=== PATIENT | male | born 1960 | race Caucasian/White ===

== ENCOUNTER → 2020-07-06 08:59 | Outpatient (BNVA) | payer OTHER, SELFPAY | PROVIDERS: PCP Internal Medicine; Visit Provider Surgery | DX: K59.00 Constipation, unspecified (principal) | CPT/HCPCS: 99213 ==

== ENCOUNTER → 2020-07-06 14:51 | Outpatient (BNVA) | payer OTHER, SELFPAY | PROVIDERS: PCP Internal Medicine; Referring Provider Internal Medicine; Visit Provider Surgery | DX: Z86.010 Personal history of colon polyps (principal) | CPT/HCPCS: 99203 ==

== ENCOUNTER 2020-07-25 07:12 | Day surgery (SDC) | payer OTHER, SELFPAY ==
[2020-07-19 20:35] VITALS: BMI 37.4
--- NOTE | 2020-07-24 08:43 | P.CONAN_ITS ---
Documented by User: Mariam Jain 07/24/20 08:44 HPI - Anesthesia Eval Consult details Narrative: 60yo M for colonoscopy [facility] Past Medical History Medical History Arthritis Back pain Depression Diabetes mellitus GERD (gastroesophageal reflux disease) History of colonic polyps Hyperlipidemia Morbid obesity Seizure disorder Surgical History Surgical History History of colonoscopy History of excision of mass (~2015) Social History Social History Smoking Status: Never smoker Use of substances other than those prescribed or required for medical reasons: No Advance Directives: Yes Advance Directives Information Provided: No Advance Directives on File: No Advance Directives Date on File: 07/19/20 Meds Allergies Allergy/AdvReac Type Severity Reaction Status Date / Time No Known Allergies Allergy Verified 07/19/20 20:56 [No Known Allergies*] Home Medications Medication Instructions Recorded Confirmed Type aspirin 81 mg tablet,delayed 81 mg PO DAILY 07/06/20 07/19/20 History release blood sugar diagnostic #10 ea 07/06/20 07/19/20 History citalopram 20 mg tablet 20 mg PO DAILY 07/06/20 07/19/20 History insulin glargine 100 unit/mL (3 33 unit SUBCUT BEDTIME 07/06/20 07/19/20 History mL) subcutaneous pen lancets 28 gauge #100 ea 07/06/20 07/19/20 History levetiracetam 1,000 mg tablet 1,500 mg PO BID 07/06/20 07/19/20 History melatonin 3 mg tablet 6 mg PO BEDTIME PRN 07/06/20 07/19/20 History omeprazole 20 mg capsule,delayed 20 mg PO QAM 07/06/20 07/19/20 History release pen needle, diabetic 31 gauge x #50 ea 07/06/20 07/19/20 History 3/16 simvastatin 40 mg tablet 40 mg PO BEDTIME 07/06/20 07/19/20 History trazodone 150 mg tablet 150 mg PO BEDTIME PRN 07/06/20 07/19/20 History Exam Exam Date and Time: July 24, 2020 0843 Height,Weight and Vital Signs: Height 5 ft 5 in Weight 102.058 kg Pertinent Lab Results Pertinent Lab Results: Laboratory Tests 04/18/20 04/18/20 10:05 10:05 WBC 7.4 Hgb 12.8 L Hct 40.8 L Plt Count 207 Sodium 141 Potassium 4.6 Chloride 109 H BUN 19 H Creatinine 0.72 Assessment and Plan Assessment Anesthesia Assessment: Chart Reviewed Documented by User: Jennifer Koch 07/25/20 07:59 PMFSH Past Medical History Medical History Arthritis Back pain Depression Diabetes mellitus GERD (gastroesophageal reflux disease) History of colonic polyps Hyperlipidemia Morbid obesity Seizure disorder Surgical History Surgical History History of colonoscopy History of excision of mass (~2015) Social History Social History Smoking Status: Never smoker Use of substances other than those prescribed or required for medical reasons: No Advance Directives: Yes Advance Directives Information Provided: No Advance Directives on File: No Advance Directives Date on File: 07/19/20 Meds Allergies Allergy/AdvReac Type Severity Reaction Status Date / Time No Known Allergies Allergy Verified 07/19/20 20:56 [No Known Allergies*] Home Medications Medication Instructions Recorded Confirmed Type aspirin 81 mg tablet,delayed 81 mg PO DAILY 07/06/20 07/19/20 History release blood sugar diagnostic #10 ea 07/06/20 07/19/20 History citalopram 20 mg tablet 20 mg PO DAILY 07/06/20 07/19/20 History insulin glargine 100 unit/mL (3 33 unit SUBCUT BEDTIME 07/06/20 07/19/20 History mL) subcutaneous pen lancets 28 gauge #100 ea 07/06/20 07/19/20 History levetiracetam 1,000 mg tablet 1,500 mg PO BID 07/06/20 07/19/20 History melatonin 3 mg tablet 6 mg PO BEDTIME PRN 07/06/20 07/19/20 History omeprazole 20 mg capsule,delayed 20 mg PO QAM 07/06/20 07/19/20 History release pen needle, diabetic 31 gauge x #50 ea 07/06/20 07/19/20 History 3/16 simvastatin 40 mg tablet 40 mg PO BEDTIME 07/06/20 07/19/20 History trazodone 150 mg tablet 150 mg PO BEDTIME PRN 07/06/20 07/19/20 History
[2020-07-25 07:58] VITALS: BP 172/89; PULSE 89; RESP 18; TEMP 36.4; O2SAT 97
--- NOTE | 2020-07-25 08:00 | HO.ANESPROP2 ---
COUNT INCLUDES THE [facility] Past Medical History Medical History Arthritis Back pain Depression Diabetes mellitus GERD (gastroesophageal reflux disease) History of colonic polyps Hyperlipidemia Morbid obesity Seizure disorder Surgical History Surgical History History of colonoscopy History of excision of mass (~2016) Social History Social History Smoking Status: Never smoker Use of substances other than those prescribed or required for medical reasons: No Advance Directives: Yes Advance Directives Information Provided: No Advance Directives on File: No Advance Directives Date on File: 07/19/20 Meds Allergies Allergy/AdvReac Type Severity Reaction Status Date / Time No Known Allergies Allergy Verified 07/19/20 20:56 [No Known Allergies*] Home Medications Medication Instructions Recorded Confirmed Type aspirin 81 mg tablet,delayed 81 mg PO DAILY 07/06/20 07/19/20 History release blood sugar diagnostic #10 ea 07/06/20 07/19/20 History citalopram 20 mg tablet 20 mg PO DAILY 07/06/20 07/19/20 History insulin glargine 100 unit/mL (3 33 unit SUBCUT BEDTIME 07/06/20 07/19/20 History mL) subcutaneous pen lancets 28 gauge #100 ea 07/06/20 07/19/20 History levetiracetam 1,000 mg tablet 1,500 mg PO BID 07/06/20 07/19/20 History melatonin 3 mg tablet 6 mg PO BEDTIME PRN 07/06/20 07/19/20 History omeprazole 20 mg capsule,delayed 20 mg PO QAM 07/06/20 07/19/20 History release pen needle, diabetic 31 gauge x #50 ea 07/06/20 07/19/20 History 3/16 simvastatin 40 mg tablet 40 mg PO BEDTIME 07/06/20 07/19/20 History trazodone 150 mg tablet 150 mg PO BEDTIME PRN 07/06/20 07/19/20 History Exam Exam Date and Time: July 25, 2020 0800 Height,Weight and Vital Signs: Height 5 ft 5 in Weight 102.058 kg Airway Mallampati Class: II TM Dist: >3cm Neck ROM: Full Assessment and Plan Assessment Anesthesia Assessment: Anesthesia Plan Discussed and Chart Reviewed Final Anesthetic Review NPO: Yes ASA Class: III Final Preanesthetic Review: No Changes in Pt Med Stat, Meds/Allgs Chart Reviewed, Consent Obtained/Reviewed and Anes Risks/Benef Reviewed Patient Risk: Intermediate Procedure Risk: Low Assessment/Block/Sedation in SS: Assess/Block/Sedation-SS Anesthetic Plan Anesthetic Plan: MAC: Disposition: Standard PACU
[2020-07-25] MEDS: Lactated Ringers 1,000 ML 100 ML IVCONT (08:08)
--- NOTE | 2020-07-25 08:13 | MHC.SHP ---
Pre-Procedural Eval Section B Chief Complaint: Hx of Colonic Polyps Allergies: Allergies Allergy/AdvReac Type Severity Reaction Status Date / Time No Known Allergies Allergy Verified 07/19/20 20:56 [No Known Allergies*] Plan Patient has been examined and remains a candidate for the planned procedure
[2020-07-25 08:14] LABS: Glucose, Whole Blood 126 mg/dL (60-115)
[2020-07-25 08:50] VITALS: BP 104/55; PULSE 89; RESP 16; TEMP 36.1; O2SAT 95
--- NOTE | 2020-07-25 08:50 | PM.OP ---
Brief Operative Note Date of procedure: 07/25/20 Pre-op diagnosis: hx of adenoma, screening Post-op diagnosis: other (small polyp;;level 60 cm) Procedure: colonoscopy, polpectomy x1 with forceps, biopsy of right colon mucosa Surgeon: Joey Spencer MD Anesthesia: MAC Estimated blood loss (mL): 0 Pathology: other (biopsy of right colon; polyp) Condition: stable Disposition: PACU
[2020-07-25 08:55] VITALS: BP 127/73; PULSE 96; RESP 17; O2SAT 93
[2020-07-25 09:04] VITALS: BP 143/82; PULSE 83; RESP 17; O2SAT 95
--- NOTE | 2020-07-25 09:25 | HO.POSTANES ---
Post Anesthesia Evaluation Post Anesthesia Evaluation Vital Signs: Vital Signs Temp Pulse Resp BP Pulse Ox 07/25/20 09:04 97.0 F 83 17 143/82 H 95 07/25/20 08:55 96 17 127/73 93 07/25/20 08:50 97.0 F 89 16 104/55 L 95 07/25/20 07:58 97.6 F 89 18 172/89 H 97 Anesthesia: Monitored Mental Status: Awake Pain Control: Satisfactory Nausea/Vomiting: None Hydration: Adequate Anesthesia-Related Issues: No Anes. Related Issues
--- NOTE | 2020-07-25 12:02 | PC.NURSE ---
INTERPRETTOR USED FOR INSTRUCTIONS
--- NOTE | 2020-07-26 16:50 | OP_ITS ---
SURGEON: Joey Spencer MD INDICATIONS: The patient is a 60-year-old male, who previously had colonoscopy showing adenomas. He was recommended to have another colonoscopy within 5 years seen after 2015. He understood the technique of colonoscopy and he is aware of the risks, benefits, and alternatives. PREOPERATIVE DIAGNOSIS: Colon cancer screening with history of adenomas. POSTOPERATIVE DIAGNOSIS: 1. Mild cobblestoning of the right colon. 2. Small polyp about 5 mm at level 60 cm. PROCEDURE PERFORMED: Colonoscopy with biopsy of the colonic mucosa using cold forceps, and polypectomy using cold biopsy forceps x1. ESTIMATED BLOOD LOSS: COMPLICATIONS: ANESTHESIA: ASSISTANTS: SPECIMENS: DESCRIPTION OF PROCEDURE: He was brought to the operating room, placed in left lateral decubitus position under monitored anesthesia care. A full digital rectal exam was done. There were no palpable anal canal lesions. The tip of the Olympus colonoscope was introduced gently through the anal orifice and advanced with insufflation all the way to the cecum. The cecum was intubated. The cecum identified by visualization of the cecal valve as well as appendiceal orifice. The cecal mucosa was unremarkable. The scope was gradually withdrawn with careful examination of the entire colonic mucosa being done with scope withdrawal. The patient had some thin watered stools periodically in some segments, so we had to copiously irrigate and suction out. It was unlikely that any lesion might have been missed, however. There was note of some mild cobblestoning of the right colon which was diffuse and noncontiguous. Random biopsies of this mucosa were therefore done and was sent as specimen. The patient did not have any symptoms of inflammatory bowel disease. We continued to withdraw the scope with careful examination. At the level of about 60 cm, there was note of a small polyp relatively flat about 5 mm and it was removed using multiple bites of cold forceps. The rest of the distal colon and rectum were unremarkable. The anal canal was unremarkable. The scope was then withdrawn completely with de-sufflation. The patient tolerated the procedure well. There were no complications noted. Depending on the path report, I will probably recommend another colonoscopy in 5 years. MD MAGDA Ndiaye/TIERRA / [id number]
--- NOTE | 2020-07-26 21:15 | OP_ITS ---
SURGEON: Joey Spencer MD INDICATIONS: The patient is a 60-year-old male with history of tubular adenoma. It was recommended for him to have another colonoscopy in 5 years from his last one, so was sent to me. He understood technique of colonoscopy. He is aware of the risks, benefits, and alternatives. PREOPERATIVE DIAGNOSIS: History of adenoma, for colon cancer screening. POSTOPERATIVE DIAGNOSIS: 1. Some abnormal mucosa of the right colon. 2. Small polyp about 5 mm at the level 60 cm. PROCEDURE PERFORMED: Colonoscopy with biopsy of the right colon using forceps and polypectomy x1 using cold forceps. ESTIMATED BLOOD LOSS: COMPLICATIONS: ANESTHESIA: ASSISTANTS: SPECIMENS: DESCRIPTION OF PROCEDURE: He was brought to the operating room, placed in left lateral decubitus position under monitored anesthesia care. A full digital rectal exam was done. There were no palpable anal canal lesions. The tip of the Olympus colonoscope was introduced gently into the anal orifice and advanced with insufflation to the cecum. The cecum was intubated. The cecum was identified by visualization of the ileocecal valve as well as the appendiceal orifice. The cecal mucosa was unremarkable. The scope was gradually withdrawn with careful examination of the entire colonic mucosa being done with scope withdrawal. The patient did have some segments of the colon with some thin watered stools, so we had to frequently irrigate and suction out the irrigant fluid. It was, however, unlikely that any large lesion may have been missed. There was note of some mild cobblestoning of the right colon, which was not contiguous. Random biopsies of the right colon on the cobblestoning mucosa were therefore done with cold forceps. It was noted that the patient does not have any history of inflammatory bowel disease. There was note of a small polyp about 2 to 3 mm at about level of 60 cm. This was removed using multiple bites of cold forceps. The rest of the distal colon and rectum were unremarkable. The anal canal was unremarkable. The scope was then withdrawn completely with de-sufflation. The patient tolerated the procedure well. There were no complications noted. Depending on the path report, I will probably recommend another colonoscopy in the next 5 years. MD MAGDA Ndiaye/MODL / [id number]
== END 2020-07-25 10:00 | disposition home or self-care (01) ==
PROVIDERS: PCP Internal Medicine; Visit Provider Surgery
PROC: 0DJD8ZZ Inspection of Lower Intestinal Tract, Via Natural or Artificial Opening Endoscopic (ICD-10-PCS; CPT 45378; principal; 2020-07-25 08:30)
DX: Z12.11 Encounter for screening for malignant neoplasm of colon (principal); Z86.010 Personal history of colon polyps; D12.4 Benign neoplasm of descending colon; K63.89 Other specified diseases of intestine; K21.9 Gastro-esophageal reflux disease without esophagitis; G40.909 Epilepsy, unspecified, not intractable, without status epilepticus; E11.9 Type 2 diabetes mellitus without complications; Z79.82 Long term (current) use of aspirin; Z79.4 Long term (current) use of insulin; Z79.899 Other long term (current) drug therapy
CPT/HCPCS: 45380; 82947; 88305; J2405; J3010

== ENCOUNTER → 2020-08-07 08:59 | Outpatient (BNVA) | payer OTHER, SELFPAY | PROVIDERS: PCP Internal Medicine; Referring Provider Internal Medicine; Visit Provider Surgery | DX: D12.6 Benign neoplasm of colon, unspecified (principal); Z98.890 Other specified postprocedural states | CPT/HCPCS: 99212 ==

== ENCOUNTER 2020-08-08 09:32 | Outpatient (REF) | payer OTHER, SELFPAY ==
[2020-08-08 10:39] LABS: MANUAL DIFF FLAG NO
[2020-08-08 10:49] LABS: Basophils Percent Auto 0.3 % (0-2); Eosinophils Absolute Auto 0.1 X10*3/uL (0.0-0.4); Eosinophils Percent Auto 2.1 % (0-4); Hematocrit 41.3 % (42-52); Hemoglobin 12.7 g/dl (14.0-18.0); Imm Gran Abs Auto 0.05 X10*3/uL (0.00-0.03); Imm Gran Pct Auto 0.8 % (0.0-0.4); Lymphocytes Absolute Auto 1.5 X10*3/uL (1.2-4.9); Lymphocytes Percent Auto 23.5 % (20-40); Mean Corpuscular HGB Conc 30.8 g/dl (31.0-36.0); Mean Corpuscular Hemoglobin 26.3 pg (27.0-33.0); Mean Corpuscular Volume 85.7 fL (80-98); Mean Platelet Volume 10.5 fL (9.4-12.4); Monocytes Absolute Auto 0.5 X10*3/uL (0.1-1.2); Monocytes Percent Auto 8.4 % (2-11); Neutrophils Percent Auto 64.9 % (45-73); Platelet Count 202 X10*3/uL (160-400); Red Blood Count 4.82 X10*6/uL (4.60-5.80); Red Cell Distribution Width 13.6 % (11.0-16.0); White Blood Count 6.2 X10*3/uL (4.8-10.8)
[2020-08-08 10:54] LABS: Glucose Urine UA NEG (NEG); Leukocyte Esterase Urine NEG (NEG); Nitrite Urine NEG (NEG); Urine Blood NEG (NEG); Urine Ketones NEG (NEG); Urine Protein NEG (NEG-TRACE)
[2020-08-08 10:57] LABS: Appearance Urine CLEAR; Color Urine YELLOW
[2020-08-08 11:04] LABS: Estimated Average Glucose 123 mg/dL; Hemoglobin A1c % 5.9 %
[2020-08-08 11:10] LABS: Alanine Aminotransferase 14 U/L (0-40); Albumin Level 4.4 g/dL (3.5-5.0); Alkaline Phosphatase 84 U/L (39-117); Anion Gap 13 (12-20); Aspartate Amino Transferase 14 U/L (5-37); Bilirubin Total 0.5 mg/dL (0.0-1.0); Blood Urea Nitrogen 19 mg/dL (9-16); Calcium 9.3 mg/dL (8.4-10.2); Carbon Dioxide 27 mmol/L (22-29); Chloride 107 mmol/L (96-108); Cholesterol 130 mg/dL; Estimated Glomerular Filt Rate > 60; Glucose Fasting 114 mg/dL (60-99); HDL Cholesterol 50 mg/dL; LDL Cholesterol Calculated 60 mg/dl; Potassium 4.5 mmol/l (3.3-5.1); Sodium 142 mmol/L (135-145); Triglycerides 100 mg/dL
[2020-08-08 11:26] LABS: Amorphous Sediment Urine 1+ /LPF; RBC Urine 0 /HPF (0); WBC Urine 0 /HPF (0-4)
[2020-08-08 11:30] LABS: TSH reflex Free T4 1.66 mIU/mL (0.32-4.0)
[2020-08-08 11:45] LABS: Folate 5.7 ng/mL (> or = 4.0); Vitamin B12 909 pg/mL (200-900)
[2020-08-08 11:50] LABS: Creatinine Urine 73.38 mg/dL; Microalbumin Urine < 5.0 mg/L
[2020-08-12 11:56] LABS: Levetiracetam Keppra 17.4 mcg/mL (12.0-46.0)
== END 2020-08-08 09:33 | disposition home or self-care (01) ==
LOC: HO.LAB 09:32
PROVIDERS: PCP Internal Medicine; Visit Provider Internal Medicine
DX: Z00.00 Encounter for general adult medical examination without abnormal findings (principal); E11.9 Type 2 diabetes mellitus without complications; E78.00 Pure hypercholesterolemia, unspecified; E53.8 Deficiency of other specified B group vitamins; Q85.00 Neurofibromatosis, unspecified; K21.9 Gastro-esophageal reflux disease without esophagitis; G40.909 Epilepsy, unspecified, not intractable, without status epilepticus; E66.9 Obesity, unspecified
CPT/HCPCS: 36415; 80053; 80061; 80177; 81001; 82043; 82607; 82746; 83036; 84443; 85025

== ENCOUNTER 2020-08-12 11:47 | Emergency (ER) | payer OTHER, SELFPAY ==
--- NOTE | 2020-08-12 11:57 | ECG_ITS ---
Test Reason : SOB Blood Pressure : / mmHG Vent. Rate : 080 BPM Atrial Rate : 080 BPM P-R Int : 168 ms QRS Dur : 086 ms QT Int : 372 ms P-R-T Axes : 032 -41 022 degrees QTc Int : 429 ms Normal sinus rhythm Left axis deviation Abnormal ECG When compared with ECG of 16-DEC-2019 19:09, T wave amplitude has decreased in Anterior leads Referred By: Generic ED Physician Electronically Signed By:JUANI ACOSTA MD
[2020-08-12 12:15] VITALS: BP 153/64; PULSE 78; RESP 17; TEMP 36.6; O2SAT 96; BMI 38.6
[2020-08-12 12:40] VITALS: BP 129/65; PULSE 75; RESP 17; TEMP 36.9
--- NOTE | 2020-08-12 12:48 | XR_ITS ---
EXAMINATION: XR CHEST CLINICAL INFORMATION: Chest pain COMPARISON: Previous chest x-ray November 2019 TECHNIQUE: Frontal view of the chest was obtained. FINDINGS: No significant abnormality is noted involving the heart, lungs, mediastinum, bony thorax or soft tissues. XR/XR chest 1V IMPRESSION: Unremarkable examination.
--- NOTE | 2020-08-12 12:55 | ED_ITS ---
HPI - Chest Pain General Chief Complaint: Chest Pain Stated Complaint: Chest Pain Time Seen by Provider: 08/12/20 12:48 Source: patient Mode of arrival: ambulatory Limitations: no limitations History of Present Illness HPI narrative: THIS IS A [age] YEARS OLD MALE PRESENTED AMBULATORY TO THE EMERGENCY DEPARTMENT COMPLAINING OF PALPITATION AND CHEST DISCOMFORT FOR ABOUT A WEEK. PAIN IS NOT EXERTIONAL THERE IS NO DIAPHORESIS AND NO SHORTNESS OF BREATH ASSOCIATED. HE HAS HISTORY OF HYPERTENSION AND DIABETES HE IS NONSMOKER MD complaint: other Onset (ago): week(s) (ONE WEEK AGO) Timing of current episode: episodic Onset: during rest Quality: aching Relieving factors: nothing Risk Factors Coronary artery disease risk factors: diabetes and hypertension Related Data Home Medications Medication Instructions Recorded Confirmed aspirin 81 mg tablet,delayed 81 mg PO DAILY 07/06/20 07/19/20 release blood sugar diagnostic #10 ea 07/06/20 07/19/20 citalopram 20 mg tablet 20 mg PO DAILY 07/06/20 07/19/20 insulin glargine 100 unit/mL (3 33 unit SUBCUT BEDTIME 07/06/20 07/19/20 mL) subcutaneous pen lancets 28 gauge #100 ea 07/06/20 07/19/20 levetiracetam 1,000 mg tablet 1,500 mg PO BID 07/06/20 07/19/20 melatonin 3 mg tablet 6 mg PO BEDTIME PRN 07/06/20 07/19/20 omeprazole 20 mg capsule,delayed 20 mg PO QAM 07/06/20 07/19/20 release pen needle, diabetic 31 gauge x #50 ea 07/06/20 07/19/20 3/16 simvastatin 40 mg tablet 40 mg PO BEDTIME 07/06/20 07/19/20 trazodone 150 mg tablet 150 mg PO BEDTIME PRN 07/06/20 07/19/20 Previous Rx's Medication Instructions Recorded metformin 500 mg tablet 1,000 mg PO BID 30 Days #120 tab 06/30/20 sodium,potassium,mag sulfates 17.5 See Rx Instructions PO .COMPLEX 07/06/20 gram-3.13 gram-1.6 gram oral soln #354 ml sodium,potassium,mag sulfates 17.5 See Rx Instructions PO .COMPLEX 07/18/20 gram-3.13 gram-1.6 gram oral soln #354 ml Allergies Allergy/AdvReac Type Severity Reaction Status Date / Time No Known Allergies Allergy Verified 08/07/20 09:10 [No Known Allergies*] Review of Systems Review of Systems: Yes all other systems are reviewed and are negative Cardiovascular: Cardiovascular: Reports other (PALPITATIONS) Respiratory: Respiratory: Reports no additional respiratory complaints, Denies cough, Denies hemoptysis, Denies excessive phlegm production, Denies pain on inspiration and Denies pain with cough Neurologic: Reports system reviewed and no additional complaints, except as documented PMFSH Past Medical History Medical History Arthritis Back pain Depression Diabetes 1.5, managed as type 1 Diabetes mellitus GERD (gastroesophageal reflux disease) History of colonic polyps Hyperlipidemia Morbid obesity Seizure disorder Tubular adenoma Surgical History History of colonoscopy History of excision of mass (~2015) Social History Social History Alcohol intake: never Smoking Status: Never smoker Smoked in Last 30 Days: No Use of substances other than those prescribed or required for medical reasons: No Advance Directives: Yes Advance Directives on File: Yes Advance Directives Date on File: 07/19/20 Physical Exam Vital Signs: Vital Signs: Last Vital Signs Temp 97.9 F 08/12/20 16:00 Pulse 68 08/12/20 16:00 Resp 14 08/12/20 16:00 BP 141/62 H 08/12/20 16:00 Pulse Ox 96 08/12/20 16:00 Body Mass Index 38.6 Const: Other: PATIENT APPEAR WELL IS NOT IN DISTRESS HIS VITAL SIGNS ARE STABLE HENMT: Head: Yes normal to inspection Face and sinus: Yes normal facial exam Neck: Neck: Yes normal visual inspection, Yes full ROM, Yes no lymphadenopathy, Yes no meningeal signs and Yes trachea midline Chest: Chest palpation & inspection: normal inspection of the chest Resp: Effort & Inspection: normal respiratory effort and able to speak in complete sentences Cardio: Jugular venous distension: no JVD Palpation: normal PMI Rate: regular rate Rhythm: regular rhythm GI: Inspection: Yes normal to inspection Skin: Lesions: no lesions Rashes: no rashes Neuro: General: no meningeal signs Course Course Course Narrative: PATIENT REMAINS STABLE HIS INITIAL TROPONIN IS NEGATIVE ; HIS SYMPTOMS HAVE BEEN GOING ON FOR A WEEK, I THINK IT IS REASONABLE TO REPEAT ANOTHER TROPONIN AT 03:00 HOURS AND IF NEGATIVE WE COULD DISCHARGE THE PATIENT HOME WITH FOLLOW-UP WITH PCP Reevaluation(s) Reevaluation #1: PATIENT REMAIN ASYMPTOMATIC AT THIS TIME WE ARE WAITING FOR THE REPEAT TROPONIN Time: 16:40 [facility] - Chest Pain Lab Data Result diagrams: 08/12/20 12:53 08/12/20 12:53 Labs: Lab Results 08/12/20 08/12/20 08/12/20 Range/Units 12:53 12:53 12:53 WBC 6.9 (4.8-10.8) X10*3/uL RBC 4.65 (4.60-5.80) X10*6/uL Hgb 12.5 L (14.0-18.0) g/dl Hct 39.2 L (42-52) % MCV 84.3 (80-98) fL MCH 26.9 L (27.0-33.0) pg MCHC 31.9 (31.0-36.0) g/dl RDW 13.4 (11.0-16.0) % Plt Count 194 (160-400) X10*3/uL MPV 10.6 (9.4-12.4) fL Immature Gran % (Auto) 0.4 (0.0-0.4) % Neut % (Auto) 69.1 (45-73) % Lymph % (Auto) 21.9 (20-40) % [place] % (Auto) 6.6 (2-11) % Eos % (Auto) 1.6 (0-4) % Baso % (Auto) 0.4 (0-2) % Lymph # (Auto) 1.5 (1.2-4.9) X10*3/uL [place] # (Auto) 0.5 (0.1-1.2) X10*3/uL Eos # (Auto) 0.1 (0.0-0.4) X10*3/uL Baso # (Auto) 0.0 (0.0-0.2) X10*3/uL Abs Immat Gran (auto) 0.03 (0.00-0.03) X10*3/uL Absolute Neuts (auto) 4.7 (2.0-8.3) X10*3/uL Absolute Nucleated RBC 0.000 (0.0-0.012) X10*3/uL Nucleated RBC % (auto) 0.0 (0.0-0.2) /100WBC PT (10.8-13.0) SEC INR (0.9-1.1) Sodium 138 (135-145) mmol/L Potassium 4.0 (3.3-5.1) mmol/l Chloride 105 (96-108) mmol/L Carbon Dioxide 25 (22-29) mmol/L Anion Gap 12 (12-20) BUN 20 H (9-16) mg/dL Creatinine 0.74 (0.5-1.4) mg/dL Estim Creat Clear Calc 117.4 Estimated GFR > 60 Random Glucose 93 (60-115) mg/dL Calcium 9.0 (8.4-10.2) mg/dL Total Bilirubin 0.5 (0.0-1.0) mg/dL AST 14 (5-37) U/L ALT 15 (0-40) U/L Alkaline Phosphatase 85 (39-117) U/L Troponin I High Sens < 3.5 (<3.5-35.0) ng/L Total Protein 7.0 (6.5-8.0) g/dL Albumin 4.3 (3.5-5.0) g/dL 08/12/20 08/12/20 Range/Units 13:46 15:56 WBC (4.8-10.8) X10*3/uL RBC (4.60-5.80) X10*6/uL Hgb (14.0-18.0) g/dl Hct (42-52) % MCV (80-98) fL MCH (27.0-33.0) pg MCHC (31.0-36.0) g/dl RDW (11.0-16.0) % Plt Count (160-400) X10*3/uL MPV (9.4-12.4) fL Immature Gran % (Auto) (0.0-0.4) % Neut % (Auto) (45-73) % Lymph % (Auto) (20-40) % [place] % (Auto) (2-11) % Eos % (Auto) (0-4) % Baso % (Auto) (0-2) % Lymph # (Auto) (1.2-4.9) X10*3/uL [place] # (Auto) (0.1-1.2) X10*3/uL Eos # (Auto) (0.0-0.4) X10*3/uL Baso # (Auto) (0.0-0.2) X10*3/uL Abs Immat Gran (auto) (0.00-0.03) X10*3/uL Absolute Neuts (auto) (2.0-8.3) X10*3/uL Absolute Nucleated RBC (0.0-0.012) X10*3/uL Nucleated RBC % (auto) (0.0-0.2) /100WBC PT 12.4 (10.8-13.0) SEC INR 1.0 (0.9-1.1) Sodium (135-145) mmol/L Potassium (3.3-5.1) mmol/l Chloride (96-108) mmol/L Carbon Dioxide (22-29) mmol/L Anion Gap (12-20) BUN (9-16) mg/dL Creatinine (0.5-1.4) mg/dL Estim Creat Clear Calc Estimated GFR Random Glucose (60-115) mg/dL Calcium (8.4-10.2) mg/dL Total Bilirubin (0.0-1.0) mg/dL AST (5-37) U/L ALT (0-40) U/L Alkaline Phosphatase (39-117) U/L Troponin I High Sens < 3.5 (<3.5-35.0) ng/L Total Protein (6.5-8.0) g/dL Albumin (3.5-5.0) g/dL ECG Data ECG #1: Attestation: I personally reviewed and interpreted this ECG as follows: ECG interpretation date: 08/12/20 ECG interpretation time: 13:00 Pacemaker model: NORMAL SINUS RHYTHM ;RATE 80; NORMAL INTERVALS; ST-T SEGMENT ISOELECTRIC Discharge Plan Discharge Clinical Impression: Heart palpitations Patient Disposition: Home, Self-Care Instructions: Heart Palpitations (ED) Additional Instructions: PLEASE FOLLOW-UP WITH YOUR PRIMARY CARE PHYSICIAN RETURN IF WORSE, IF YOU BREAK- UP IN HIS SWEATH, ANY CONCERN Prescriptions: No Action metformin 500 mg tablet 1,000 mg PO BID 30 Days Qty: 120 RF: 3 Suprep Bowel Prep Kit 17.5-3.13-1.6 gram recon soln See Rx Instructions PO .COMPLEX Qty: 354 RF: 0 melatonin 3 mg tablet 6 mg PO BEDTIME PRN (Reason: insomnia) RF: 0 trazodone 150 mg tablet 150 mg PO BEDTIME PRN (Reason: Insomnia) RF: 0 citalopram 20 mg tablet 20 mg PO DAILY RF: 0 omeprazole 20 mg capsule,delayed release(DR/EC) 20 mg PO QAM RF: 0 simvastatin 40 mg tablet 40 mg PO BEDTIME RF: 0 Lantus Solostar U-100 Insulin 100 unit/mL (3 mL) insulin pen 33 unit subcut BEDTIME RF: 0 aspirin 81 mg tablet,delayed release (DR/EC) 81 mg PO DAILY RF: 0 (DME) lancets 28 gauge misc See Rx Instructions ea topical DIRECTED Qty: 100 RF: 0 (DME) FreeStyle Lite Strips Strip See Rx Instructions ea Not Applicable DAILY Qty: 10 RF: 0 (DME) pen needle, diabetic 31 gauge x 3/16 needle See Rx Instructions ea subcut .MEDSUPPLY Qty: 50 RF: 0 levetiracetam [Keppra] 1,000 mg tablet 1,500 mg PO BID RF: 0 Suprep Bowel Prep Kit 17.5-3.13-1.6 gram recon soln See Rx Instructions PO .COMPLEX Qty: 354 RF: 0 Referrals: Xavi Mart MD [Primary Care Provider] - 2 days Interventions: ED Discharge Assessment Last Done: 08/12/20 16:51 Discharge Date/Time: 08/12/20 16:53
[2020-08-12 12:59] LABS: MANUAL DIFF FLAG NO
[2020-08-12 13:04] LABS: Basophils Percent Auto 0.4 % (0-2); Eosinophils Absolute Auto 0.1 X10*3/uL (0.0-0.4); Eosinophils Percent Auto 1.6 % (0-4); Hematocrit 39.2 % (42-52); Hemoglobin 12.5 g/dl (14.0-18.0); Imm Gran Abs Auto 0.03 X10*3/uL (0.00-0.03); Imm Gran Pct Auto 0.4 % (0.0-0.4); Lymphocytes Absolute Auto 1.5 X10*3/uL (1.2-4.9); Lymphocytes Percent Auto 21.9 % (20-40); Mean Corpuscular HGB Conc 31.9 g/dl (31.0-36.0); Mean Corpuscular Hemoglobin 26.9 pg (27.0-33.0); Mean Corpuscular Volume 84.3 fL (80-98); Mean Platelet Volume 10.6 fL (9.4-12.4); Monocytes Absolute Auto 0.5 X10*3/uL (0.1-1.2); Monocytes Percent Auto 6.6 % (2-11); Neutrophils Absolute Auto 4.7 X10*3/uL (2.0-8.3); Neutrophils Percent Auto 69.1 % (45-73); Platelet Count 194 X10*3/uL (160-400); Red Blood Count 4.65 X10*6/uL (4.60-5.80); Red Cell Distribution Width 13.4 % (11.0-16.0); White Blood Count 6.9 X10*3/uL (4.8-10.8)
[2020-08-12 13:24] LABS: Alanine Aminotransferase 15 U/L (0-40); Albumin Level 4.3 g/dL (3.5-5.0); Alkaline Phosphatase 85 U/L (39-117); Anion Gap 12 (12-20); Aspartate Amino Transferase 14 U/L (5-37); Bilirubin Total 0.5 mg/dL (0.0-1.0); Blood Urea Nitrogen 20 mg/dL (9-16); Carbon Dioxide 25 mmol/L (22-29); Chloride 105 mmol/L (96-108); Creatinine Clr Calc Pharmacy 117.4; Estimated Glomerular Filt Rate > 60; Glucose Random 93 mg/dL (60-115); Sodium 138 mmol/L (135-145)
[2020-08-12 13:46] LABS: Troponin-I High Sensitivity < 3.5 ng/L (<3.5-35.0)
[2020-08-12 13:56] LABS: Prothrombin Time 12.4 SEC (10.8-13.0)
[2020-08-12 14:17] VITALS: BP 153/67; PULSE 69; RESP 18; O2SAT 99
[2020-08-12 15:07] VITALS: BP 148/62; PULSE 72; RESP 16; TEMP 36.9; O2SAT 98
[2020-08-12 16:00] VITALS: BP 141/62; PULSE 68; RESP 14; TEMP 36.6; O2SAT 96
[2020-08-12 16:38] LABS: Troponin-I High Sensitivity < 3.5 ng/L (<3.5-35.0)
== END 2020-08-12 16:53 | disposition home or self-care (01) ==
PROVIDERS: Emergency Provider Emergency Medicine; PCP Internal Medicine
DX: R07.9 Chest pain, unspecified (principal); Z79.899 Other long term (current) drug therapy
CPT/HCPCS: 36415; 71045; 80053; 84484; 85025; 85610; 93005; 99283; 99284

== ENCOUNTER → 2020-11-27 08:55 | Outpatient (BNV) | payer OTHER, SELFPAY | PROVIDERS: Visit Provider Internal Medicine | DX: D64.9 Anemia, unspecified (principal) | CPT/HCPCS: 99213; G2211 ==

== ENCOUNTER 2020-11-27 09:56 | Outpatient (REF) | payer OTHER, SELFPAY ==
[2020-11-27 10:40] LABS: MANUAL DIFF FLAG NO
[2020-11-27 10:45] LABS: Glucose Urine UA NEG (NEG); Leukocyte Esterase Urine NEG (NEG); Nitrite Urine NEG (NEG); PH 5.5 (5.0-8.0); Specific Gravity - Urine 1.025 (1.005-1.025); Urine Blood NEG (NEG); Urine Ketones NEG (NEG); Urine Protein NEG (NEG-TRACE)
[2020-11-27 10:49] LABS: Appearance Urine CLEAR; Color Urine YELLOW
[2020-11-27 10:57] LABS: Basophils Percent Auto 0.3 % (0-2); Eosinophils Absolute Auto 0.1 X10*3/uL (0.0-0.4); Eosinophils Percent Auto 1.5 % (0-4); Hemoglobin 12.3 g/dl (14.0-18.0); Imm Gran Abs Auto 0.15 X10*3/uL (0.00-0.03); Imm Gran Pct Auto 1.6 % (0.0-0.4); Lymphocytes Absolute Auto 1.5 X10*3/uL (1.2-4.9); Lymphocytes Percent Auto 16.1 % (20-40); Mean Corpuscular HGB Conc 32.4 g/dl (31.0-36.0); Mean Corpuscular Volume 83.3 fL (80-98); Monocytes Absolute Auto 0.6 X10*3/uL (0.1-1.2); Monocytes Percent Auto 6.6 % (2-11); Neutrophils Percent Auto 73.9 % (45-73); Platelet Count 223 X10*3/uL (160-400); Red Blood Count 4.56 X10*6/uL (4.60-5.80); Red Cell Distribution Width 14.7 % (11.0-16.0); White Blood Count 9.4 X10*3/uL (4.8-10.8)
[2020-11-27 11:20] LABS: Creatinine Urine 169.16 mg/dL; Microalbum/Creatinine Ratio Ur 5.9 ug/mg cr
[2020-11-27 11:21] LABS: Estimated Average Glucose 137 mg/dL; Hemoglobin A1C 150.6513 umol/L; Hemoglobin A1c % 6.4 %
[2020-11-27 11:44] LABS: Cholesterol 135 mg/dL; HDL Cholesterol 48 mg/dL; LDL Cholesterol Calculated 62 mg/dl; Triglycerides 125 mg/dL
[2020-11-27 11:58] LABS: TSH reflex Free T4 2.01 uIU/mL (0.32-4.0)
[2020-11-27 12:15] LABS: Folate 5.7 ng/mL (> or = 4.0); Vitamin B12 775 pg/mL (200-900)
[2020-11-30 16:02] LABS: Levetiracetam Keppra 17.3 mcg/mL (12.0-46.0)
== END 2020-11-27 09:57 | disposition home or self-care (01) ==
LOC: HO.LAB 09:56
PROVIDERS: PCP Internal Medicine; Visit Provider Internal Medicine
DX: K21.9 Gastro-esophageal reflux disease without esophagitis (principal); E53.8 Deficiency of other specified B group vitamins; Q85.00 Neurofibromatosis, unspecified; D64.9 Anemia, unspecified; G40.909 Epilepsy, unspecified, not intractable, without status epilepticus; E78.00 Pure hypercholesterolemia, unspecified; E66.9 Obesity, unspecified; E11.9 Type 2 diabetes mellitus without complications; Z79.4 Long term (current) use of insulin
CPT/HCPCS: 36415; 80061; 80177; 81003; 82043; 82607; 82746; 83036; 84443; 85025

== ENCOUNTER → 2021-01-05 09:10 | Outpatient (REF) | payer OTHER, SELFPAY ==
--- NOTE | ~2021-01-05 | NM_ITS ---
Lexiscan Myocardial perfusion study Indication: Chest pain, assess for coronary disease and ischemia Technique: The patient was brought in for a Lexiscan perfusion study on 01/05/2021 and was injected 0.4 mg of Lexiscan intravenously. Within a minute of this injection 40 mCi of sestamibi was given intravenously. Images were obtained using the SPECT gamma camera interlaced with the gating device. Images were obtained in supine position. Resting perfusion study was performed on 01/09/2021. Patient was administered 40 mCi of sestamibi intravenously at rest. Images were then obtained in supine position. Total DLP 94mGy-cm. Images were processed with the software and compared side to side in short axis, horizontal long axis and vertical long axis views. Findings: Raw acquisition was reviewed. The stress perfusion study showed no significant perfusion abnormality. With CT attenuation correction, there is worse uptake in the distal part of anterior wall, apex and adjacent inferior wall that could be just artifactual. The gated study shows normal LV systolic function with calculated LVEF of > 70%. LV cavity is normal in size. The gated study shows normal wall thickening and contraction of segments. Resting study shows no significant perfusion abnormality. Gating at rest reveals normal wall motion with ejection fraction at > 70%. The findings are consistent with no definitive reversible or fixed perfusion defects. NM/NM cardiolite stress test Impression: 1. Myocardial perfusion imaging study shows likely normal myocardial perfusion. No definitive evidence of any ischemia or infarction. 2. Gated LVEF is > 70% during stress and rest. 3. Transient ischemic dilatation not present. EKG component of the test reported separately.
--- NOTE | 2021-01-05 09:16 | CA_ITS ---
Acquisition Time: 2021-01-05 09:14:17 Total Exercise Time: 00:00:12 Test Indications: Chest Pain Medications: ASA CITALOPRAM KEPPRA INSULIN METFORMIN OMEPRAZOLE SIMVASTATIN TRAZADONE Protocol: GRANT Max HR: 250 BPM 154% of Pred: 162 BPM Max BP: 136/074 mmHG Max Work Load: 1.2 METS Pt unable to walk on the treadmil, able to walk only for 12 sec. Pt never walked on the treadmil before. Denies any anginal sx. Sx of dizziness reversed with Aminophyline 75 Mg IV. EKG without arrhythmias, non-diagnostic for ischemia. Nuclear images to follow. Normotensive response to test. Test stress Supervised by Lisa Cooney NP Referred By: Xavi Mart Overread By: Lisa Cooney NP
[2021-01-05 10:19] LABS: Glucose, Whole Blood 131 mg/dL (60-115)
== END ==
LOC: HO.CARD 09:10
PROVIDERS: Visit Provider Internal Medicine
DX: R07.9 Chest pain, unspecified (principal)
CPT/HCPCS: 78452; 82947; 93016; 93017; 93018; A9500; J0280; J2785

== ENCOUNTER → 2021-01-09 14:01 | Outpatient (BNVA) | payer OTHER, SELFPAY | PROVIDERS: PCP Internal Medicine; Visit Provider Internal Medicine | DX: R07.2 Precordial pain (principal); E11.8 Type 2 diabetes mellitus with unspecified complications; E78.5 Hyperlipidemia, unspecified; E66.01 Morbid (severe) obesity due to excess calories; R94.31 Abnormal electrocardiogram [ECG] [EKG] | CPT/HCPCS: 93005; 99202 ==

== ENCOUNTER → 2021-03-01 13:08 | Outpatient (REF) | payer OTHER, SELFPAY ==
--- NOTE | 2021-03-01 13:11 | CA_ITS ---
Transthoracic Echocardiogram Patient (Last, First, Middle): Wilfred Walker, Gender: Male Date of : 1960 Age: 61 Procedure Date: 03/01/2021 Procedure Type: Transthoracic Echocardiogram Location: OP Height: 165.1 cm Weight: 106.6 kg BSA: 2.12 m2 Heart Rate: bpm BP: 120 / 80 mmHg Assistant Front Office Manager: YR/BRAYDON Referring MD: Isaak Pederson MD Radio Interference Supervisor: Elvin Demarco MD Symptoms: R07.2 - Precordial pain Study Quality: Technically Difficult/contrast ECG Rhythm: Sinus Conclusions: - 1. Normal LV systolic function with mild LVH with impaired relaxation filling pattern with basal inferior inferoseptal wall motion abnormality 2. Normal cardiac valvular Doppler 3. Normal RV systolic pressure 4. No pericardial effusion Findings Procedure Information Contrast agent, definity, is being given per protocol without apparent complications. Left Ventricle Normal left ventricular size and systolic function. There is mildly increased left ventricular wall thickness. The visually estimated ejection fraction is between 55-60%. Spectral Doppler is indicative of an impaired relaxation filling pattern. E/E prime ratio is between 8 and 15 consistent with indeterminate filling pressures. Wall Motion Rest Echo Findings The basal inferior and basal inferoseptal segments are akinetic. All other scored wall segments showed normal motion. Right Ventricle Normal right ventricular cavity size and systolic function. Atria The left atrium is likely dilated. Interatrial shunt cannot be excluded. The right atrium is normal in size. Aortic Valve The aortic valve structure and function is likely normal. There is no aortic valve stenosis. There is no aortic valve regurgitation. Mitral Valve Likely normal mitral valve structure and function. There is trace mitral valve regurgitation. There is no mitral valve stenosis. Pulmonic Valve The pulmonic valve was not well visualized. Tricuspid Valve Likely normal tricuspid valve structure and function. There is trace tricuspid valve regurgitation. The right ventricular systolic pressure is normal. The right ventricular systolic pressure is 20 mmHg. Normal right atrial pressure. Great Vessels All visible segments of the aorta are normal in size. The pulmonary artery was not well visualized. Venous The inferior vena cava is normal in size and collapses greater than 50% with inspiration. Pericardium/Pleural There is no evidence of pericardial effusion. Prior Study Comparison Changes noted compared to prior study dated: 10/07/2017. Basal inferior and inferoseptal wall motion abnormality noted on this study Measurements 2D Linear Measurements IVSd: 1.21 0.6-0.9/0.6-1.0 cm LVIDd: 4.36 3.9-5.3/4.2-5.9 cm LVIDd Index: 2.06 2.4-3.2/2.2-3.1 cm/m2 LVIDs: 3.31 2.0-3.6 cm LVPWd: 1.29 0.7-1.1 cm Ao Root: 3.40 2.1-3.5 cm LA Diam: 3.60 2.7-3.8/3.0-4.0 cm LAIDs Index: 1.70 1.5-2.3 cm/m2 LV Mass: 249.54 67-162/88-224 g LV Mass Index: 117.71 43-95/49-115 g/m2 LVOT Diam: 2.20 3.0+(-)1.3 cm Mitral Valve MV Pk E: 0.76 MV PK A: 0.73 MV Decel Time: 236.00 E/A: 1.00 E'Lateral: 9.14 E'Medial: 7.07 E/E' Med: 10.70 E/E' Lat: 8.30 PHT: 69.00 MVA PHT: 3.19 Decel [place]: 3.21 Aortic Valve AoV Pk Niall: 1.16 AoV Mn Niall: 0.77 AoV VTI: 0.27 AoV Pk Grad: 5.00 Aov Mn Grad: 3.00 CAROLYN Cont.VTI: 2.61 LVOT LVOT Pk Niall: 0.70 LVOT Mn Niall: 0.47 LVOT VTI: 0.19 LVOT Pk Grad: 2.00 LVOT Mn Grad: 1.00 LVOT Diam: 2.20 LVOT Area: 3.80 Diastolic Function MV Pk E: 0.76 MV Pk A: 0.73 E/A: 1.00 E'Medial: 7.07 E/E' Med: 10.70 E' Laterial: 9.14 E/E' Lat: 8.30 Tricuspid Valve TR Pk Niall: 2.04 TR Pk Grad: 17.00 RA Press: 3.00 RVSP: 20.00 Great Vessels Aorta Ao Root-2D: 3.40 2.0-3.7 cm Ao Asc: 3.10 2.1-3.4 cm Ao Arch: 3.10 Updated in Other Vendor System with Status of Final Elvin Demarco MD electronically signed on 03/02/2021 8:30:37 AM with status of Final
== END ==
LOC: HO.CARD 13:08
PROVIDERS: Visit Provider Internal Medicine
DX: R07.2 Precordial pain (principal)
CPT/HCPCS: 93306; Q9957

== ENCOUNTER → 2021-06-13 14:39 | Outpatient (BNVA) | payer OTHER, SELFPAY | PROVIDERS: PCP Internal Medicine; Referring Provider Internal Medicine; Visit Provider Internal Medicine | DX: Q24.5 Malformation of coronary vessels (principal); R07.2 Precordial pain | CPT/HCPCS: 99212 ==

== ENCOUNTER 2021-07-24 09:05 | Outpatient (REF) | payer OTHER, SELFPAY ==
[2021-07-24 09:16] LABS: MANUAL DIFF FLAG NO
[2021-07-24 09:27] LABS: Basophils Absolute Auto 0.1 X10*3/uL (0.0-0.2); Eosinophils Absolute Auto 0.1 X10*3/uL (0.0-0.4); Eosinophils Percent Auto 1.9 % (0-4); Hematocrit 39.4 % (42.0-52.0); Hemoglobin 12.5 g/dl (14.0-18.0); Imm Gran Abs Auto 0.04 X10*3/uL (0.00-0.03); Imm Gran Pct Auto 0.5 % (0.0-0.4); Lymphocytes Absolute Auto 1.5 X10*3/uL (1.2-4.9); Lymphocytes Percent Auto 20.8 % (20-40); Mean Corpuscular HGB Conc 31.7 g/dl (31.0-36.0); Mean Corpuscular Hemoglobin 26.4 pg (27.0-33.0); Mean Corpuscular Volume 83.1 fL (80.0-98.0); Mean Platelet Volume 10.7 fL (9.4-12.4); Monocytes Absolute Auto 0.5 X10*3/uL (0.1-1.2); Neutrophils Absolute Auto 5.04 x10*3/uL (2.0-8.3); Neutrophils Percent Auto 68.8 % (45-73); Platelet Count 211 X10*3/uL (160-400); Red Blood Count 4.74 X10*6/uL (4.60-5.80); Red Cell Distribution Width 14.8 % (11.0-16.0); White Blood Count 7.3 X10*3/uL (4.8-10.8)
[2021-07-24 09:36] LABS: Estimated Average Glucose 128 mg/dL; Hemoglobin A1c % 6.1 %
[2021-07-24 09:53] LABS: Appearance Urine CLEAR; Color Urine YELLOW; Glucose Urine UA NEG (NEG); Leukocyte Esterase Urine NEG (NEG); Nitrite Urine NEG (NEG); PH 7.5 (5.0-8.0); Urine Blood NEG (NEG); Urine Ketones NEG (NEG); Urine Protein NEG (NEG-TRACE)
[2021-07-24 10:02] LABS: Alanine Aminotransferase 14 U/L (0-40); Albumin Level 4.3 g/dL (3.5-5.0); Alkaline Phosphatase 91 U/L (39-117); Anion Gap 12 (12-20); Aspartate Amino Transferase 14 U/L (5-37); Bilirubin Total 0.6 mg/dL (0.0-1.0); Blood Urea Nitrogen 12 mg/dL (9-16); Calcium 9.1 mg/dL (8.4-10.2); Carbon Dioxide 26 mmol/L (22-29); Chloride 108 mmol/L (96-108); Cholesterol 134 mg/dL; Estimated Glomerular Filt Rate > 60; Glucose Fasting 131 mg/dL (60-99); HDL Cholesterol 44 mg/dL; LDL Cholesterol Calculated 66 mg/dl; Potassium 3.9 mmol/L (3.3-5.1); Sodium 142 mmol/L (135-145); Total Protein 6.8 g/dL (6.5-8.0); Triglycerides 121 mg/dL
[2021-07-24 10:22] LABS: TSH reflex Free T4 2.38 uIU/mL (0.32-4.0)
[2021-07-24 10:28] LABS: Creatinine Urine 163.02 mg/dL
== END 2021-07-24 09:06 | disposition home or self-care (01) ==
LOC: HO.LAB 09:05
PROVIDERS: PCP Internal Medicine; Visit Provider Internal Medicine
DX: E53.8 Deficiency of other specified B group vitamins (principal); K21.9 Gastro-esophageal reflux disease without esophagitis; Q85.00 Neurofibromatosis, unspecified; E78.00 Pure hypercholesterolemia, unspecified; E11.9 Type 2 diabetes mellitus without complications; Z79.4 Long term (current) use of insulin; E66.9 Obesity, unspecified
CPT/HCPCS: 36415; 80053; 80061; 81003; 82043; 83036; 84443; 85025

== ENCOUNTER → 2021-10-04 10:47 | Outpatient (REF) | payer OTHER, SELFPAY ==
--- NOTE | 2021-10-04 10:50 | HM_ITS ---
Conclusion: 1. Patient was monitored for total period of 3 days and 1 hour 2. Baseline rhythm was normal sinus rhythm with average heart rate 92 beats per minute 3. No significant pauses or bradycardia noted 4. Total of 2853 PVCs noted accounting for 0.7% of total burden account for occasional PVCs 5. No patient reported symptoms MTDD
== END ==
LOC: HO.CARD 10:47
PROVIDERS: Visit Provider Internal Medicine
DX: Q24.5 Malformation of coronary vessels (principal)
CPT/HCPCS: 93242

== ENCOUNTER → 2021-10-08 10:30 | Outpatient (BNVA) | payer OTHER, SELFPAY | PROVIDERS: PCP Internal Medicine; Referring Provider Internal Medicine; Visit Provider Internal Medicine | DX: R07.2 Precordial pain (principal); Q24.5 Malformation of coronary vessels | CPT/HCPCS: 99212 ==

== ENCOUNTER 2021-11-20 08:30 | Outpatient (REF) | payer OTHER, SELFPAY ==
[2021-11-20 08:54] LABS: MANUAL DIFF FLAG NO
[2021-11-20 09:35] LABS: Basophils Percent Auto 0.6 % (0-2); Eosinophils Absolute Auto 0.2 X10*3/uL (0.0-0.4); Eosinophils Percent Auto 2.4 % (0-4); Hematocrit 38.8 % (42.0-52.0); Hemoglobin 11.9 g/dl (14.0-18.0); Imm Gran Abs Auto 0.04 X10*3/uL (0.00-0.03); Imm Gran Pct Auto 0.6 % (0.0-0.4); Lymphocytes Absolute Auto 1.6 X10*3/uL (1.2-4.9); Mean Corpuscular HGB Conc 30.7 g/dl (31.0-36.0); Mean Corpuscular Hemoglobin 25.9 pg (27.0-33.0); Mean Corpuscular Volume 84.5 fL (80.0-98.0); Mean Platelet Volume 10.7 fL (9.4-12.4); Monocytes Absolute Auto 0.4 X10*3/uL (0.1-1.2); Monocytes Percent Auto 5.7 % (2-11); Neutrophils Absolute Auto 4.5 x10*3/uL (2.0-8.3); Neutrophils Percent Auto 66.7 % (45-73); Platelet Count 226 X10*3/uL (160-400); Red Blood Count 4.59 X10*6/uL (4.60-5.80); Red Cell Distribution Width 14.3 % (11.0-16.0); White Blood Count 6.7 X10*3/uL (4.8-10.8)
[2021-11-20 09:53] LABS: Estimated Average Glucose 131 mg/dL; Hemoglobin A1c % 6.2 %
[2021-11-20 10:11] LABS: Alanine Aminotransferase 14 U/L (0-40); Alkaline Phosphatase 78 U/L (39-117); Anion Gap 12 (12-20); Aspartate Amino Transferase 15 U/L (5-37); Bilirubin Total 0.4 mg/dL (0.0-1.0); Blood Urea Nitrogen 16 mg/dL (9-16); Calcium 9.2 mg/dL (8.4-10.2); Carbon Dioxide 24 mmol/L (22-29); Chloride 110 mmol/L (96-108); Cholesterol 107 mg/dL; Estimated Glomerular Filt Rate > 60; Glucose Fasting 86 mg/dL (60-99); HDL Cholesterol 36 mg/dL; LDL Cholesterol Calculated 50 mg/dl; Potassium 4.1 mmol/L (3.3-5.1); Sodium 142 mmol/L (135-145); Total Protein 6.4 g/dL (6.5-8.0); Triglycerides 108 mg/dL
== END 2021-11-20 08:31 | disposition home or self-care (01) ==
LOC: HO.LAB 08:30
PROVIDERS: PCP Internal Medicine; Visit Provider Nurse Practitioner Acute Care
DX: E78.00 Pure hypercholesterolemia, unspecified (principal); E78.5 Hyperlipidemia, unspecified; E11.8 Type 2 diabetes mellitus with unspecified complications
CPT/HCPCS: 36415; 80053; 80061; 83036; 85025

== ENCOUNTER 2021-12-27 09:06 | Outpatient (REF) | payer OTHER, SELFPAY ==
--- NOTE | ~2021-12-27 | XR_ITS ---
EXAMINATION: XR LUMBOSACRAL SPINE CLINICAL INFORMATION: Sacrococcygeal disorder. COMPARISON: Radiographs dated 03/14/2014. TECHNIQUE: AP and lateral views of the lumbar spine and lateral view of the lumbosacral junction. FINDINGS: There is bony demineralization. There is a slight lumbar levoscoliosis. Vertebral body heights are normal. The lower thoracic and lumbar disc spaces are well-maintained. No acute fracture or spondylolisthesis is seen. This multi-level mild thoracolumbar spondylosis. The posterior elements are intact. The paravertebral soft tissues are unremarkable. XR/XR lumbar spine 2-3V IMPRESSION: 1. No acute fracture or spondylolisthesis is seen. 2. The lumbar disc spaces are well-maintained. 3. There is multi-level mild thoracolumbar spondylosis. 4. There is a minimal lumbar levoscoliosis.
--- NOTE | ~2021-12-27 | XR_ITS ---
EXAMINATION: XR BILATERAL HIPS WITH AP PELVIS CLINICAL INFORMATION: Right hip pain. COMPARISON: None TECHNIQUE: AP and frog-leg lateral views of each hip and an AP view of the pelvis. FINDINGS: The bones and soft tissues are normal. No fracture. Sacroiliac and hip joints are normal. Pubic symphysis is normal. No abnormal soft tissue calcifications. XR/XR hip RT w PEL1V IMPRESSION: Normal pelvis and hips.
== END 2021-12-27 09:07 | disposition home or self-care (01) ==
LOC: HO.XRAY 09:06
PROVIDERS: PCP Internal Medicine; Visit Provider Nurse Practitioner Family
DX: M51.36 Other intervertebral disc degeneration, lumbar region (principal); M53.3 Sacrococcygeal disorders, not elsewhere classified; M43.07 Spondylolysis, lumbosacral region; M25.551 Pain in right hip; E66.01 Morbid (severe) obesity due to excess calories
CPT/HCPCS: 72100; 73502; 99202

== ENCOUNTER 2022-03-01 08:55 | Outpatient (REF) | payer OTHER, SELFPAY ==
[2022-03-01 09:22] LABS: MANUAL DIFF FLAG NO
[2022-03-01 09:36] LABS: Basophils Percent Auto 0.6 % (0-2); Eosinophils Absolute Auto 0.2 X10*3/uL (0.0-0.4); Eosinophils Percent Auto 2.5 % (0-4); Hematocrit 37.8 % (42.0-52.0); Hemoglobin 11.9 g/dl (14.0-18.0); Imm Gran Abs Auto 0.04 X10*3/uL (0.00-0.03); Imm Gran Pct Auto 0.6 % (0.0-0.4); Lymphocytes Absolute Auto 1.3 X10*3/uL (1.2-4.9); Lymphocytes Percent Auto 19.6 % (20-40); Mean Corpuscular HGB Conc 31.5 g/dl (31.0-36.0); Mean Corpuscular Volume 82.7 fL (80.0-98.0); Mean Platelet Volume 10.4 fL (9.4-12.4); Monocytes Absolute Auto 0.6 X10*3/uL (0.1-1.2); Neutrophils Absolute Auto 4.6 x10*3/uL (2.0-8.3); Neutrophils Percent Auto 67.7 % (45-73); Platelet Count 240 X10*3/uL (160-400); Red Blood Count 4.57 X10*6/uL (4.60-5.80); Red Cell Distribution Width 14.4 % (11.0-16.0); White Blood Count 6.8 X10*3/uL (4.8-10.8)
[2022-03-01 09:42] LABS: Estimated Average Glucose 128 mg/dL; Hemoglobin A1c % 6.1 %
[2022-03-01 10:21] LABS: Alanine Aminotransferase 16 U/L (0-40); Albumin Level 4.2 g/dL (3.5-5.0); Alkaline Phosphatase 82 U/L (39-117); Anion Gap 13 (12-20); Aspartate Amino Transferase 15 U/L (5-37); Bilirubin Total 0.4 mg/dL (0.0-1.0); Blood Urea Nitrogen 17 mg/dL (9-16); Calcium 9.2 mg/dL (8.4-10.2); Carbon Dioxide 22 mmol/L (22-29); Chloride 108 mmol/L (96-108); Cholesterol 119 mg/dL; Estimated Glomerular Filt Rate > 60; Glucose Fasting 133 mg/dL (60-99); HDL Cholesterol 35 mg/dL; LDL Cholesterol Calculated 58 mg/dl; Potassium 4.1 mmol/L (3.3-5.1); Sodium 139 mmol/L (135-145); Triglycerides 132 mg/dL
[2022-03-01 10:43] LABS: TSH reflex Free T4 1.34 uIU/mL (0.32-4.0); Vitamin D 25-OH Total 28.6 ng/mL (>30)
[2022-03-01 11:45] LABS: Appearance Urine CLEAR; Color Urine YELLOW; Glucose Urine UA NEG (NEG); Leukocyte Esterase Urine NEG (NEG); Nitrite Urine NEG (NEG); PH 5.5 (5.0-8.0); Specific Gravity - Urine >= 1.030 (1.005-1.025); Urine Blood NEG (NEG); Urine Ketones NEG (NEG); Urine Protein NEG (NEG-TRACE)
[2022-03-01 12:25] LABS: Creatinine Urine 179.12 mg/dL; Microalbum/Creatinine Ratio Ur 3.9 ug/mg cr
== END 2022-03-01 08:56 | disposition home or self-care (01) ==
LOC: HO.LAB 08:55
PROVIDERS: PCP Internal Medicine; Visit Provider Internal Medicine
DX: E55.9 Vitamin D deficiency, unspecified (principal); I10 Essential (primary) hypertension; E78.00 Pure hypercholesterolemia, unspecified; E11.9 Type 2 diabetes mellitus without complications
CPT/HCPCS: 36415; 80053; 80061; 81003; 82043; 82306; 83036; 84443; 85025

== ENCOUNTER → 2022-03-05 11:06 | Outpatient (BNVA) | payer OTHER, SELFPAY | PROVIDERS: PCP Internal Medicine; Referring Provider Internal Medicine; Visit Provider Internal Medicine | DX: R07.2 Precordial pain (principal); Q24.5 Malformation of coronary vessels | CPT/HCPCS: 93005; 99212 ==

== ENCOUNTER 2022-03-12 08:56 | Emergency (ER) | payer OTHER, SELFPAY ==
--- NOTE | ~2022-03-12 | XR_ITS ---
EXAMINATION: XR CHEST CLINICAL INFORMATION: Cough, shortness of breath. COMPARISON: 08/12/2020 chest radiograph. TECHNIQUE: 2 views of the chest were obtained. FINDINGS: No significant abnormality is noted involving the heart, lungs, mediastinum, bony thorax or soft tissues. XR/XR chest 2V IMPRESSION: No acute cardiopulmonary process.
[2022-03-12 08:58] VITALS: BP 139/73; PULSE 97; RESP 18; TEMP 36.7; O2SAT 98; BMI 36.1
--- NOTE | 2022-03-12 09:41 | ED.HA ---
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 Patient tells me he had symptoms initially for 1-2 weeks then seemed to feel better but now over the last week his symptoms have returned. He denies any associated fever, leg swelling or leg pain or chest pain. He seeking Mucinex with continued symptoms. His cough is nonproductive. He tells me when he coughs he feels a headache. He also has right ear pain which she has had for 1 week with no reports of drainage, itching, hearing change. Related Data Home Medications Medication Instructions Recorded Confirmed pen needle, diabetic 31 gauge x #50 ea 07/06/20 03/05/2212/05 Previous Rx's Medication Instructions Recorded citalopram 20 mg tablet 20 mg PO DAILY #30 tabs 08/25/20 trazodone 150 mg tablet 150 mg PO BEDTIME PRN Insomnia #30 08/25/20 tabs blood sugar diagnostic (FreeStyle #100 ea 06/15/21 Lite Strips) blood-glucose meter (FreeStyle #1 ea 06/15/21 Lite Meter) metformin 500 mg tablet 1,000 mg PO BID #360 tabs 07/28/21 simvastatin 40 mg tablet 40 mg PO BEDTIME #30 tabs 09/28/21 levetiracetam 1,000 mg tablet 1,000 mg PO BID #60 tabs 10/18/21 levetiracetam 500 mg tablet 500 mg PO BID #180 tabs 11/19/21 melatonin 3 mg tablet 6 mg PO BEDTIME PRN insomnia 30 11/19/21 days #60 tabs diclofenac sodium 1 % topical gel 2 g topical QID #100 grams 11/30/21 lidocaine 5 % topical patch 1 patch topical DAILY PRN pain 30 12/27/21 days #30 ea omeprazole 20 mg capsule,delayed 20 mg PO QAM #30 caps 01/02/22 release aspirin 81 mg tablet,delayed 81 mg PO DAILY #30 tabs 01/15/22 release blood sugar diagnostic (FreeStyle #100 strips 01/28/22 Lite Strips) insulin glargine 100 unit/mL (3 33 unit (0.33 mL) subcut BEDTIME 01/28/22 mL) subcutaneous pen #15 mL lancets 28 gauge (FreeStyle 28 gauge topical BID #100 ea 01/28/22 Lancets) pen needle, diabetic 31 gauge x #100 ea 01/29/22 5/16 (BD Ultra-Fine Short Pen Needle) amoxicillin 875 mg-potassium 1 tab PO BID #14 tabs 03/12/22 clavulanate 125 mg tablet benzonatate 200 mg capsule 200 mg PO TID PRN cough #20 caps 03/12/22 Allergies Allergy/AdvReac Type Severity Reaction Status Date / Time No Known Allergies Allergy Verified 03/05/22 11:31 [No Known Allergies*] Review of Systems Review of Systems: Yes all other systems are reviewed and are negative Constitutional: Constitutional: Reports no additional constitutional complaints, Denies body ache(s), Denies chills, Denies fever(s), Reports headache(s) and Denies weakness Eyes: Eyes: Reports no additional eye complaints and Denies change in vision ENT: Reports system reviewed and no additional complaints, except as documented, Denies dizziness, Reports otalgia, Reports headache(s), Denies nasal congestion, Denies nasal discharge and Denies neck pain Cardiovascular: Cardiovascular: Reports no additional cardiovascular complaints, Denies chest pain, Denies leg edema and Reports dyspnea Respiratory: Respiratory: Reports no additional respiratory complaints, Reports cough and Reports dyspnea Gastrointestinal: Gastrointestinal: Reports no additional gastrointestinal complaints, Denies abdominal pain, Denies diarrhea, Denies nausea and Denies vomiting Genitourinary: Genitourinary: Denies urinary incontinence Musculoskeletal: Musculoskeletal: Reports no additional musculoskeletal complaints, Denies back pain, Denies arthralgias, Denies joint swelling, Denies neck pain, Denies numbness and Denies tingling Integumentary/Breasts: Skin/Breast: Reports system reviewed and no additional complaints, except as docu and Denies rash Neurologic: Reports system reviewed and no additional complaints, except as documented, Denies Abnormal speech present, Denies dizziness, Reports headache(s), Denies numbness, Denies tingling and Denies weakness [facility] Past Medical History Attestation statement: The following information was validated with the patient. Source: old records reviewed and nursing notes reviewed Medical History Arthritis Back pain Diabetes 1.5, managed as type 1 GERD (gastroesophageal reflux disease) Seizure disorder Surgical History History of colonoscopy History of excision of mass (~2015) Neurofibroma Family History Family History Father No problems noted. Mother No problems noted. Social History Social History Housing: House Housing Other:: rents a room Alcohol intake: former Patient Tobacco Use Status: Former Tobacco user Second Hand Smoke Exposure: Yes Advance Directives: No Advance Directives Information Provided: No Advance Directives Date on File: 07/19/20 service: No Current occupational status: disabled Cognitive needs: No Hearing needs: No Vision needs: No Physical Exam Vital Signs: Vital Signs: Last Vital Signs Temp 98.1 F 03/12/22 08:58 Pulse 97 03/12/22 08:58 Resp 18 03/12/22 08:58 BP 139/73 03/12/22 08:58 Pulse Ox 98 03/12/22 08:58 O2 Del Method 03/12/22 08:58 BMI result Body Mass Index 36.1 Const: General: cooperative, healthy appearing, comfortable and no acute distress Orientation/consciousness: patient oriented x3 Limitations: no limitations HEENT: Head: Yes normal to inspection Ears: hearing grossly normal bilaterally, mastoids normal, no periauricular adenopathy and TM abnormal bulging and erythematous General nose exam: Normal external nose present Face and sinus: Yes normal facial exam Mouth: Normal oral and palatal mucosa present Throat: Yes posterior oropharynx normal Eyes: General: appearance normal, both eyes and all related structures Pupils: Equal, round and reactive pupils present Neck: Neck: Yes normal visual inspection, Yes full ROM, Yes no lymphadenopathy and Yes no meningeal signs Chest: Chest palpation & inspection: normal inspection of the chest Resp: Effort & Inspection: normal respiratory effort Auscultation: clear to auscultation bilaterally Cardio: Rate: regular rate Rhythm: regular rhythm Peripheral pulses: Peripheral pulses 2+ throughout GI: Inspection: Yes normal to inspection Palpation (GI): Soft to palpation and nontender Auscultation: normal bowel sounds Back/Spine/Pelvis: Thoracic/Lumbar Spine: thoracic and lumbar spine normal to inspection Skin: General skin exam: no rashes or lesions noted Neuro: General: patient oriented x3, no meningeal signs, no focal motor deficits and normal sensation to monofilament Cranial nerves: Yes Equal, round and reactive pupils present Cognition (Neuro): normal cognition Speech: No Abnormal speech present Gait exam (Neuro): Normal gait present Motor exam (neuro): 5/5 motor strength present throughout Extrem: General: Yes normal to inspection, Yes no pedal edema and Yes no calf tenderness Course Course Course Narrative: Chest x-ray shows no acute finding. Labs are unremarkable. Flu and COVID testing are negative. Likely bronchitis due to persistent symptoms. Also patient has a right otitis media on exam. Will treat with course of antibiotics and cough suppressant p.r.n.. Vitals are stable. Lungs are clear. Reviewed worrisome signs and symptoms of when to return to the emergency department. Comfortable discharge home. MDM - Headache MDM Narrative Medical decision making narrative: 62-year-old male who is an insulin-dependent diabetic here with 1 month of cough, chest congestion, shortness of breath, headache and right ear pain. Will need labs, chest x-ray, COVID and flu testing Consider viral syndrome, pneumonia, CHF, otitis media, PE -less likely CHF with normal BNP, chest x-ray which is not consistent with fluid overload and exam which is not consistent with CHF. Less likely PE with perc score 1 for age. No tachypnea, no hypoxia, no tachycardia, no clinical findings concerning for DVT. Medical Records Attestation: I reviewed the patient's medical records. Lab Data Attestation: I reviewed the patient's lab results. Result diagrams: 03/12/22 10:11 03/12/22 10:10 Labs: Lab Results 03/12/22 03/12/22 03/12/22 Range/Units 09:49 09:49 10:10 WBC (4.8-10.8) X10*3/uL RBC (4.60-5.80) X10*6/uL Hgb (14.0-18.0) g/dl Hct (42.0-52.0) % MCV (80.0-98.0) fL MCH (27.0-33.0) pg MCHC (31.0-36.0) g/dl RDW (11.0-16.0) % Plt Count (160-400) X10*3/uL MPV (9.4-12.4) fL Immature Gran % (Auto) (0.0-0.4) % Neut % (Auto) (45-73) % Lymph % (Auto) (20-40) % Maverick % (Auto) (2-11) % Eos % (Auto) (0-4) % Baso % (Auto) (0-2) % Lymph # (Auto) (1.2-4.9) X10*3/uL Maverick # (Auto) (0.1-1.2) X10*3/uL Eos # (Auto) (0.0-0.4) X10*3/uL Baso # (Auto) (0.0-0.2) X10*3/uL Abs Immat Gran (auto) (0.00-0.03) X10*3/uL Absolute Neuts (auto) (2.0-8.3) x10*3/uL Absolute Nucleated RBC (0.0-0.012) X10*3/uL Nucleated RBC % (auto) (0.0-0.2) /100WBC Sodium 139 (135-145) mmol/L Potassium 4.5 (3.3-5.1) mmol/L Chloride 108 (96-108) mmol/L Carbon Dioxide 23 (22-29) mmol/L Anion Gap 13 (12-20) BUN 16 (9-16) mg/dL Creatinine 0.69 (0.5-1.4) mg/dL Estim Creat Clear Calc 127.0 Estimated GFR > 60 Random Glucose 105 (60-115) mg/dL Calcium 8.9 (8.4-10.2) mg/dL Total Bilirubin 0.4 (0.0-1.0) mg/dL Direct Bilirubin < 0.2 (0.0-0.5) mg/dL AST 13 (5-37) U/L ALT 12 (0-40) U/L Alkaline Phosphatase 92 (39-117) U/L B-Natriuretic Peptide (<100) pg/mL Total Protein 6.7 (6.5-8.0) g/dL Albumin 4.0 (3.5-5.0) g/dL COVID-19 (MIN) Negative (Negative) COVID-19 Clin Com See Note Influenza Type A (MONICA) Negative (Negative) Influenza Type B (MONICA) Negative (Negative) Influenza A & B Note See Note 03/12/22 03/12/22 Range/Units 10:10 10:11 WBC 7.6 (4.8-10.8) X10*3/uL RBC 4.47 L (4.60-5.80) X10*6/uL Hgb 11.8 L (14.0-18.0) g/dl Hct 36.9 L (42.0-52.0) % MCV 82.6 (80.0-98.0) fL MCH 26.4 L (27.0-33.0) pg MCHC 32.0 (31.0-36.0) g/dl RDW 14.5 (11.0-16.0) % Plt Count 196 (160-400) X10*3/uL MPV 10.3 (9.4-12.4) fL Immature Gran % (Auto) 0.5 H (0.0-0.4) % Neut % (Auto) 70.3 (45-73) % Lymph % (Auto) 18.2 L (20-40) % Maverick % (Auto) 8.0 (2-11) % Eos % (Auto) 2.6 (0-4) % Baso % (Auto) 0.4 (0-2) % Lymph # (Auto) 1.4 (1.2-4.9) X10*3/uL Maverick # (Auto) 0.6 (0.1-1.2) X10*3/uL Eos # (Auto) 0.2 (0.0-0.4) X10*3/uL Baso # (Auto) 0.0 (0.0-0.2) X10*3/uL Abs Immat Gran (auto) 0.04 H (0.00-0.03) X10*3/uL Absolute Neuts (auto) 5.4 (2.0-8.3) x10*3/uL Absolute Nucleated RBC 0.000 (0.0-0.012) X10*3/uL Nucleated RBC % (auto) 0.0 (0.0-0.2) /100WBC Sodium (135-145) mmol/L Potassium (3.3-5.1) mmol/L Chloride (96-108) mmol/L Carbon Dioxide (22-29) mmol/L Anion Gap (12-20) BUN (9-16) mg/dL Creatinine (0.5-1.4) mg/dL Estim Creat Clear Calc Estimated GFR Random Glucose (60-115) mg/dL Calcium (8.4-10.2) mg/dL Total Bilirubin (0.0-1.0) mg/dL Direct Bilirubin (0.0-0.5) mg/dL AST (5-37) U/L ALT (0-40) U/L Alkaline Phosphatase (39-117) U/L B-Natriuretic Peptide < 10 (<100) pg/mL Total Protein (6.5-8.0) g/dL Albumin (3.5-5.0) g/dL COVID-19 (MIN) (Negative) COVID-19 Clin Com Influenza Type A (MONICA) (Negative) Influenza Type B (MONICA) (Negative) Influenza A & B Note Imaging Data Chest x-ray: Attestation: I personally reviewed and interpreted this imaging study as follows: Radiologist's impression: [place] [id number] XRay Report Signed Patient: Wilfred Walker MR#: [id number] : 1960 Acct:[id number] Age/Sex: 62 / M ADM Date: 03/12/22 Loc: .ED Attending Dr: Ordering Physician: Mirlande Bansal NP Date of Service: 03/12/22 Procedure(s): XR chest 2V Accession Number(s): [id number] cc: Mirlande Bansal NP~ EXAMINATION: XR CHEST CLINICAL INFORMATION: Cough, shortness of breath. COMPARISON: 08/12/2020 chest radiograph. TECHNIQUE: 2 views of the chest were obtained. FINDINGS: No significant abnormality is noted involving the heart, lungs, mediastinum, bony thorax or soft tissues. XR/XR chest 2V IMPRESSION: No acute cardiopulmonary process. Discharge Plan Discharge Clinical Impression: Bronchitis, Otitis media Patient Disposition: Home, Self-Care Instructions: Ear Infection (ED), Acute Bronchitis (ED) Additional Instructions: Testing for flu and COVID are negative. Labs are normal. Chest x-ray shows no evidence of pneumonia Increase fluids, rest Follow-up with your primary care doctor for any persistent symptoms Prescriptions: New amoxicillin-pot clavulanate 875-125 mg tablet 1 tab PO BID Qty: 14 0RF benzonatate 200 mg capsule 200 mg PO TID PRN (Reason: cough) Qty: 20 0RF No Action citalopram 20 mg tablet 20 mg PO DAILY Qty: 30 3RF trazodone 150 mg tablet 150 mg PO BEDTIME PRN (Reason: Insomnia) Qty: 30 2RF (DME) FreeStyle Lite Strips Strip See Rx Instructions .Route Qty: 100 0RF Rx Instructions: TEST TWICE DAILY (DME) blood-glucose meter [FreeStyle Lite Meter] Kit See Rx Instructions .Route Qty: 1 0RF Rx Instructions: TEST TWICE DAILY metformin 500 mg tablet 1,000 mg PO BID Qty: 360 0RF simvastatin 40 mg tablet 40 mg PO BEDTIME Qty: 30 6RF levetiracetam 1,000 mg tablet 1,000 mg PO BID Qty: 60 0RF diclofenac sodium 1 % gel 2 g topical QID Qty: 100 0RF Rx Instructions: apply to lower Back omeprazole 20 mg capsule,delayed release(DR/EC) 20 mg PO QAM Qty: 30 2RF aspirin 81 mg tablet,delayed release (DR/EC) 81 mg PO DAILY Qty: 30 0RF (DME) FreeStyle Lite Strips Strip See Rx Instructions .ROUTE .COMPLEX Qty: 100 12RF Dose Instruction: USE DIRECTED TO TEST BLOOD SUGAR TWICE DAILY. Rx Instructions: USE DIRECTED TO TEST BLOOD SUGAR TWICE DAILY. lancets [FreeStyle Lancets] 28 gauge misc 28 gauge topical BID Qty: 100 12RF insulin glargine 100 unit/mL (3 mL) insulin pen 33 unit subcut BEDTIME Qty: 15 5RF (DME) pen needle, diabetic [BD Ultra-Fine Short Pen Needle] 31 gauge x 5/16 needle See Rx Instructions .ROUTE .COMPLEX Qty: 100 0RF Dose Instruction: USE TWICE DAILY DIRECTED Rx Instructions: USE TWICE DAILY DIRECTED levetiracetam 500 mg tablet 500 mg PO BID Qty: 180 1RF melatonin 3 mg tablet 6 mg PO BEDTIME PRN (Reason: insomnia) 30 Days Qty: 60 5RF (DME) pen needle, diabetic 31 gauge x 3/16 needle See Rx Instructions subcut .MEDSUPPLY Qty: 50 Rx Instructions: As directed lidocaine 5 % adhesive patch,medicated 1 patch topical DAILY PRN (Reason: pain) 30 Days Qty: 30 0RF Rx Instructions: Apply to most affected area for up to 12 hours per day Referrals: Xavi Mart MD [Primary Care Provider] - 1 week (persistent symptoms ) Interventions: ED Discharge Assessment Last Done: 03/12/22 11:37 Discharge Date/Time: 03/12/22 11:37
[2022-03-12 10:15] LABS: MANUAL DIFF FLAG NO
[2022-03-12 10:19] LABS: Basophils Percent Auto 0.4 % (0-2); Eosinophils Absolute Auto 0.2 X10*3/uL (0.0-0.4); Eosinophils Percent Auto 2.6 % (0-4); Hematocrit 36.9 % (42.0-52.0); Hemoglobin 11.8 g/dl (14.0-18.0); Imm Gran Abs Auto 0.04 X10*3/uL (0.00-0.03); Imm Gran Pct Auto 0.5 % (0.0-0.4); Lymphocytes Absolute Auto 1.4 X10*3/uL (1.2-4.9); Lymphocytes Percent Auto 18.2 % (20-40); Mean Corpuscular Hemoglobin 26.4 pg (27.0-33.0); Mean Corpuscular Volume 82.6 fL (80.0-98.0); Mean Platelet Volume 10.3 fL (9.4-12.4); Monocytes Absolute Auto 0.6 X10*3/uL (0.1-1.2); Neutrophils Absolute Auto 5.4 x10*3/uL (2.0-8.3); Neutrophils Percent Auto 70.3 % (45-73); Platelet Count 196 X10*3/uL (160-400); Red Blood Count 4.47 X10*6/uL (4.60-5.80); Red Cell Distribution Width 14.5 % (11.0-16.0); White Blood Count 7.6 X10*3/uL (4.8-10.8)
[2022-03-12 10:23] LABS: COVID-19 Test Negative (Negative); IDNOW Serial# 9DD0AD1C
[2022-03-12 10:37] LABS: Alanine Aminotransferase 12 U/L (0-40); Alkaline Phosphatase 92 U/L (39-117); Anion Gap 13 (12-20); Aspartate Amino Transferase 13 U/L (5-37); Bilirubin Direct < 0.2 mg/dL (0.0-0.5); Bilirubin Total 0.4 mg/dL (0.0-1.0); Blood Urea Nitrogen 16 mg/dL (9-16); Calcium 8.9 mg/dL (8.4-10.2); Carbon Dioxide 23 mmol/L (22-29); Chloride 108 mmol/L (96-108); Estimated Glomerular Filt Rate > 60; Glucose Random 105 mg/dL (60-115); Potassium 4.5 mmol/L (3.3-5.1); Sodium 139 mmol/L (135-145); Total Protein 6.7 g/dL (6.5-8.0)
[2022-03-12 10:38] LABS: B Type Natriuretic Peptide < 10 pg/mL (<100)
[2022-03-12 10:40] LABS: Influenza A Negative (Negative); Influenza B2 Negative (Negative)
== END 2022-03-12 11:37 | disposition home or self-care (01) ==
PROVIDERS: Nurse Practitioner Family; Emergency Provider Emergency Medicine; PCP Internal Medicine
DX: J40 Bronchitis, not specified as acute or chronic (principal); R51.9 Headache, unspecified; R05.9 Cough, unspecified; E11.9 Type 2 diabetes mellitus without complications; R06.02 Shortness of breath; H66.93 Otitis media, unspecified, bilateral; Z79.4 Long term (current) use of insulin; Z20.822 Contact with and (suspected) exposure to COVID-19; Z79.899 Other long term (current) drug therapy; Z87.891 Personal history of nicotine dependence
CPT/HCPCS: 71046; 80048; 80076; 83880; 85025; 87502; 87635; 99283

== ENCOUNTER → 2022-04-12 10:03 | Outpatient (BNVA) | payer OTHER, SELFPAY | PROVIDERS: PCP Internal Medicine; Visit Provider Nurse Practitioner Family | DX: M51.36 Other intervertebral disc degeneration, lumbar region (principal); M43.07 Spondylolysis, lumbosacral region; M53.3 Sacrococcygeal disorders, not elsewhere classified | CPT/HCPCS: 99212 ==

== ENCOUNTER 2022-06-05 06:25 | Outpatient (REF) | payer OTHER, SELFPAY ==
--- NOTE | ~2022-06-05 | FL_ITS ---
EXAMINATION: XR FLUOROSCOPY WITH IMAGES CLINICAL INFORMATION: M53.3 - Sacrococcygeal disorders, not elsewhere classified COMPARISON: Pelvic radiographs 12/27/2021, lumbar spine radiographs 12/27/2021. TECHNIQUE: Fluoroscopy performed by Dr. Galdino Garland. Fluoroscopy time: 0.2 minutes. Cumulative Dose: 7.03 mGy. DAP: 0.959 Gy-cm2. Images: 3. . FINDINGS: There are 2 spinal needles overlying the right sacral wing, each at 2 different locations in this series. FL/FL guidance in treatment room IMPRESSION: Fluoroscopy for pain management procedures.
== END 2022-06-05 06:26 | disposition home or self-care (01) ==
LOC: HO.RADIR 06:25
PROVIDERS: Visit Provider Internal Medicine
DX: M53.3 Sacrococcygeal disorders, not elsewhere classified (principal)
CPT/HCPCS: 64451

== ENCOUNTER → 2022-06-07 08:56 | Outpatient (BNVA) | payer OTHER, SELFPAY | PROVIDERS: Visit Provider Nurse Practitioner Family | DX: M53.3 Sacrococcygeal disorders, not elsewhere classified (principal); M51.36 Other intervertebral disc degeneration, lumbar region; M43.07 Spondylolysis, lumbosacral region | CPT/HCPCS: Q3014 ==

== ENCOUNTER 2022-06-30 13:57 | Emergency (ER) | payer OTHER, SELFPAY ==
--- NOTE | 2022-06-30 | ECG_ITS ---
Test Reason : CHEST PAIN Blood Pressure : / mmHG Vent. Rate : 093 BPM Atrial Rate : 093 BPM P-R Int : 164 ms QRS Dur : 074 ms QT Int : 364 ms P-R-T Axes : 047 -55 031 degrees QTc Int : 452 ms Normal sinus rhythm Left anterior fascicular block Borderline ECG Abnormal ECG When compared with ECG of 12-AUG-2020 11:57, No significant changes seen Referred By: Generic ED Physician Electronically Signed By:JUANI ACOSTA MD
[2022-06-30 14:09] VITALS: BP 148/83; PULSE 92; RESP 18; TEMP 36.3; O2SAT 99; BMI 38.2
[2022-06-30 14:12] LABS: MANUAL DIFF FLAG NO
[2022-06-30 14:29] LABS: Anion Gap 20 (12-20); Blood Urea Nitrogen 19 mg/dL (9-16); Calcium 9.9 mg/dL (8.4-10.2); Carbon Dioxide 21 mmol/L (22-29); Chloride 105 mmol/L (96-108); Creatinine Clr Calc Pharmacy 113.4; Estimated Glomerular Filt Rate > 60; Glucose Random 100 mg/dL (60-115); Potassium 4.5 mmol/L (3.3-5.1); Sodium 141 mmol/L (135-145)
[2022-06-30 14:32] LABS: Troponin-I High Sensitivity < 3.5 ng/L (<3.5-35.0)
[2022-06-30 14:38] LABS: Basophils Absolute Auto 0.1 X10*3/uL (0.0-0.2); Basophils Percent Auto 0.7 % (0-2); Eosinophils Absolute Auto 0.3 X10*3/uL (0.0-0.4); Eosinophils Percent Auto 2.8 % (0-4); Hematocrit 42.2 % (42.0-52.0); Hemoglobin 13.1 g/dl (14.0-18.0); Imm Gran Abs Auto 0.07 X10*3/uL (0.00-0.03); Imm Gran Pct Auto 0.7 % (0.0-0.4); Lymphocytes Absolute Auto 2.1 X10*3/uL (1.2-4.9); Mean Corpuscular Hemoglobin 25.9 pg (27.0-33.0); Mean Corpuscular Volume 83.4 fL (80.0-98.0); Mean Platelet Volume 10.7 fL (9.4-12.4); Monocytes Absolute Auto 0.8 X10*3/uL (0.1-1.2); Monocytes Percent Auto 7.8 % (2-11); Neutrophils Absolute Auto 6.8 x10*3/uL (2.0-8.3); Platelet Count 224 X10*3/uL (160-400); Red Blood Count 5.06 X10*6/uL (4.60-5.80); Red Cell Distribution Width 14.5 % (11.0-16.0); White Blood Count 10.2 X10*3/uL (4.8-10.8)
[2022-06-30 18:50] VITALS: BP 148/62; PULSE 77; RESP 12; TEMP 36.7; O2SAT 98
--- OUTSIDE RECORDS SUMMARY | 2022-06-30 18:56 | XMS_ITS ---
Continuity of Care Document Created on:October 29, 2019 Patient:SONALI HUNTER
--- NOTE | 2022-06-30 19:03 | ED_ITS ---
HPI - Chest Pain General Chief Complaint: Chest Pain Stated Complaint: Chest pain Time Seen by Provider: 06/30/22 19:03 Source: patient Mode of arrival: ambulatory Limitations: language barrier History of Present Illness HPI narrative: 62-year-old male presents for 2 days of tight chest pain that radiates across hi s chest. States that he was resting when the pain occurred, and is not associated with shortness of breath, dizziness, or palpitations. He does not report any strenuous activity, repetitive motion, or change in pain when changing positions. He denies abdominal pain, abdominal distention, dysuria, hematuria, weakness, fatigue, or changes in vision. MD complaint: chest pain Onset (ago): day(s) (2) Timing of current episode: constant Prior episodes: No Onset: during rest Pain location: substernal, left chest and right chest Pain radiation: none Severity: mild Pain scale (0-10): 4 Quality: tightness Relieving factors: nothing Exacerbating factors: nothing Treatment prior to arrival: none Risk Factors Coronary artery disease risk factors: diabetes, hyperlipidemia and hypertension Thoracic aortic dissection risk factors: none Related Data Previous Rx's Medication Instructions Recorded citalopram 20 mg tablet 20 mg PO DAILY #30 tabs 08/25/20 trazodone 150 mg tablet 150 mg PO BEDTIME PRN Insomnia #30 08/25/20 tabs blood sugar diagnostic (FreeStyle #100 ea 06/15/21 Lite Strips) blood-glucose meter (FreeStyle #1 ea 06/15/21 Lite Meter kit) levetiracetam 500 mg tablet 500 mg PO BID #180 tabs 11/19/21 diclofenac sodium 1 % topical gel 2 g topical QID #100 grams 11/30/21 lidocaine 5 % topical patch 1 patch topical DAILY PRN pain 30 12/27/21 days #30 ea aspirin 81 mg tablet,delayed 81 mg PO DAILY #30 tabs 01/15/22 release blood sugar diagnostic (FreeStyle #100 strips 01/28/22 Lite Strips) insulin glargine 100 unit/mL (3 33 unit (0.33 mL) subcut BEDTIME 01/28/22 mL) subcutaneous pen #15 mL lancets 28 gauge (FreeStyle 28 gauge topical BID #100 ea 01/28/22 Lancets) metformin 500 mg tablet 1,000 mg PO BID #360 tabs 05/09/22 simvastatin 40 mg tablet 40 mg PO BEDTIME #30 tabs 05/09/22 levetiracetam 1,000 mg tablet 1,000 mg PO BID #60 tabs 05/10/22 melatonin 3 mg tablet 6 mg PO BEDTIME PRN insomnia 30 05/22/22 days #60 tabs omeprazole 20 mg capsule,delayed 20 mg PO QAM #30 caps 06/05/22 release pen needle, diabetic 31 gauge x #100 ea 06/05/2202/04 (BD Ultra-Fine Short Pen Needle) gabapentin 300 mg capsule 300 mg PO BEDTIME pain 30 days #30 06/07/22 caps Allergies Allergy/AdvReac Type Severity Reaction Status Date / Time No Known Allergies Allergy Verified 06/07/22 08:57 [No Known Allergies*] Review of Systems Review of Systems: Constitutional: No Fever, No Chills ENT/Mouth: No Ear Pain, No Hoarseness, No sore throat Eyes: No Eye Pain, No Swelling, No Redness, No Foreign Body Cardiovascular: Positive Chest Pain, No SOB Respiratory: No Cough, No Dyspnea Gastrointestinal: No Nausea, No Vomiting, No Diarrhea, No abdominal Pain Genitourinary: No Dysuria, No Hematuria Musculoskeletal: No joint pain, No Myalgias, No Joint Swelling Skin: No Skin lacerations, No rash Neuro: No Weakness, No Numbness, No Paresthesias, No Loss of Consciousness, No Dizziness, No Headache Psych: No Anxiety/Panic, No Depression Heme/Lymph: no easy bruising, no Lymphadenopathy Endocrine: No Polyuria, No Polydipsia Yes all other systems are reviewed and are negative [facility] Past Medical History Attestation statement: The following information was validated with the patient. Source: old records reviewed Medical History Arthritis Back pain Chest pain Depression Diabetes 1.5, managed as type 1 Diabetes mellitus Epilepsy GERD (gastroesophageal reflux disease) GERD without esophagitis History of colonic polyps Hyperlipidemia Insomnia Lumbar degenerative disc disease Morbid obesity Neurofibromatosis Obesity (BMI 30-39.9) Pure hypercholesterolemia Seizure disorder Tubular adenoma Surgical History History of colonoscopy History of excision of mass (~2015) Neurofibroma Family History Family History Father No problems noted. Mother No problems noted. Social History Social History Housing: House Housing Other:: rents a room Alcohol intake: never Patient Tobacco Use Status: Former Tobacco user Smoked in Last 30 Days: No Second Hand Smoke Exposure: Yes Use of substances other than those prescribed or required for medical reasons: No Advance Directives: No Advance Directives Information Provided: Yes Advance Directives Date on File: 07/19/20 service: No Current occupational status: disabled Cognitive needs: No Hearing needs: No Vision needs: No Physical Exam Vital Signs: Vital Signs: Last Vital Signs Temp 98.1 F 06/30/22 18:50 Pulse 95 06/30/22 21:56 Resp 13 06/30/22 21:14 BP 176/93 H 06/30/22 21:56 Pulse Ox 93 06/30/22 21:56 O2 Del Method 06/30/22 21:56 BMI result Body Mass Index 38.2 Appearance: Alert. Oriented X3. No acute distress. Eyes: Pupils equal, round and reactive to light. ENT: Pharynx normal. Neck: Normal inspection. Neck supple. CVS: Normal heart rate and rhythm. Pulses normal. Chest wall nontender to palpation. Respiratory: No respiratory distress. Breath sounds normal. Abdomen: Soft and nontender. Obese. Skin: Skin warm and dry. Normal skin color. Normal skin turgor. Extremities: No lower extremity edema. Gait well-balanced well coordinated. Neuro: No motor deficit. No sensory deficit. Cranial nerves 2-12 intact. Course Course Course Narrative: 62-year-old male presents with 2 days of tight chest pain radiating across his chest. Does not report any shortness breath, pain on inspiration, repetitive movements, trauma, or strenuous physical activity. This chest pain is not associated with palpitations, diaphoresis, change in vision, or weakness. He denies upper respiratory symptoms, cough, fevers and chills. His labs drawn while he was in the emergency department waiting room, which are negative for acute findings. Considering the patient has bandlike pressure, does have a history of anxiety, will order CT scan of chest. Chest x-ray does indicate hiatal hernia, which could be a possible reason for his bandlike chest pain. Heart score is 4, wells PE score is 0. Cardiac enzymes are negative, EKG does not indicate ST elevations or depressions, low likelihood of ACS at this time. 21:[address] is negative for acute findings requiring emergent intervention. I did discuss this with the patient, most likely due to anxiety or costochondritis. COVID influenza is negative. Plan of care is to discharge home and have patient follow-up with primary care physician. German inter preter utilized for all correspondence. Google translate utilized for discharge instructions. Patient verbalized understanding of and agrees to plan of care discharge home. MDM - Chest Pain Differential Diagnosis Differential diagnosis: Likely pneumothorax, stable angina, unstable angina pectoris, atypical chest pain, st elevation myocardial infarction, costochondritis and chest pain Medical Records Data Attestation: I reviewed the patient's medical records. Lab Data Attestation: I reviewed the patient's lab results. Result diagrams: 06/30/22 14:07 06/30/22 14:07 Labs: Lab Results 06/30/22 06/30/22 06/30/22 Range/Units 14:07 14:07 14:07 WBC 10.2 (4.8-10.8) X10*3/uL RBC 5.06 (4.60-5.80) X10*6/uL Hgb 13.1 L (14.0-18.0) g/dl Hct 42.2 (42.0-52.0) % MCV 83.4 (80.0-98.0) fL MCH 25.9 L (27.0-33.0) pg MCHC 31.0 (31.0-36.0) g/dl RDW 14.5 (11.0-16.0) % Plt Count 224 (160-400) X10*3/uL MPV 10.7 (9.4-12.4) fL Immature Gran % (Auto) 0.7 H (0.0-0.4) % Neut % (Auto) 67.0 (45-73) % Lymph % (Auto) 21.0 (20-40) % [place] % (Auto) 7.8 (2-11) % Eos % (Auto) 2.8 (0-4) % Baso % (Auto) 0.7 (0-2) % Lymph # (Auto) 2.1 (1.2-4.9) X10*3/uL [place] # (Auto) 0.8 (0.1-1.2) X10*3/uL Eos # (Auto) 0.3 (0.0-0.4) X10*3/uL Baso # (Auto) 0.1 (0.0-0.2) X10*3/uL Abs Immat Gran (auto) 0.07 H (0.00-0.03) X10*3/uL Absolute Neuts (auto) 6.8 (2.0-8.3) x10*3/uL Absolute Nucleated RBC 0.000 (0.0-0.012) X10*3/uL Nucleated RBC % (auto) 0.0 (0.0-0.2) /100WBC Sodium 141 (135-145) mmol/L Potassium 4.5 (3.3-5.1) mmol/L Chloride 105 (96-108) mmol/L Carbon Dioxide 21 L (22-29) mmol/L Anion Gap 20 (12-20) BUN 19 H (9-16) mg/dL Creatinine 0.77 (0.5-1.4) mg/dL Estim Creat Clear Calc 113.4 Estimated GFR > 60 Random Glucose 100 (60-115) mg/dL Calcium 9.9 D (8.4-10.2) mg/dL Troponin I High Sens < 3.5 (<3.5-35.0) ng/L Influenza Type A (PCR) (Negative) Influenza Type B (PCR) (Negative) RSV RNA Qual (PCR) (Negative) SARS-CoV-2 RNA (RT-PCR) (Negative) 06/30/22 Range/Units 21:13 WBC (4.8-10.8) X10*3/uL RBC (4.60-5.80) X10*6/uL Hgb (14.0-18.0) g/dl Hct (42.0-52.0) % MCV (80.0-98.0) fL MCH (27.0-33.0) pg MCHC (31.0-36.0) g/dl RDW (11.0-16.0) % Plt Count (160-400) X10*3/uL MPV (9.4-12.4) fL Immature Gran % (Auto) (0.0-0.4) % Neut % (Auto) (45-73) % Lymph % (Auto) (20-40) % [place] % (Auto) (2-11) % Eos % (Auto) (0-4) % Baso % (Auto) (0-2) % Lymph # (Auto) (1.2-4.9) X10*3/uL [place] # (Auto) (0.1-1.2) X10*3/uL Eos # (Auto) (0.0-0.4) X10*3/uL Baso # (Auto) (0.0-0.2) X10*3/uL Abs Immat Gran (auto) (0.00-0.03) X10*3/uL Absolute Neuts (auto) (2.0-8.3) x10*3/uL Absolute Nucleated RBC (0.0-0.012) X10*3/uL Nucleated RBC % (auto) (0.0-0.2) /100WBC Sodium (135-145) mmol/L Potassium (3.3-5.1) mmol/L Chloride (96-108) mmol/L Carbon Dioxide (22-29) mmol/L Anion Gap (12-20) BUN (9-16) mg/dL Creatinine (0.5-1.4) mg/dL Estim Creat Clear Calc Estimated GFR Random Glucose (60-115) mg/dL Calcium (8.4-10.2) mg/dL Troponin I High Sens (<3.5-35.0) ng/L Influenza Type A (PCR) NEGATIVE (Negative) Influenza Type B (PCR) NEGATIVE (Negative) RSV RNA Qual (PCR) NEGATIVE (Negative) SARS-CoV-2 RNA (RT-PCR) NEGATIVE (Negative) Imaging Data Chest x-ray: Attestation: I personally reviewed and interpreted this imaging study as follows: Radiologist's impression: EXAMINATION: XR chest 1V CLINICAL INFORMATION: Chest pain COMPARISON: Prior chest x-ray 03/12/2022? TECHNIQUE: XR chest 1V Tubes and lines: None Lungs and pleura: Both lungs are clear. Heart and mediastinum: Retrocardiac opacity with air-fluid level suggesting most likely hiatal hernia.. Bones/soft tissue: Skeletal structures included are normal for patient's age. XR/XR chest 1V IMPRESSION: No radiographic evidence of acute cardiopulmonary disease. ? Retrocardiac opacity with air-fluid level suggesting hiatal hernia. CT scan - chest: Attestation: I personally reviewed and interpreted this imaging study as follows: Radiologist's impression: FINDINGS: LUNGS: Mild centrilobular emphysema. Mild respiratory motion artifact. No airspace consolidation. No suspicious appearing pulmonary nodule. Small calcified granuloma in the anterior right middle lobe. Central through segmental airways are clear.? MEDIASTINUM: Normal heart size. No pericardial effusion. Mild LAD and right coronary artery vascular calcifications. Normal caliber thoracic aorta. No aneurysm or dissection. Conjoined origin of the innominate left common carotid arteries noted. Arch origins are patent. Exam not optimized for evaluation of pulmonary embolus. Normal caliber central pulmonary trunk. No central pulmonary embolus identified. No mediastinal or hilar lymphadenopathy. CORONARY ARTERY CALCIFICATION: Present PLEURA: There is no pleural effusion. No pleural mass or thickening.? AXILLA: No lymphadenopathy.? UPPER ABDOMEN: There are a few small subcentimeter hypodensities in the right and left liver lobes, too small to characterize likely tiny cysts. Imaged solid upper abdominal viscera otherwise grossly unremarkable. Small hiatal hernia is noted.? OSSEOUS STRUCTURES: No acute fracture or suspicious osseous lesion. Mild multilevel degenerative disc disease.? CT/CT chest w IV con IMPRESSION: ? 1. No airspace consolidation or effusions. 2. No thoracic aortic aneurysm or dissection. 3. Mild centrilobular emphysema.? ? Fleischner guidelines were followed. ECG Data ECG #1: Attestation: I personally reviewed and interpreted this ECG as follows: ECG interpretation date: 06/30/22 ECG interpretation time: 14:02 Prior ECG tracings: available for review Interpretation: Vent. rate 93 BPM [place] interval 164 ms QRS duration 74 ms QT/QTc 364/452 ms P-R-T axes 47 -55 31 Normal sinus rhythm Left axis deviation Inferior infarct , age undetermined Abnormal ECG When compared with ECG of 12-AUG-2020 11:57, Inferior infarct is now Present Troponins are negative, no indication of ST elevation or depression. No neo cation of infarct. Scores Heart Score History: -1- moderately suspicious ECG: -0- normal Age: -1- >45 - <65 Risk factory: -2- 3 or more risk factors or treated atherosclerosis Troponin: -0- < or = normal limit Score: 4 Risk: 16.6% Discharge Plan Discharge Clinical Impression: Chest pain, Atypical chest pain, Hernia, hiatal Patient Disposition: Home, Self-Care Instructions: Hiatal Hernia (ED), Noncardiac Chest Pain (ED) Additional Instructions: Le evaluaron por 2 d?as de dolor en el pecho. Tus enzimas cardiacas son negativas. El electrocardiograma fue negativo para hallazgos agudos. La tomograf?a computarizada del t?rax con contraste es negativa para hallazgos agudos. La radiograf?a de t?rax indica hernia de hiato. Esta podr?a ser la kaycee?n de trinh dolor de pecho. Trinh dolor de pecho tambi?n podr?a ser costocondritis. Trinh prueba de influenza COVID es negativa. Ten un seguimiento con trinh proveedor de atenci?n primaria esta semana. Regrese al departamento de emergencias por cualquier s?ntoma nuevo, preocupante o que empeore. You were evaluated for 2 days of chest pain. Your cardiac enzymes are negative. EKG is was negative for acute findings. CT scan of the chest with contrast is negative for acute findings. Chest x-ray indicates hiatal hernia. This could be a reason for your chest pain. Your chest pain could also be costochondritis. Your COVID influenza test are negative. Please follow-up with your primary care provider this week. Return to the emergency department for any new, concerning, or worsening symptoms. Prescriptions: No Action citalopram 20 mg tablet 20 mg PO DAILY Qty: 30 3RF trazodone 150 mg tablet 150 mg PO BEDTIME PRN (Reason: Insomnia) Qty: 30 2RF (DME) FreeStyle Lite Strips Strip See Rx Instructions .Route Qty: 100 0RF Rx Instructions: TEST TWICE DAILY (DME) blood-glucose meter [FreeStyle Lite Meter] Kit See Rx Instructions .Route Qty: 1 0RF Rx Instructions: TEST TWICE DAILY diclofenac sodium 1 % gel 2 g topical QID Qty: 100 0RF Rx Instructions: apply to lower Back aspirin 81 mg tablet,delayed release (DR/EC) 81 mg PO DAILY Qty: 30 0RF (DME) FreeStyle Lite Strips Strip See Rx Instructions .ROUTE .COMPLEX Qty: 100 12RF Dose Instruction: USE DIRECTED TO TEST BLOOD SUGAR TWICE DAILY. Rx Instructions: USE DIRECTED TO TEST BLOOD SUGAR TWICE DAILY. lancets [FreeStyle Lancets] 28 gauge misc 28 gauge topical BID Qty: 100 12RF insulin glargine 100 unit/mL (3 mL) insulin pen 33 unit subcut BEDTIME Qty: 15 5RF metformin 500 mg tablet 1,000 mg PO BID Qty: 360 0RF simvastatin 40 mg tablet 40 mg PO BEDTIME Qty: 30 6RF levetiracetam 1,000 mg tablet 1,000 mg PO BID Qty: 60 0RF melatonin 3 mg tablet 6 mg PO BEDTIME PRN (Reason: insomnia) 30 Days Qty: 60 5RF omeprazole 20 mg capsule,delayed release(DR/EC) 20 mg PO QAM Qty: 30 2RF (DME) pen needle, diabetic [BD Ultra-Fine Short Pen Needle] 31 gauge x 5/16 needle See Rx Instructions .ROUTE .COMPLEX Qty: 100 5RF Dose Instruction: USE TWICE DAILY DIRECTED Rx Instructions: USE TWICE DAILY DIRECTED levetiracetam 500 mg tablet 500 mg PO BID Qty: 180 1RF lidocaine 5 % adhesive patch,medicated 1 patch topical DAILY PRN (Reason: pain) 30 Days Qty: 30 0RF Rx Instructions: Apply to most affected area for up to 12 hours per day gabapentin 300 mg capsule 300 mg PO BEDTIME 30 Days Qty: 30 0RF Referrals: Xavi Mart MD [Primary Care Provider] - 1 week (cp evaluation)
[2022-06-30] MEDS: iohexoL 350 MG/ML 100 ML INFUS..BTL IV (19:35)
[2022-06-30 21:14] VITALS: BP 142/65; PULSE 73; RESP 13; O2SAT 97
[2022-06-30 21:56] VITALS: BP 176/93; PULSE 95; O2SAT 93
[2022-06-30 22:01] LABS: Influenza A PCR NEGATIVE (Negative); Influenza B PCR NEGATIVE (Negative); Resp Syncy Virus RNA Qual PCR NEGATIVE (Negative); SARS COV2 PCR INHOUSE NEGATIVE (Negative)
== END 2022-06-30 22:59 | disposition home or self-care (01) ==
PROVIDERS: Nurse Practitioner Family; Emergency Provider Emergency Medicine Emergency Medical Services; PCP Internal Medicine
DX: R07.89 Other chest pain (principal); E78.5 Hyperlipidemia, unspecified; R00.0 Tachycardia, unspecified; Z20.822 Contact with and (suspected) exposure to COVID-19; Z79.899 Other long term (current) drug therapy
CPT/HCPCS: 0241U; 36415; 71045; 71260; 80048; 84484; 85025; 93005; 99284; Q9967

== ENCOUNTER 2022-07-25 08:24 | Outpatient (REF) | payer OTHER, SELFPAY ==
[2022-07-25 08:42] LABS: MANUAL DIFF FLAG NO
[2022-07-25 09:44] LABS: Basophils Absolute Auto 0.1 X10*3/uL (0.0-0.2); Basophils Percent Auto 0.8 % (0-2); Eosinophils Absolute Auto 0.2 X10*3/uL (0.0-0.4); Eosinophils Percent Auto 3.3 % (0-4); Hematocrit 38.8 % (42.0-52.0); Hemoglobin 12.5 g/dl (14.0-18.0); Imm Gran Abs Auto 0.04 X10*3/uL (0.00-0.03); Imm Gran Pct Auto 0.6 % (0.0-0.4); Lymphocytes Absolute Auto 1.5 X10*3/uL (1.2-4.9); Lymphocytes Percent Auto 21.4 % (20-40); Mean Corpuscular HGB Conc 32.2 g/dl (31.0-36.0); Mean Corpuscular Hemoglobin 26.5 pg (27.0-33.0); Mean Corpuscular Volume 82.2 fL (80.0-98.0); Mean Platelet Volume 11.1 fL (9.4-12.4); Monocytes Absolute Auto 0.6 X10*3/uL (0.1-1.2); Monocytes Percent Auto 7.6 % (2-11); Neutrophils Absolute Auto 4.8 x10*3/uL (2.0-8.3); Neutrophils Percent Auto 66.3 % (45-73); Platelet Count 204 X10*3/uL (160-400); Red Blood Count 4.72 X10*6/uL (4.60-5.80); Red Cell Distribution Width 14.6 % (11.0-16.0); White Blood Count 7.2 X10*3/uL (4.8-10.8)
[2022-07-25 09:51] LABS: Estimated Average Glucose 131 mg/dL; Hemoglobin A1c % 6.2 %
[2022-07-25 10:09] LABS: Alanine Aminotransferase 11 U/L (0-40); Albumin Level 4.2 g/dL (3.5-5.0); Alkaline Phosphatase 89 U/L (39-117); Anion Gap 16 (12-20); Aspartate Amino Transferase 11 U/L (5-37); Bilirubin Total 0.4 mg/dL (0.0-1.0); Blood Urea Nitrogen 16 mg/dL (9-16); Calcium 9.3 mg/dL (8.4-10.2); Carbon Dioxide 23 mmol/L (22-29); Chloride 107 mmol/L (96-108); Cholesterol 115 mg/dL; Estimated Glomerular Filt Rate > 60; Glucose Fasting 117 mg/dL (60-99); HDL Cholesterol 39 mg/dL; LDL Cholesterol Calculated 59 mg/dl; Potassium 4.2 mmol/L (3.3-5.1); Sodium 142 mmol/L (135-145); Total Protein 6.7 g/dL (6.5-8.0); Triglycerides 86 mg/dL
[2022-07-25 10:27] LABS: Appearance Urine Clear; Color Urine Yellow; Glucose Urine UA Negative (Negative); Leukocyte Esterase Urine Negative (Negative); Nitrite Urine Negative (Negative); PH 6.5 (5.0-9.0); Urine Blood Negative (Negative); Urine Ketones Negative (Negative); Urine Protein Negative (Neg-Trace)
[2022-07-25 10:33] LABS: TSH reflex Free T4 1.84 uIU/mL (0.32-4.0); Vitamin D 25-OH Total 30.5 ng/mL (>30)
[2022-07-25 10:46] LABS: Creatinine Urine 102.25 mg/dL; Microalbumin Urine < 5.0 mg/L
[2022-07-29 18:52] LABS: Levetiracetam Keppra 12.5 mcg/mL (6.0-46.0)
== END 2022-07-25 08:25 | disposition home or self-care (01) ==
LOC: HO.LAB 08:24
PROVIDERS: PCP Internal Medicine; Visit Provider Internal Medicine
DX: E78.00 Pure hypercholesterolemia, unspecified (principal); I10 Essential (primary) hypertension; E11.9 Type 2 diabetes mellitus without complications; G40.909 Epilepsy, unspecified, not intractable, without status epilepticus; E55.9 Vitamin D deficiency, unspecified
CPT/HCPCS: 36415; 80053; 80061; 80177; 81003; 82043; 82306; 83036; 84443; 85025

== ENCOUNTER 2022-12-05 15:13 | Emergency (ER) | payer OTHER, SELFPAY ==
--- NOTE | 2022-12-05 15:39 | ED.BACK ---
HPI - Back Pain/Injury General Chief Complaint: Back Pain/Injury <IVANNA Cisneros - Last Filed: 12/05/22 15:45> Stated Complaint: Back pain <IVANNA Cisneros - Last Filed: 12/05/22 15:45> Time Seen by Provider: 12/05/22 16:56 <IVANNA Cisneros - Last Filed: 12/05/22 15:45> Source: patient, family and engineering production liaison <IVANNA Aguero - Last Filed: 12/05/22 18:22> Mode of arrival: ambulatory <IVANNA Aguero Last Filed: 12/05/22 18:22> Limitations: no limitations <IVANNA Aguero Last Filed: 12/05/22 18:22> History of Present Illness HPI Narrative: 62-year-old male with history of lumbar degenerative disc disease, diabetes with diabetic neuropathy, depression, GERD, neurofibromatosis, HLD, morbid obesity, depression, anemia who presents to the ER for evaluation of right lower back pain for the last 2 weeks that started after he was shoveling snow. He states that he has been taking Tylenol for the pain with minimal relief. He denies any radiation of the pain. It is worse with walking and movement. He denies any bowel or bladder incontinence. No saddle paresthesias. He does report new onset dysuria that started today. No nausea, vomiting, diarrhea, fever, chills, abdominal pain. No hematuria. <IVANNA Aguero - Last Filed: 12/05/22 18:22> MD elicited complaint: back pain, back injury and other (Dysuria) <IVANNA Aguero - Last Filed: 12/05/22 18:22> Pertinent past history: recent trauma <IVANNA Aguero Last Filed: 12/05/22 18:22> Onset (ago): week(s) (2) <IVANNA Aguero Last Filed: 12/05/22 18:22> Timing: constant <IVANNA Aguero Last Filed: 12/05/22 18:22> Severity: moderate <IVANNA Aguero Last Filed: 12/05/22 18:22> Similar Symptoms Previously: No <IVANNA Aguero - Last Filed: 12/05/22 18:22> Quality: throbbing <IVANNA Aguero - Last Filed: 12/05/22 18:22> Location: right lower back <IVANNA Aguero - Last Filed: 12/05/22 18:22> Radiation: none <IVANNA Aguero - Last Filed: 12/05/22 18:22> Exacerbating factors: movement and walking <IVANNA Aguero - Last Filed: 12/05/22 18:22> Relieving factors: immobilization <IVANNA Aguero - Last Filed: 12/05/22 18:22> Context: while lifting and turning/twisting <IVANNA Aguero - Last Filed: 12/05/22 18:22> Associated symptoms: dysuria (new today) <IVANNA Aguero - Last Filed: 12/05/22 18:22> Treatments prior to arrival: acetaminophen <IVANNA Aguero - Last Filed: 12/05/22 18:22> Work related injury: No <IVANNA Aguero - Last Filed: 12/05/22 18:22> Related Data Home Medications: Previous Rx's Medication Instructions Recorded trazodone 150 mg tablet 150 mg PO BEDTIME PRN Insomnia #30 08/25/20 tabs blood sugar diagnostic (FreeStyle #100 ea 06/15/21 Lite Strips) blood-glucose meter (FreeStyle #1 ea 06/15/21 Lite Meter kit) levetiracetam 500 mg tablet 500 mg PO BID #180 tabs 11/19/21 lidocaine 5 % topical patch 1 patch topical DAILY PRN pain 30 12/27/21 days #30 ea blood sugar diagnostic (FreeStyle #100 strips 01/28/22 Lite Strips) lancets 28 gauge (FreeStyle 28 gauge topical BID #100 ea 01/28/22 Lancets) aspirin 81 mg tablet,delayed 81 mg PO DAILY 90 days #90 tabs 08/06/22 release citalopram 20 mg tablet 20 mg PO DAILY 30 days #30 tabs 08/06/22 diclofenac sodium 1 % topical gel 2 g topical QID #100 grams 08/06/22 insulin glargine 100 unit/mL (3 33 unit (0.33 mL) subcut BEDTIME 08/06/22 mL) subcutaneous pen #15 mL levetiracetam 1,000 mg tablet 1,000 mg PO BID 30 days #60 tabs 08/06/22 melatonin 3 mg tablet 6 mg PO BEDTIME PRN insomnia 90 08/06/22 days #90 tabs metformin 500 mg tablet 1,000 mg PO BID 90 days #360 tabs 08/06/22 pen needle, diabetic 31 gauge x #100 ea 08/06/2202/04 (BD Ultra-Fine Short Pen Needle) simvastatin 40 mg tablet 40 mg PO BEDTIME 30 days #30 tabs 08/06/22 gabapentin 300 mg capsule 300 mg PO BEDTIME pain 30 days #30 08/27/22 caps omeprazole 40 mg capsule,delayed 40 mg PO QAM 30 days #30 caps 10/16/22 release cyanocobalamin (vitamin B-12) 1,000 mcg PO DAILY #90 tabs 11/27/22 1,000 mcg tablet (Vitamin B-12) ferrous sulfate 325 mg (65 mg 325 mg PO DAILY #90 tabs 11/27/22 iron) tablet (FeroSul) cefuroxime axetil 250 mg tablet 250 mg PO BID 7 days #14 tabs 12/05/22 cyclobenzaprine 10 mg tablet 10 mg PO TID PRN muscle spasm #14 12/05/22 tabs ibuprofen 600 mg tablet 600 mg PO Q8H PRN pain #10 tabs 12/05/22 lidocaine 5 % topical patch 1 patch topical DAILY #15 ea 12/05/22 <IVANNA Cisneros - Last Filed: 12/05/22 15:45> Allergies/Adverse Reactions: Allergies Allergy/AdvReac Type Severity Reaction Status Date / Time No Known Allergies Allergy Verified 09/12/22 11:14 [No Known Allergies*] <IVANNA Cisneros - Last Filed: 12/05/22 15:45> Review of Systems Review of Systems: Yes all other systems are reviewed and are negative <IVANNA Aguero - Last Filed: 12/05/22 18:22> PMFSH Past Medical History Medical History: Medical History Arthritis Back pain Chest pain Depression Diabetes 1.5, managed as type 1 Diabetes mellitus Epilepsy GERD (gastroesophageal reflux disease) GERD without esophagitis History of colonic polyps Hyperlipidemia Insomnia Lumbar degenerative disc disease Morbid obesity Neurofibromatosis Obesity (BMI 30-39.9) Pure hypercholesterolemia Seizure disorder Tubular adenoma <IVANNA Cisneros - Last Filed: 12/05/22 15:45> Surgical History: Surgical History History of colonoscopy History of excision of mass (~2015) Neurofibroma <IVANNA Cisneros - Last Filed: 12/05/22 15:45> Family History Family History: Family History Father No problems noted. Mother No problems noted. <IVANNA Cisneros - Last Filed: 12/05/22 15:45> Social History Social History: Social History (Updated 11/27/22 @ 09:53 by Lucretia Camargo) Housing: House Housing Other:: rents a room Alcohol intake: never Patient Tobacco Use Status: Former Tobacco user Second Hand Smoke Exposure: Yes Advance Directives: No Advance Directives Information Provided: No Advance Directives Date on File: 07/19/20 service: No Current occupational status: disabled Cognitive needs: No Hearing needs: No Vision needs: No <IVANNA Cisneros - Last Filed: 12/05/22 15:45> Physical Exam Vital Signs: Vital Signs: Last Vital Signs Temp 97.7 F 12/05/22 15:44 Pulse 88 12/05/22 15:44 Resp 18 12/05/22 15:44 BP 168/76 H 12/05/22 15:44 Pulse Ox 97 12/05/22 15:44 O2 Del Method 12/05/22 15:44 BMI result Body Mass Index 40.3 <IVANNA Cisneros - Last Filed: 12/05/22 15:45> Vital Signs: Last Vital Signs Temp 97.7 F 12/05/22 15:44 Pulse 88 12/05/22 15:44 Resp 18 12/05/22 15:44 BP 168/76 H 12/05/22 15:44 Pulse Ox 97 12/05/22 15:44 O2 Del Method 12/05/22 15:44 BMI result Body Mass Index 40.3 <IVANNA Aguero - Last Filed: 12/05/22 18:22> Appearance: Alert. Oriented X3. No acute distress. HEENT: normal inspection CVS: Normal heart rate and rhythm. Pulses normal. Respiratory: No respiratory distress. Abd: soft, obese, NT/ND Skin: Skin warm and dry. Normal skin color. Normal skin turgor. No rashes. Back: normal inspection, soft tissue tenderness of the right lower lumbar with soft tissue spasm. no midline tenderness. no CVA tenderness. negative straight leg raise test. Extremities: normal inspection x4, normal ROM Neuro: Oriented X 3. No motor deficit. No sensory deficit. Steady gait <IVANNA Aguero - Last Filed: 12/05/22 18:22> Course Course Course Narrative: RME--62-year-old male with a past medical history of obesity, depression, diabetes, epilepsy, GERD, seizures, c/o right-sided low back pain s/p shoveling. Also reports dysuria. Denies hematuria, incontinence/retention + right-sided lower paraspinal/MSK tenderness. Abdomen soft and nontender. Ambulating with steady gait UA ordered <IVANNA Cisneros - Last Filed: 12/05/22 15:45> Medical Decision Making Medical Decision Making MDM Narrative: 62 y/o male presenting to the ER for evaluation of right lower back pain after shoveling snow. No red flag symptoms of LBP. Exam and clinical presentation are c/w muscle strain and spasm. His dysuria is new onset and does not seem to be related. His UA is positive. No CVA tenderness to suggest pyelonephritis. VSS. stable for d/c home w/ PO abx, NSAID and muscle relaxers. he will follow up with his PCP. <IVANNA Aguero - Last Filed: 12/05/22 18:22> Differential Diagnosis Differential Diagnoses: The differential diagnosis associated with the presentation includes <IVANNA Aguero Last Filed: 12/05/22 18:22> Inflammatory disorders, malignancy, trauma, osteoporosis, nerve root compression, radiculopathy, plexopathy, degenerative disc disease, disc herniation, spinal stenosis, sacroiliac joint dysfunction, facet joint injury, and less likely infection?like abscess or diskitis acute UTI, less likely pyelonephritis or prostatitis <IVANNA Aguero - Last Filed: 12/05/22 18:22> Lab Data MDM Lab Attestation statement: I reviewed the patient's lab results. <IVANNA Aguero - Last Filed: 12/05/22 18:22> ua c/w infection <IVANNA Aguero - Last Filed: 12/05/22 18:22> Labs: Lab Results 12/05/22 Range/Units 17:01 Urine Color Yellow Urine Appearance Clear Urine pH 5.5 (5.0-9.0) Ur Specific [place] 1.025 (1.005-1.025) Urine Protein Negative (Neg-Trace) mg/dL Urine Glucose (UA) Negative (Negative) mg/dL Urine Ketones Negative (Negative) mg/dL Urine Blood Negative (Negative) Urine Nitrite Negative (Negative) Ur Leukocyte Esterase Moderate (2+) H (Negative) Urine RBC 0-2 (0-2) /HPF Urine WBC 21-50 H (0-5) /HPF Ur Squamous Epith Cells 0-2 (0-2) /HPF Urine Bacteria None Seen (None Seen) Hyaline Casts 0-2 (0-2) /LPF <IVANNA Cisneros - Last Filed: 12/05/22 15:45> Lab Results 12/05/22 Range/Units 17:01 Urine Color Yellow Urine Appearance Clear Urine pH 5.5 (5.0-9.0) Ur Specific [place] 1.025 (1.005-1.025) Urine Protein Negative (Neg-Trace) mg/dL Urine Glucose (UA) Negative (Negative) mg/dL Urine Ketones Negative (Negative) mg/dL Urine Blood Negative (Negative) Urine Nitrite Negative (Negative) Ur Leukocyte Esterase Moderate (2+) H (Negative) Urine RBC 0-2 (0-2) /HPF Urine WBC 21-50 H (0-5) /HPF Ur Squamous Epith Cells 0-2 (0-2) /HPF Urine Bacteria None Seen (None Seen) Hyaline Casts 0-2 (0-2) /LPF <IVANNA Aguero - Last Filed: 12/05/22 18:22> Independent Historian Clinical information obtained from an independent historian. History obtained from or confirmed by: Spouse <IVANNA Aguero - Last Filed: 12/05/22 18:22> External Record Review External record reviewed: Outpatient record and Prior outpatient labs <IVANNA Aguero - Last Filed: 12/05/22 18:22> Prescription Management I considered prescription management with: Pain Medication and Antibiotic <IVANNA Aguero Last Filed: 12/05/22 18:22> Chronic Conditions Patient?s care impacted by: Diabetes and Hypertension <IVANNA Aguero Last Filed: 12/05/22 18:22> Critical Care Time Critical Care Time Critical Care Time: No <IVANNA Aguero Last Filed: 12/05/22 18:22> Discharge Plan Discharge Clinical Impression: Strain of lumbar region, Acute UTI <IVANNA Cisneros Last Filed: 12/05/22 15:45> Patient Disposition: Home, Self-Care <IVANNA Cisneros Last Filed: 12/05/22 15:45> Instructions: Urinary Tract Infection in Men (ED), Low Back Strain (ED), Lower Back Exercises (ED) <IVANNA Cisneros - Last Filed: 12/05/22 15:45> Additional Instructions: Your urine test showed you have a urinary tract infection. Take the prescribed antibiotic as directed, complete the entire course. Drink plenty of fluids. Your low back pain is due to muscle strain and spasm. No bending, lifting or twisting. Use ice several times per day for 20 minutes at a time for the next 48 hours and then change to heat. Take medications as prescribed to help with pain and discomfort. Follow up with your Primary Care Doctor this week. If your pain worsens, if you develop new numbness, tingling, weakness, loss of function or incontinence call 911 or come back to the ER right away for evaluation. [place] an?lisis de orina mostr? que tiene mirna infecci?n del tracto urinario. [place] el antibi?gómez recetado seg?n las indicaciones, complete todo el curso. Beber mucho l?quido. [place] dolor lumbar se debe a mirna distensi?n y espasmo muscular. Sin doblar, levantar o torcer. Use hielo varias veces al d?a ebony 20 minutos a la vez ebony las pr?ximas 48 horas y luego cambie a calor. [place] los medicamentos seg?n lo prescrito para ayudar con el dolor y la incomodidad. Ten un seguimiento con reilly m?dico de atenci?n primaria esta semana. Si reilly dolor empeora, si desarrolla un nuevo entumecimiento, hormigueo, debilidad, p?rdida de funci?n o incontinencia, llame al 911 o regrese a la courtney de emergencias de inmediato para mirna evaluaci?n. <IVANNA Cisneros - Last Filed: 12/05/22 15:45> Prescriptions: New cyclobenzaprine 10 mg tablet 10 mg PO TID PRN (Reason: muscle spasm) Qty: 14 0RF lidocaine 5 % adhesive patch,medicated 1 patch topical DAILY Qty: 15 0RF Rx Instructions: leave on most painful area for up to 12 hrs ibuprofen 600 mg tablet 600 mg PO Q8H PRN (Reason: pain) Qty: 10 0RF cefuroxime axetil 250 mg tablet 250 mg PO BID 7 Days Qty: 14 0RF No Action trazodone 150 mg tablet 150 mg PO BEDTIME PRN (Reason: Insomnia) Qty: 30 2RF (DME) FreeStyle Lite Strips Strip See Rx Instructions .Route Qty: 100 0RF Rx Instructions: TEST TWICE DAILY (DME) blood-glucose meter [FreeStyle Lite Meter] Kit See Rx Instructions .Route Qty: 1 0RF Rx Instructions: TEST TWICE DAILY (DME) FreeStyle Lite Strips Strip See Rx Instructions .ROUTE .COMPLEX Qty: 100 12RF Dose Instruction: USE DIRECTED TO TEST BLOOD SUGAR TWICE DAILY. Rx Instructions: USE DIRECTED TO TEST BLOOD SUGAR TWICE DAILY. lancets [FreeStyle Lancets] 28 gauge misc 28 gauge topical BID Qty: 100 12RF aspirin 81 mg tablet,delayed release (DR/EC) 81 mg PO DAILY 90 Days Qty: 90 3RF citalopram 20 mg tablet 20 mg PO DAILY 30 Days Qty: 30 3RF diclofenac sodium 1 % gel 2 g topical QID Qty: 100 1RF Rx Instructions: apply to lower Back insulin glargine 100 unit/mL (3 mL) insulin pen 33 unit subcut BEDTIME Qty: 15 5RF levetiracetam 1,000 mg tablet 1,000 mg PO BID 30 Days Qty: 60 3RF melatonin 3 mg tablet 6 mg PO BEDTIME PRN (Reason: insomnia) 90 Days Qty: 90 3RF metformin 500 mg tablet 1,000 mg PO BID 90 Days Qty: 360 1RF (DME) pen needle, diabetic [BD Ultra-Fine Short Pen Needle] 31 gauge x 5/16 needle See Rx Instructions .ROUTE .COMPLEX Qty: 100 12RF Dose Instruction: USE TWICE DAILY DIRECTED Rx Instructions: USE TWICE DAILY DIRECTED simvastatin 40 mg tablet 40 mg PO BEDTIME 30 Days Qty: 30 3RF gabapentin 300 mg capsule 300 mg PO BEDTIME 30 Days Qty: 30 3RF omeprazole 40 mg capsule,delayed release(DR/EC) 40 mg PO QAM 30 Days Qty: 30 3RF cyanocobalamin (vitamin B-12) [Vitamin B-12] 1,000 mcg Tablet 1,000 mcg PO DAILY Qty: 90 3RF ferrous sulfate [FeroSul] 325 mg (65 mg iron) Tablet 325 mg PO DAILY Qty: 90 3RF levetiracetam 500 mg tablet 500 mg PO BID Qty: 180 1RF lidocaine 5 % adhesive patch,medicated 1 patch topical DAILY PRN (Reason: pain) 30 Days Qty: 30 0RF Rx Instructions: Apply to most affected area for up to 12 hours per day <IVANNA Cisneros - Last Filed: 12/05/22 15:45> Referrals: Xavi Mart MD [Primary Care Provider] - <IVANNA Cisneros - Last Filed: 12/05/22 15:45> Print Language: Swedish <IVANNA Cisneros - Last Filed: 12/05/22 15:45>
[2022-12-05 15:44] VITALS: BP 168/76; PULSE 88; RESP 18; TEMP 36.5; O2SAT 97; BMI 40.3
[2022-12-05 17:13] LABS: Appearance Urine Clear; Color Urine Yellow; Glucose Urine UA Negative (Negative); Leukocyte Esterase Urine Moderate (2+) (Negative); Nitrite Urine Negative (Negative); PH 5.5 (5.0-9.0); Specific Gravity - Urine 1.025 (1.005-1.025); UMIC TRIGGER UACC YES; Urine Blood Negative (Negative); Urine Ketones Negative (Negative); Urine Protein Negative (Neg-Trace)
[2022-12-05 17:27] LABS: Bacteria Urine None Seen (None Seen); Hyaline Casts Urine 0-2 /LPF (0-2); RBC Urine 0-2 /HPF (0-2); Squamous Epithelial Cell Urine 0-2 /HPF (0-2); UACC Culture Trigger YES; WBC Urine 21-50 /HPF (0-5)
== END 2022-12-05 19:36 | disposition home or self-care (01) ==
PROVIDERS: Physician Assistant; Emergency Provider Emergency Medicine; PCP Internal Medicine
DX: S39.012A Strain of muscle, fascia and tendon of lower back, initial encounter (principal); X50.9XXA Other and unspecified overexertion or strenuous movements or postures, initial encounter; N39.0 Urinary tract infection, site not specified; Y93.H1 Activity, digging, shoveling and raking; Y92.014 Private driveway to single-family (private) house as the place of occurrence of the external cause; Y99.9 Unspecified external cause status
CPT/HCPCS: 81001; 87086; 99282; 99283

== ENCOUNTER 2023-01-06 10:27 | Emergency (ER) | payer OTHER, SELFPAY ==
--- NOTE | ~2023-01-06 | US_ITS ---
EXAMINATION: US SCROTUM CLINICAL INFORMATION: Pain. COMPARISON: None available. TECHNIQUE: A sonogram of the scrotum was performed assessing drake-scale appearance and color Doppler flow. Spectral Doppler analysis of the arterial and venous flow were performed in the testes bilaterally. FINDINGS: RIGHT: Right testicle measures 2 x 1 x 1.7 cm, volume 2 mL. Heterogeneous echotexture. No focal testicular parenchymal lesions are visualized. Spectral Doppler analysis of the arterial and venous flow is normal in the right testis. Several right epididymal head cysts, largest measuring 4 x 5 mm. Right epididymal head is normal in size. No right hydrocele or varicocele is seen. Right epididymal Doppler flow is normal. LEFT: Left testicle measures 2 x 1 x 1.7 cm, volume 2 mL. There is geometric echotexture No focal testicular parenchymal lesions are visualized. Spectral Doppler analysis of the arterial and venous flow is normal in the left testis. Left epididymal head is normal in size. No left hydrocele or varicocele is seen. Left epididymal Doppler flow is normal. US/US scrotum doppler IMPRESSION: Small heterogeneous testicles. No focal lesion or evidence of torsion. Small right epididymal head cysts.
--- NOTE | ~2023-01-06 | US_ITS ---
EXAMINATION: US SCROTUM CLINICAL INFORMATION: Pain. COMPARISON: None available. TECHNIQUE: A sonogram of the scrotum was performed assessing drake-scale appearance and color Doppler flow. Spectral Doppler analysis of the arterial and venous flow were performed in the testes bilaterally. FINDINGS: RIGHT: Right testicle measures 2 x 1 x 1.7 cm, volume 2 mL. Heterogeneous echotexture. No focal testicular parenchymal lesions are visualized. Spectral Doppler analysis of the arterial and venous flow is normal in the right testis. Several right epididymal head cysts, largest measuring 4 x 5 mm. Right epididymal head is normal in size. No right hydrocele or varicocele is seen. Right epididymal Doppler flow is normal. LEFT: Left testicle measures 2 x 1 x 1.7 cm, volume 2 mL. There is geometric echotexture No focal testicular parenchymal lesions are visualized. Spectral Doppler analysis of the arterial and venous flow is normal in the left testis. Left epididymal head is normal in size. No left hydrocele or varicocele is seen. Left epididymal Doppler flow is normal. US/US scrotum IMPRESSION: Small heterogeneous testicles. No focal lesion or evidence of torsion. Small right epididymal head cysts.
[2023-01-06 10:52] VITALS: BP 147/69; PULSE 89; RESP 18; TEMP 36.8; O2SAT 97; BMI 26.6
[2023-01-06 11:34] LABS: COVID-19 Test Negative (Negative); IDNOW Serial# 9DB6401D; IDNOW Serial# BCCEAD1C; Influenza A Negative (Negative); Influenza B2 Negative (Negative)
[2023-01-06 12:38] LABS: Appearance Urine Clear; Color Urine Yellow; Glucose Urine UA Negative (Negative); Leukocyte Esterase Urine Negative (Negative); Nitrite Urine Negative (Negative); PH 6.5 (5.0-9.0); Specific Gravity - Urine 1.015 (1.005-1.025); Urine Blood Negative (Negative); Urine Ketones Negative (Negative); Urine Protein Negative (Neg-Trace)
--- NOTE | 2023-01-06 13:02 | ED.GENADULT ---
HPI - General Adult General Chief complaint: Fever Stated complaint: Fever/Body aches Time Seen by Provider: 01/06/23 11:17 Source: patient Mode of arrival: ambulatory Limitations: no limitations History of Present Illness HPI narrative: History old male presents to the ED for fever and body aches for 2 days. Patient also states testicular pain. Patient describes fever as feeling warm. Patient never took the actual temperature. Patient denies any coughing, chest pain, shortness of breath, sore throat, rash, abdominal pain, dysuria, or hematuria. Related Data Previous Rx's Medication Instructions Recorded trazodone 150 mg tablet 150 mg PO BEDTIME PRN Insomnia #30 08/25/20 tabs blood sugar diagnostic (FreeStyle #100 ea 06/15/21 Lite Strips) blood-glucose meter (FreeStyle #1 ea 06/15/21 Lite Meter kit) levetiracetam 500 mg tablet 500 mg PO BID #180 tabs 11/19/21 lidocaine 5 % topical patch 1 patch topical DAILY PRN pain 30 12/27/21 days #30 ea blood sugar diagnostic (FreeStyle #100 strips 01/28/22 Lite Strips) lancets 28 gauge (FreeStyle 28 gauge topical BID #100 ea 01/28/22 Lancets) aspirin 81 mg tablet,delayed 81 mg PO DAILY 90 days #90 tabs 08/06/22 release diclofenac sodium 1 % topical gel 2 g topical QID #100 grams 08/06/22 insulin glargine 100 unit/mL (3 33 unit (0.33 mL) subcut BEDTIME 08/06/22 mL) subcutaneous pen #15 mL melatonin 3 mg tablet 6 mg PO BEDTIME PRN insomnia 90 08/06/22 days #90 tabs metformin 500 mg tablet 1,000 mg PO BID 90 days #360 tabs 08/06/22 pen needle, diabetic 31 gauge x #100 ea 08/06/2202/04 (BD Ultra-Fine Short Pen Needle) omeprazole 40 mg capsule,delayed 40 mg PO QAM 30 days #30 caps 10/16/22 release cyanocobalamin (vitamin B-12) 1,000 mcg PO DAILY #90 tabs 11/27/22 1,000 mcg tablet (Vitamin B-12) ferrous sulfate 325 mg (65 mg 325 mg PO DAILY #90 tabs 03/08/23 iron) tablet (FeroSul) cefuroxime axetil 250 mg tablet 250 mg PO BID 7 days #14 tabs 12/05/22 cyclobenzaprine 10 mg tablet 10 mg PO TID PRN muscle spasm #14 12/05/22 tabs ibuprofen 600 mg tablet 600 mg PO Q8H PRN pain #10 tabs 12/05/22 lidocaine 5 % topical patch 1 patch topical DAILY #15 ea 12/05/22 citalopram 20 mg tablet 20 mg PO DAILY 30 days #30 tabs 12/06/22 simvastatin 40 mg tablet 40 mg PO BEDTIME 30 days #30 tabs 12/06/22 levetiracetam 1,000 mg tablet 1,000 mg PO BID 30 days #60 tabs 01/01/23 gabapentin 300 mg capsule 300 mg PO BEDTIME for pain 30 days 01/02/23 #30 caps Allergies Allergy/AdvReac Type Severity Reaction Status Date / Time No Known Allergies Allergy Verified 09/12/22 11:14 [No Known Allergies*] Review of Systems Review of Systems: Fever, body aches, testicular pain Yes all other systems are reviewed and are negative PMFSH Past Medical History Medical History Arthritis Back pain Chest pain Depression Diabetes 1.5, managed as type 1 Diabetes mellitus Epilepsy GERD (gastroesophageal reflux disease) GERD without esophagitis History of colonic polyps Hyperlipidemia Insomnia Lumbar degenerative disc disease Morbid obesity Neurofibromatosis Obesity (BMI 30-39.9) Pure hypercholesterolemia Seizure disorder Tubular adenoma Surgical History History of colonoscopy History of excision of mass (~2015) Neurofibroma Family History Family History Father No problems noted. Mother No problems noted. Social History Social History (Updated 11/27/22 @ 09:53 by Lucretia Camargo) Housing: House Housing Other:: rents a room Alcohol intake: never Patient Tobacco Use Status: Former Tobacco user Second Hand Smoke Exposure: Yes Advance Directives: No Advance Directives Information Provided: Yes Advance Directives Date on File: 07/19/20 service: No Current occupational status: disabled Cognitive needs: No Hearing needs: No Vision needs: No Physical Exam ED Vital Signs: Vital Signs - 24 hr 01/06/23 10:52 01/06/23 15:04 Temperature 98.3 F 96.3 F L Pulse Rate 89 71 Respiratory Rate 18 18 Blood Pressure 147/69 H 130/71 Pulse Oximetry 97 96 Oxygen Delivery Method Room Air Room Air BMI result Body Mass Index 26.6 Const General: cooperative, healthy appearing, comfortable, no acute distress, well developed, alert, awake and Physically active Orientation/consciousness: oriented to person, oriented to place, oriented to time and patient oriented x3 HENMT Head: Yes normal to inspection, Yes No palpable skull fracture present, Yes normocephalic, Yes atraumatic and No abrasion Ears: hearing grossly normal bilaterally, external ears normal, TM's normal bilaterally, mastoids normal and no periauricular adenopathy Throat: Yes posterior oropharynx normal, Yes tonsils normal and Yes uvula midline Eyes General: appearance normal, both eyes and all related structures Neck Neck: Yes normal visual inspection, Yes full ROM, Yes no lymphadenopathy, Yes no meningeal signs, Yes trachea midline, Yes supple, No anterior neck swelling and No tender Chest Chest palpation & inspection: normal inspection of the chest and normal palpation of entire chest wall Resp Effort & Inspection: normal respiratory effort and able to speak in complete sentences Cardio Jugular venous distension: no JVD Heart sounds: S1 normal heart sound present and S2 normal heart sound present GI Inspection: Yes normal to inspection and No abdominal wall ecchymosis Palpation (GI): Soft to palpation, not firm, nontender, no guarding and not rigid Other: Positive for bilateral groin pubic tenderness on palpation but negative for any erythema, rash, ecchymosis, or gangrene. Testicles/scrotum negative for gangrene or redness/swelling. General: No CVA tenderness and Yes no CVA tenderness Male General Exam: Yes normal external exam Penis: uncircumcised Scrotum: scrotum normal Testes: testicular tenderness Back/Spine/Pelvis Back: no CVA tenderness, No CVA tenderness and No back tenderness Neuro General: oriented to person, oriented to place, oriented to time, patient oriented x3, gait normal, tone normal, no meningeal signs, no focal motor deficits and CN's II-XI intact bilaterally Extrem General: Yes normal to inspection and Yes full ROM Psych Appearance: grossly normal, well kempt and not disheveled Course Course Course Narrative: COVID influenza ordered, urine and scrotal ultrasound ordered. Reevaluation(s) Reevaluation #1: Ultrasound of scrotum negative. Urine normal. COVID influenza negative. Influenza negative. Patient informed to follow-up with primary care provider. Time: 15:18 Medical Decision Making Medical Decision Making [facility] Narrative: 62-year-old male presents to ED with fever, body aches, and testicular pain. Patient denies any sore throat, coughing, chest pain, shortness of breath, back pain, or abdominal pain. Differential Diagnosis Differential Diagnoses: The differential diagnosis associated with the presentation includes (Cellulitis, COVID, influenza, UTI, [place]) Admission/Observation Consideration of admission/observation: Escalation of care including admission/observation considered Lab Data [facility] Lab Attestation statement: I reviewed the patient's lab results. Labs: Lab Results 01/06/23 01/06/23 01/06/23 Range/Units 11:03 11:03 12:15 Urine Color Yellow Urine Appearance Clear Urine pH 6.5 (5.0-9.0) Ur Specific [place] 1.015 (1.005-1.025) Urine Protein Negative (Neg-Trace) mg/dL Urine Glucose (UA) Negative (Negative) mg/dL Urine Ketones Negative (Negative) mg/dL Urine Blood Negative (Negative) Urine Nitrite Negative (Negative) Ur Leukocyte Esterase Negative (Negative) Chlam trachomat DNA PCR (Not Detect.) COVID-19 (MIN) Negative (Negative) COVID-19 Clin Com See Note Influenza Type A (MONICA) Negative (Negative) Influenza Type B (MONICA) Negative (Negative) Influenza A & B Note See Note N.gonorrhoeae DNA (PCR) (Not Detect.) 01/06/23 Range/Units 12:15 Urine Color Urine Appearance Urine pH (5.0-9.0) Ur Specific [place] (1.005-1.025) Urine Protein (Neg-Trace) mg/dL Urine Glucose (UA) (Negative) mg/dL Urine Ketones (Negative) mg/dL Urine Blood (Negative) Urine Nitrite (Negative) Ur Leukocyte Esterase (Negative) Chlam trachomat DNA PCR NOT DETECTED (Not Detect.) COVID-19 (MIN) (Negative) COVID-19 Clin Com Influenza Type A (MONICA) (Negative) Influenza Type B (MONICA) (Negative) Influenza A & B Note N.gonorrhoeae DNA (PCR) NOT DETECTED (Not Detect.) Radiology Impression Discussion of test interpretation with radiology: I have reviewed the radiologist's reading. Discharge Plan Discharge Clinical Impression: Acute viral syndrome, Testicular pain Patient Disposition: Home, Self-Care Instructions: Fever in Adults (ED), Testicle Pain (ED), Viral Syndrome (ED), Scrotal Pain (ED) Additional Instructions: Regrese al servicio de urgencias de inmediato por cualquier dolor en el pecho, dificultad para respirar, erupci?n cut?emily, problemas con la fiebre, tos con naa, naa en la orina, dolor testicular, dolor en el costado, gangrena en la piel, dolor abdominal, diarrea o cualquier otro s?ntoma preocupante. Por favor, yudith un seguimiento con trinh proveedor de atenci?n primaria. Prescriptions: No Action trazodone 150 mg tablet 150 mg PO BEDTIME PRN (Reason: Insomnia) Qty: 30 2RF (DME) FreeStyle Lite Strips Strip See Rx Instructions .Route Qty: 100 0RF Rx Instructions: TEST TWICE DAILY (DME) blood-glucose meter [FreeStyle Lite Meter] Kit See Rx Instructions .Route Qty: 1 0RF Rx Instructions: TEST TWICE DAILY (DME) FreeStyle Lite Strips Strip See Rx Instructions .ROUTE .COMPLEX Qty: 100 12RF Dose Instruction: USE DIRECTED TO TEST BLOOD SUGAR TWICE DAILY. Rx Instructions: USE DIRECTED TO TEST BLOOD SUGAR TWICE DAILY. lancets [FreeStyle Lancets] 28 gauge misc 28 gauge topical BID Qty: 100 12RF aspirin 81 mg tablet,delayed release (DR/EC) 81 mg PO DAILY 90 Days Qty: 90 3RF diclofenac sodium 1 % gel 2 g topical QID Qty: 100 1RF Rx Instructions: apply to lower Back insulin glargine 100 unit/mL (3 mL) insulin pen 33 unit subcut BEDTIME Qty: 15 5RF melatonin 3 mg tablet 6 mg PO BEDTIME PRN (Reason: insomnia) 90 Days Qty: 90 3RF metformin 500 mg tablet 1,000 mg PO BID 90 Days Qty: 360 1RF (DME) pen needle, diabetic [BD Ultra-Fine Short Pen Needle] 31 gauge x 5/16 needle See Rx Instructions .ROUTE .COMPLEX Qty: 100 12RF Dose Instruction: USE TWICE DAILY DIRECTED Rx Instructions: USE TWICE DAILY DIRECTED omeprazole 40 mg capsule,delayed release(DR/EC) 40 mg PO QAM 30 Days Qty: 30 3RF citalopram 20 mg tablet 20 mg PO DAILY 30 Days Qty: 30 3RF simvastatin 40 mg tablet 40 mg PO BEDTIME 30 Days Qty: 30 3RF levetiracetam 1,000 mg tablet 1,000 mg PO BID 30 Days Qty: 60 3RF gabapentin 300 mg capsule 300 mg PO BEDTIME 30 Days Qty: 30 1RF cyanocobalamin (vitamin B-12) [Vitamin B-12] 1,000 mcg Tablet 1,000 mcg PO DAILY Qty: 90 3RF ferrous sulfate [FeroSul] 325 mg (65 mg iron) Tablet 325 mg PO DAILY Qty: 90 3RF cyclobenzaprine 10 mg tablet 10 mg PO TID PRN (Reason: muscle spasm) Qty: 14 0RF lidocaine 5 % adhesive patch,medicated 1 patch topical DAILY Qty: 15 0RF Rx Instructions: leave on most painful area for up to 12 hrs ibuprofen 600 mg tablet 600 mg PO Q8H PRN (Reason: pain) Qty: 10 0RF cefuroxime axetil 250 mg tablet 250 mg PO BID 7 Days Qty: 14 0RF levetiracetam 500 mg tablet 500 mg PO BID Qty: 180 1RF lidocaine 5 % adhesive patch,medicated 1 patch topical DAILY PRN (Reason: pain) 30 Days Qty: 30 0RF Rx Instructions: Apply to most affected area for up to 12 hours per day Interventions: ED Discharge Assessment Last Done: 01/06/23 15:35 Discharge Date/Time: 01/06/23 15:37 Print Language: Malaysian
[2023-01-06 14:49] LABS: CT PCR NOT DETECTED (Not Detect.); NG PCR NOT DETECTED (Not Detect.)
[2023-01-06 15:04] VITALS: BP 130/71; PULSE 71; RESP 18; TEMP 35.7; O2SAT 96
== END 2023-01-06 15:37 | disposition home or self-care (01) ==
PROVIDERS: Physician Assistant; Emergency Provider Emergency Medicine; PCP Internal Medicine
DX: B34.9 Viral infection, unspecified (principal); Z20.822 Contact with and (suspected) exposure to COVID-19; N50.812 Left testicular pain; N50.811 Right testicular pain; R50.9 Fever, unspecified; E11.9 Type 2 diabetes mellitus without complications; E78.00 Pure hypercholesterolemia, unspecified; Z79.4 Long term (current) use of insulin; Z79.899 Other long term (current) drug therapy; Z20.2 Contact with and (suspected) exposure to infections with a predominantly sexual mode of transmission
CPT/HCPCS: 0353U; 76870; 81003; 87502; 87635; 93975; 99283; 99284

== ENCOUNTER 2023-03-31 11:30 | Outpatient (AMB) | payer OTHER, SELFPAY ==
--- NOTE | 2023-03-31 11:35 | MHC.OFFVIS ---
Intake Vital Signs 03/31/23 11:39 Height 5 ft 5 in Weight 236 lb 4 oz BMI 39.3 BP 131/69 Blood Pressure Location Rt brachial Position Sitting Pulse 89 Pulse Source Pulse Oximeter Pulse Oximetry (%) 97 Oxygen Delivery Method Room Air Intake Visit Reasons: medication follow up Intake Note: Pain today 06/01. 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 He was last seen in May, and was started on gabapentin. Patient reports he is tolerating it well without any side effects and would like to increase the dose to twice daily. Patient continues to endorse localized tenderness and pain in the projection of right SIJ area and is interested to undergo therapeutic SIJ injection. Pain increases with sitting, worse at night and upon awakening in the morning, rated at 8-9/10 and 6/10 during the day. His most recent A1C was 6.7. Patient's family reports his blood sugars has been under much better control with insulin and diet adjustments since starting [facility] services for medication and insulin management. EMR review noted for ER visit on 12/05/22 for right sided low back pain due to muscle strain and spasm after snow shoveling. Denies any right sided radiculopathy symptoms. Patient denies any fever, weight changes, abdominal or groin pain, bowel or bladder incontinence or saddle anesthesia. PRIOR: Patient presents today via telehealth encounter to evaluate his response to Diagnostic Right SIJ innervation with Dreyfuss technique on 06/05/[address] Garland. Patient reports his pre-procedure level was 7/10 and has remained 0/10 in the projection of his right lower back and SIJ area. Per [facility], patient has undergone multiple therapeutic injections for right SIJ pathology. He underwent right SIJ injections on 7 occasions with the last one performed on 06/12/21. At last office visit, patient expressed interest in pursuing steroid-free treatments for longer term pain relief as he is diabetic and also has concerns with risk of osteoporosis. Behavioral evaluation for preparation for right SIJ innervation PNS has not been completed. Patient reports that no one has contacted him from [facility] but he also rethinking about undergoing any invasive procedures after doing his research and discussing this with family members. Patient reports he just needs a pain medication for his chronic back pain and does not want to put any wires or devices in his body. I have reminded Wilfred that we do not offer opioid prescribing and discussed non-opioid medications. Patient denies any fever, chills, abdominal or groin pain, bowel or bladder incontinence or saddle anesthesia. Past Procedures: 06/05/22: Diagnostic Right SIJ innervation with Dreyfuss technique-100% pain relief over 48 hours PRIOR: Wilfred returns for a 3 month follow up with no changes in his symptoms. He is accompanied by his son and requesting him to translate as patient is mostly cameroonian speaking. His symptoms on previous exam were most consistent with SIJ pathology. Patient reports right lower back symptoms that have been present since 2014 without radiation into LE, numbness, tingling, weakness or bowel/bladder dysfunction. At his last visit, he was referred to PT but unfortunately the patient never received a call to schedule his evaluation. I will reenter this referral and son will give his number as a primary contact to ensure there is no miscommunication. PRIOR: Past medical history significant for multiple vascular risk factors including obesity, sedentary lifestyle, diabetes, seizure disorder, arthritis, chronic back pain, and dyslipidemia, history of smoking. He recently completed Holter monitoring and also sees Dr. Palacio, congenital heart disease specialist and followed by our cardiovascular services. Most recent A1C was 6.2 on 10/2021 and average home blood sugar readings 120-130?s. [facility] Medical History Arthritis Back pain Chest pain Depression Diabetes 1.5, managed as type 1 Diabetes mellitus Epilepsy GERD (gastroesophageal reflux disease) GERD without esophagitis History of colonic polyps Hyperlipidemia Insomnia Lumbar degenerative disc disease Morbid obesity Neurofibromatosis Obesity (BMI 30-39.9) Pure hypercholesterolemia Seizure disorder Tubular adenoma Surgical History History of colonoscopy History of excision of mass (~2015) Neurofibroma Family History Father No problems noted. Mother No problems noted. Social History (Reviewed 03/31/23 @ 11:46 by MADHAV Carrington Housing: House Housing Other:: rents a room Alcohol intake: never Patient Tobacco Use Status: Former Tobacco user Second Hand Smoke Exposure: Yes Advance Directives Date on File: 07/19/20 service: No Current occupational status: disabled Cognitive needs: No Hearing needs: No Vision needs: No Review of Systems Const All systems reviewed & are unremarkable except as noted in HPI and below Physical Exam Vital Signs: Last Vital Signs Pulse 89 03/31/23 11:39 BP 131/69 03/31/23 11:39 Pulse Ox 97 03/31/23 11:39 Oxygen Delivery Method Room Air 03/31/23 11:39 BMI result Body Mass Index 39.3 General: Appears afebrile. Alert and oriented. Mood and affect appropriate. Follows and participates in conversation appropriately. Respiratory effort is unlabored. No cough. Able to transition from sit to stand unassisted. Ambulates with bilaterally normal heel strike and toe off. Back/Spine/Pelvis Other: Limited lumbar ROM due to pain, worse pain with extension. Significant localized tenderness in the projection of right SIJ area worsened with limited Job's, Stinchfield, Pelvic compression and limited Gaenslen tests which are positive on the right, negative on the left. Cervical Spine: cervical ROM normal and No Cervical spine tenderness Thoracic/Lumbar Spine: thoracic and lumbar spine normal to inspection, Lasegue's sign negative, straight leg raise negative bilaterally, pain with thoraco-lumbar ROM, paraspinal muscle tenderness, thoraco-lumbar ROM limited, No thoracic spinal tenderness and lumbar spinal tenderness at L4 and at L5 Pelvis: buttock tenderness on the right Sacroiliac joints: on the right tender to palpation and on the left nontender Results Reviewed Results Reviewed: XR LUMBOSACRAL SPINE 12/27/21 COMPARISON: Radiographs dated 03/14/2014. FINDINGS: There is bony demineralization. There is a slight lumbar levoscoliosis. Vertebral body heights are normal. The lower thoracic and lumbar disc spaces are well-maintained. No acute fracture or spondylolisthesis is seen. This multi-level mild thoracolumbar spondylosis. The posterior elements are intact. The paravertebral soft tissues are unremarkable. IMPRESSION: 1. No acute fracture or spondylolisthesis is seen. 2. The lumbar disc spaces are well-maintained. 3. There is multi-level mild thoracolumbar spondylosis. 4. There is a minimal lumbar levoscoliosis. XR/XR hip RT w PEL1V 12/27/21 IMPRESSION: Normal pelvis and hips. Assessment & Plan Assessment & Plan (1) Sacroiliac joint pain: Code(s): M53.3 - Sacrococcygeal disorders, not elsewhere classified (2) Lumbar degenerative disc disease: Code(s): M51.36 - Other intervertebral disc degeneration, lumbar region (3) Lumbosacral spondylolysis: Code(s): M43.07 - Spondylolysis, lumbosacral region (4) Sacroiliac joint dysfunction: Code(s): M53.3 - Sacrococcygeal disorders, not elsewhere classified Plan 1. Refill provided for gabapentin with an increased dose to BID. 2. Patient had excellent results with Right Diagnostic SIJ innervation with Dreyfuss technique by Dr. Garland on 06/05/22 for consideration of right SIJ innervation PNS. Patient is not interested in PNS trial and would like to proceed with Right Therapeutic SIJ injection with local and fluoroscopy for chronic right SIJ pain. Most recent A1C is 6.7, with insulin management by [facility] services and diet modification. All questions were answered and patient is in agreement of plan. Follow up for medication review and sooner if needed. Anticoagulation: Patient not on anticoagulant Justification for interventional therapy: ? Patient with average pain > 6/10 ? Patient has exhausted conservative therapy, NSAIDs, home physical therapy The risks, consequences, alternatives, and benefits of various treatment options were discussed with the patient in great detail, including conservative management, injections and procedures. I informed patient of the hyperglycemic effects of steroids. Medications: Changed From gabapentin 300 mg PO BEDTIME 30 days 30 caps 1RF for pain M51.36 - Other intervertebral disc degeneration, lumbar region, M53.3 - Sacrococcygeal disorders, not elsewhere classified To gabapentin 300 mg PO BID 30 days 60 caps 2RF for pain M51.36 - Other intervertebral disc degeneration, lumbar region, M53.3 - Sacrococcygeal disorders, not elsewhere classified Coding Level of Care Code Est Pt Level 4 (68426) Diagnoses Sacroiliac joint pain M53.3 Lumbar degenerative disc disease M51.36 Lumbosacral spondylolysis M43.07 Sacroiliac joint dysfunction M53.3
[2023-03-31 11:39] VITALS: BP 131/69; PULSE 89; O2SAT 97; BMI 39.3
== END 2023-03-31 12:30 | disposition home or self-care (01) ==
PROVIDERS: PCP Internal Medicine; Visit Provider Nurse Practitioner Family
DX: M53.3 Sacrococcygeal disorders, not elsewhere classified (principal); M51.36 Other intervertebral disc degeneration, lumbar region; M43.07 Spondylolysis, lumbosacral region
CPT/HCPCS: 99214

== ENCOUNTER → 2023-03-31 11:30 | Outpatient (BNVA) | payer OTHER, SELFPAY | PROVIDERS: PCP Internal Medicine; Visit Provider Nurse Practitioner Family | DX: M51.36 Other intervertebral disc degeneration, lumbar region (principal); M53.3 Sacrococcygeal disorders, not elsewhere classified; M43.07 Spondylolysis, lumbosacral region | CPT/HCPCS: 99212 ==

== ENCOUNTER 2023-04-23 07:20 | Outpatient (REF) | payer OTHER, SELFPAY ==
--- NOTE | ~2023-04-23 | FL_ITS ---
EXAMINATION: XR FLUOROSCOPY WITH IMAGES CLINICAL INFORMATION: Sacrococcygeal disorders, not elsewhere classified. COMPARISON: None available. TECHNIQUE: Fluoroscopy Supervised By: Dr. Galdino Garland. Fluoroscopy Time: 0.1 minutes. Cumulative Dose: 3.73 mGy. DAP: 0.486 Gycm2. Images: 2. FINDINGS: Images demonstrate needle placement over the right sacroiliac joint FL/FL guidance in treatment room IMPRESSION: Fluoroscopy guidance for right sacroiliac joint injection.
== END 2023-04-23 07:21 | disposition home or self-care (01) ==
LOC: CF 07:20
PROVIDERS: PCP Internal Medicine; Visit Provider Internal Medicine
DX: M53.3 Sacrococcygeal disorders, not elsewhere classified (principal)
CPT/HCPCS: 27096; J3301

== ENCOUNTER 2023-04-23 08:04 | Outpatient (AMB) | payer OTHER, SELFPAY ==
[2023-04-23 08:10] VITALS: BP 120/72; PULSE 91; RESP 14; O2SAT 98
--- NOTE | 2023-04-23 08:10 | A.OFFVIS_ITS ---
Intake Vital Signs 04/23/23 08:10 BP 120/72 Blood Pressure Location Lt brachial Position Sitting Respiration 14 Pulse 91 Pulse Source Pulse Oximeter Pulse Oximetry (%) 98 Oxygen Delivery Method Room Air Intake Visit Reasons: RIGHT THERAPEUTIC SIJ INJECTION Allergies No Known Allergies [No Known Allergies*] Allergy (Verified 04/23/23 08:10) HPI RIGHT THERAPEUTIC SIJ INJECTION HPI Details Patient presents for scheduled procedure. Denies any recent cough, cold, infection, fever or other significant changes in medical history since last office visit. [facility] Medical History Arthritis Back pain Chest pain Depression Diabetes 1.5, managed as type 1 Diabetes mellitus Epilepsy GERD (gastroesophageal reflux disease) GERD without esophagitis History of colonic polyps Hyperlipidemia Insomnia Lumbar degenerative disc disease Morbid obesity Neurofibromatosis Obesity (BMI 30-39.9) Pure hypercholesterolemia Seizure disorder Tubular adenoma Surgical History History of colonoscopy History of excision of mass (~2015) Neurofibroma Family History Father No problems noted. Mother No problems noted. Social History Housing: House Housing Other:: rents a room Alcohol intake: never Patient Tobacco Use Status: Former Tobacco user Second Hand Smoke Exposure: Yes Advance Directives Date on File: 07/19/20 service: No Current occupational status: disabled Cognitive needs: No Hearing needs: No Vision needs: No Physical Exam Vital Signs: Last Vital Signs Pulse 91 04/23/23 08:10 Resp 14 04/23/23 08:10 BP 120/72 04/23/23 08:10 Pulse Ox 98 04/23/23 08:10 Oxygen Delivery Method Room Air 04/23/23 08:10 Office Procedures Joint Injection/Drain Joint Injection/Drain Details: Sacroiliac Joint Injection, Right The procedure, its benefits, and its risks were explained and written informed consent was obtained from the patient. Immediately prior to starting the procedure, a time-out safety check was conducted. The patient's identification, procedure name, procedure site, and procedure laterality were confirmed with the patient. ? Patient was placed prone on the fluoroscopy table and the lumbosacral area was prepped using ChloraPrep and draped with sterile drapein standard fashion. The C-arm was rotated in a contralateral oblique fashion until the medial border of the iliac crest no longer foreshadowed the posterior sacroiliac joint line. The skin and subcutaneous tissue was anesthetized using 1 mL of 0.75% plain lidocaine with 1.5-inch 25-gauge needle in the middle region of the joint line.? A 3.5-inch 22-gauge spinal needle with small bend on the tip was slowly advanced towards the joint line, coaxial to the x-ray beam. Once bony content was obtained, the needle was easily slid into the intra-articular space.? Intra- articular needle position was confirmed using lateral fluoroscopy.? A total volume of 2.5mL of solution containing 40 mg Kenalog and rest 0.5% of ropivacaine was injected intra-articularly. The stylet was reinserted and needle was removed. The patient tolerated the procedure well. Patient denied any lower extremity weakness or numbness. Patient was observed for 30 min and was discharged after fulfilling the standard discharge criteria. Coding 09341 - Sacroiliac Procedure code (CPT) selection complete Assessment & Plan Assessment & Plan (1) Sacroiliac joint dysfunction: Code(s): M53.3 - Sacrococcygeal disorders, not elsewhere classified Plan Patient is status post therapeutic intra-articular right SIJ injection. Patient tolerated procedure well and was discharged home in stable condition with discharge instructions. All questions were answered. We will follow-up via telephone or in clinic to assess response to therapy. A follow-up appointment was made during today's visit. Orders: Orders FL guidance in treatment room Today M53.3 - Sacrococcygeal disorders, not elsewhere classified Coding Level of Care Code Procedure Only Diagnoses Sacroiliac joint dysfunction M53.3 CPT Codes Coding - Joint 9: 16458 - Sacroiliac ([id number])
== END 2023-04-23 08:57 | disposition home or self-care (01) ==
PROVIDERS: PCP Internal Medicine; Visit Provider Internal Medicine
DX: M53.3 Sacrococcygeal disorders, not elsewhere classified (principal)
CPT/HCPCS: 27096

== ENCOUNTER 2023-04-29 08:43 | Outpatient (REF) | payer OTHER, SELFPAY ==
[2023-04-29 09:02] LABS: MANUAL DIFF FLAG NO
[2023-04-29 09:08] LABS: Basophils Absolute Auto 0.1 X10*3/uL (0.0-0.2); Basophils Percent Auto 0.6 % (0-2); Eosinophils Absolute Auto 0.1 X10*3/uL (0.0-0.4); Hematocrit 41.5 % (42.0-52.0); Hemoglobin 13.1 g/dl (14.0-18.0); Imm Gran Abs Auto 0.06 X10*3/uL (0.00-0.03); Imm Gran Pct Auto 0.6 % (0.0-0.4); Lymphocytes Percent Auto 18.6 % (20-40); Mean Corpuscular HGB Conc 31.6 g/dl (31.0-36.0); Mean Corpuscular Hemoglobin 26.3 pg (27.0-33.0); Mean Corpuscular Volume 83.3 fL (80.0-98.0); Mean Platelet Volume 10.6 fL (9.4-12.4); Monocytes Absolute Auto 0.8 X10*3/uL (0.1-1.2); Monocytes Percent Auto 7.4 % (2-11); Neutrophils Absolute Auto 7.5 x10*3/uL (2.0-8.3); Neutrophils Percent Auto 71.8 % (45-73); Platelet Count 220 X10*3/uL (160-400); Red Blood Count 4.98 X10*6/uL (4.60-5.80); Red Cell Distribution Width 14.7 % (11.0-16.0); White Blood Count 10.5 X10*3/uL (4.8-10.8)
[2023-04-29 09:26] LABS: Estimated Average Glucose 128 mg/dL; Hemoglobin A1C 148.5333 umol/L; Hemoglobin A1c % 6.1 %
[2023-04-29 10:35] LABS: Appearance Urine Clear; Color Urine Yellow; Glucose Urine UA Negative (Negative); Leukocyte Esterase Urine Negative (Negative); Nitrite Urine Negative (Negative); PH 5.5 (5.0-9.0); Specific Gravity - Urine >= 1.030 (1.005-1.025); Urine Blood Negative (Negative); Urine Ketones Trace mg/dL (Negative); Urine Protein Negative (Neg-Trace)
[2023-04-29 10:43] LABS: Alanine Aminotransferase 10 U/L (0-40); Albumin Level 4.2 g/dL (3.5-5.0); Alkaline Phosphatase 87 U/L (39-117); Anion Gap 15 (12-20); Aspartate Amino Transferase 10 U/L (5-37); Bilirubin Total 0.3 mg/dL (0.0-1.0); Blood Urea Nitrogen 24 mg/dL (9-16); Calcium 9.6 mg/dL (8.4-10.2); Carbon Dioxide 23 mmol/L (22-29); Chloride 108 mmol/L (96-108); Cholesterol 115 mg/dL; Estimated Glomerular Filt Rate > 60; Glucose Fasting 131 mg/dL (60-99); HDL Cholesterol 45 mg/dL; LDL Cholesterol Calculated 51 mg/dl; Potassium 4.5 mmol/L (3.3-5.1); Sodium 141 mmol/L (135-145); Total Protein 7.4 g/dL (6.5-8.0); Triglycerides 98 mg/dL
[2023-04-29 10:48] LABS: TSH reflex Free T4 3.06 uIU/mL (0.32-4.0)
[2023-04-29 11:40] LABS: Microalbum/Creatinine Ratio Ur 4.5 ug/mg cr
[2023-05-03 11:39] LABS: Levetiracetam Keppra 19.6 mcg/mL (6.0-46.0)
== END 2023-04-29 08:44 | disposition home or self-care (01) ==
LOC: HO.LAB 08:43
PROVIDERS: PCP Internal Medicine; Visit Provider Internal Medicine
DX: E78.00 Pure hypercholesterolemia, unspecified (principal); E11.9 Type 2 diabetes mellitus without complications; E55.9 Vitamin D deficiency, unspecified; I10 Essential (primary) hypertension; G40.909 Epilepsy, unspecified, not intractable, without status epilepticus; R30.0 Dysuria; Z79.899 Other long term (current) drug therapy
CPT/HCPCS: 36415; 80053; 80061; 80177; 81003; 82043; 82306; 83036; 84443; 85025

== ENCOUNTER 2023-05-13 10:51 | Outpatient (AMB) | payer OTHER, SELFPAY ==
[2023-05-13 10:53] VITALS: BP 136/82; PULSE 71; O2SAT 96; BMI 38.0
--- NOTE | 2023-05-13 10:53 | A.OFFPC_ITS ---
Vital Signs 05/13/23 10:53 Height 5 ft 5 in Weight 228 lb 8 oz BMI 38.0 BP 136/82 Blood Pressure Location Lt brachial Position Sitting Pulse 71 Pulse Source Pulse Oximeter Pulse Oximetry (%) 96 Oxygen Delivery Method Room Air Intake Visit Reasons: hyperlipidemia, DM, HTN, GERD Community Engagement Specialist Required: No Accompanied by: Self / Same As Patient Allergies No Known Allergies [No Known Allergies*] Allergy (Verified 05/13/23 11:13) Medication List - Last Reconciled 05/13/23 by Xavi Mart MD aspirin 81 mg PO DAILY 90 days blood sugar diagnostic (FreeStyle Lite Strips) TEST TWICE DAILY blood sugar diagnostic (FreeStyle Lite Strips) USE DIRECTED TO TEST BLOOD SUGAR TWICE DAILY blood-glucose meter (FreeStyle Lite Meter kit) TEST TWICE DAILY citalopram 20 mg PO DAILY 30 days cyanocobalamin (vitamin B-12) (Vitamin B-12) 1,000 mcg PO DAILY cyclobenzaprine 10 mg PO TID PRN diclofenac sodium 1% 2 grams topical QID ferrous sulfate (FeroSul) 325 mg PO DAILY gabapentin 300 mg PO BID 30 days ibuprofen 600 mg PO Q8H PRN insulin glargine 33 units (0.33 mL) subcut BEDTIME lancets (FreeStyle Lancets) 28 gauge topical BID levetiracetam 1,000 mg PO BID 30 days lidocaine 5% 1 patch topical DAILY melatonin 6 mg (2 x 3 mg) PO BEDTIME PRN 90 days metformin 1,000 mg (2 x 500 mg) PO BID 90 days omeprazole 40 mg PO QAM 30 days pen needle, diabetic (BD Ultra-Fine Short Pen Needle) USE TWICE DAILY DIRECTED simvastatin 40 mg PO BEDTIME 30 days trazodone 150 mg PO BEDTIME PRN Tobacco use date assessed: 05/13/23 Dental Screening Dental Screen Date: 05/13/23 Did you have a dental visit in the last 12 months?: Yes Did you have a dental problem in the last 6 months where you did not have access to dental care?: No Was dental information given to patient?: Patient has dentist HPI hyperlipidemia, DM, HTN, GERD HPI Details Patient comes in today for his follow up visit States that he feels okay He denies any headaches or dizziness Denies any chest pains, no SOB No nausea/vomiting, no abdominal pain No change in bowel habits noted - would like to get his Miralax powder Rx refilled He continues to follow up with pain management regularly for his right lower back pain and has been getting right SI joint injections, which he states help somewhat Had his follow up labs done a couple of weeks ago - to discuss his results [facility] Medical History Arthritis Back pain Chest pain Depression Diabetes 1.5, managed as type 1 Diabetes mellitus Epilepsy GERD (gastroesophageal reflux disease) GERD without esophagitis History of colonic polyps Hyperlipidemia Insomnia Lumbar degenerative disc disease Morbid obesity Neurofibromatosis Obesity (BMI 30-39.9) Pure hypercholesterolemia Seizure disorder Tubular adenoma Surgical History (Updated 05/13/23 @ 11:16 by Xavi Mart MD) History of colonoscopy History of excision of mass (~2015) Neurofibroma Family History Father No problems noted. Mother No problems noted. Social History Housing: House Housing Other:: rents a room Alcohol intake: never Patient Tobacco Use Status: Former Tobacco user Second Hand Smoke Exposure: Yes Advance Directives Date on File: 07/19/20 service: No Current occupational status: disabled Cognitive needs: No Hearing needs: No Vision needs: No Questionnaire PHQ-9 Over the last 2 weeks, how often have you been bothered by any of the following problems? 1. Little interest or pleasure in doing things: not at all 2. Feeling down, depressed, or hopeless: not at all 3. Trouble falling or staying asleep, or sleeping too much: not at all 4. Feeling tired or having little energy: not at all 5. Poor appetite or overeating: not at all 6. Feeling bad about yourself - or that you are a failure or have let yourself or your family down: not at all 7. Trouble concentrating on things, such as reading the newspaper or watching television: not at all 8. Moving or speaking so slowly that other people could have noticed. Or the opposite - being so fidgety or restless that you have been moving around a lot more than usual: not at all 9. Thoughts that you would be better off or of hurting yourself in some way: not at all Total score: 0 Depression Screening Interpretation: Negative 16292 - PHQ-9 Billing: Yes Source: Developed by Drs. Griffin Chapman, Stella Garcia, Jose Manuel Us and colleagues, with an educational lux from [employer]. Thrive Questionnaire Date Thrive assessed: 05/13/23 I am a: Patient What is your living situation today?: I have a steady place to live Within the past 12 months, did the food you bought not last and you didn't have the money to get more?: Never true Within the past 12 months, did you worry whether your food would run out before you got money to buy more?: Never true Do you have trouble paying for medicines?: No Do you have trouble getting transportation to medical appointments?: No Do you have trouble paying your heating and electricity bill?: No Do you have trouble taking care of your child, family member or friend?: No Do you have trouble with day-to-day activities such as bathing, preparing meals, shopping, managing finances, etc.?: No Are you currently unemployed and looking for a job?: No Are you interested in more education?: No Please select the resources that you would like help with: None Currently or been in a relationship where the following occur: no concerns reported AUDIT C Alcohol Use Questionnaire (AUDIT-C) 1. How often do you have a drink containing alcohol?: Never 3. How often do you have six or more drinks on one occasion?: Never Total Score: 0 Score Reviewed/Action Taken: Yes VANCE-7 AMB Questionnaire VANCE-7 Date VANCE - 7 assessed: 05/13/23 Feeling nervous, anxious, or on edge: 0 = Not at all Not being able to stop or control worryin = Not at all Worrying too much about different things: 0 = Not at all Trouble relaxin = Not at all Being so restless that it is hard to sit still: 0 = Not at all Becoming easily annoyed or irritable: 0 = Not at all Feeling afraid as if something awful might happen: 0 = Not at all Total VANCE-7 score (0-4 normal; 5-9 mild; 10-14 moderate; 15-21 severe): 0 Source: Developed by Drs. Griffin Chapman, Stella Garcia, Jose Manuel Us and colleagues, with an educational lux from [employer]. Review of Systems Const Denies fatigue, Denies fever(s) and Denies headache(s) ENT Denies dysphagia, Denies dizziness, Denies otalgia, Denies headache(s) and Denies sore throat Card Denies chest pain, Denies palpitations and Denies dyspnea Resp Denies cough and Denies dyspnea GI Denies abdominal pain, Denies constipation, Denies dysphagia, Denies heartburn, Denies diarrhea, Denies nausea and Denies vomiting Denies dysuria, Denies nocturia and Denies urinary frequency Musc Reports back pain (over the right lower back - chronic) Neuro Denies dizziness, Denies headache(s) and Denies convulsions Endo Denies fatigue and Denies palpitations Physical exam (Primary Care) Vital Signs: Last Vital Signs Pulse 71 05/13/23 10:53 BP 136/82 05/13/23 10:53 Pulse Ox 96 05/13/23 10:53 Oxygen Delivery Method Room Air 05/13/23 10:53 BMI result Body Mass Index 38.0 Tobacco/Smoking Status: Tobacco use Status Tobacco use date assessed 05/13/23 05/13/23 10:59 Patient Tobacco Use Status Former Tobacco user 05/13/23 10:59 PHQ-9: PHQ-9 Score PHQ-9: Total score 0 05/13/23 10:59 Depression Screening Interpretation: Negative Thrive Assessment: Date of Thrive Assessment Date Thrive assessed 05/13/23 05/13/23 10:59 Currently or been in a relationship where the following occur: no concerns reported Const General: no acute distress and alert HENMT Ears: TM's normal bilaterally and EAC's normal Throat: Yes posterior oropharynx normal and Yes tonsils normal (no TP co ngestion) Neck Neck: Yes no lymphadenopathy and Yes supple Resp Auscultation: clear to auscultation bilaterally, no rales and no wheezes Cardio Rate: regular rate Rhythm: regular rhythm Heart sounds: no murmurs GI Palpation (GI): Soft to palpation and nontender Auscultation: normal bowel sounds Back/Spine/Pelvis Thoracic/Lumbar Spine: lumbar spinal tenderness (more on the right side) Sacroiliac joints: on the right tender to palpation Extrem General: Yes no clubbing, cyanosis or edema Results Reviewed Results Reviewed: Laboratory Tests 04/29/23 04/29/23 04/29/23 09:00 09:00 09:00 WBC 10.5 Hgb 13.1 L Hct 41.5 L Plt Count 220 Sodium 141 Potassium 4.5 Creatinine 0.77 Estimated GFR > 60 Fasting Glucose 131 H Hemoglobin A1c % Calcium 9.6 AST 10 ALT 10 Triglycerides 98 Cholesterol 115 LDL Cholesterol, Calc 51 HDL Cholesterol 45 25-OH Vitamin D Total 39.0 Ur Specific [place] >= 1.030 H Urine Protein Negative Urine Glucose (UA) Negative Urine Blood Negative Microalb/Creat Ratio Levetiracetam 04/29/23 04/29/23 04/29/23 09:00 09:00 09:00 WBC Hgb Hct Plt Count Sodium Potassium Creatinine Estimated GFR Fasting Glucose Hemoglobin A1c % 6.1 Calcium AST ALT Triglycerides Cholesterol LDL Cholesterol, Calc HDL Cholesterol 25-OH Vitamin D Total Ur Specific [place] Urine Protein Urine Glucose (UA) Urine Blood Microalb/Creat Ratio 4.5 Levetiracetam 19.6 Assessment and Plan Assessment & Plan (1) Pure hypercholesterolemia: Code(s): E78.00 - Pure hypercholesterolemia, unspecified Plan: Results of his labs done a couple of weeks ago reviewed and discussed with patient Reinforced low-cholesterol diet Continue Simvastatin 40 mg QD Will recheck his labs and fasting lipids in 4 months for follow-up (2) Type 2 diabetes mellitus with diabetic neuropathy: Code(s): E11.40 - Type 2 diabetes mellitus with diabetic neuropathy, unspecified Qualifiers: Diabetes mellitus manager of software development insulin use: with manager of software development use Qualified Code(s): E11.40 - Type 2 diabetes mellitus with diabetic neuropathy, unspecified; Z79.4 - [facility] (current) use of insulin Plan: HgbA1c was at 6.1% on his labs done a couple of weeks ago (in-office HgbA1c was at 6.7% a few months ago) - goal < 7.0% Reinforced diabetic diet Continue Metformin 1000 mg BID and Lantus 33 units SQ Q HS (3) Epilepsy: Code(s): G40.909 - Epilepsy, unspecified, not intractable, without status epilepticus Qualifiers: Epilepsy type: unspecified Intractability: not intractable Status epilepticus: without status epilepticus Qualified Code(s): G40.909 - Epilepsy, unspecified, not intractable, without status epilepticus Plan: Stable with no recent seizures Continue Levetiracetam 1000 mg po BID Follow-up with neurology as scheduled (4) GERD without esophagitis: Code(s): K21.9 - Gastro-esophageal reflux disease without esophagitis Plan: Dietary restrictions reinforced Continue Omeprazole 20 mg QD (5) Constipation: Code(s): K59.00 - Constipation, unspecified Qualifiers: Constipation type: unspecified constipation type Qualified Code(s): K59.00 - Constipation, unspecified Plan: Reinforced increased oral fluids and dietary fiber Continue Miralax 17 gm QD - Rx refilled (6) Lumbar degenerative disc disease: Code(s): M51.36 - Other intervertebral disc degeneration, lumbar region Plan: Reinforced activity and weight-lifting restrictions Continue Lidocaine 5% patches QD PRN Follow up with pain management as scheduled - has been getting right SI joint injections from pain management recently, which he states are helping (7) Insomnia: Code(s): G47.00 - Insomnia, unspecified Qualifiers: Insomnia type: primary Qualified Code(s): F51.01 - Primary insomnia Plan: Sleep hygiene reinforced Continue Trazodone 150 mg Q HS PRN (8) Depression: Code(s): F32.9 - Major depressive disorder, single episode, unspecified Qualifiers: Depression Type: major depressive disorder Major depression recurrence: recurrent Active/Remission status: currently active Major depression episode severity: unspecified Qualified Code(s): F33.9 - Major depressive disorder, recurrent, unspecified Plan: Continue Citalopram 20 mg QD Follow-up with psychiatry as scheduled (9) Obesity (BMI 30-39.9): Code(s): E66.9 - Obesity, unspecified Plan: Reinforced diet/exercise as tolerated/lose weight Plan Follow up in 4 months Orders: Orders Comprehensive [place]. Panel Fast 4 Months E78.00 - Pure hypercholesterolemia, unspecified Hemoglobin A1c 4 Months E11.9 - Type 2 diabetes mellitus without complications Lipid Panel 4 Months E78.00 - Pure hypercholesterolemia, unspecified Vitamin D 25-OH Total 4 Months E55.9 - Vitamin D deficiency, unspecified Microalbumin, Random (w Creat) 4 Months E11.9 - Type 2 diabetes mellitus without complications Complete Blood Count Auto Diff 4 Months I10 - Essential (primary) hypertension Levetiracetam Keppra 4 Months G40.909 - Epilepsy, unspecified, not intractable, without status epilepticus UA CC w/rflx Micro + Cult 4 Months R30.0 - Dysuria Coding Level of Care Code Est Pt Level 4 (05320) Diagnoses Pure hypercholesterolemia E78.00 Type 2 diabetes mellitus with diabetic neuropathy E11.40; Z79.4 Diabetes mellitus chcf insulin use: with chcf use Epilepsy G40.909 Epilepsy type: unspecified Intractability: not intractable Status epilepticus: without status epilepticus GERD without esophagitis K21.9 Constipation K59.00 Constipation type: unspecified constipation type Lumbar degenerative disc disease M51.36 Insomnia F51.01 Insomnia type: primary Depression F33.9 Depression Type: major depressive disorder Major depression recurrence: recurrent Active/Remission status: currently active Major depression episode severity: unspecified Obesity (BMI 30-39.9) E66.9
== END 2023-05-13 11:41 | disposition home or self-care (01) ==
PROVIDERS: Visit Provider Internal Medicine
DX: E11.40 Type 2 diabetes mellitus with diabetic neuropathy, unspecified (principal); Z79.4 Long term (current) use of insulin; G40.909 Epilepsy, unspecified, not intractable, without status epilepticus; K21.9 Gastro-esophageal reflux disease without esophagitis; F33.9 Major depressive disorder, recurrent, unspecified; K59.00 Constipation, unspecified; E78.00 Pure hypercholesterolemia, unspecified; M51.36 Other intervertebral disc degeneration, lumbar region; F51.01 Primary insomnia; E66.9 Obesity, unspecified
CPT/HCPCS: 99214

== ENCOUNTER 2023-05-20 09:15 | Outpatient (AMB) | payer OTHER, SELFPAY ==
--- NOTE | 2023-05-20 09:22 | MHC.OFFVIS ---
Intake Vital Signs 05/20/23 09:27 Height 5 ft 5 in Weight 228 lb 3 oz BMI 38.0 BP 123/64 Blood Pressure Location Lt brachial Position Sitting Pulse 83 Pulse Source Pulse Oximeter Pulse Oximetry (%) 97 Oxygen Delivery Method Room Air Intake Visit Reasons: RIGHT THERAPEUTIC SIJ INJECTION Intake Note: Pain today 1/10 Press Tender Short Goods Required: Yes Press Tender Short Goods Language: Financial Sales Assistant Name: son Accompanied by: Son Allergies No Known Allergies [No Known Allergies*] Allergy (Verified 05/20/23 09:27) HPI HPI Comments History of Present Illness Details Patient presents today for follow up to assess response to Right Therapeutic Sacroiliac Joint Injection on 04/23/[address] Garland. He is accompanied by his son who assists with translation per patient's request. Patient reports ongoing 90% pain relief in the projection of right SIJ area with improvement in his general daily activities, functioning, mood, sleep and social interactions. Family reports patient well tolerates gabapentin twice daily without any noted sided effects or somnolence. His most recent A1C was 6.1 on 04/29/23, one week after steroid injection and has been applauded for well managed diabetes. Patient rates his pain level at 1/10 today and provocative SIJ testing does not significantly increase his pain. Patient denies any fever, bowel or bladder incontinence or saddle anesthesia. Past Procedures: 04/23/23: Right Therapeutic Sacroiliac Joint Injection-ongoing 90% pain relief 06/05/22: Diagnostic Right SIJ innervation with Dreyfuss technique -100% pain relief for over 48 hours PRIOR: Past medical history significant for multiple vascular risk factors including obesity, sedentary lifestyle, diabetes, seizure disorder, arthritis, chronic back pain, and dyslipidemia, history of smoking. He recently completed Holter monitoring and also sees Dr. Palacio, congenital heart disease specialist and followed by our cardiovascular services. Most recent A1C was 6.2 on 10/2021 and average home blood sugar readings 120-130?s. [facility] Medical History Arthritis Back pain Chest pain Depression Diabetes 1.5, managed as type 1 Diabetes mellitus Epilepsy GERD (gastroesophageal reflux disease) GERD without esophagitis History of colonic polyps Hyperlipidemia Insomnia Lumbar degenerative disc disease Morbid obesity Neurofibromatosis Obesity (BMI 30-39.9) Pure hypercholesterolemia Seizure disorder Tubular adenoma Surgical History History of colonoscopy History of excision of mass (~2016) Neurofibroma Family History Father No problems noted. Mother No problems noted. Social History Housing: House Housing Other:: rents a room Alcohol intake: never Patient Tobacco Use Status: Former Tobacco user Second Hand Smoke Exposure: Yes Advance Directives Date on File: 07/19/20 service: No Current occupational status: disabled Cognitive needs: No Hearing needs: No Vision needs: No Review of Systems Const All systems reviewed & are unremarkable except as noted in HPI and below Physical Exam Vital Signs: Last Vital Signs Pulse 83 05/20/23 09:27 BP 123/64 05/20/23 09:27 Pulse Ox 97 05/20/23 09:27 Oxygen Delivery Method Room Air 05/20/23 09:27 BMI result Body Mass Index 38.0 General: Appears afebrile. Alert and oriented. Mood and affect appropriate. Fully engaged during exam. Follows and participates in conversation appropriately. Respiratory effort is unlabored. No cough. Able to transition from sit to stand unassisted. Back/Spine/Pelvis Cervical Spine: cervical ROM normal and No Cervical spine tenderness Thoracic/Lumbar Spine: thoracic and lumbar spine normal to inspection, Lasegue's sign negative, straight leg raise negative bilaterally, pain with thoraco-lumbar ROM, paraspinal muscle tenderness, thoraco-lumbar ROM limited, No thoracic spinal tenderness and No lumbar spinal tenderness Pelvis: buttock tenderness (mild) on the right Sacroiliac joints: on the right (mild) tender to palpation and on the left nontender Assessment & Plan Assessment & Plan (1) Sacroiliac joint dysfunction: Code(s): M53.3 - Sacrococcygeal disorders, not elsewhere classified (2) Lumbosacral spondylolysis: Code(s): M43.07 - Spondylolysis, lumbosacral region Plan Patient is status post therapeutic intra-articular right SIJ injection on 04/23/23 with 90% ongoing pain relief. Patient is aware that he can not receive another injection in this area for another three months. Patient is aware to monitor for side effects. All questions were answered and the patient is in agreement of plan. Follow up as needed. Coding Level of Care Code Est Pt Level 3 (46338) Diagnoses Sacroiliac joint dysfunction M53.3 Lumbosacral spondylolysis M43.07
[2023-05-20 09:27] VITALS: BP 123/64; PULSE 83; O2SAT 97; BMI 38.0
== END 2023-05-20 09:35 | disposition home or self-care (01) ==
PROVIDERS: PCP Internal Medicine; Visit Provider Nurse Practitioner Family
DX: M53.3 Sacrococcygeal disorders, not elsewhere classified (principal); M43.07 Spondylolysis, lumbosacral region
CPT/HCPCS: 99213

== ENCOUNTER → 2023-05-20 09:15 | Outpatient (BNVA) | payer OTHER, SELFPAY | PROVIDERS: PCP Internal Medicine; Visit Provider Nurse Practitioner Family | DX: M53.3 Sacrococcygeal disorders, not elsewhere classified (principal); M43.07 Spondylolysis, lumbosacral region | CPT/HCPCS: 99212 ==

== ENCOUNTER 2023-05-28 11:05 | Outpatient (AMB) | payer OTHER, SELFPAY ==
[2023-05-28 11:12] VITALS: BP 128/70; PULSE 75; BMI 38.9
--- NOTE | 2023-05-28 11:12 | A.OFFVIS_ITS ---
Intake Vital Signs 05/28/23 11:12 Height 5 ft 5 in Weight 233 lb 11.04 oz BMI 38.9 BP 128/70 Blood Pressure Location Lt brachial Position Sitting Pulse 75 Intake Visit Reasons: 1 year follow up Intake Note: 1 year follow up w/ EKG Steward/Stewardess Third Required: No Accompanied by: Self / Same As Patient Allergies No Known Allergies [No Known Allergies*] Allergy (Verified 05/28/23 11:12) Medication List - Last Reconciled 05/28/23 by Isaak Pederson MD aspirin 81 mg PO DAILY 90 days blood sugar diagnostic (FreeStyle Lite Strips) TEST TWICE DAILY blood sugar diagnostic (FreeStyle Lite Strips) USE DIRECTED TO TEST BLOOD SUG AR TWICE DAILY blood-glucose meter (FreeStyle Lite Meter kit) TEST TWICE DAILY citalopram 20 mg PO DAILY 30 days cyanocobalamin (vitamin B-12) (Vitamin B-12) 1,000 mcg PO DAILY cyclobenzaprine 10 mg PO TID PRN diclofenac sodium 1% 2 grams topical QID ferrous sulfate (FeroSul) 325 mg PO DAILY gabapentin 300 mg PO BID 30 days ibuprofen 600 mg PO Q8H PRN insulin glargine 33 units (0.33 mL) subcut BEDTIME lancets (FreeStyle Lancets) 28 gauge topical BID levetiracetam 1,000 mg PO BID 30 days lidocaine 5% 1 patch topical DAILY melatonin 6 mg (2 x 3 mg) PO BEDTIME PRN 90 days metformin 1,000 mg (2 x 500 mg) PO BID 90 days omeprazole 40 mg PO QAM 30 days pen needle, diabetic (BD Ultra-Fine Short Pen Needle) USE TWICE DAILY DIRECTED simvastatin 40 mg PO BEDTIME 30 days trazodone 150 mg PO BEDTIME PRN HPI HPI Comments History of Present Illness Details Wilfred returns for follow-up regarding a mass coronary arteries. In the past, he had atypical chest pain that led to further workup. He underwent stress testing coronary CTA. That showed normal coronary artery. Being managed conservatively. He states that he is doing good. No specific complaints. [facility] Medical History Arthritis Back pain Chest pain Depression Diabetes 1.5, managed as type 1 Diabetes mellitus Epilepsy GERD (gastroesophageal reflux disease) GERD without esophagitis History of colonic polyps Hyperlipidemia Insomnia Lumbar degenerative disc disease Morbid obesity Neurofibromatosis Obesity (BMI 30-39.9) Pure hypercholesterolemia Seizure disorder Tubular adenoma Surgical History History of colonoscopy History of excision of mass (~2016) Neurofibroma Family History Father No problems noted. Mother No problems noted. Social History Housing: House Housing Other:: rents a room Alcohol intake: never Patient Tobacco Use Status: Former Tobacco user Second Hand Smoke Exposure: Yes Advance Directives Date on File: 07/19/20 service: No Current occupational status: disabled Cognitive needs: No Hearing needs: No Vision needs: No Review of Systems Const Denies weakness ENT Denies dizziness Card Denies chest pain, Denies chest pain with activity, Denies syncope, Denies rapid heart rate, Denies pedal edema, Denies edema, Denies leg edema, Denies lightheadedness, Denies palpitations, Denies dyspnea, Denies dyspnea on exertion and Denies orthopnea Resp Denies cough, Denies dyspnea and Denies dyspnea on exertion GI Denies hematochezia and Denies change in stool character Musc Denies abnormal gait, Denies muscle cramps, Denies muscle weakness, Denies numbness, Denies radiating pain into limb and Denies tingling Neuro Denies abnormal gait, Denies dizziness, Denies syncope, Denies numbness, Denies tingling and Denies weakness Endo Denies palpitations Physical Exam Vital Signs: Last Vital Signs Pulse 75 05/28/23 11:12 BP 128/70 05/28/23 11:12 BMI result Body Mass Index 38.9 Const General: comfortable and no acute distress Orientation/consciousness: patient oriented x3 HEENT Other: Unremarkable Head: Yes normal to inspection Neck Neck: Yes normal visual inspection Chest Chest palpation & inspection: normal inspection of the chest Resp Auscultation: clear to auscultation bilaterally Cardio Palpation: normal PMI Heart sounds: S1 normal heart sound present, S2 normal heart sound present, no gallops, no murmurs and no rubs GI Palpation (GI): Soft to palpation Back/Spine/Pelvis Other: unremarkable Skin General skin exam: no rashes or lesions noted Neuro General: patient oriented x3 Extrem General: Yes normal to inspection Psych Mental Status: mental status grossly normal Office Procedures EKG Details: EKG with sinus rhythm at 75/Min; no significant ST-T changes and otherwise unremarkable. [place] 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 During the stress test, he was able to walk only for 12 seconds before being converted to Lexiscan. In the perfusion images, no obvious perfusion abnormality. Echocardiogram had shown basal inferior/inferoseptal wall motion abnormality/akinesis. 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 Otherwise, minimal scattered plaque without any significant stenosis. Case previously discussed with Dr. Palacio. Overall, it was felt that the course is not malignant to warrant surgery. It was also felt that not causing symptoms. He has had no further symptoms and overall doing well. Will continue to monitor periodically. If any further chest pains or other concerns, he is well aware to contact us. Discussed with friend who came for appointment. Appropriate form signed. Coding Level of Care Code Est Pt Level 3 (12811) Diagnoses Anomalous right coronary artery Q24.5 CPT Codes EKG - CPT: 78776-[id number], Complete ([id number])
== END 2023-05-28 11:30 | disposition home or self-care (01) ==
PROVIDERS: PCP Internal Medicine; Referring Provider Internal Medicine; Visit Provider Internal Medicine
DX: Q24.5 Malformation of coronary vessels (principal)
CPT/HCPCS: 93010; 99213

== ENCOUNTER → 2023-05-28 11:05 | Outpatient (BNVA) | payer OTHER, SELFPAY | PROVIDERS: PCP Internal Medicine; Referring Provider Internal Medicine; Visit Provider Internal Medicine | DX: Q24.5 Malformation of coronary vessels (principal) | CPT/HCPCS: 93005; 99212 ==

== ENCOUNTER 2023-08-30 22:10 | Emergency (ER) | payer OTHER, SELFPAY ==
--- NOTE | ~2023-08-30 | XR_ITS ---
EXAMINATION: XR CHEST CLINICAL INFORMATION: Chest pain COMPARISON: 06/30/2022 TECHNIQUE: Frontal view of the chest was obtained. FINDINGS: EKG leads overlie the chest. Lungs are clear. No consolidation, pneumothorax, or pleural effusion. Cardiac and mediastinal contours are normal. Pulmonary vasculature is unremarkable. Osseous structures are unremarkable. XR/XR chest 1V IMPRESSION: No acute cardiopulmonary findings
--- NOTE | 2023-08-30 22:14 | ED.CHESTPAIN ---
HPI - Chest Pain General Chief Complaint: Chest Pain Stated Complaint: chest pains & now pain all over from doing yard wk Time Seen by Provider: 08/30/23 22:12 Source: patient Mode of arrival: EMS Limitations: no limitations History of Present Illness HPI narrative: Patient diabetic with no known obstructive coronary disease was at home resting got up from the bed just prior to arrival with left-sided chest pain no radiation of the pain pain is heavy patient not communicating because of pain interpreting. No nausea no vomiting no shortness of breath. Per patient's patient was not working outside does have chronic leg pain. Patient has similar history of chest pain off and on in the past with detailed workup negative pain increases on palpation and left arm movements Related Data Previous Rx's Medication Instructions Recorded blood sugar diagnostic (FreeStyle #100 ea 06/15/21 Lite Strips) blood-glucose meter (FreeStyle #1 ea 06/15/21 Lite Meter kit) diclofenac sodium 1 % topical gel 2 g topical QID #100 grams 08/06/22 cyanocobalamin (vitamin B-12) 1,000 mcg PO DAILY #90 tabs 11/27/22 1,000 mcg tablet (Vitamin B-12) ferrous sulfate 325 mg (65 mg 325 mg PO DAILY #90 tabs 11/27/22 iron) tablet (FeroSul) cyclobenzaprine 10 mg tablet 10 mg PO TID PRN muscle spasm #14 12/05/22 tabs ibuprofen 600 mg tablet 600 mg PO Q8H PRN pain #10 tabs 12/05/22 lidocaine 5 % topical patch 1 patch topical DAILY #15 ea 12/05/22 citalopram 20 mg tablet 20 mg PO DAILY 30 days #30 tabs 12/06/22 trazodone 150 mg tablet 150 mg PO BEDTIME PRN Insomnia #30 01/10/23 tabs lancets 28 gauge (FreeStyle 28 gauge topical BID #100 ea 02/22/23 Lancets) omeprazole 40 mg capsule,delayed 40 mg PO QAM 30 days #30 caps 05/25/23 release insulin glargine 100 unit/mL (3 33 unit (0.33 mL) subcut BEDTIME 06/09/23 mL) subcutaneous pen #15 mL aspirin 81 mg tablet,delayed 81 mg PO DAILY 90 days #90 tabs 06/22/23 release levetiracetam 1,000 mg tablet 1,000 mg PO BID 30 days #60 tabs 06/22/23 metformin 500 mg tablet 1,000 mg (2 x 500 mg) PO BID 90 06/22/23 days #360 tabs simvastatin 40 mg tablet 40 mg PO BEDTIME 30 days #30 tabs 06/22/23 gabapentin 300 mg capsule 300 mg PO TID for pain 30 days #90 08/19/23 caps blood sugar diagnostic (FreeStyle #100 strips 08/22/23 Lite Strips) pen needle, diabetic 31 gauge x #100 ea 08/22/23 5/16 (BD Ultra-Fine Short Pen Needle) melatonin 3 mg tablet 6 mg (2 x 3 mg) PO BEDTIME PRN 08/29/23 insomnia 90 days #90 tabs Allergies Allergy/AdvReac Type Severity Reaction Status Date / Time No Known Allergies Allergy Verified 08/30/23 22:43 [No Known Allergies*] Review of Systems Review of Systems: Yes all other systems are reviewed and are negative PMFSH Past Medical History Medical History Lumbar degenerative disc disease Chest pain Obesity (BMI 30-39.9) Insomnia GERD without esophagitis Pure hypercholesterolemia Epilepsy 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 Mother No problems noted. Social History Social History Housing: House Housing Other:: rents a room Alcohol intake: never Patient Tobacco Use Status: Former Tobacco user Smoked in Last 30 Days: No Second Hand Smoke Exposure: Yes Use of substances other than those prescribed or required for medical reasons: No Advance Directives: No Advance Directives Information Provided: No Advance Directives Date on File: 07/19/20 service: No Current occupational status: disabled Cognitive needs: No Hearing needs: No Vision needs: No Physical Exam Vital Signs: Vital Signs: Last Vital Signs Temp 98.1 F 08/30/23 22:35 Pulse 76 08/31/23 01:37 Resp 12 08/31/23 01:37 BP 142/67 H 08/31/23 01:37 Pulse Ox 98 08/31/23 01:37 O2 Del Method Room Air 08/31/23 01:37 BMI result Body Mass Index 37.4 Appearance: Alert. Oriented X3. No acute distress. Eyes: PERRLA, No Nystagmus ENT: Pharynx normal. Oral Mucosa moist Neck: Normal inspection. Neck supple. CVS: Normal heart rate and rhythm. Pulses normal. Tender to touch left 2nd intercostal space Respiratory: No respiratory distress. Equal air entry bilateral, no wheezing/rales/rhonchi Abdomen: Soft and nontender. Bowel sounds are present, no mass palpable, no CVA tenderness Skin: Skin warm and dry. Normal skin color. Normal skin turgor. Extremities: No lower extremity edema. No calf tenderness Neuro: Oriented X 3. No motor deficit. No sensory deficit.No cerebellar signs , cranial nerves II-XII intact Medications Administered Discontinued Medications Generic Name Dose Route Start Last Admin Trade Name Freq PRN Reason Stop Dose Admin Aspirin 162 mg 08/30/23 22:21 08/30/23 22:58 Aspirin 81 Mg Tab.Chew PO 08/30/23 22:22 162 mg ONCE ONE Administration Sodium Chloride 1,000 mls @ 999 mls/hr 08/30/23 22:21 08/30/23 23:55 Ns IV 08/30/23 23:21 Infused .Q1H1M ONE Infusion Ketorolac Tromethamine 30 mg 08/31/23 00:07 08/31/23 00:52 Ketorolac Tromethamine 30 Mg/Ml Vial IVPUSH 08/31/23 00:08 30 mg ONCE ONE Administration Nitroglycerin 1 inch 08/30/23 22:21 08/30/23 22:59 Nitroglycerin 2 % Oint 1 Gm Packet TRANSDERMA 08/30/23 22:22 1 inch ONCE ONE Administration Medical Decision Making Medical Decision Making [facility] Narrative: On further evaluation noticed that patient has been having similar chest pain almost once a month for several years had recent coronary CTA which showed enema was origin of right coronary had a stress test and echocardiogram which were negative been followed by supervisor [employer] service here came with similar pain which is reproducible on palpation initial cardiac enzymes and D-dimer negative. Will repeat troponin likely patient has atypical musculoskeletal chest pain Repeat troponin negative patient chest pain-free discharge patient home advised to use diclofenac sodium ointment to apply locally at painful area Differential Diagnosis Differential Diagnoses: The differential diagnosis associated with the presentation includes ACS/musculoskeletal chest pain/non STEMI Lab Data MDM Lab Attestation statement: I reviewed the patient's lab results. 08/30/23 22:47 08/30/23 22:47 Labs: Lab Results 08/30/23 08/30/23 08/30/23 Range/Units 22:47 22:48 22:55 WBC 6.3 (4.8-10.8) X10*3/uL RBC 4.54 L (4.60-5.80) X10*6/uL Hgb 11.9 L (14.0-18.0) g/dl Hct 37.9 L (42.0-52.0) % MCV 83.5 (80.0-98.0) fL MCH 26.2 L (27.0-33.0) pg MCHC 31.4 (31.0-36.0) g/dl RDW 14.1 (11.0-16.0) % Plt Count 182 (160-400) X10*3/uL MPV 10.3 (9.4-12.4) fL Immature Gran % (Auto) 0.8 H (0.0-0.4) % Neut % (Auto) 59.3 (45-73) % Lymph % (Auto) 27.8 (20-40) % [place] % (Auto) 8.3 (2-11) % Eos % (Auto) 3.2 (0-4) % Baso % (Auto) 0.6 (0-2) % Lymph # (Auto) 1.7 (1.2-4.9) X10*3/uL [place] # (Auto) 0.5 (0.1-1.2) X10*3/uL Eos # (Auto) 0.2 (0.0-0.4) X10*3/uL Baso # (Auto) 0.0 (0.0-0.2) X10*3/uL Abs Immat Gran (auto) 0.05 H (0.00-0.03) X10*3/uL Absolute Neuts (auto) 3.7 (2.0-8.3) x10*3/uL Absolute Nucleated RBC 0.000 (0.0-0.012) X10*3/uL Nucleated RBC % (auto) 0.0 (0.0-0.2) /100WBC PT 11.7 (11.1-13.3) SEC INR 1.0 (0.9-1.1) APTT 32.4 (26.0-36.4) SEC D-Dimer High Sensitivty < 150 NG/ML Sodium 143 (135-145) mmol/L Potassium 4.0 (3.3-5.1) mmol/L Chloride 110 H (96-108) mmol/L Carbon Dioxide 24 (22-29) mmol/L Anion Gap 13 (12-20) BUN 13 (9-16) mg/dL Creatinine 0.84 (0.5-1.4) mg/dL Estim Creat Clear Calc 101.5 Estimated GFR > 60 POC Glucose 143 H (60-115) mg/dL Random Glucose 141 H (60-115) mg/dL Calcium 9.8 (8.4-10.2) mg/dL Magnesium 1.9 (1.6-2.6) mg/dL Total Bilirubin 0.3 (0.0-1.0) mg/dL AST 15 (5-37) U/L ALT 13 (0-40) U/L Alkaline Phosphatase 84 (39-117) U/L Troponin I High Sens < 2.7 (<3.5-35.0) ng/L Total Protein 6.8 (6.5-8.0) g/dL Albumin 4.0 (3.5-5.0) g/dL 08/31/23 Range/Units 00:50 WBC (4.8-10.8) X10*3/uL RBC (4.60-5.80) X10*6/uL Hgb (14.0-18.0) g/dl Hct (42.0-52.0) % MCV (80.0-98.0) fL MCH (27.0-33.0) pg MCHC (31.0-36.0) g/dl RDW (11.0-16.0) % Plt Count (160-400) X10*3/uL MPV (9.4-12.4) fL Immature Gran % (Auto) (0.0-0.4) % Neut % (Auto) (45-73) % Lymph % (Auto) (20-40) % [place] % (Auto) (2-11) % Eos % (Auto) (0-4) % Baso % (Auto) (0-2) % Lymph # (Auto) (1.2-4.9) X10*3/uL [place] # (Auto) (0.1-1.2) X10*3/uL Eos # (Auto) (0.0-0.4) X10*3/uL Baso # (Auto) (0.0-0.2) X10*3/uL Abs Immat Gran (auto) (0.00-0.03) X10*3/uL Absolute Neuts (auto) (2.0-8.3) x10*3/uL Absolute Nucleated RBC (0.0-0.012) X10*3/uL Nucleated RBC % (auto) (0.0-0.2) /100WBC PT (11.1-13.3) SEC INR (0.9-1.1) APTT (26.0-36.4) SEC D-Dimer High Sensitivty NG/ML Sodium (135-145) mmol/L Potassium (3.3-5.1) mmol/L Chloride (96-108) mmol/L Carbon Dioxide (22-29) mmol/L Anion Gap (12-20) BUN (9-16) mg/dL Creatinine (0.5-1.4) mg/dL Estim Creat Clear Calc Estimated GFR POC Glucose (60-115) mg/dL Random Glucose (60-115) mg/dL Calcium (8.4-10.2) mg/dL Magnesium (1.6-2.6) mg/dL Total Bilirubin (0.0-1.0) mg/dL AST (5-37) U/L ALT (0-40) U/L Alkaline Phosphatase (39-117) U/L Troponin I High Sens < 2.7 (<3.5-35.0) ng/L Total Protein (6.5-8.0) g/dL Albumin (3.5-5.0) g/dL Independent Interpretation I performed an independent interpretation of an: EKG and Plain X-Ray Interpretation: Normal sinus rhythm heart rate 86 beats per minute normal interval normal axis Q-waves in inferior lead no acute ST-T changes no acute ischemia Radiology Impression Discussion of test interpretation with radiology: I have reviewed the radiologist's reading. Independent Historian Clinical information obtained from an independent historian. History obtained from or confirmed by: Spouse External Record Review External record reviewed: Outpatient record Discharge Plan Discharge Clinical Impression: Atypical chest pain Patient Disposition: Home, Self-Care Instructions: Chest Pain (ED) Additional Instructions: Your chest pain is unlikely from the heart Apply diclofenac gel at the painful area Follow-up with your PCP Es poco probable que trinh dolor en el pecho provenga del coraz?n. Aplicar gel de diclofenaco en la natasha dolorida. Ten un seguimiento con trinh PCP Prescriptions: No Action (DME) FreeStyle Lite Strips Strip See Rx Instructions .Route Qty: 100 0RF Rx Instructions: TEST TWICE DAILY (DME) blood-glucose meter [FreeStyle Lite Meter] Kit See Rx Instructions .Route Qty: 1 0RF Rx Instructions: TEST TWICE DAILY diclofenac sodium 1 % gel 2 g topical QID Qty: 100 1RF Rx Instructions: apply to lower Back citalopram 20 mg tablet 20 mg PO DAILY 30 Days Qty: 30 3RF trazodone 150 mg tablet 150 mg PO BEDTIME PRN (Reason: Insomnia) Qty: 30 2RF lancets [FreeStyle Lancets] 28 gauge misc 28 gauge topical BID Qty: 100 12RF omeprazole 40 mg capsule,delayed release(DR/EC) 40 mg PO QAM 30 Days Qty: 30 3RF insulin glargine 100 unit/mL (3 mL) insulin pen 33 unit subcut BEDTIME Qty: 15 5RF aspirin 81 mg tablet,delayed release (DR/EC) 81 mg PO DAILY 90 Days Qty: 90 3RF simvastatin 40 mg tablet 40 mg PO BEDTIME 30 Days Qty: 30 3RF levetiracetam 1,000 mg tablet 1,000 mg PO BID 30 Days Qty: 60 3RF metformin 500 mg tablet 1,000 mg PO BID 90 Days Qty: 360 1RF gabapentin 300 mg capsule 300 mg PO TID 30 Days Qty: 90 1RF (DME) FreeStyle Lite Strips Strip See Rx Instructions .ROUTE .COMPLEX Qty: 100 12RF Dose Instruction: USE DIRECTED TO TEST BLOOD SUGAR TWICE DAILY Rx Instructions: USE DIRECTED TO TEST BLOOD SUGAR TWICE DAILY (DME) pen needle, diabetic [BD Ultra-Fine Short Pen Needle] 31 gauge x 5/16 needle See Rx Instructions .ROUTE .COMPLEX Qty: 100 12RF Dose Instruction: USE TWICE DAILY DIRECTED Rx Instructions: USE TWICE DAILY DIRECTED melatonin 3 mg tablet 6 mg PO BEDTIME PRN (Reason: insomnia) 90 Days Qty: 90 3RF cyanocobalamin (vitamin B-12) [Vitamin B-12] 1,000 mcg Tablet 1,000 mcg PO DAILY Qty: 90 3RF ferrous sulfate [FeroSul] 325 mg (65 mg iron) Tablet 325 mg PO DAILY Qty: 90 3RF cyclobenzaprine 10 mg tablet 10 mg PO TID PRN (Reason: muscle spasm) Qty: 14 0RF lidocaine 5 % adhesive patch,medicated 1 patch topical DAILY Qty: 15 0RF Rx Instructions: leave on most painful area for up to 12 hrs ibuprofen 600 mg tablet 600 mg PO Q8H PRN (Reason: pain) Qty: 10 0RF Interventions: ED Discharge Assessment Last Done: 08/31/23 01:45 Print Language: Pashto
--- NOTE | 2023-08-30 22:23 | ECG_ITS ---
Test Reason : CHEST PAIN Blood Pressure : / mmHG Vent. Rate : 086 BPM Atrial Rate : 086 BPM P-R Int : 168 ms QRS Dur : 078 ms QT Int : 376 ms P-R-T Axes : 043 -52 042 degrees QTc Int : 449 ms Normal sinus rhythm Left anterior fascicular block Cannot rule out Inferior infarct (cited on or before 30-AUG-2023) Abnormal ECG When compared with ECG of 30-JUN-2022 14:02, No significant change was found Referred By: Lucas Sánchez Electronically Signed By:MAYELA SIN
[2023-08-30 22:35] VITALS: BP 117/62; BP 140/88; PULSE 81; PULSE 90; RESP 16; TEMP 36.7; O2SAT 97; BMI 37.4
[2023-08-30] MEDS: 0.9 % Sodium Chloride 1,000 ML 999 ML IV (22:50)
[2023-08-30 22:57] LABS: MANUAL DIFF FLAG NO
[2023-08-30] MEDS: Aspirin 81 MG TAB.CHEW 162 MG PO (22:58)
[2023-08-30 22:59] VITALS: BP 138/63; PULSE 81
[2023-08-30 22:59] LABS: Glucose, Whole Blood 143 mg/dL (60-115)
[2023-08-30 22:59] LABS: Basophils Percent Auto 0.6 % (0-2); Eosinophils Absolute Auto 0.2 X10*3/uL (0.0-0.4); Eosinophils Percent Auto 3.2 % (0-4); Hematocrit 37.9 % (42.0-52.0); Hemoglobin 11.9 g/dl (14.0-18.0); Imm Gran Abs Auto 0.05 X10*3/uL (0.00-0.03); Imm Gran Pct Auto 0.8 % (0.0-0.4); Lymphocytes Absolute Auto 1.7 X10*3/uL (1.2-4.9); Lymphocytes Percent Auto 27.8 % (20-40); Mean Corpuscular HGB Conc 31.4 g/dl (31.0-36.0); Mean Corpuscular Hemoglobin 26.2 pg (27.0-33.0); Mean Corpuscular Volume 83.5 fL (80.0-98.0); Mean Platelet Volume 10.3 fL (9.4-12.4); Monocytes Absolute Auto 0.5 X10*3/uL (0.1-1.2); Monocytes Percent Auto 8.3 % (2-11); Neutrophils Absolute Auto 3.7 x10*3/uL (2.0-8.3); Neutrophils Percent Auto 59.3 % (45-73); Platelet Count 182 X10*3/uL (160-400); Red Blood Count 4.54 X10*6/uL (4.60-5.80); Red Cell Distribution Width 14.1 % (11.0-16.0); White Blood Count 6.3 X10*3/uL (4.8-10.8)
[2023-08-30] MEDS: Nitroglycerin 2 % Oint 1 GM Packet 1 INCH TRANSDERMA (22:59)
[2023-08-30 23:12] LABS: Alanine Aminotransferase 13 U/L (0-40); Alkaline Phosphatase 84 U/L (39-117); Anion Gap 13 (12-20); Aspartate Amino Transferase 15 U/L (5-37); Bilirubin Total 0.3 mg/dL (0.0-1.0); Blood Urea Nitrogen 13 mg/dL (9-16); Calcium 9.8 mg/dL (8.4-10.2); Carbon Dioxide 24 mmol/L (22-29); Chloride 110 mmol/L (96-108); Creatinine Clr Calc Pharmacy 101.5; Estimated Glomerular Filt Rate > 60; Glucose Random 141 mg/dL (60-115); Magnesium 1.9 mg/dL (1.6-2.6); Sodium 143 mmol/L (135-145); Total Protein 6.8 g/dL (6.5-8.0)
[2023-08-30 23:19] LABS: Troponin-I High Sensitivity < 2.7 ng/L (<3.5-35.0)
[2023-08-30 23:24] LABS: Prothrombin Time 11.7 SEC (11.1-13.3)
[2023-08-30 23:26] LABS: Partial Thromboplastin Time 32.4 SEC (26.0-36.4)
[2023-08-30 23:28] LABS: D Dimer High Sensitivity < 150 NG/ML
[2023-08-31] MEDS: Ketorolac Tromethamine 30 MG/ML VIAL IVPUSH (00:52)
[2023-08-31 00:54] VITALS: BP 145/62; PULSE 74; RESP 14; O2SAT 97
[2023-08-31 01:28] LABS: Troponin-I High Sensitivity < 2.7 ng/L (<3.5-35.0)
[2023-08-31 01:37] VITALS: BP 142/67; PULSE 76; RESP 12; O2SAT 98
== END 2023-08-31 01:50 | disposition home or self-care (01) ==
PROVIDERS: Emergency Provider Internal Medicine
DX: R07.89 Other chest pain (principal); R07.9 Chest pain, unspecified; E13.9 Other specified diabetes mellitus without complications; G40.909 Epilepsy, unspecified, not intractable, without status epilepticus
CPT/HCPCS: 36415; 71045; 80053; 82947; 83735; 84484; 85025; 85379; 85610; 85730; 93005; 96361; 96374; 99285; J1885

== ENCOUNTER → 2023-08-30 22:23 | Outpatient (BNV) | payer OTHER, SELFPAY | PROVIDERS: Emergency Provider Internal Medicine; Visit Provider Internal Medicine | DX: I44.4 Left anterior fascicular block (principal); R94.31 Abnormal electrocardiogram [ECG] [EKG] | CPT/HCPCS: 93010 ==

== ENCOUNTER 2023-09-17 11:02 | Outpatient (AMB) | payer OTHER, SELFPAY ==
--- NOTE | 2023-09-17 11:06 | A.OFFPC_ITS ---
Vital Signs 09/17/23 11:07 Height 5 ft 5 in Weight 235 lb BMI 39.1 BP 128/78 Blood Pressure Location Lt brachial Position Sitting Pulse 83 Pulse Source Pulse Oximeter Pulse Oximetry (%) 97 Oxygen Delivery Method Room Air Intake Visit Reasons: hyperlipidemia, DM, epilepsy Intake Note: Patient is here to follow up on Hyperlipidemia, DM, Epilpesy. Pt was seen in the [facility] ED on 09/12/23 for chest pain. Kitchen Food Assembler Required: Yes Kitchen Food Assembler Language: Mutton Puncher Name: Pablo (Friend) Basketball Player: Present Accompanied by: Friend Allergies No Known Allergies [No Known Allergies*] Allergy (Verified 01/19/24 13:05) Medication List - Last Reconciled 09/17/23 by Xavi Mart MD aspirin 81 mg PO DAILY 90 days blood sugar diagnostic (FreeStyle Lite Strips) USE DIRECTED TO TEST BLOOD SUGAR TWICE DAILY blood sugar diagnostic (FreeStyle Lite Strips) TEST TWICE DAILY blood-glucose meter (FreeStyle Lite Meter kit) TEST TWICE DAILY citalopram 20 mg PO DAILY 30 days cyanocobalamin (vitamin B-12) (Vitamin B-12) 1,000 mcg PO DAILY cyclobenzaprine 10 mg PO TID PRN diclofenac sodium 1% 2 grams topical QID ferrous sulfate (FeroSul) 325 mg PO DAILY gabapentin 300 mg PO TID 30 days ibuprofen 600 mg PO Q8H PRN insulin glargine 33 units (0.33 mL) subcut BEDTIME lancets (FreeStyle Lancets) 28 gauge topical BID levetiracetam 1,000 mg PO BID 30 days lidocaine 5% 1 patch topical DAILY melatonin 6 mg (2 x 3 mg) PO BEDTIME PRN 90 days metformin 1,000 mg (2 x 500 mg) PO BID 90 days omeprazole 40 mg PO QAM 30 days pen needle, diabetic (BD Ultra-Fine Short Pen Needle) USE TWICE DAILY DIRECTED simvastatin 40 mg PO BEDTIME 30 days trazodone 150 mg PO BEDTIME PRN Tobacco use date assessed: 09/17/23 Dental Screening Dental Screen Date: 09/17/23 Did you have a dental visit in the last 12 months?: Yes Did you have a dental problem in the last 6 months where you did not have access to dental care?: No Was dental information given to patient?: Patient has dentist HPI hyperlipidemia, DM, epilepsy HPI Details Patient comes in today for his follow up visit States that he feels okay He denies any headaches or dizziness Denies any chest pains, no SOB although he did go to the ER about 3 weeks ago for chest pains - work ups done at the ER were all negative and he was subsequently discharged back home after his negative work ups No nausea/vomiting, no abdominal pain No change in bowel habits noted He did not get his follow up labs done before his visit today although he had labs done when he went to the ER earlier this month [facility] Medical History Lumbar degenerative disc disease Chest pain Obesity (BMI 30-39.9) Insomnia GERD without esophagitis Pure hypercholesterolemia Epilepsy 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 Mother No problems noted. Social History Housing: House Housing Other:: rents a room Alcohol intake: never Patient Tobacco Use Status: Former Tobacco user e-Cigarette/Vaping Use: Never Used Second Hand Smoke Exposure: Yes Advance Directives Date on File: 07/19/20 service: No Current occupational status: disabled Cognitive needs: No Hearing needs: No Vision needs: No Questionnaire PHQ-9 Over the last 2 weeks, how often have you been bothered by any of the following problems? Depression Screening Interpretation: Negative Depression Screening Done: Yes Source: Developed by Drs. Griffin Chapman, Stella Garcia, Jose Manuel Us and colleagues, with an educational lux from [employer]. Thrive Questionnaire Date Thrive assessed: 05/13/23 Currently or been in a relationship where the following occur: no concerns reported VANCE-7 AMB Questionnaire VANCE-7 Date VANCE - 7 assessed: 05/13/23 Source: Developed by Drs. Griffin Chapman, Jose Manuel Valentine Kroenke and colleagues, with an educational lux from [employer]. Review of Systems Const Denies chills, Denies fatigue, Denies fever(s) and Denies headache(s) ENT Denies dysphagia, Denies dizziness, Denies otalgia, Denies headache(s), Denies neck pain, Denies odynophagia and Denies sore throat Card Denies chest pain, Denies palpitations and Denies dyspnea Resp Denies cough, Denies dyspnea and Denies wheezing GI Denies abdominal pain, Denies constipation, Denies dysphagia, Denies heartburn, Denies diarrhea, Denies nausea, Denies odynophagia and Denies vomiting Denies dysuria, Denies nocturia and Denies urinary frequency Musc Reports back pain (over the right lower back - chronic) and Denies neck pain Skin/Breast Denies rash Neuro Denies dizziness, Denies headache(s) and Denies convulsions Endo Denies fatigue and Denies palpitations Aller/Immun Denies wheezing Physical exam (Primary Care) Vital Signs: Last Vital Signs Pulse 83 09/17/23 11:07 BP 128/78 09/17/23 11:07 Pulse Ox 97 09/17/23 11:07 Oxygen Delivery Method Room Air 09/17/23 11:07 BMI result Body Mass Index 39.1 Tobacco/Smoking Status: Tobacco use Status Tobacco use date assessed 09/17/23 09/17/23 11:18 Patient Tobacco Use Status Former Tobacco user 09/17/23 11:18 e-Cigarette/Vaping Use Never Used 09/17/23 11:18 Depression Screening Interpretation: Negative Thrive Assessment: Date of Thrive Assessment Date Thrive assessed 05/13/23 09/17/23 11:18 Currently or been in a relationship where the following occur: no concerns reported Const General: no acute distress and alert HENMT Ears: TM's normal bilaterally and EAC's normal Throat: Yes posterior oropharynx normal and Yes tonsils normal (no TP congestion) Neck Neck: Yes no lymphadenopathy and Yes supple Thyroid: Thyroid normal Resp Auscultation: clear to auscultation bilaterally, no rales and no wheezes Cardio Rate: regular rate Rhythm: regular rhythm Heart sounds: no murmurs GI Palpation (GI): Soft to palpation and nontender Auscultation: normal bowel sounds Back/Spine/Pelvis Thoracic/Lumbar Spine: lumbar spinal tenderness (more on the right side) Sacroiliac joints: on the right tender to palpation Skin Rashes: no rashes Extrem General: Yes no clubbing, cyanosis or edema Results AMB Hemoglobin A1c AMB Hemoglobin A1c 6.5 % Last Edit by FILIBERTO Koo on 09/17/23 11:19 Results Reviewed Results Reviewed: Laboratory Last Values Hgb A1c (Clinic) 6.5 % (4.0-6.0) H 09/17/23 11:06 Laboratory Tests 08/30/23 22:47 WBC 6.3 Hgb 11.9 L Hct 37.9 L Plt Count 182 Sodium 143 Potassium 4.0 Creatinine 0.84 Estimated GFR > 60 Random Glucose 141 H Calcium 9.8 AST 15 ALT 13 Assessment and Plan Assessment & Plan (1) Pure hypercholesterolemia: Code(s): E78.00 - Pure hypercholesterolemia, unspecified Plan: Results of his labs done a couple of weeks ago reviewed and discussed with patient although these were done at the ER and did not include his fasting lipids Reinforced low-cholesterol diet Continue Simvastatin 40 mg QD Will recheck his labs and fasting lipids in 4 months for follow-up (2) Type 2 diabetes mellitus with diabetic neuropathy: Code(s): E11.40 - Type 2 diabetes mellitus with diabetic neuropathy, unspecified Qualifiers: Diabetes mellitus senior living insulin use: with termite technician use Qualified Code(s): E11.40 - Type 2 diabetes mellitus with diabetic neuropathy, unspecified; Z79.4 - MCC (current) use of insulin Plan: In-office HgbA1c done today is at 6.5% (HgbA1c was at 6.1% a few months ago) - g oal < 7.0% Reinforced diabetic diet Continue Metformin 1000 mg BID and Lantus 33 units SQ Q HS (3) Epilepsy: Code(s): G40.909 - Epilepsy, unspecified, not intractable, without status epilepticus Qualifiers: Epilepsy type: unspecified Intractability: not intractable Status epilepticus: without status epilepticus Qualified Code(s): G40.909 - Epilepsy, unspecified, not intractable, without status epilepticus Plan: Stable with no recent seizures Continue Levetiracetam 1000 mg po BID Follow-up with neurology as scheduled (4) GERD without esophagitis: Code(s): K21.9 - Gastro-esophageal reflux disease without esophagitis Plan: Dietary restrictions reinforced Continue Omeprazole 20 mg QD (5) Constipation: Code(s): K59.00 - Constipation, unspecified Plan: Reinforced increased oral fluids and dietary fiber Continue Miralax 17 gm QD (6) Lumbar degenerative disc disease: Code(s): M51.36 - Other intervertebral disc degeneration, lumbar region Plan: Reinforced activity and weight-lifting restrictions Continue Lidocaine 5% patches QD PRN Follow up with pain management as scheduled - has been getting right SI joint injections from pain management, which he states have been helping (7) Insomnia: Code(s): G47.00 - Insomnia, unspecified Qualifiers: Insomnia type: primary Qualified Code(s): F51.01 - Primary insomnia Plan: Sleep hygiene reinforced Continue Trazodone 150 mg Q HS PRN (8) Depression: Code(s): F32.9 - Major depressive disorder, single episode, unspecified Qualifiers: Active/Remission status: currently active Depression Type: major depressive disorder Major depression episode severity: unspecified Major depression recurrence: recurrent Qualified Code(s): F33.9 - Major depressive disorder, recurrent, unspecified Plan: Continue Citalopram 20 mg QD Follow-up with psychiatry as scheduled (9) Obesity (BMI 30-39.9): Code(s): E66.9 - Obesity, unspecified Plan: Reinforced diet/exercise as tolerated/lose weight Plan Follow up in 4 months Orders: Orders AMB Hemoglobin A1c 09/17/ E11.8 - Type 2 diabetes mellitus with unspecified complications Complete Blood Count Auto Diff 4 Months I10 - Essential (primary) hypertension Lipid Panel 4 Months E78.00 - Pure hypercholesterolemia, unspecified Comprehensive [place]. Panel Fast 4 Months E78.00 - Pure hypercholesterolemia, unspecified Hemoglobin A1c 4 Months E11.9 - Type 2 diabetes mellitus without complications Levetiracetam Keppra 4 Months G40.909 - Epilepsy, unspecified, not intractable, without status epilepticus TSH reflex Free T4 4 Months E78.00 - Pure hypercholesterolemia, unspecified UA CC w/rflx Micro + Cult 4 Months R30.0 - Dysuria Microalbumin, Random (w Creat) 4 Months E11.9 - Type 2 diabetes mellitus without complications Vitamin D 25-OH Total 4 Months E55.9 - Vitamin D deficiency, unspecified Coding Level of Care Code Est Pt Level 4 (02997) Diagnoses Pure hypercholesterolemia E78.00 Type 2 diabetes mellitus with diabetic neuropathy, with long-term current use of insulin E11.40; Z79.4 Diabetes mellitus termite technician insulin use: with senior living use Nonintractable epilepsy without status epilepticus, unspecified epilepsy type G40.909 Epilepsy type: unspecified Intractability: not intractable Status epilepticus: without status epilepticus GERD without esophagitis K21.9 Constipation K59.00 Lumbar degenerative disc disease M51.36 Primary insomnia F51.01 Insomnia type: primary Episode of recurrent major depressive disorder, unspecified depression episode severity F33.9 Active/Remission status: currently active Depression Type: major depressive disorder Major depression episode severity: unspecified Major depression recurrence: recurrent Obesity (BMI 30-39.9) E66.9
[2023-09-17 11:07] VITALS: BP 128/78; PULSE 83; O2SAT 97; BMI 39.1
== END 2023-09-17 11:51 | disposition home or self-care (01) ==
PROVIDERS: PCP Internal Medicine; Visit Provider Internal Medicine
DX: E78.00 Pure hypercholesterolemia, unspecified (principal); E11.40 Type 2 diabetes mellitus with diabetic neuropathy, unspecified; Z79.4 Long term (current) use of insulin; G40.909 Epilepsy, unspecified, not intractable, without status epilepticus; K21.9 Gastro-esophageal reflux disease without esophagitis; K59.00 Constipation, unspecified; M51.36 Other intervertebral disc degeneration, lumbar region; F51.01 Primary insomnia; F33.9 Major depressive disorder, recurrent, unspecified; E66.9 Obesity, unspecified
CPT/HCPCS: 83036; 99499

== ENCOUNTER 2023-11-26 11:13 | Outpatient (AMB) | payer OTHER, SELFPAY ==
[2023-11-26 11:19] VITALS: BP 130/78; PULSE 98; O2SAT 97; BMI 39.3
--- NOTE | 2023-11-26 11:19 | A.OFFPC_ITS ---
Vital Signs 11/26/23 11:19 Height 5 ft 5 in Weight 236 lb 2 oz BMI 39.3 BP 130/78 Blood Pressure Location Lt brachial Position Sitting Pulse 98 Pulse Source Pulse Oximeter Pulse Oximetry (%) 97 Oxygen Delivery Method Room Air Intake Visit Reasons: pre-op clearance left eye cataract surgery Child Abuse Worker Required: No Accompanied by: Self / Same As Patient Allergies No Known Allergies [No Known Allergies*] Allergy (Verified 11/26/23 11:33) Medication List - Last Reconciled 11/26/23 by Xavi Mart MD aspirin 81 mg PO DAILY 90 days blood sugar diagnostic (FreeStyle Lite Strips) USE DIRECTED TO TEST BLOOD SUGAR TWICE DAILY blood sugar diagnostic (FreeStyle Lite Strips) TEST TWICE DAILY blood-glucose meter (FreeStyle Lite Meter kit) TEST TWICE DAILY citalopram 20 mg PO DAILY 30 days cyanocobalamin (vitamin B-12) (Vitamin B-12) 1,000 mcg PO DAILY cyclobenzaprine 10 mg PO TID PRN diclofenac sodium 1% 2 grams topical QID ferrous sulfate (FeroSul) 325 mg PO DAILY gabapentin 300 mg PO TID 30 days ibuprofen 600 mg PO Q8H PRN insulin glargine 33 units (0.33 mL) subcut BEDTIME lancets (FreeStyle Lancets) 28 gauge topical BID levetiracetam 1,000 mg PO BID 30 days lidocaine 5% 1 patch topical DAILY melatonin 6 mg (2 x 3 mg) PO BEDTIME PRN 90 days metformin 1,000 mg (2 x 500 mg) PO BID 90 days omeprazole 40 mg PO QAM 30 days pen needle, diabetic (BD Ultra-Fine Short Pen Needle) USE TWICE DAILY DIREC ALVERTO simvastatin 40 mg PO BEDTIME 30 days trazodone 150 mg PO BEDTIME PRN Tobacco use date assessed: 11/26/23 Dental Screening Dental Screen Date: 11/26/23 Did you have a dental visit in the last 12 months?: No Did you have a dental problem in the last 6 months where you did not have access to dental care?: No Was dental information given to patient?: No HPI pre-op clearance left eye cataract surgery HPI Details Patient comes in today at the request of Dr. Dada Paniagua for a preoperative medical examination for clearance for surgery He is scheduled for cataract extraction/phacoemulsification with IOL of the left eye under MAC on 12/16/2023, followed by the same procedure on the right eye a few weeks later on 01/06/2024 Patient states that he currently feels okay He denies any headaches or dizziness Denies any exertional chest pains or increased SOB No nausea/vomiting, no abdominal pain No change in bowel habits noted PFSH Medical History Lumbar degenerative disc disease Chest pain Obesity (BMI 30-39.9) Insomnia GERD without esophagitis Pure hypercholesterolemia Epilepsy 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 Mother No problems noted. Social History Housing: House Housing Other:: rents a room Alcohol intake: never Patient Tobacco Use Status: Former Tobacco user e-Cigarette/Vaping Use: Never Used Second Hand Smoke Exposure: Yes Advance Directives Date on File: 07/19/20 service: No Current occupational status: disabled Cognitive needs: No Hearing needs: No Vision needs: No Questionnaire PHQ-9 Over the last 2 weeks, how often have you been bothered by any of the following problems? 1. Little interest or pleasure in doing things: not at all 2. Feeling down, depressed, or hopeless: not at all 3. Trouble falling or staying asleep, or sleeping too much: not at all 4. Feeling tired or having little energy: not at all 5. Poor appetite or overeating: not at all 6. Feeling bad about yourself - or that you are a failure or have let yourself or your family down: not at all 7. Trouble concentrating on things, such as reading the newspaper or watching television: not at all 8. Moving or speaking so slowly that other people could have noticed. Or the opposite - being so fidgety or restless that you have been moving around a lot more than usual: not at all 9. Thoughts that you would be better off or of hurting yourself in some way: not at all Total score: 0 Depression Screening Interpretation: Negative Depression Screening Done: Yes 79221 - PHQ-9 Billing: Yes Source: Developed by Drs. Griffin Chapman, Stella Garcia, Jose Manuel Us and colleagues, with an educational lux from [employer]. Thrive Questionnaire Date Thrive assessed: 11/26/23 I am a: Patient What is your living situation today?: I have a steady place to live Within the past 12 months, did the food you bought not last and you didn't have the money to get more?: Never true Within the past 12 months, did you worry whether your food would run out before you got money to buy more?: Never true Do you have trouble paying for medicines?: No Do you have trouble getting transportation to medical appointments?: No Do you have trouble paying your heating and electricity bill?: No Do you have trouble taking care of your child, family member or friend?: No Do you have trouble with day-to-day activities such as bathing, preparing meals, shopping, managing finances, etc.?: No Are you currently unemployed and looking for a job?: No Are you interested in more education?: No Please select the resources that you would like help with: None Currently or been in a relationship where the following occur: no concerns reported THRIVE Score: 0 AUDIT C Alcohol Use Questionnaire (AUDIT-C) 1. How often do you have a drink containing alcohol?: Never 3. How often do you have six or more drinks on one occasion?: Never Total Score: 0 Score Reviewed/Action Taken: Yes VANCE-7 AMB Questionnaire VANCE-7 Date VANCE - 7 assessed: 11/26/23 Feeling nervous, anxious, or on edge: 0 = Not at all Not being able to stop or control worryin = Not at all Worrying too much about different things: 0 = Not at all Trouble relaxin = Not at all Being so restless that it is hard to sit still: 0 = Not at all Becoming easily annoyed or irritable: 0 = Not at all Feeling afraid as if something awful might happen: 0 = Not at all Total VANCE-7 score (0-4 normal; 5-9 mild; 10-14 moderate; 15-21 severe): 0 Source: Developed by Drs. Griffin Chapman, Stella Garcia, Jose Manuel Us and colleagues, with an educational lux from [employer]. Review of Systems Const Denies chills, Denies fatigue, Denies fever(s) and Denies headache(s) Eyes Reports blurry vision ENT Denies dysphagia, Denies dizziness, Denies otalgia, Denies headache(s), Denies odynophagia and Denies sore throat Card Denies chest pain, Denies palpitations and Denies dyspnea Resp Denies cough and Denies dyspnea GI Denies abdominal pain, Denies constipation, Denies dysphagia, Denies heartburn, Denies diarrhea, Denies nausea, Denies odynophagia and Denies vomiting Denies dysuria, Denies nocturia and Denies urinary frequency Musc Reports back pain (over the right lower back - chronic) Skin/Breast Denies rash Neuro Denies dizziness, Denies headache(s) and Denies convulsions Endo Denies fatigue and Denies palpitations Physical exam (Primary Care) Vital Signs: Last Vital Signs Pulse 98 11/26/23 11:19 BP 130/78 11/26/23 11:19 Pulse Ox 97 11/26/23 11:19 Oxygen Delivery Method Room Air 11/26/23 11:19 BMI result Body Mass Index 39.3 Tobacco/Smoking Status: Tobacco use Status Tobacco use date assessed 11/26/23 11/26/23 11:25 Patient Tobacco Use Status Former Tobacco user 11/26/23 11:25 e-Cigarette/Vaping Use Never Used 11/26/23 11:25 PHQ-9: PHQ-9 Score PHQ-9: Total score 0 11/26/23 11:38 Depression Screening Interpretation: Negative Thrive Assessment: Date of Thrive Assessment Date Thrive assessed 11/26/23 11/26/23 11:25 Currently or been in a relationship where the following occur: no concerns reported Const General: no acute distress and alert HENMT Ears: TM's normal bilaterally and EAC's normal Throat: Yes posterior oropharynx normal and Yes tonsils normal (no TP congestion) Neck Neck: Yes no lymphadenopathy and Yes supple Thyroid: Thyroid normal Resp Auscultation: clear to auscultation bilaterally, no rales and no wheezes Cardio Rate: regular rate Rhythm: regular rhythm Heart sounds: no murmurs GI Palpation (GI): Soft to palpation and nontender Auscultation: normal bowel sounds General: Yes no CVA tenderness Back/Spine/Pelvis Back: no CVA tenderness Thoracic/Lumbar Spine: lumbar spinal tenderness (more on the right side) Skin Rashes: no rashes Extrem General: Yes no clubbing, cyanosis or edema Results AMB Hemoglobin A1c AMB Hemoglobin A1c 7.0 % Last Edit by Keisha Allison on 11/26/23 11:49 Assessment and Plan Assessment & Plan (1) Preoperative examination: Code(s): Z01.818 - Encounter for other preprocedural examination Plan: Patient presents with acceptable risks for planned low cardiac-risk procedure(s) (2) Cataracts, bilateral: Code(s): H26.9 - Unspecified cataract Qualifiers: Cataract type: unspecified Qualified Code(s): H26.9 - Unspecified cataract Plan: He is scheduled for cataract extraction/phacoemulsification with IOL of the left eye under MAC on 12/16/2023, followed by the same procedure on the right eye a few weeks later on 01/06/[address] Dada Paniagua (3) Type 2 diabetes mellitus with diabetic neuropathy: Code(s): E11.40 - Type 2 diabetes mellitus with diabetic neuropathy, unspecified Qualifiers: Diabetes mellitus senior care insulin use: with termite treater helper use Qualified Code(s): E11.40 - Type 2 diabetes mellitus with diabetic neuropathy, unspecified; Z79.4 - termite treater helper (current) use of insulin Plan: His in-office HgbA1c done today is at 7.0% (his HgbA1c was at 6.1% a few months ago) - goal < 7.0% Reinforced diabetic diet Continue Metformin 1000 mg BID and Lantus 33 units SQ Q HS (4) Pure hypercholesterolemia: Code(s): E78.00 - Pure hypercholesterolemia, unspecified Plan: Reinforced low-cholesterol diet Continue Simvastatin 40 mg QD (5) Epilepsy: Code(s): G40.909 - Epilepsy, unspecified, not intractable, without status epilepticus Qualifiers: Epilepsy type: unspecified Intractability: not intractable Status epilepticus: without status epilepticus Qualified Code(s): G40.909 - Epilepsy, unspecified, not intractable, without status epilepticus Plan: Stable with no recent seizures Continue Levetiracetam 1000 mg po BID Follow-up with neurology as scheduled (6) GERD without esophagitis: Code(s): K21.9 - Gastro-esophageal reflux disease without esophagitis Plan: Dietary restrictions reinforced Continue Omeprazole 20 mg QD (7) Constipation: Code(s): K59.00 - Constipation, unspecified Qualifiers: Constipation type: unspecified constipation type Qualified Code(s): K59.00 - Constipation, unspecified Plan: Reinforced increased oral fluids and dietary fiber Continue Miralax 17 gm QD (8) Lumbar degenerative disc disease: Code(s): M51.36 - Other intervertebral disc degeneration, lumbar region Plan: Reinforced activity and weight-lifting restrictions Continue Lidocaine 5% patches QD PRN Follow up with pain management as scheduled - has been getting right SI joint injections from pain management, which he states are helping (9) Insomnia: Code(s): G47.00 - Insomnia, unspecified Qualifiers: Insomnia type: primary Qualified Code(s): F51.01 - Primary insomnia Plan: Sleep hygiene reinforced Continue Trazodone 150 mg Q HS PRN (10) Depression: Code(s): F32.9 - Major depressive disorder, single episode, unspecified Qualifiers: Depression Type: major depressive disorder Major depression recurrence: recurrent Active/Remission status: currently active Major depression episode severity: unspecified Qualified Code(s): F33.9 - Major depressive disorder, recurrent, unspecified Plan: Continue Citalopram 20 mg QD Follow-up with psychiatry as scheduled (11) Obesity (BMI 30-39.9): Code(s): E66.9 - Obesity, unspecified Plan: Reinforced diet/exercise as tolerated/lose weight Plan Patient is currently medically optimized and has no contraindications to undergo planned cataract surgeries on 12/16/2023 and 01/06/[address] Dada Paniagua Follow up as scheduled at the end of next month He is reminded to get his follow up labs done before he comes in for his next appointment Orders: Orders AMB Hemoglobin A1c Today Z13.9 - Encounter for screening, unspecified Coding Level of Care Code Est Pt Level 3 ([id number]) Diagnoses Preoperative examination Z01.818 Cataract of both eyes, unspecified cataract type H26.9 Cataract type: unspecified Type 2 diabetes mellitus with diabetic neuropathy, with long-term current use of insulin E11.40; Z79.4 Diabetes mellitus senior care insulin use: with termite treater helper use Pure hypercholesterolemia E78.00 Nonintractable epilepsy without status epilepticus, unspecified epilepsy type G40.909 Epilepsy type: unspecified Intractability: not intractable Status epilepticus: without status epilepticus GERD without esophagitis K21.9 Constipation, unspecified constipation type K59.00 Constipation type: unspecified constipation type Lumbar degenerative disc disease M51.36 Primary insomnia F51.01 Insomnia type: primary Episode of recurrent major depressive disorder, unspecified depression episode severity F33.9 Depression Type: major depressive disorder Major depression recurrence: recurrent Active/Remission status: currently active Major depression episode severity: unspecified Obesity (BMI 30-39.9) E66.9
== END 2023-11-26 11:50 | disposition home or self-care (01) ==
PROVIDERS: PCP Internal Medicine; Visit Provider Internal Medicine
DX: E11.40 Type 2 diabetes mellitus with diabetic neuropathy, unspecified (principal)
CPT/HCPCS: 83036; 99213

== ENCOUNTER 2024-01-05 08:26 | Outpatient (REF) | payer OTHER, SELFPAY ==
[2024-01-05 09:06] LABS: MANUAL DIFF FLAG NO
[2024-01-05 09:13] LABS: Basophils Absolute Auto 0.1 X10*3/uL (0.0-0.2); Basophils Percent Auto 0.7 % (0-2); Eosinophils Absolute Auto 0.2 X10*3/uL (0.0-0.4); Eosinophils Percent Auto 2.2 % (0-4); Hematocrit 39.2 % (42.0-52.0); Hemoglobin 12.4 g/dl (14.0-18.0); Imm Gran Abs Auto 0.05 X10*3/uL (0.00-0.03); Imm Gran Pct Auto 0.7 % (0.0-0.4); Lymphocytes Absolute Auto 1.5 X10*3/uL (1.2-4.9); Lymphocytes Percent Auto 20.4 % (20-40); Mean Corpuscular HGB Conc 31.6 g/dl (31.0-36.0); Mean Corpuscular Hemoglobin 26.3 pg (27.0-33.0); Mean Corpuscular Volume 83.2 fL (80.0-98.0); Mean Platelet Volume 10.2 fL (9.4-12.4); Monocytes Absolute Auto 0.5 X10*3/uL (0.1-1.2); Monocytes Percent Auto 7.1 % (2-11); Neutrophils Absolute Auto 4.9 x10*3/uL (2.0-8.3); Neutrophils Percent Auto 68.9 % (45-73); Platelet Count 205 X10*3/uL (160-400); Red Blood Count 4.71 X10*6/uL (4.60-5.80); Red Cell Distribution Width 14.7 % (11.0-16.0); White Blood Count 7.2 X10*3/uL (4.8-10.8)
[2024-01-05 09:29] LABS: Estimated Average Glucose 143 mg/dL; Hemoglobin A1c % 6.6 % (<6.0)
[2024-01-05 10:00] LABS: Alanine Aminotransferase 16 U/L (0-40); Albumin Level 4.1 g/dL (3.5-5.0); Alkaline Phosphatase 79 U/L (39-117); Anion Gap 14 (12-20); Aspartate Amino Transferase 13 U/L (5-37); Bilirubin Total 0.4 mg/dL (0.0-1.0); Blood Urea Nitrogen 15 mg/dL (9-16); Calcium 9.5 mg/dL (8.4-10.2); Carbon Dioxide 24 mmol/L (22-29); Chloride 108 mmol/L (96-108); Cholesterol 119 mg/dL (<200); Estimated Glomerular Filt Rate > 60; Glucose Fasting 130 mg/dL (60-99); HDL Cholesterol 45 mg/dL (>40); LDL Cholesterol Calculated 48 mg/dL (<100); Sodium 142 mmol/L (135-145); Total Protein 6.9 g/dL (6.5-8.0); Triglycerides 132 mg/dL (<150)
[2024-01-05 10:18] LABS: TSH reflex Free T4 2.13 uIU/mL (0.32-4.0); Vitamin D 25-OH Total 18.3 ng/mL (>30)
[2024-01-05 10:34] LABS: Appearance Urine Clear; Color Urine Yellow; Glucose Urine UA Negative (Negative); Leukocyte Esterase Urine Negative (Negative); Nitrite Urine Negative (Negative); PH 5.5 (5.0-9.0); Specific Gravity - Urine 1.025 (1.005-1.025); Urine Blood Negative (Negative); Urine Ketones Negative (Negative); Urine Protein Negative (Neg-Trace)
[2024-01-05 12:20] LABS: Creatinine Urine 155.69 mg/dL; Microalbum/Creatinine Ratio Ur 5.7 ug/mg cr (<30)
[2024-01-08 07:09] LABS: Levetiracetam Keppra 18.7 mcg/mL (6.0-46.0)
== END 2024-01-05 08:27 | disposition home or self-care (01) ==
LOC: HO.LAB 08:26
PROVIDERS: PCP Internal Medicine; Visit Provider Internal Medicine
DX: E78.00 Pure hypercholesterolemia, unspecified (principal); E11.9 Type 2 diabetes mellitus without complications; R30.0 Dysuria; G40.909 Epilepsy, unspecified, not intractable, without status epilepticus; E55.9 Vitamin D deficiency, unspecified; I10 Essential (primary) hypertension
CPT/HCPCS: 36415; 80053; 80061; 80177; 81003; 82043; 82306; 82570; 83036; 84443; 85025

== ENCOUNTER 2024-01-19 13:01 | Outpatient (AMB) | payer OTHER, SELFPAY ==
--- NOTE | 2024-01-19 13:04 | MHC.PC.OV ---
Vital Signs 01/19/24 13:05 Height 5 ft 5 in Weight 239 lb BMI 39.8 BP 120/68 Blood Pressure Location Lt brachial Position Sitting Pulse 89 Pulse Source Pulse Oximeter Pulse Oximetry (%) 98 Oxygen Delivery Method Room Air Intake Visit Reasons: 4 month f/u Intake Note: Patient is here to follow up on DM. Outside Plant Cable Engineer Required: Yes Outside Plant Cable Engineer Language: Manager Of Finance Name: Pablo (Friend) Information Interpreted: non-clinical & clinical Ovens Supervisor: Present Accompanied by: Friend Allergies No Known Allergies [No Known Allergies*] Allergy (Verified 01/19/24 13:18) Medication List - Last Reconciled 01/19/24 by Xavi Mart MD aspirin 81 mg PO DAILY 90 days blood sugar diagnostic (FreeStyle Lite Strips) USE DIRECTED TO TEST BLOOD SUGAR TWICE DAILY blood-glucose meter (FreeStyle Lite Meter kit) TEST TWICE DAILY citalopram 20 mg PO DAILY 30 days cyanocobalamin (vitamin B-12) (Vitamin B-12) 1,000 mcg PO DAILY cyclobenzaprine 10 mg PO TID PRN diclofenac sodium 1% 2 grams topical QID ferrous sulfate (FeroSul) 325 mg PO DAILY gabapentin 300 mg PO TID 30 days ibuprofen 600 mg PO Q8H PRN insulin glargine 33 units (0.33 mL) subcut BEDTIME lancets (FreeStyle Lancets) 28 gauge topical BID levetiracetam 1,000 mg PO BID 30 days lidocaine 5% 1 patch topical DAILY melatonin 6 mg (2 x 3 mg) PO BEDTIME PRN 90 days metformin 1,000 mg (2 x 500 mg) PO BID 90 days omeprazole 40 mg PO QAM 30 days pen needle, diabetic (BD Ultra-Fine Short Pen Needle) USE TWICE DAILY DIRECTED simvastatin 40 mg PO BEDTIME 30 days trazodone 150 mg PO BEDTIME PRN Tobacco use date assessed: 01/19/24 Dental Screening Dental Screen Date: 11/26/23 HPI 4 month f/u HPI Details Patient comes in today for his follow up visit States that he feels okay except for some itchy rash that he's had on and off over both lower legs for the past couple of weeks He denies any headaches or dizziness Denies any chest pains, no SOB No nausea/vomiting, no abdominal pain No change in bowel habits noted Still has on and off right lower back pain but states that his current meds help keep his back pains manageable Needs a couple of his Rx refilled Had his follow up labs done a couple of weeks ago - to discuss his results [facility] Medical History (Updated 01/19/24 @ 13:36 by Xavi Mart MD) Vitamin D deficiency Lumbar degenerative disc disease Chest pain Obesity (BMI 30-39.9) Insomnia GERD without esophagitis Pure hypercholesterolemia Epilepsy 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 Mother No problems noted. Social History Housing: House Housing Other:: rents a room Alcohol intake: never Patient Tobacco Use Status: Former Tobacco user e-Cigarette/Vaping Use: Never Used Second Hand Smoke Exposure: Yes Advance Directives Date on File: 07/19/20 service: No Current occupational status: disabled Cognitive needs: No Hearing needs: No Vision needs: No Questionnaire PHQ-9 Over the last 2 weeks, how often have you been bothered by any of the following problems? Depression Screening Interpretation: Negative Depression Screening Done: Yes Source: Developed by Drs. Griffin Chapman, Jose Manuel Valentine and colleagues, with an educational lux from [employer]. Thrive Questionnaire Date Thrive assessed: 11/26/23 Currently or been in a relationship where the following occur: no concerns reported THRIVE Score: 0 VANCE-7 AMB Questionnaire VANCE-7 Date VANCE - 7 assessed: 11/26/23 Source: Developed by Drs. Griffin Chapman, Jose Manuel Valentine and colleagues, with an educational lux from [employer]. Review of Systems Const Denies chills, Denies fatigue, Denies fever(s) and Denies headache(s) ENT Denies dysphagia, Denies dizziness, Denies otalgia, Denies headache(s), Denies neck pain, Denies odynophagia and Denies sore throat Card Denies chest pain, Denies palpitations and Denies dyspnea Resp Denies chest congestion, Denies cough and Denies dyspnea GI Denies abdominal pain, Denies constipation, Denies dysphagia, Denies heartburn, Denies diarrhea, Denies nausea, Denies odynophagia and Denies vomiting Denies dysuria, Denies nocturia and Denies urinary frequency Musc Reports back pain (over the right lower back - chronic) and Denies neck pain Skin/Breast Reports rash (on and off pruritic rash on both lower legs) Neuro Denies dizziness, Denies headache(s) and Denies convulsions Endo Denies fatigue and Denies palpitations Physical exam (Primary Care) Vital Signs: Last Vital Signs Pulse 89 01/19/24 13:05 BP 120/68 01/19/24 13:05 Pulse Ox 98 01/19/24 13:05 Oxygen Delivery Method Room Air 01/19/24 13:05 BMI result Body Mass Index 39.8 Tobacco/Smoking Status: Tobacco use Status Tobacco use date assessed 01/19/24 01/19/24 13:13 Patient Tobacco Use Status Former Tobacco user 01/19/24 13:04 e-Cigarette/Vaping Use Never Used 01/19/24 13:04 Depression Screening Interpretation: Negative Thrive Assessment: Date of Thrive Assessment Date Thrive assessed 11/26/23 01/19/24 13:04 Currently or been in a relationship where the following occur: no concerns reported Const General: no acute distress and alert HENMT Ears: TM's normal bilaterally and EAC's normal Throat: Yes posterior oropharynx normal and Yes tonsils normal (no TP congestion) Neck Neck: Yes no lymphadenopathy and Yes supple Thyroid: Thyroid normal Resp Auscultation: clear to auscultation bilaterally, no rales and no wheezes Cardio Rate: regular rate Rhythm: regular rhythm Heart sounds: no murmurs GI Palpation (GI): Soft to palpation and nontender Auscultation: normal bowel sounds General: Yes no CVA tenderness Back/Spine/Pelvis Back: no CVA tenderness Thoracic/Lumbar Spine: lumbar spinal tenderness (more on the right side) Skin Other: (+) few scattered erythematous rash on both lower extremities Extrem General: Yes no clubbing, cyanosis or edema Results Reviewed Results Reviewed: Laboratory Tests 08/30/23 11/26/23 01/05/24 22:47 11:33 08:47 WBC 6.3 Hgb 11.9 L Hct 37.9 L Plt Count 182 Sodium 143 Potassium 4.0 Creatinine 0.84 Estimated GFR > 60 Random Glucose 141 H Fasting Glucose Hgb A1c (Clinic) 7.0 H Hemoglobin A1c % Calcium 9.8 Magnesium 1.9 AST 15 ALT 13 Triglycerides Cholesterol LDL Cholesterol, Calc HDL Cholesterol 25-OH Vitamin D Total TSH Urine pH 5.5 Ur Specific [place] 1.025 Urine Protein Negative Urine Glucose (UA) Negative Urine Blood Negative Urine Nitrite Negative Ur Leukocyte Esterase Negative Microalb/Creat Ratio 5.7 Levetiracetam 01/05/24 09:04 WBC 7.2 Hgb 12.4 L Hct 39.2 L Plt Count 205 Sodium 142 Potassium 4.0 Creatinine 0.68 Estimated GFR > 60 Random Glucose Fasting Glucose 130 H Hgb A1c (Clinic) Hemoglobin A1c % 6.6 H Calcium 9.5 Magnesium AST 13 ALT 16 Triglycerides 132 Cholesterol 119 LDL Cholesterol, Calc 48 HDL Cholesterol 45 25-OH Vitamin D Total 18.3 L TSH 2.13 Urine pH Ur Specific [place] Urine Protein Urine Glucose (UA) Urine Blood Urine Nitrite Ur Leukocyte Esterase Microalb/Creat Ratio Levetiracetam 18.7 Assessment and Plan Assessment & Plan (1) Type 2 diabetes mellitus with diabetic neuropathy: Code(s): E11.40 - Type 2 diabetes mellitus with diabetic neuropathy, unspecified Qualifiers: Diabetes mellitus terminal operations manager insulin use: with terminal operations manager use Qualified Code(s): E11.40 - Type 2 diabetes mellitus with diabetic neuropathy, unspecified; Z79.4 - detention (current) use of insulin Plan: His HgbA1c was at 6.6% on his labs done a couple of week ago (in-office HgbA1c was at 7.0% just this past month) - goal < 7.0% Reinforced diabetic diet Continue Metformin 1000 mg BID and Lantus 33 units SQ Q HS (2) Pure hypercholesterolemia: Code(s): E78.00 - Pure hypercholesterolemia, unspecified Plan: Results of his labs done a couple of weeks ago reviewed and discusded with patient Reinforced low-cholesterol diet Continue Simvastatin 40 mg QD Will recheck his labs and fasting lipids in 4 months for follow up (3) Epilepsy: Code(s): G40.909 - Epilepsy, unspecified, not intractable, without status epilepticus Qualifiers: Epilepsy type: unspecified Intractability: not intractable Status epilepticus: without status epilepticus Qualified Code(s): G40.909 - Epilepsy, unspecified, not intractable, without status epilepticus Plan: Stable with no recent seizures Continue Levetiracetam 1000 mg po BID Follow-up with neurology as scheduled (4) GERD without esophagitis: Code(s): K21.9 - Gastro-esophageal reflux disease without esophagitis Plan: Dietary restrictions reinforced Continue Omeprazole 20 mg QD (5) Vitamin D deficiency: Code(s): E55.9 - Vitamin D deficiency, unspecified Plan: He is advised that his Vitamin D level is very low on his recent labs Will start him again on Vitamin D3 2000 units QD Will recheck his Vitamin D level in 4 months (6) Constipation: Code(s): K59.00 - Constipation, unspecified Qualifiers: Constipation type: unspecified constipation type Qualified Code(s): K59.00 - Constipation, unspecified Plan: Reinforced increased oral fluids and dietary fiber Continue Miralax 17 gm QD (7) Pruritic rash: Code(s): L28.2 - Other prurigo Plan: Discussed that this is either atopic dermatitis or it could be contact dermatitis from something he is coming into contact with when he is walking outside Will start him on Triamcinolone acetonide 0.5% cream BID PRN (8) Lumbar degenerative disc disease: Code(s): M51.36 - Other intervertebral disc degeneration, lumbar region Plan: Reinforced activity and weight-lifting restrictions Continue Lidocaine 5% patches QD PRN - Rx refilled Follow up with pain management as scheduled - has been getting right SI joint injections from pain management, which he states are helping (9) Insomnia: Code(s): G47.00 - Insomnia, unspecified Qualifiers: Insomnia type: primary Qualified Code(s): F51.01 - Primary insomnia Plan: Sleep hygiene reinforced Continue Trazodone 150 mg Q HS PRN (10) Depression: Code(s): F32.9 - Major depressive disorder, single episode, unspecified Qualifiers: Depression Type: major depressive disorder Major depression recurrence: recurrent Active/Remission status: currently active Major depression episode severity: unspecified Qualified Code(s): F33.9 - Major depressive disorder, recurrent, unspecified Plan: Continue Citalopram 20 mg QD Follow-up with psychiatry as scheduled (11) Obesity (BMI 30-39.9): Code(s): E66.9 - Obesity, unspecified Plan: Reinforced diet/exercise as tolerated/lose weight Plan Follow up in 4 months Orders: Orders Complete Blood Count Auto Diff 4 Months D64.9 - Anemia, unspecified TSH reflex Free T4 4 Months E78.00 - Pure hypercholesterolemia, unspecified Hemoglobin A1c 4 Months E11.9 - Type 2 diabetes mellitus without complications Levetiracetam Keppra 4 Months G40.909 - Epilepsy, unspecified, not intractable, without status epilepticus Lipid Panel 4 Months E78.00 - Pure hypercholesterolemia, unspecified Comprehensive Gordon. Panel Fast 4 Months E78.00 - Pure hypercholesterolemia, unspecified UA CC w/rflx Micro + Cult 4 Months R30.0 - Dysuria Microalbumin, Random (w Creat) 4 Months E11.9 - Type 2 diabetes mellitus without complications Vitamin D 25-OH Total 4 Months E55.9 - Vitamin D deficiency, unspecified Medications: New triamcinolone acetonide 0.5% 1 appl topical BID PRN 15 grams 1RF rash cholecalciferol (vitamin D3) 50 mcg PO DAILY 90 days 90 caps 3RF E55.9 - Vitamin D deficiency, unspecified Changed From lidocaine 5% leave on most painful area for up to 12 hrs 1 patch topical DAILY 15 ea 0RF To lidocaine 5% leave on most painful area for up to 12 hrs 1 patch topical DAILY PRN 15 ea 1RF pain Refilled diclofenac sodium 1% apply to lower Back 2 grams topical QID 100 grams 1RF Coding Level of Care Code Tele Est Pt Level 4 (57904) Diagnoses Type 2 diabetes mellitus with diabetic neuropathy, with long-term current use of insulin E11.40; Z79.4 Diabetes mellitus terminal operations manager insulin use: with half-way use Pure hypercholesterolemia E78.00 Nonintractable epilepsy without status epilepticus, unspecified epilepsy type G40.909 Epilepsy type: unspecified Intractability: not intractable Status epilepticus: without status epilepticus GERD without esophagitis K21.9 Vitamin D deficiency E55.9 Constipation, unspecified constipation type K59.00 Constipation type: unspecified constipation type Pruritic rash L28.2 Lumbar degenerative disc disease M51.36 Primary insomnia F51.01 Insomnia type: primary Episode of recurrent major depressive disorder, unspecified depression episode severity F33.9 Depression Type: major depressive disorder Major depression recurrence: recurrent Active/Remission status: currently active Major depression episode severity: unspecified Obesity (BMI 30-39.9) E66.9
[2024-01-19 13:05] VITALS: BP 120/68; PULSE 89; O2SAT 98; BMI 39.8
== END 2024-01-19 13:36 | disposition home or self-care (01) ==
PROVIDERS: Visit Provider Internal Medicine
DX: E11.40 Type 2 diabetes mellitus with diabetic neuropathy, unspecified (principal); Z79.4 Long term (current) use of insulin; E78.00 Pure hypercholesterolemia, unspecified; G40.909 Epilepsy, unspecified, not intractable, without status epilepticus; K21.9 Gastro-esophageal reflux disease without esophagitis; E55.9 Vitamin D deficiency, unspecified; K59.00 Constipation, unspecified; L28.2 Other prurigo; M51.36 Other intervertebral disc degeneration, lumbar region; F51.01 Primary insomnia
CPT/HCPCS: 99214

== ENCOUNTER 2024-04-29 14:53 | Outpatient (AMB) | payer OTHER, SELFPAY ==
[2024-04-29 15:06] VITALS: BP 157/67; PULSE 85; O2SAT 96; BMI 39.3
--- NOTE | 2024-04-29 15:06 | A.OFFVIS_ITS ---
Vital Signs 04/29/24 15:06 Height 5 ft 5 in Weight 236 lb BMI 39.3 BP 157/67 H Blood Pressure Location Lt brachial Position Sitting Pulse 85 Pulse Source Pulse Oximeter Pulse Oximetry (%) 96 Oxygen Delivery Method Room Air Intake Visit Reasons: Low Back/Hip Pain Intake Note: Pain today 9/10 Sap Pi Developer Required: Yes Sap Pi Developer Language: [place] Accompanied by: Son Allergies No Known Allergies [No Known Allergies*] Allergy (Verified 04/29/24 15:06) HPI Comments Details: Patient presents today for follow up regarding worsening right sided low back pain. Denies any recent trauma, injury or falls. Patient reports previous sacroiliac joint injection provided him 11 months of pain relief. He request to repeat this injection. Most recent A1C=6.6 on 01/05/24. He takes metformin and insulin and has [facility] check his daily blood sugars in the morning. Patient has been taking Tylenol and Advil for about 3-4 weeks since pain returned with continued symptoms. Pain is rated at 9/10 and is worse with changing position from sitting to standing and prolonged walking. Pain is localized to right lower back with radiation into his right buttock and right lateral hip. Denies any fever, abdominal or groin pain, bowel or bladder incontinence or saddle anesthesia. 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 Mother No problems noted. Social History Housing: House Housing Other:: rents a room Alcohol intake: never Patient Tobacco Use Status: Former Tobacco user e-Cigarette/Vaping Use: Never Used Second Hand Smoke Exposure: Yes Advance Directives Date on File: 07/19/20 service: No Current occupational status: disabled Cognitive needs: No Hearing needs: No Vision needs: No Review of Systems Const All systems reviewed & are unremarkable except as noted in HPI and below Physical Exam Vital Signs: Last Vital Signs Pulse 85 04/29/24 15:06 BP 157/67 H 04/29/24 15:06 Pulse Ox 96 04/29/24 15:06 Oxygen Delivery Method Room Air 04/29/24 15:06 BMI result Body Mass Index 39.3 General: Appears afebrile. Alert and oriented. Mood and affect appropriate. Follows and participates in conversation appropriately. Respiratory effort is unlabored. No cough. Able to transition from sit to stand unassisted. Ambulates with bilaterally normal heel strike and toe off, reports imbalance on the right due to pain. General: Yes no CVA tenderness Back/Spine/Pelvis Other: Limited lumbar ROM due to pain, mild to moderate pain with extension and mild pain with flexion. Significant localized tenderness in the projection of right SIJ area worsened with limited Job's, Stinchfield, Pelvic compression and limited Gaenslen tests which are positive on the right, negative on the left. Valsalva maneuver is negative. Back: no CVA tenderness Cervical Spine: cervical ROM normal and No Cervical spine tenderness Thoracic/Lumbar Spine: thoracic and lumbar spine normal to inspection, Lasegue's sign negative, straight leg raise negative bilaterally, pain with thoraco-lumbar ROM, paraspinal muscle tenderness, thoraco-lumbar ROM limited, No thoracic spinal tenderness, lumbar spinal tenderness at L4 and at L5 and No straight leg raise positive Pelvis: buttock tenderness on the right and no sciatic notch tenderness Sacroiliac joints: on the right tender to palpation and on the left nontender Results Reviewed Results Reviewed: XR LUMBOSACRAL SPINE 12/27/21 COMPARISON: Radiographs dated 03/14/2014. FINDINGS: There is bony demineralization. There is a slight lumbar levoscoliosis. Vertebral body heights are normal. The lower thoracic and lumbar disc spaces are well-maintained. No acute fracture or spondylolisthesis is seen. This multi-level mild thoracolumbar spondylosis. The posterior elements are intact. The paravertebral soft tissues are unremarkable. IMPRESSION: 1. No acute fracture or spondylolisthesis is seen. 2. The lumbar disc spaces are well-maintained. 3. There is multi-level mild thoracolumbar spondylosis. 4. There is a minimal lumbar levoscoliosis. XR/XR hip RT w PEL1V 12/27/21 IMPRESSION: Normal pelvis and hips. Assessment & Plan Assessment & Plan (1) Sacroiliac joint pain: Code(s): M53.3 - Sacrococcygeal disorders, not elsewhere classified Category: Medical (2) Lumbar degenerative disc disease: Code(s): M51.36 - Other intervertebral disc degeneration, lumbar region Category: Medical (3) Lumbosacral spondylolysis: Code(s): M43.07 - Spondylolysis, lumbosacral region Category: Medical (4) Sacroiliitis: Code(s): M46.1 - Sacroiliitis, not elsewhere classified Category: Medical Plan Patient had excellent results with Right Diagnostic SIJ innervation with Dreyfuss technique by Dr. Garland on 06/05/22 for consideration of right SIJ innervation PNS and Right Therapeutic SIJ injection in 04/23/23 with 11 month of pain relief. Patient is not interested in PNS trial or RFA procedures and would like to repeat therapeutic injection. Schedule repeat Right Therapeutic SIJ injection with local and fluoroscopy for chronic right SIJ pain. Most recent A1C is 6.6, with insulin management by VNA services and diet modification. All questions were answered and patient is in agreement of plan. Follow up for medication review and sooner if needed. Anticoagulation: Patient not on anticoagulant Justification for interventional therapy: ? Patient with average pain > 6/10 ? Patient has exhausted conservative therapy, NSAIDs, home physical therapy The risks, consequences, alternatives, and benefits of various treatment options were discussed with the patient in great detail, including conservative management, injections and procedures. I informed patient and family of the hyperglycemic effects of steroids. Coding Level of Care Code Est Pt Level 4 (49452) Diagnoses Sacroiliac joint pain M53.3 Lumbar degenerative disc disease M51.36 Lumbosacral spondylolysis M43.07 Sacroiliitis M46.1
== END 2024-04-29 15:26 | disposition home or self-care (01) ==
PROVIDERS: PCP Internal Medicine; Visit Provider Nurse Practitioner Family
DX: M53.3 Sacrococcygeal disorders, not elsewhere classified (principal); M51.36 Other intervertebral disc degeneration, lumbar region; M43.07 Spondylolysis, lumbosacral region; M46.1 Sacroiliitis, not elsewhere classified
CPT/HCPCS: 99214

== ENCOUNTER → 2024-04-29 14:53 | Outpatient (BNVA) | payer OTHER, SELFPAY | PROVIDERS: PCP Internal Medicine; Visit Provider Nurse Practitioner Family | DX: M53.3 Sacrococcygeal disorders, not elsewhere classified (principal); M51.36 Other intervertebral disc degeneration, lumbar region; M43.07 Spondylolysis, lumbosacral region; M46.1 Sacroiliitis, not elsewhere classified | CPT/HCPCS: 99212 ==

== ENCOUNTER 2024-05-06 09:37 | Emergency (ER) | payer OTHER, SELFPAY ==
--- NOTE | ~2024-05-06 | XR_ITS ---
EXAMINATION: XR HIP, RIGHT CLINICAL INFORMATION: Status post fall with right hip pain. COMPARISON: 12/27/2021 TECHNIQUE: Two views of the right hip. FINDINGS: The sacrum is partially obscured by overlying bowel contents. Sacroiliac joints and pubic symphysis are intact. Hip joints appear symmetric on the frontal projection. Normal alignment of the right hip. Mild axial cartilage space loss of the right hip. No displaced fracture or dislocation. XR/XR hip RT w PEL1V IMPRESSION: No acute abnormality.
--- NOTE | ~2024-05-06 | CT_ITS ---
EXAMINATION: CT CHEST WITHOUT CONTRAST CLINICAL INFORMATION: Right rib pain status post fall COMPARISON: CT chest from 06/30/2022 TECHNIQUE: Multidetector volumetric CT imaging of the chest was done. Axial MIP volume rendering provided. Sagittal and coronal reformatted images were obtained. This CT examination was performed using dose optimization techniques as appropriate, variously including the following: *Automated exposure control *Adjustment of mA and/or kV according to patient size (this includes techniques or standardized protocols for targeted exams where dose is matched to indication/reason for exam; i.e. extremities or head) *Use of iterative reconstruction technique DLP: 1685 mGy-cm FINDINGS: LUNGS/PLEURA: Biapical pleural parenchymal scarring. Emphysematous changes. Stable nodular pleural-based focus along the right lung apex (series 26, image 46) measuring 5 mm. No new suspicious pulmonary nodule or masses are noted. Central airways are patent. No pneumothorax. Pleural effusion. MEDIASTINUM: Heart is not enlarged. No pericardial effusion. Coronary artery calcifications are noted. Aorta is nonaneurysmal. Right pulmonary artery is enlarged suggesting elements of pulmonary arterial hypertension. No enlarged lymph nodes per size criteria. Visualized portions of the thyroid are unremarkable AXILLA: No lymphadenopathy. UPPER ABDOMEN: Moderate to large hiatal hernia. Spleen is enlarged measuring 13.8 cm. OSSEOUS STRUCTURES: Osteopenia. Multilevel degenerative changes of the thoracolumbar spine. CT/CT chest wo IV con IMPRESSION: 1. No acute process of the chest identified. 2. Stable nodular pleural-based focus along the right lung apex measuring 5 mm. No new suspicious pulmonary nodule or masses are noted. 3. Right pulmonary artery is enlarged suggesting elements of pulmonary arterial hypertension. 4. Moderate to large hiatal hernia. 5. Spleen is enlarged measuring 13.8 cm. 6. Osteopenia.
--- NOTE | ~2024-05-06 | CT_ITS ---
EXAMINATION: CT HEAD WITHOUT CONTRAST CLINICAL INFORMATION: Head trauma COMPARISON: CT head from 10/22/2019 TECHNIQUE: Contiguous axial imaging was performed from the skull base to vertex without intravenous administration of contrast. This CT examination was performed using dose optimization techniques as appropriate, variously including the following: *Automated exposure control *Adjustment of mA and/or kV according to patient size (this includes techniques or standardized protocols for targeted exams where dose is matched to indication/reason for exam; i.e. extremities or head) *Use of iterative reconstruction technique DLP: 768.88 mGy-cm FINDINGS: There is no evidence of acute intracranial hemorrhage or territorial infarction. Chronic white matter small vessel ischemic changes. No abnormal mass effect or midline shift is seen. Mace to white matter differentiation is well preserved. No extra-axial fluid collections are identified. The ventricles are normal in size. There is no abnormal attenuation within the brain parenchyma. Mild hyperostosis frontalis interna. The osseous structures and soft tissues are normal. Decreased quantity of the right mastoid air cells. The mastoid air cells and visualized portions of the paranasal sinuses are well aerated. CT/CT cervical spine wo IV con IMPRESSION: 1. No acute intracranial pathology. 2. Chronic white matter small vessel ischemic changes. EXAMINATION: Noncontrast CT scan of the cervical spine. INDICATION: Trauma COMPARISON: None. TECHNIQUE: Helical, multidetector axial images were obtained from the occiput to the upper thorax. Coronal and sagittal reformats of the cervical spine were provided for interpretation. DLP: 441.82 mGy-cm FINDINGS: No acute fractures or dislocations of the cervical spine are seen. Mild multilevel degenerative changes. Anatomic alignment and positioning of the vertebral bodies and posterior elements is noted. The atlantoaxial joint and craniovertebral articulations are normal without evidence of subluxation. There is no prevertebral soft tissue swelling. The thyroid gland and visualized portions of the lung apices and mediastinum are unremarkable. IMPRESSION: 1. No acute visible fracture or dislocation. 2. Mild multilevel degenerative changes.
[2024-05-06 09:43] VITALS: BP 138/90; PULSE 95; O2SAT 97
[2024-05-06 09:44] VITALS: BP 138/90; PULSE 95; O2SAT 97
--- NOTE | 2024-05-06 09:51 | ECG_ITS ---
Test Reason : dizziness Blood Pressure : / mmHG Vent. Rate : 079 BPM Atrial Rate : 079 BPM P-R Int : 178 ms QRS Dur : 076 ms QT Int : 382 ms P-R-T Axes : 050 -35 026 degrees QTc Int : 438 ms Normal sinus rhythm Left axis deviation Abnormal ECG When compared with ECG of 30-AUG-2023 22:26, No significant change was found Referred By: Kenyatta Christensen Electronically Signed By:MAYELA SIN
--- NOTE | 2024-05-06 09:52 | ED.FALL ---
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 He has pain in head, neck , R ribs and R hip. He has pain at this time. No recent illness, no fevers, chest pain, trouble breathing. His family member notes if he is like this she cannot care for him and he cannot come home, we did discuss rehab MD complaint: fall Onset (ago): hour(s) (few) Fall from: out of bed Fall witnessed: no Place fall occurred: home Loss of consciousness: none Prolonged down time: no Symptoms prior to fall: none Context: tripped/slipped Location of injury: head, neck, chest and pelvis Severity: moderate Quality: aching Associated symptoms (after fall): denies Related Data Previous Rx's ?Medication ?Instructions ?Recorded blood-glucose meter (FreeStyle #1 ea 06/15/21 Lite Meter kit) cyanocobalamin (vitamin B-12) 1,000 mcg PO DAILY #90 tabs 11/27/22 1,000 mcg tablet (Vitamin B-12) cyclobenzaprine 10 mg tablet 10 mg PO TID PRN muscle spasm #14 12/05/22 tabs ibuprofen 600 mg tablet 600 mg PO Q8H PRN pain #10 tabs 12/05/22 citalopram 20 mg tablet 20 mg PO DAILY 30 days #30 tabs 12/06/22 trazodone 150 mg tablet 150 mg PO BEDTIME PRN Insomnia #30 01/10/23 tabs aspirin 81 mg tablet,delayed 81 mg PO DAILY 90 days #90 tabs 06/22/23 release blood sugar diagnostic (FreeStyle #100 strips 08/22/23 Lite Strips) pen needle, diabetic 31 gauge x #100 ea 08/22/2302/04 (BD Ultra-Fine Short Pen Needle) ferrous sulfate 325 mg (65 mg 325 mg PO DAILY #90 tabs 09/03/23 iron) tablet (FeroSul) metformin 500 mg tablet 1,000 mg (2 x 500 mg) PO BID 90 12/16/23 days #360 tabs cholecalciferol (vitamin D3) 50 50 mcg PO DAILY 90 days #90 caps 01/19/24 mcg (2,000 unit) capsule diclofenac sodium 1 % topical gel 2 g topical QID #100 grams 01/19/24 lidocaine 5 % topical patch 1 patch topical DAILY PRN pain #15 01/19/24 ea triamcinolone acetonide 0.5 % 1 appl topical BID PRN rash #15 01/19/24 topical cream grams melatonin 3 mg tablet 6 mg (2 x 3 mg) PO BEDTIME PRN 02/20/24 insomnia 90 days #90 tabs levetiracetam 1,000 mg tablet 1,000 mg PO BID 30 days #60 tabs 03/05/24 omeprazole 40 mg capsule,delayed 40 mg PO QAM 30 days #30 caps 03/05/24 release simvastatin 40 mg tablet 40 mg PO BEDTIME 30 days #30 tabs 03/05/24 insulin glargine 100 unit/mL (3 33 unit (0.33 mL) subcut BEDTIME 03/17/24 mL) subcutaneous pen #15 mL lancets 28 gauge (FreeStyle 28 gauge topical BID #100 ea 03/17/24 Lancets) gabapentin 300 mg capsule 300 mg PO TID for pain 30 days #90 04/23/24 caps lidocaine 5 % topical patch 1 patch topical DAILY #30 ea 05/06/24 Allergies Allergy/AdvReac Type Severity Reaction Status Date / Time No Known Allergies Allergy Verified 05/06/24 09:58 [No Known Allergies*] Review of Systems Review of Systems: Constitutional : No Fever, No Chills, No Fatigue ENT/Mouth : No sore throat, No Rhinorrhea Eyes: No Eye Pain, No Swelling, No Redness Cardiovascular : pos rib Pain, No SOB, No Dyspnea on Exertion Respiratory : No Cough, No Sputum Gastrointestinal : No Nausea, No Vomiting, No Diarrhea, No abdominal Pain Genitourinary : No Dysuria, No Urinary Frequency, No Hematuria, Musculoskeletal : No joint pain, No Myalgias, No Joint Swelling, pos neck pain Skin : No Skin Lesions, No rash Neuro : No Weakness, No Numbness, No Dizziness, positive Headache Psych : No Anxiety/Panic, No Depression All other systems reviewed and are negative [facility] Past Medical History Attestation statement: The following information was validated with the patient. 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 Mother No problems noted. Social History Social History Housing: House Housing Other:: rents a room Alcohol intake: never Patient Tobacco Use Status: Former Tobacco user Smoked in Last 30 Days: No e-Cigarette/Vaping Use: Never Used Second Hand Smoke Exposure: Yes Use of substances other than those prescribed or required for medical reasons: No Advance Directives: No Advance Directives Information Provided: Yes Advance Directives Date on File: 07/19/20 Do you have a plan to hurt others: No Plan service: No Current occupational status: disabled Cognitive needs: No Hearing needs: No Vision needs: No Physical Exam Vital Signs: Vital Signs: Last Vital Signs Temp 98.2 F 05/06/24 09:56 Pulse 67 05/06/24 12:09 Resp 15 05/06/24 12:09 BP 140/64 H 05/06/24 12:09 Pulse Ox 96 05/06/24 12:09 O2 Del Method Room Air 05/06/24 12:09 BMI result Body Mass Index 37.9 Appearance: Alert. Oriented X3. No acute distress. Eyes: Pupils equal, round and reactive to light. ENT: Pharynx normal. atraumatic Neck: Normal inspection. Neck supple. collar in place CVS: Normal heart rate and rhythm. Pulses normal. Respiratory: No respiratory distress. Breath sounds normal. Abdomen: Soft and non-tender. Skin: Skin warm and dry. Normal skin color. Extremities: No lower extremity edema. pain in R hip Neuro: Oriented X 3. No motor deficit. No sensory deficit. Course Course Course Narrative: the family notes they cannot care for him like this when I explained we could offer rehab initially they stated no and said thats fine I'll bring him home and just call the ambulance again. I stated that we still wouldn't admit it would be a PT referral to rehab she was more inclined to rehab but I also reiterated we need to get results first. Medications Administered Discontinued Medications Generic Name Dose Route Start Last Admin Trade Name David PRN Reason Stop Dose Admin Acetaminophen 650 mg 05/06/24 09:59 05/06/24 10:30 Acetaminophen 325 Mg Tablet PO 05/06/24 10:00 650 mg ONCE ONE Administration Oxycodone HCl 5 mg 05/06/24 09:59 05/06/24 10:30 Oxycodone Hcl Immed Release 5 Mg Tablet PO 05/06/24 10:00 5 mg ONCE ONE Administration Medical Decision Making Medical Decision Making [facility] Narrative: 64 yo male with PMH of DM, arthritis, back pain, chest pain, anemia, depression, GERD, HLD, seizures on keppra, not on blood thinners here with c/o mechanical fall out of bed at this time will obtain basic labs, EKG, CT scans and xray oral medications. Family states they will not bring him home like this. He is alert and oriented x 3. No seizures reported, no signs of obvious deformity or trauma on exam he is GCS 15, no seizures this AM, no CP/SOB Differential Diagnosis Differential Diagnoses: The differential diagnosis associated with the presentation includes trauma, sprain, strain, contusion Admission/Observation Consideration of admission/observation: Escalation of care including admission/observation considered no acute findings on labs, UA, CT scan or xray up and walking looks good feels fine stable for DC Lab Data [facility] Lab Attestation statement: I reviewed the patient's lab results. 05/06/24 10:46 05/06/24 10:46 Labs: Lab Results 05/06/24 05/06/24 05/06/24 Range/Units 09:47 10:46 12:15 WBC 7.3 (4.8-10.8) X10*3/uL RBC 4.57 L (4.60-5.80) X10*6/uL Hgb 12.2 L (14.0-18.0) g/dl Hct 37.7 L (42.0-52.0) % MCV 82.5 (80.0-98.0) fL MCH 26.7 L (27.0-33.0) pg MCHC 32.4 (31.0-36.0) g/dl RDW 14.1 (11.0-16.0) % Plt Count 194 (160-400) X10*3/uL MPV 10.1 (9.4-12.4) fL Immature Gran % (Auto) 0.8 H (0.0-0.4) % Neut % (Auto) 67.4 (45-73) % Lymph % (Auto) 22.2 (20-40) % [place] % (Auto) 7.2 (2-11) % Eos % (Auto) 2.0 (0-4) % Baso % (Auto) 0.4 (0-2) % Lymph # (Auto) 1.6 (1.2-4.9) X10*3/uL [place] # (Auto) 0.5 (0.1-1.2) X10*3/uL Eos # (Auto) 0.2 (0.0-0.4) X10*3/uL Baso # (Auto) 0.0 (0.0-0.2) X10*3/uL Abs Immat Gran (auto) 0.06 H (0.00-0.03) X10*3/uL Absolute Neuts (auto) 4.9 (2.0-8.3) x10*3/uL Absolute Nucleated RBC 0.000 (0.0-0.012) X10*3/uL Nucleated RBC % (auto) 0.0 (0.0-0.2) /100WBC Sodium 141 (135-145) mmol/L Potassium 4.2 (3.3-5.1) mmol/L Chloride 109 H (96-108) mmol/L Carbon Dioxide 24 (22-29) mmol/L Anion Gap 12 (12-20) BUN 13 (9-16) mg/dL Creatinine 0.70 (0.5-1.4) mg/dL Estim Creat Clear Calc 129.4 Estimated GFR > 60 POC Glucose 119 H (60-115) mg/dL Random Glucose 117 H (60-115) mg/dL Calcium 9.1 (8.4-10.2) mg/dL Magnesium 1.7 (1.6-2.6) mg/dL Total Bilirubin 0.3 (0.0-1.0) mg/dL Direct Bilirubin 0.1 (0.0-0.5) mg/dL AST 15 (5-37) U/L ALT 14 (0-40) U/L Alkaline Phosphatase 86 (39-117) U/L Total Protein 7.0 (6.5-8.0) g/dL Albumin 4.1 (3.5-5.0) g/dL Urine Color Yellow Urine Appearance Clear Urine pH 5.5 (5.0-9.0) Ur Specific [place] 1.010 (1.005-1.025) Urine Protein Negative (Neg-Trace) mg/dL Urine Glucose (UA) Negative (Negative) mg/dL Urine Ketones Negative (Negative) mg/dL Urine Blood Negative (Negative) Urine Nitrite Negative (Negative) Ur Leukocyte Esterase Negative (Negative) Independent Interpretation I performed an independent interpretation of an: EKG, Plain X-Ray (no frx) and CT Scan (no acute trauma) Interpretation: Rate: 79 Rhythm: BSR [place]: left Normal P waves. Normal DAJUAN. Normal QRS complex. ST T wave : normal no MILVIA qTC: 438 prior studies: no acute ischemia The study has been interpreted contemporaneously by me. . Radiology Impression Discussion of test interpretation with radiology: I have reviewed the radiologist's reading. Independent Historian Clinical information obtained from an independent historian. History obtained from or confirmed by: EMS and Other (family) External Record Review External record reviewed: Inpatient record Prescription Management I considered prescription management with: Pain Medication Discharge Plan Discharge Clinical Impression: Contusion of rib on right side Qualifiers: Encounter type: initial encounter Qualified Code(s): S20.211A - Contusion of right front wall of thorax, initial encounter Head injury Qualifiers: Encounter type: initial encounter Qualified Code(s): S09.90XA - Unspecified injury of head, initial encounter Patient Disposition: Home, Self-Care Instructions: Head Injury (ED), Contusion in Adults (ED), Rib Contusion (ED) Additional Instructions: RETURN FOR CONFUSION, FEVERS, VOMITING, COUGH OR ANY OTHER CONCERNS NO FRACTURE OF CERVICAL SPINE, RIBS NO HEAD INJURY NEGATIVE CT SCAN OF HEAD, CERVICAL SPINE, CT CHEST NEGATIVE XRAY OF HIP LABS, EKG AND URINE NORMAL Prescriptions: New lidocaine 5 % adhesive patch,medicated 1 patch topical DAILY Qty: 30 0RF Rx Instructions: leave on most painful area for up to 12 hrs No Action (DME) blood-glucose meter [FreeStyle Lite Meter] Kit See Rx Instructions .Route Qty: 1 0RF Rx Instructions: TEST TWICE DAILY citalopram 20 mg tablet 20 mg PO DAILY 30 Days Qty: 30 3RF trazodone 150 mg tablet 150 mg PO BEDTIME PRN (Reason: Insomnia) Qty: 30 2RF aspirin 81 mg tablet,delayed release (DR/EC) 81 mg PO DAILY 90 Days Qty: 90 3RF (DME) FreeStyle Lite Strips Strip See Rx Instructions .ROUTE .COMPLEX Qty: 100 12RF Dose Instruction: USE DIRECTED TO TEST BLOOD SUGAR TWICE DAILY Rx Instructions: USE DIRECTED TO TEST BLOOD SUGAR TWICE DAILY (DME) pen needle, diabetic [BD Ultra-Fine Short Pen Needle] 31 gauge x 5/16 needle See Rx Instructions .ROUTE .COMPLEX Qty: 100 12RF Dose Instruction: USE TWICE DAILY DIRECTED Rx Instructions: USE TWICE DAILY DIRECTED ferrous sulfate [FeroSul] 325 mg (65 mg iron) tablet 325 mg PO DAILY Qty: 90 3RF metformin 500 mg tablet 1,000 mg PO BID 90 Days Qty: 360 1RF melatonin 3 mg tablet 6 mg PO BEDTIME PRN (Reason: insomnia) 90 Days Qty: 90 3RF levetiracetam 1,000 mg tablet 1,000 mg PO BID 30 Days Qty: 60 3RF simvastatin 40 mg tablet 40 mg PO BEDTIME 30 Days Qty: 30 3RF omeprazole 40 mg capsule,delayed release(DR/EC) 40 mg PO QAM 30 Days Qty: 30 3RF lancets [FreeStyle Lancets] 28 gauge misc 28 gauge topical BID Qty: 100 12RF insulin glargine 100 unit/mL (3 mL) insulin pen 33 unit subcut BEDTIME Qty: 15 5RF gabapentin 300 mg capsule 300 mg PO TID 30 Days Qty: 90 1RF cyanocobalamin (vitamin B-12) [Vitamin B-12] 1,000 mcg Tablet 1,000 mcg PO DAILY Qty: 90 3RF cyclobenzaprine 10 mg tablet 10 mg PO TID PRN (Reason: muscle spasm) Qty: 14 0RF ibuprofen 600 mg tablet 600 mg PO Q8H PRN (Reason: pain) Qty: 10 0RF diclofenac sodium 1 % gel 2 g topical QID Qty: 100 1RF Rx Instructions: apply to lower Back lidocaine 5 % adhesive patch,medicated 1 patch topical DAILY PRN (Reason: pain) Qty: 15 1RF Rx Instructions: leave on most painful area for up to 12 hrs cholecalciferol (vitamin D3) 50 mcg (2,000 unit) capsule 50 mcg PO DAILY 90 Days Qty: 90 3RF triamcinolone acetonide 0.5 % cream 1 appl topical BID PRN (Reason: rash) Qty: 15 1RF Print Language: Tamazight
[2024-05-06 09:53] LABS: Glucose, Whole Blood 119 mg/dL (60-115)
[2024-05-06 09:56] VITALS: BP 148/65; PULSE 81; RESP 14; TEMP 36.8; O2SAT 97; BMI 37.9
--- NOTE | 2024-05-06 10:02 | PC.NURSE ---
Pt to radiology.
[2024-05-06] MEDS: Acetaminophen 325 MG TABLET 650 MG PO (10:30)
[2024-05-06] MEDS: oxyCODONE HCl Immed Release 5 MG TABLET PO (10:30)
[2024-05-06 10:49] LABS: MANUAL DIFF FLAG NO
[2024-05-06 10:54] LABS: Basophils Percent Auto 0.4 % (0-2); Eosinophils Absolute Auto 0.2 X10*3/uL (0.0-0.4); Hematocrit 37.7 % (42.0-52.0); Hemoglobin 12.2 g/dl (14.0-18.0); Imm Gran Abs Auto 0.06 X10*3/uL (0.00-0.03); Imm Gran Pct Auto 0.8 % (0.0-0.4); Lymphocytes Absolute Auto 1.6 X10*3/uL (1.2-4.9); Lymphocytes Percent Auto 22.2 % (20-40); Mean Corpuscular HGB Conc 32.4 g/dl (31.0-36.0); Mean Corpuscular Hemoglobin 26.7 pg (27.0-33.0); Mean Corpuscular Volume 82.5 fL (80.0-98.0); Mean Platelet Volume 10.1 fL (9.4-12.4); Monocytes Absolute Auto 0.5 X10*3/uL (0.1-1.2); Monocytes Percent Auto 7.2 % (2-11); Neutrophils Absolute Auto 4.9 x10*3/uL (2.0-8.3); Neutrophils Percent Auto 67.4 % (45-73); Platelet Count 194 X10*3/uL (160-400); Red Blood Count 4.57 X10*6/uL (4.60-5.80); Red Cell Distribution Width 14.1 % (11.0-16.0); White Blood Count 7.3 X10*3/uL (4.8-10.8)
[2024-05-06 11:06] LABS: Alanine Aminotransferase 14 U/L (0-40); Albumin Level 4.1 g/dL (3.5-5.0); Alkaline Phosphatase 86 U/L (39-117); Anion Gap 12 (12-20); Aspartate Amino Transferase 15 U/L (5-37); Bilirubin Direct 0.1 mg/dL (0.0-0.5); Bilirubin Total 0.3 mg/dL (0.0-1.0); Blood Urea Nitrogen 13 mg/dL (9-16); Calcium 9.1 mg/dL (8.4-10.2); Carbon Dioxide 24 mmol/L (22-29); Chloride 109 mmol/L (96-108); Creatinine Clr Calc Pharmacy 129.4; Estimated Glomerular Filt Rate > 60; Glucose Random 117 mg/dL (60-115); Magnesium 1.7 mg/dL (1.6-2.6); Potassium 4.2 mmol/L (3.3-5.1); Sodium 141 mmol/L (135-145)
[2024-05-06 12:09] VITALS: BP 140/64; PULSE 67; RESP 15; O2SAT 96
[2024-05-06 12:22] LABS: Appearance Urine Clear; Color Urine Yellow; Glucose Urine UA Negative (Negative); Leukocyte Esterase Urine Negative (Negative); Nitrite Urine Negative (Negative); PH 5.5 (5.0-9.0); Urine Blood Negative (Negative); Urine Ketones Negative (Negative); Urine Protein Negative (Neg-Trace)
--- NOTE | 2024-05-06 12:58 | PC.NURSE ---
Patient able to walk w/ an assist of an walker for one lap around the unit, walking with a steady gait, c/o minimal pain. Observed by Dr. Christensen, patient to be discharged home.
[2024-05-06 13:15] VITALS: BP 140/65; PULSE 74; RESP 16; TEMP 36.6; O2SAT 98
== END 2024-05-06 13:10 | disposition home or self-care (01) ==
PROVIDERS: Emergency Provider Emergency Medicine; PCP Internal Medicine
DX: S20.211A Contusion of right front wall of thorax, initial encounter (principal); S09.90XA Unspecified injury of head, initial encounter; R07.81 Pleurodynia; M54.2 Cervicalgia; R07.89 Other chest pain; R94.31 Abnormal electrocardiogram [ECG] [EKG]; R10.2 Pelvic and perineal pain; E11.9 Type 2 diabetes mellitus without complications; R51.9 Headache, unspecified; W06.XXXA Fall from bed, initial encounter; Y93.89 Activity, other specified; Y92.89 Other specified places as the place of occurrence of the external cause; Y99.8 Other external cause status; Z79.899 Other long term (current) drug therapy; Z79.4 Long term (current) use of insulin; Z87.891 Personal history of nicotine dependence
CPT/HCPCS: 36415; 70450; 71250; 72125; 73502; 80048; 80076; 81003; 82947; 83735; 85025; 93005; 99284; 99285

== ENCOUNTER → 2024-05-06 09:51 | Outpatient (BNV) | payer OTHER, SELFPAY | PROVIDERS: Emergency Provider Emergency Medicine; PCP Internal Medicine; Visit Provider Internal Medicine | DX: R94.31 Abnormal electrocardiogram [ECG] [EKG] (principal) | CPT/HCPCS: 93010 ==

== ENCOUNTER 2024-05-26 07:33 | Outpatient (REF) | payer OTHER, SELFPAY ==
[2024-05-26 07:53] LABS: MANUAL DIFF FLAG NO
[2024-05-26 08:17] LABS: Basophils Percent Auto 0.6 % (0-2); Eosinophils Absolute Auto 0.1 X10*3/uL (0.0-0.4); Eosinophils Percent Auto 2.1 % (0-4); Hematocrit 38.7 % (42.0-52.0); Hemoglobin 12.2 g/dl (14.0-18.0); Imm Gran Abs Auto 0.04 X10*3/uL (0.00-0.03); Imm Gran Pct Auto 0.6 % (0.0-0.4); Lymphocytes Absolute Auto 1.3 X10*3/uL (1.2-4.9); Lymphocytes Percent Auto 21.4 % (20-40); Mean Corpuscular HGB Conc 31.5 g/dl (31.0-36.0); Mean Corpuscular Hemoglobin 26.6 pg (27.0-33.0); Mean Corpuscular Volume 84.5 fL (80.0-98.0); Mean Platelet Volume 10.7 fL (9.4-12.4); Monocytes Absolute Auto 0.5 X10*3/uL (0.1-1.2); Monocytes Percent Auto 7.2 % (2-11); Neutrophils Absolute Auto 4.3 x10*3/uL (2.0-8.3); Neutrophils Percent Auto 68.1 % (45-73); Platelet Count 197 X10*3/uL (160-400); Red Blood Count 4.58 X10*6/uL (4.60-5.80); Red Cell Distribution Width 14.4 % (11.0-16.0); White Blood Count 6.3 X10*3/uL (4.8-10.8)
[2024-05-26 08:27] LABS: Estimated Average Glucose 143 mg/dL; Hemoglobin A1c % 6.6 % (<6.0)
[2024-05-26 09:08] LABS: Alanine Aminotransferase 16 U/L (0-40); Albumin Level 4.1 g/dL (3.5-5.0); Alkaline Phosphatase 83 U/L (39-117); Anion Gap 14 (12-20); Aspartate Amino Transferase 15 U/L (5-37); Bilirubin Total 0.3 mg/dL (0.0-1.0); Blood Urea Nitrogen 11 mg/dL (9-16); Calcium 9.5 mg/dL (8.4-10.2); Carbon Dioxide 24 mmol/L (22-29); Chloride 108 mmol/L (96-108); Cholesterol 106 mg/dL (<200); Estimated Glomerular Filt Rate > 60; Glucose Fasting 138 mg/dL (60-99); HDL Cholesterol 39 mg/dL (>40); LDL Cholesterol Calculated 44 mg/dL (<100); Sodium 142 mmol/L (135-145); Total Protein 6.9 g/dL (6.5-8.0); Triglycerides 117 mg/dL (<150)
[2024-05-26 09:22] LABS: TSH reflex Free T4 2.21 uIU/mL (0.32-4.0); Vitamin D 25-OH Total 46.3 ng/mL (>30)
[2024-05-26 09:49] LABS: Appearance Urine Clear; Color Urine Yellow; Glucose Urine UA Negative (Negative); Leukocyte Esterase Urine Negative (Negative); Nitrite Urine Negative (Negative); Urine Blood Negative (Negative); Urine Ketones Negative (Negative); Urine Protein Negative (Neg-Trace)
[2024-05-26 10:45] LABS: Creatinine Urine 116.05 mg/dL; Microalbum/Creatinine Ratio Ur 4.3 ug/mg cr (<30)
[2024-05-30 01:28] LABS: Levetiracetam Keppra 23.3 mcg/mL (6.0-46.0)
== END 2024-05-26 07:34 | disposition home or self-care (01) ==
LOC: HO.LAB 07:33
PROVIDERS: PCP Internal Medicine; Visit Provider Internal Medicine
DX: D64.9 Anemia, unspecified (principal); E78.00 Pure hypercholesterolemia, unspecified; E11.9 Type 2 diabetes mellitus without complications; G40.909 Epilepsy, unspecified, not intractable, without status epilepticus; R30.0 Dysuria; E55.9 Vitamin D deficiency, unspecified
CPT/HCPCS: 36415; 80053; 80061; 80177; 81003; 82043; 82306; 82570; 83036; 84443; 85025

== ENCOUNTER 2024-05-31 10:49 | Outpatient (AMB) | payer OTHER, SELFPAY ==
[2024-05-31 11:13] VITALS: BP 128/62; PULSE 80; BMI 40.0
--- NOTE | 2024-05-31 11:13 | A.OFFVIS_ITS ---
Vital Signs 05/31/24 11:13 Height 5 ft 5 in Weight 240 lb 4.862 oz BMI 40.0 BP 128/62 Blood Pressure Location Lt brachial Position Sitting Pulse 80 Pulse Source Pulse Oximeter Intake Visit Reasons: 1Y follow up University Registrar Required: Yes University Registrar Services: University Registrar Offered & Declined University Registrar Name: Pablo Jain Accompanied by: Family/Other Allergies No Known Allergies [No Known Allergies*] Allergy (Verified 05/26/24 10:47) Medication List - Last Reconciled 05/31/24 by Isaak Pederson MD aspirin 81 mg PO DAILY 90 days blood sugar diagnostic (FreeStyle Lite Strips) USE DIRECTED TO TEST BLOOD SUGAR TWICE DAILY blood-glucose meter (FreeStyle Lite Meter kit) TEST TWICE DAILY cholecalciferol (vitamin D3) 50 mcg PO DAILY 90 days citalopram 20 mg PO DAILY 30 days cyanocobalamin (vitamin B-12) (Vitamin B-12) 1,000 mcg PO DAILY cyclobenzaprine 10 mg PO TID PRN diclofenac sodium 1% 2 grams topical QID ferrous sulfate (FeroSul) 325 mg PO DAILY gabapentin 300 mg PO TID 30 days ibuprofen 600 mg PO Q8H PRN insulin glargine 33 units (0.33 mL) subcut BEDTIME lancets (FreeStyle Lancets) 28 gauge topical BID levetiracetam 1,000 mg PO BID 30 days lidocaine 5% 1 patch topical DAILY melatonin 6 mg (2 x 3 mg) PO BEDTIME PRN 90 days metformin 1,000 mg (2 x 500 mg) PO BID 90 days omeprazole 40 mg PO QAM 30 days pen needle, diabetic (BD Ultra-Fine Short Pen Needle) USE TWICE DAILY DIRECTED simvastatin 40 mg PO BEDTIME 30 days trazodone 150 mg PO BEDTIME PRN triamcinolone acetonide 0.5% 1 appl topical BID PRN HPI Comments Details: Wilfred returns for follow-up regarding anomalous coronary arteries. In the past, he had atypical chest pain that led to further workup. He underwent stress testing and coronary CTA. That showed normal coronary artery. He was seen by adult Congenital heart Disease but then resorted to conservative care only. He states he is doing fine. No complaints like angina or shortness of breath or in fact anything cardiac sounding. 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 Mother No problems noted. Social History Housing: House Housing Other:: rents a room Alcohol intake: never Patient Tobacco Use Status: Former Tobacco user e-Cigarette/Vaping Use: Never Used Second Hand Smoke Exposure: Yes Advance Directives Date on File: 07/19/20 service: No Current occupational status: disabled Cognitive needs: No Hearing needs: No Vision needs: No Review of Systems Const Denies weakness ENT Denies dizziness Card Denies chest pain, Denies chest pain with activity, Denies syncope, Denies rapid heart rate, Denies pedal edema, Denies edema, Denies leg edema, Denies lightheadedness, Denies palpitations, Denies dyspnea, Denies dyspnea on exertion and Denies orthopnea Resp Denies cough, Denies dyspnea and Denies dyspnea on exertion GI Denies hematochezia and Denies change in stool character Musc Denies abnormal gait, Denies muscle cramps, Denies muscle weakness, Denies numbness, Denies radiating pain into limb and Denies tingling Neuro Denies abnormal gait, Denies dizziness, Denies syncope, Denies numbness, Denies tingling and Denies weakness Endo Denies palpitations Physical Exam Vital Signs: Last Vital Signs Pulse 80 05/31/24 11:13 BP 128/62 05/31/24 11:13 BMI result Body Mass Index 40.0 Const General: comfortable and no acute distress Orientation/consciousness: patient oriented x3 HEENT Other: Unremarkable Head: Yes normal to inspection Neck Neck: Yes normal visual inspection Chest Chest palpation & inspection: normal inspection of the chest Resp Auscultation: clear to auscultation bilaterally Cardio Palpation: normal PMI Heart sounds: S1 normal heart sound present, S2 normal heart sound present, no gallops, no murmurs and no rubs GI Palpation (GI): Soft to palpation Back/Spine/Pelvis Other: unremarkable Skin General skin exam: no rashes or lesions noted Neuro General: patient oriented x3 Extrem General: Yes normal to inspection Psych Mental Status: mental status grossly normal Assessment & Plan Assessment & Plan (1) Anomalous right coronary artery: Code(s): Q24.5 - Malformation of coronary vessels Category: Medical Plan Cardiac studies reviewed. During the stress test, he was able to walk only for 12 seconds before being converted to [place]. In the perfusion images, no obvious perfusion abnormality. Echocardiogram had shown basal inferior/inferoseptal wall motion abnormality/akinesis. 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 Otherwise, minimal scattered plaque without any significant stenosis. Case previously discussed with adult congenital heart disease, Dr. Palacio. It was felt that the condition did not warrant operative repair and probably not causing any active symptoms. Overall, we will continue to monitor him. If any concerns like chest pains, advised him to contact us immediately. Discussed with the friend who came for appointment who also translated. Coding Level of Care Code Est Pt Level 4 (71551) Diagnoses Anomalous right coronary artery Q24.5
== END 2024-05-31 11:37 | disposition home or self-care (01) ==
PROVIDERS: PCP Internal Medicine; Visit Provider Internal Medicine
DX: Q24.5 Malformation of coronary vessels (principal)
CPT/HCPCS: 99214

== ENCOUNTER → 2024-05-31 10:49 | Outpatient (BNVA) | payer OTHER, SELFPAY | PROVIDERS: PCP Internal Medicine; Visit Provider Internal Medicine | DX: Q24.5 Malformation of coronary vessels (principal) | CPT/HCPCS: 99212 ==

== ENCOUNTER 2024-06-03 10:18 | Outpatient (AMB) | payer OTHER, SELFPAY ==
[2024-06-03 11:41] VITALS: BP 126/80; PULSE 81; O2SAT 96; BMI 39.2
--- NOTE | 2024-06-03 11:41 | MHC.PC.OV ---
Vital Signs 06/03/24 11:41 Height 5 ft 5 in Weight 235 lb 6 oz BMI 39.2 BP 126/80 Blood Pressure Location Lt brachial Position Sitting Pulse 81 Pulse Source Pulse Oximeter Pulse Oximetry (%) 96 Oxygen Delivery Method Room Air Intake Visit Reasons: hyperlipidemia, DM, neurofibromatosis, lumbar DDD Gas Meter Prover Required: No Accompanied by: Son Allergies No Known Allergies [No Known Allergies*] Allergy (Verified 06/03/24 12:01) Medication List - Last Reconciled 06/03/24 by Xavi Mart MD aspirin 81 mg PO DAILY 90 days blood sugar diagnostic (FreeStyle Lite Strips) USE DIRECTED TO TEST BLOOD SUGAR TWICE DAILY blood-glucose meter (FreeStyle Lite Meter kit) TEST TWICE DAILY cholecalciferol (vitamin D3) 50 mcg PO DAILY 90 days citalopram 20 mg PO DAILY 30 days cyanocobalamin (vitamin B-12) (Vitamin B-12) 1,000 mcg PO DAILY cyclobenzaprine 10 mg PO TID PRN diclofenac sodium 1% 2 grams topical QID ferrous sulfate (FeroSul) 325 mg PO DAILY gabapentin 300 mg PO TID 30 days ibuprofen 600 mg PO Q8H PRN insulin glargine 33 units (0.33 mL) subcut BEDTIME lancets (FreeStyle Lancets) 28 gauge topical BID levetiracetam 1,000 mg PO BID 30 days lidocaine 5% 1 patch topical DAILY melatonin 6 mg (2 x 3 mg) PO BEDTIME PRN 90 days metformin 1,000 mg (2 x 500 mg) PO BID 90 days omeprazole 40 mg PO QAM 30 days pen needle, diabetic (BD Ultra-Fine Short Pen Needle) USE TWICE DAILY DIRECTED simvastatin 40 mg PO BEDTIME 30 days trazodone 150 mg PO BEDTIME PRN triamcinolone acetonide 0.5% 1 appl topical BID PRN Tobacco use date assessed: 06/03/24 Dental Screening Dental Screen Date: 06/03/24 Did you have a dental visit in the last 12 months?: No Did you have a dental problem in the last 6 months where you did not have access to dental care?: No Was dental information given to patient?: No HPI hyperlipidemia, DM, neurofibromatosis, lumbar DDD HPI Details Patient comes in today for his follow up visit He reportedly fell from his bed last month and went to the ER for further evaluation Work ups done at the ER, including CT of the head, cervical spine and chest as well as hip x-rays, were all negative Patient states that he currently still has some pain over the right side of his chest/lower ribs but the pain is better now compared to last month States that he feels okay otherwise He denies any headaches or dizziness Denies any exertional chest pains or increased SOB No nausea/vomiting, no abdominal pain No change in bowel habits noted He had his follow up labs done last week - to discuss his results [facility] Medical History Vitamin D deficiency Lumbar degenerative disc disease Chest pain Obesity (BMI 30-39.9) Insomnia GERD without esophagitis Pure hypercholesterolemia Epilepsy 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 Mother No problems noted. Social History Housing: House Housing Other:: rents a room Alcohol intake: never Patient Tobacco Use Status: Former Tobacco user e-Cigarette/Vaping Use: Never Used Second Hand Smoke Exposure: Yes Advance Directives Date on File: 07/19/20 service: No Current occupational status: disabled Cognitive needs: No Hearing needs: No Vision needs: No Questionnaire PHQ-9 Over the last 2 weeks, how often have you been bothered by any of the following problems? 1. Little interest or pleasure in doing things: not at all 2. Feeling down, depressed, or hopeless: not at all 3. Trouble falling or staying asleep, or sleeping too much: not at all 4. Feeling tired or having little energy: not at all 5. Poor appetite or overeating: not at all 6. Feeling bad about yourself - or that you are a failure or have let yourself or your family down: not at all 7. Trouble concentrating on things, such as reading the newspaper or watching television: not at all 8. Moving or speaking so slowly that other people could have noticed. Or the opposite - being so fidgety or restless that you have been moving around a lot more than usual: not at all 9. Thoughts that you would be better off or of hurting yourself in some way: not at all Total score: 0 Depression Screening Interpretation: Negative Depression Screening Done: Yes 50687 - PHQ-9 Billing: Yes Source: Developed by Drs. Griffin Chapman, Stella Garcia, Jose Manuel Us and colleagues, with an educational lux from [employer]. Thrive Questionnaire Date Thrive assessed: 06/03/24 I am a: Patient What is your living situation today?: I have a steady place to live Within the past 12 months, did the food you bought not last and you didn't have the money to get more?: Never true Within the past 12 months, did you worry whether your food would run out before you got money to buy more?: Never true Do you have trouble paying for medicines?: No Do you have trouble getting transportation to medical appointments?: No Do you have trouble paying your heating and electricity bill?: No Do you have trouble taking care of your child, family member or friend?: No Do you have trouble with day-to-day activities such as bathing, preparing meals, shopping, managing finances, etc.?: No Are you currently unemployed and looking for a job?: No Are you interested in more education?: No Please select the resources that you would like help with: None Currently or been in a relationship where the following occur: No concerns reported THRIVE Score: 0 AUDIT C Alcohol Use Questionnaire (AUDIT-C) 1. How often do you have a drink containing alcohol?: Never 3. How often do you have six or more drinks on one occasion?: Never Total Score: 0 Score Reviewed/Action Taken: Yes VANCE-7 AMB Questionnaire VANCE-7 Date VANCE - 7 assessed: 06/03/24 Feeling nervous, anxious, or on edge: 0 = Not at all Not being able to stop or control worryin = Not at all Worrying too much about different things: 0 = Not at all Trouble relaxin = Not at all Being so restless that it is hard to sit still: 0 = Not at all Becoming easily annoyed or irritable: 0 = Not at all Feeling afraid as if something awful might happen: 0 = Not at all Total VANCE-7 score (0-4 normal; 5-9 mild; 10-14 moderate; 15-21 severe): 0 Source: Developed by Drs. Griffin Chapman, Stella Garcia, Jose Manuel Us and colleagues, with an educational lux from [employer]. Review of Systems Const Denies chills, Denies fatigue, Denies fever(s) and Denies headache(s) ENT Denies dysphagia, Denies dizziness, Denies otalgia, Denies headache(s), Denies neck pain, Denies odynophagia and Denies sore throat Card Denies chest pain (aside from the pain over his right lower ribs laterally), Denies chest pain with activity, Denies palpitations and Denies dyspnea Resp Denies chest congestion, Denies cough and Denies dyspnea GI Denies abdominal pain, Denies constipation, Denies dysphagia, Denies heartburn, Denies diarrhea, Denies nausea, Denies odynophagia and Denies vomiting Denies dysuria, Denies nocturia and Denies urinary frequency Musc Reports back pain (over the right lower back - chronic) and Denies neck pain Skin/Breast Denies rash Neuro Denies dizziness, Denies headache(s) and Denies convulsions Endo Denies fatigue and Denies palpitations Physical exam (Primary Care) Vital Signs: Last Vital Signs Pulse 81 06/03/24 11:41 BP 126/80 06/03/24 11:41 Pulse Ox 96 06/03/24 11:41 Oxygen Delivery Method Room Air 06/03/24 11:41 BMI result Body Mass Index 39.2 Tobacco/Smoking Status: Tobacco use Status Tobacco use date assessed 06/03/24 06/03/24 11:47 Patient Tobacco Use Status Former Tobacco user 06/03/24 11:44 e-Cigarette/Vaping Use Never Used 06/03/24 11:44 PHQ-9: PHQ-9 Score PHQ-9: Total score 0 06/03/24 12:02 Depression Screening Interpretation: Negative Thrive Assessment: Date of Thrive Assessment Date Thrive assessed 06/03/24 06/03/24 11:50 Currently or been in a relationship where the following occur: No concerns reported Const General: no acute distress and alert HENMT Ears: TM's normal bilaterally and EAC's normal Throat: Yes posterior oropharynx normal and Yes tonsils normal (no TP congestion) Neck Neck: Yes no lymphadenopathy and Yes supple Thyroid: Thyroid normal Chest Other: (+) mild tenderness on palpation over the lower ribs on the right lateral chest wall Resp Auscultation: clear to auscultation bilaterally, no rales and no wheezes Cardio Rate: regular rate Rhythm: regular rhythm Heart sounds: no murmurs GI Palpation (GI): Soft to palpation and nontender Auscultation: normal bowel sounds General: Yes no CVA tenderness Back/Spine/Pelvis Back: no CVA tenderness Thoracic/Lumbar Spine: lumbar spinal tenderness (more on the right side) Skin Rashes: no rashes Extrem General: Yes no clubbing, cyanosis or edema Results Reviewed Results Reviewed: Laboratory Tests 05/26/24 05/26/24 07:51 07:52 WBC 6.3 Hgb 12.2 L Hct 38.7 L Plt Count 197 Sodium 142 Potassium 4.0 Creatinine 0.72 Estimated GFR > 60 Fasting Glucose 138 H Hemoglobin A1c % 6.6 H Calcium 9.5 AST 15 ALT 16 Triglycerides 117 Cholesterol 106 LDL Cholesterol, Calc 44 HDL Cholesterol 39 L 25-OH Vitamin D Total 46.3 TSH 2.21 Ur Specific [place] 1.020 Urine Protein Negative Urine Glucose (UA) Negative Urine Blood Negative Urine Nitrite Negative Ur Leukocyte Esterase Negative Microalb/Creat Ratio 4.3 Levetiracetam 23.3 Assessment and Plan Assessment & Plan (1) Type 2 diabetes mellitus with diabetic neuropathy: Code(s): E11.40 - Type 2 diabetes mellitus with diabetic neuropathy, unspecified Qualifiers: Diabetes mellitus remote computer terminal operator insulin use: with [place] use Qualified Code(s): E11.40 - Type 2 diabetes mellitus with diabetic neuropathy, unspecified; Z79.4 - longterm (current) use of insulin Plan: His HgbA1c was at 6.0% on his labs done last week (was at 6.6% a few months ago) - goal < 7.0% Reinforced diabetic diet Continue Metformin 1000 mg BID and Lantus 33 units SQ Q HS (2) Pure hypercholesterolemia: Code(s): E78.00 - Pure hypercholesterolemia, unspecified Plan: Results of his labs done last week reviewed and discusded with patient Reinforced low-cholesterol diet Continue Simvastatin 40 mg QD Will recheck his labs and fasting lipids in 4 months for follow up (3) Epilepsy: Code(s): G40.909 - Epilepsy, unspecified, not intractable, without status epilepticus Qualifiers: Epilepsy type: unspecified Intractability: not intractable Status epilepticus: without status epilepticus Qualified Code(s): G40.909 - Epilepsy, unspecified, not intractable, without status epilepticus Plan: Stable with no recent seizures Continue Levetiracetam 1000 mg po BID Follow-up with neurology as scheduled (4) GERD without esophagitis: Code(s): K21.9 - Gastro-esophageal reflux disease without esophagitis Plan: Dietary restrictions reinforced Continue Omeprazole 20 mg QD (5) Vitamin D deficiency: Code(s): E55.9 - Vitamin D deficiency, unspecified Plan: Continue Vitamin D3 2000 units QD (6) Constipation: Code(s): K59.00 - Constipation, unspecified Qualifiers: Constipation type: unspecified constipation type Qualified Code(s): K59.00 - Constipation, unspecified Plan: Reinforced increased oral fluids and dietary fiber Continue Miralax 17 gm QD (7) Lumbar degenerative disc disease: Code(s): M51.36 - Other intervertebral disc degeneration, lumbar region Plan: Reinforced activity and weight-lifting restrictions Continue Lidocaine 5% patches QD PRN Follow up with pain management as scheduled - has been getting right SI joint injections from pain management, which he states are helping (8) Insomnia: Code(s): G47.00 - Insomnia, unspecified Qualifiers: Insomnia type: primary Qualified Code(s): F51.01 - Primary insomnia Plan: Sleep hygiene reinforced Continue Trazodone 150 mg Q HS PRN (9) Depression: Code(s): F32.9 - Major depressive disorder, single episode, unspecified Qualifiers: Active/Remission status: currently active Depression Type: major depressive disorder Major depression episode severity: unspecified Major depression recurrence: recurrent Qualified Code(s): F33.9 - Major depressive disorder, recurrent, unspecified Plan: Continue Citalopram 20 mg QD Follow-up with psychiatry as scheduled (10) Obesity (BMI 30-39.9): Code(s): E66.9 - Obesity, unspecified Plan: Reinforced diet/exercise as tolerated/lose weight Plan Follow up in 4 months Orders: Orders Complete Blood Count Auto Diff 4 Months D64.9 - Anemia, unspecified Lipid Panel 4 Months E78.00 - Pure hypercholesterolemia, unspecified Microalbumin, Random (w Creat) 4 Months E11.9 - Type 2 diabetes mellitus without complications Levetiracetam Keppra 4 Months G40.909 - Epilepsy, unspecified, not intractable, without status epilepticus UA CC w/rflx Micro + Cult 4 Months R30.0 - Dysuria Vitamin B12 and Folate 4 Months E53.8 - Deficiency of other specified B group vitamins Comprehensive [place]. Panel Fast 4 Months E78.00 - Pure hypercholesterolemia, unspecified Hemoglobin A1c 4 Months E11.9 - Type 2 diabetes mellitus without complications TSH reflex Free T4 4 Months E78.00 - Pure hypercholesterolemia, unspecified Vitamin D 25-OH Total 4 Months E55.9 - Vitamin D deficiency, unspecified Coding Level of Care Code Est Pt Level 4 (09796) Complex EM visit Add On G2211 Diagnoses Type 2 diabetes mellitus with diabetic neuropathy, with long-term current use of insulin E11.40; Z79.4 Diabetes mellitus remote computer terminal operator insulin use: with [facility] use Pure hypercholesterolemia E78.00 Nonintractable epilepsy without status epilepticus, unspecified epilepsy type G40.909 Epilepsy type: unspecified Intractability: not intractable Status epilepticus: without status epilepticus GERD without esophagitis K21.9 Vitamin D deficiency E55.9 Constipation, unspecified constipation type K59.00 Constipation type: unspecified constipation type Lumbar degenerative disc disease M51.36 Primary insomnia F51.01 Insomnia type: primary Episode of recurrent major depressive disorder, unspecified depression episode severity F33.9 Active/Remission status: currently active Depression Type: major depressive disorder Major depression episode severity: unspecified Major depression recurrence: recurrent Obesity (BMI 30-39.9) E66.9
== END 2024-06-03 12:08 | disposition home or self-care (01) ==
PROVIDERS: PCP Internal Medicine; Visit Provider Internal Medicine
DX: E11.40 Type 2 diabetes mellitus with diabetic neuropathy, unspecified (principal); Z79.4 Long term (current) use of insulin; E78.00 Pure hypercholesterolemia, unspecified; G40.909 Epilepsy, unspecified, not intractable, without status epilepticus; K21.9 Gastro-esophageal reflux disease without esophagitis; E55.9 Vitamin D deficiency, unspecified; K59.00 Constipation, unspecified; M51.36 Other intervertebral disc degeneration, lumbar region; F51.01 Primary insomnia
CPT/HCPCS: 99214; G2211

== ENCOUNTER 2024-06-29 06:07 | Outpatient (REF) | payer OTHER, SELFPAY | END 2024-06-29 06:08 | disposition home or self-care (01) | LOC: CF 06:07 | PROVIDERS: Visit Provider Anesthesiology | DX: M46.1 Sacroiliitis, not elsewhere classified (principal); M53.3 Sacrococcygeal disorders, not elsewhere classified | CPT/HCPCS: 27096; J2003; J2795; J3301; Q9967 ==

== ENCOUNTER 2024-06-29 11:08 | Outpatient (AMB) | payer OTHER, SELFPAY ==
--- NOTE | 2024-06-29 11:17 | MHC.OFFVIS ---
Vital Signs 06/29/24 11:58 06/29/24 11:58 Height 5 ft 5 in 5 ft 5 in Weight 235 lb 6 oz 235 lb 6 oz BMI 39.2 39.2 BP 155/72 H 148/74 H Blood Pressure Location Lt brachial Lt brachial Position Sitting Sitting Respiration 14 14 Pulse 78 77 Pulse Source Pulse Oximeter Pulse Oximeter Pulse Oximetry (%) 98 99 Oxygen Delivery Method Room Air Room Air Comment pre-op post-op Intake Visit Reasons: RIGHT THERAPEUTIC SIJ INJECTION Oil Distributor Tender Required: Yes Oil Distributor Tender Services: Oil Distributor Tender Offered & Declined Oil Distributor Tender Name: Family friend Pablo Jain Allergies No Known Allergies [No Known Allergies*] Allergy (Verified 06/29/24 11:27) PFSH Medical History Vitamin D deficiency Lumbar degenerative disc disease Chest pain Obesity (BMI 30-39.9) Insomnia GERD without esophagitis Pure hypercholesterolemia Epilepsy 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 Mother No problems noted. Social History Housing: House Housing Other:: rents a room Alcohol intake: never Patient Tobacco Use Status: Former Tobacco user e-Cigarette/Vaping Use: Never Used Second Hand Smoke Exposure: Yes Advance Directives Date on File: 07/19/20 service: No Current occupational status: disabled Cognitive needs: No Hearing needs: No Vision needs: No Physical Exam Vital Signs: Last Vital Signs Pulse 77 06/29/24 11:58 Resp 14 06/29/24 11:58 BP 148/74 H 06/29/24 11:58 Pulse Ox 99 06/29/24 11:58 Oxygen Delivery Method Room Air 06/29/24 11:58 BMI result Body Mass Index 39.2 Assessment & Plan Assessment & Plan (1) Sacroiliitis: Code(s): M46.1 - Sacroiliitis, not elsewhere classified Category: Medical (2) Sacroiliac joint pain: Code(s): M53.3 - Sacrococcygeal disorders, not elsewhere classified Category: Medical Plan Right therapeutic sacroiliac joint injection Informed consent was explained thoroughly to the patient.? All questions about benefits and risks for the procedure were answered. Patient insisted on consent conversation being interpreted by a friend who brought him here and adamantly refused use of a tablet [place] interpretation. Patient came to the operating room and was positioned prone on the operating table with the pillow under the abdomen. The lower back and buttocks of the patient were prepped with ChloraPrep prepped and draped with sterile utility towels.? Sterilely draped C-arm was brought over the operating field and sq picture of patient's pelvis was demonstrated on the screen.? For the right joint tilting C-arm contralateral to the site of the joint the most posterior portion of the joints was superimposed with anterior silhouette of the joint.? Skin was injected in the projection of the joint slightly medial to the location of the joint with 25 gauge 1/2 inch needle using local lidocaine 2% . After that 22 gauge 3 and 1/2 inch needle was driven to the right joint in tunnel vision fashion.? When needle entered the joint capsule injection of the contrast was performed demonstrating intra-articular and minimally periarticular spread of the contrast.? After that 4 cc. of ropivacaine 0.5% mixed with Kenalog 40 mg was injected in the joint. After that procedure was repeated on the left side in mirroring fashion. Same dose of ropivacaine was injected into the joint. Upon completion of the injections the needle was removed and Band-Aid was applied.? Upon completion of the injection patient was taken outside of the operating room to the recovery room where recovered uneventfully. Upon completion of the procedure patient was taken outside of the operating room and he was carefully explained blood glucose management using services of our highway patrol officer Annette Chahal who is certified per diem interpreter. The patient was explained about taking medications for his diabetes as prescribed, apparently patient did not have any sliding scale short-acting insulin at home. So the patient was explained that if his sugar more than 250 he needs to schedule appointment with primary care physician. If his blood sugar is higher than 350-400 then he needs to go stat to emergency room. Orders: Orders FL guidance in treatment room Today M46.1 - Sacroiliitis, not elsewhere classified Coding Level of Care Code Procedure Only Diagnoses Sacroiliitis M46.1 Sacroiliac joint pain M53.3
[2024-06-29 11:58] VITALS: BP 148/74; BP 155/72; PULSE 77; PULSE 78; RESP 14; O2SAT 98; O2SAT 99; BMI 39.2
== END 2024-06-29 11:44 | disposition home or self-care (01) ==
LOC: HO.PMCPRC 11:08
PROVIDERS: PCP Internal Medicine; Visit Provider Anesthesiology
DX: M46.1 Sacroiliitis, not elsewhere classified (principal); M53.3 Sacrococcygeal disorders, not elsewhere classified
CPT/HCPCS: 27096

== ENCOUNTER 2024-07-26 10:56 | Outpatient (AMB) | payer OTHER, SELFPAY ==
--- NOTE | 2024-07-26 11:02 | MHC.OFFVIS ---
Vital Signs 07/26/24 11:06 Height 5 ft 5 in Weight 243 lb BMI 40.4 BP 134/63 Blood Pressure Location Lt brachial Position Sitting Pulse 86 Pulse Source Pulse Oximeter Pulse Oximetry (%) 97 Oxygen Delivery Method Room Air Intake Visit Reasons: RIGHT THERAPEUTIC SIJ INJECTION/06/29/24 Intake Note: Pain today 0/10 Secretary To Board Of Commissioners Required: Yes Secretary To Board Of Commissioners Language: Portal Administrator Services: Secretary To Board Of Commissioners Offered & Declined Secretary To Board Of Commissioners Name: Family- Pablo Accompanied by: Family/Other Allergies No Known Allergies [No Known Allergies*] Allergy (Verified 07/26/24 11:07) HPI Comments Details: Patient presents today to assess response to Right Therapeutic SIJ injection on 06/29/[address] Mendoza. Patient reports ongoing 100% pain relief in the projection of right SIJ area with improvement in his general daily activities, functioning, mobility, changing positioning from sitting to standing, mood, sleep and social interactions. Patient rates his pain level at 0/10 today. He is very content with outcome of recent injection. Denies any fever, abdominal or groin pain, bowel or bladder incontinence or saddle anesthesia. 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 Mother No problems noted. Social History Housing: House Housing Other:: rents a room Alcohol intake: never Patient Tobacco Use Status: Former Tobacco user e-Cigarette/Vaping Use: Never Used Second Hand Smoke Exposure: Yes Advance Directives Date on File: 07/19/20 service: No Current occupational status: disabled Cognitive needs: No Hearing needs: No Vision needs: No Review of Systems Const All systems reviewed & are unremarkable except as noted in HPI and below Physical Exam Vital Signs: Last Vital Signs Pulse 86 07/26/24 11:06 BP 134/63 07/26/24 11:06 Pulse Ox 97 07/26/24 11:06 Oxygen Delivery Method Room Air 07/26/24 11:06 BMI result Body Mass Index 40.4 General: Appears afebrile. Alert and oriented. Mood and affect appropriate. Follows and participates in conversation appropriately. Respiratory effort is unlabored. No cough. Able to transition from sit to stand unassisted. Ambulates with bilaterally normal heel strike and toe off. Results Reviewed Results Reviewed: XR LUMBOSACRAL SPINE 12/27/21 COMPARISON: Radiographs dated 03/14/2014. FINDINGS: There is bony demineralization. There is a slight lumbar levoscoliosis. Vertebral body heights are normal. The lower thoracic and lumbar disc spaces are well-maintained. No acute fracture or spondylolisthesis is seen. This multi-level mild thoracolumbar spondylosis. The posterior elements are intact. The paravertebral soft tissues are unremarkable. IMPRESSION: 1. No acute fracture or spondylolisthesis is seen. 2. The lumbar disc spaces are well-maintained. 3. There is multi-level mild thoracolumbar spondylosis. 4. There is a minimal lumbar levoscoliosis. XR/XR hip RT w PEL1V 12/27/21 IMPRESSION: Normal pelvis and hips. Assessment & Plan Assessment & Plan (1) Lumbosacral spondylolysis: Code(s): M43.07 - Spondylolysis, lumbosacral region Category: Medical (2) Sacroiliac joint pain: Code(s): M53.3 - Sacrococcygeal disorders, not elsewhere classified Category: Medical Plan Patient is status post therapeutic intra-articular right SIJ injection on 06/29/24 with 100% ongoing pain relief with significant improvement in his ADLs, mobility, sleep and social interactions. Patient is aware that he can not receive another injection in this area for another three months and will notify our office when his pain returns to baseline. Patient is aware to monitor for side effects. All questions were answered and the patient is in agreement of plan. Follow up as needed. Coding Level of Care Code Est Pt Level 3 (95754) Complex EM visit Add On G2211 Diagnoses Lumbosacral spondylolysis M43.07 Sacroiliac joint pain M53.3
[2024-07-26 11:06] VITALS: BP 134/63; PULSE 86; O2SAT 97; BMI 40.4
== END 2024-07-26 11:13 | disposition home or self-care (01) ==
LOC: HO.PMC 10:56
PROVIDERS: PCP Internal Medicine; Visit Provider Nurse Practitioner Family
DX: M43.07 Spondylolysis, lumbosacral region (principal); M53.3 Sacrococcygeal disorders, not elsewhere classified
CPT/HCPCS: 99213; G2211

== ENCOUNTER → 2024-07-26 10:56 | Outpatient (BNVA) | payer OTHER, SELFPAY | PROVIDERS: PCP Internal Medicine; Visit Provider Nurse Practitioner Family | DX: M43.07 Spondylolysis, lumbosacral region (principal); M53.3 Sacrococcygeal disorders, not elsewhere classified | CPT/HCPCS: 99212 ==

== ENCOUNTER 2024-10-12 10:44 | Outpatient (AMB) | payer OTHER, SELFPAY ==
--- NOTE | 2024-10-12 10:46 | MHC.PC.OV ---
Vital Signs 10/12/24 10:47 Height 5 ft 5 in Weight 236 lb BMI 39.3 BP 132/70 Blood Pressure Location Lt brachial Position Sitting Pulse 80 Pulse Source Pulse Oximeter Pulse Oximetry (%) 97 Oxygen Delivery Method Room Air Intake Visit Reasons: 4 month f/u Forest Pathologist Required: Yes Accompanied by: Son Allergies No Known Allergies [No Known Allergies*] Allergy (Verified 10/12/24 11:22) Medication List - Last Reconciled 10/12/24 by Xavi Mart MD aspirin 81 mg PO DAILY 90 days blood sugar diagnostic (FreeStyle Lite Strips) USE DIRECTED TO TEST BLOOD SUGAR TWICE DAILY blood-glucose meter (FreeStyle Lite Meter kit) TEST TWICE DAILY cholecalciferol (vitamin D3) 50 mcg PO DAILY 90 days citalopram 20 mg PO DAILY 30 days cyanocobalamin (vitamin B-12) (Vitamin B-12) 1,000 mcg PO DAILY cyclobenzaprine 10 mg PO TID PRN diclofenac sodium 1% 2 grams topical QID ferrous sulfate (FeroSul) 325 mg PO DAILY gabapentin 300 mg PO TID 30 days ibuprofen 600 mg PO Q8H PRN insulin glargine 33 units (0.33 mL) subcut BEDTIME lancets (FreeStyle Lancets) 28 gauge topical BID levetiracetam 1,000 mg PO BID 30 days lidocaine 5% 1 patch topical DAILY melatonin 6 mg (2 x 3 mg) PO BEDTIME PRN 90 days metformin 1,000 mg (2 x 500 mg) PO BID 90 days omeprazole 40 mg PO QAM 30 days pen needle, diabetic (BD Ultra-Fine Short Pen Needle) USE TWICE DAILY DIRECTED simvastatin 40 mg PO BEDTIME 30 days trazodone 150 mg PO BEDTIME PRN triamcinolone acetonide 0.5% 1 appl topical BID PRN Tobacco use date assessed: 10/12/24 Dental Screening Dental Screen Date: 10/12/24 Did you have a dental visit in the last 12 months?: No Did you have a dental problem in the last 6 months where you did not have access to dental care?: No Was dental information given to patient?: No HPI 4 month f/u HPI Details Patient comes in today for his follow up visit States that he feels okay Still has chronic pain over his lower back and he continues to follow up with pain management for his chronic low back pain He denies any headaches or dizziness Denies any chest pains or increased SOB No nausea/vomiting, no abdominal pain No change in bowel habits noted Adds that he's had an itchy rash break out over his proximal left lower leg medially over the past 3 to 4 days and would like to get some Rx to help clear the rash up His family adds that patient had [place] [facility] [place] but states that despite being advised that he has sleep apnea, he was never provided or set up with a CPAP device afterwards and they would like to have patient get reassessed for this again He was not able to get any of his follow up labs done prior to his appointment today [facility] Medical History (Updated 10/12/24 @ 12:59 by Xavi Mart MD) Neuropathy Dermatitis Constipation Obstructive sleep apnea hypopnea, severe Vitamin D deficiency Lumbar degenerative disc disease Chest pain Obesity (BMI 30-39.9) Insomnia GERD without esophagitis Pure hypercholesterolemia Epilepsy 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 Mother No problems noted. Social History Housing: House Housing Other:: rents a room Alcohol intake: never Patient Tobacco Use Status: Former Tobacco user e-Cigarette/Vaping Use: Never Used Second Hand Smoke Exposure: Yes Advance Directives Date on File: 07/19/20 service: No Current occupational status: disabled Cognitive needs: No Hearing needs: No Vision needs: No Questionnaire PHQ-9 Over the last 2 weeks, how often have you been bothered by any of the following problems? 1. Little interest or pleasure in doing things: not at all 2. Feeling down, depressed, or hopeless: not at all 3. Trouble falling or staying asleep, or sleeping too much: not at all 4. Feeling tired or having little energy: not at all 5. Poor appetite or overeating: not at all 6. Feeling bad about yourself - or that you are a failure or have let yourself or your family down: not at all 7. Trouble concentrating on things, such as reading the newspaper or watching television: not at all 8. Moving or speaking so slowly that other people could have noticed. Or the opposite - being so fidgety or restless that you have been moving around a lot more than usual: not at all 9. Thoughts that you would be better off or of hurting yourself in some way: not at all Total score: 0 Depression Screening Interpretation: Negative Depression Screening Done: Yes 73036 - PHQ-9 Billing: Yes Source: Developed by Drs. Griffin Chapman, Stella Garcia, Jose Manuel Us and colleagues, with an educational lux from [employer] Thrive Questionnaire Date Thrive assessed: 10/12/24 I am a: Patient What is your living situation today?: I have a steady place to live Within the past 12 months, did the food you bought not last and you didn't have the money to get more?: Never true Within the past 12 months, did you worry whether your food would run out before you got money to buy more?: Never true Do you have trouble paying for medicines?: No Do you have trouble getting transportation to medical appointments?: No Do you have trouble paying your heating and electricity bill?: No Do you have trouble taking care of your child, family member or friend?: No Do you have trouble with day-to-day activities such as bathing, preparing meals, shopping, managing finances, etc.?: No Are you currently unemployed and looking for a job?: No Are you interested in more education?: No Please select the resources that you would like help with: None Currently or been in a relationship where the following occur: No concerns reported THRIVE Score: 0 AUDIT C Alcohol Use Questionnaire (AUDIT-C) 1. How often do you have a drink containing alcohol?: Never 3. How often do you have six or more drinks on one occasion?: Never Total Score: 0 Score Reviewed/Action Taken: Yes VANCE-7 AMB Questionnaire VANCE-7 Date VANCE - 7 assessed: 10/12/24 Feeling nervous, anxious, or on edge: 0 = Not at all Not being able to stop or control worryin = Not at all Worrying too much about different things: 0 = Not at all Trouble relaxin = Not at all Being so restless that it is hard to sit still: 0 = Not at all Becoming easily annoyed or irritable: 0 = Not at all Feeling afraid as if something awful might happen: 0 = Not at all Total VANCE-7 score (0-4 normal; 5-9 mild; 10-14 moderate; 15-21 severe): 0 Source: Developed by Drs. Griffin Chapman, Stella Garcia, Jose Manuel Us and colleagues, with an educational lux from [employer]. Review of Systems Const Denies chills, Denies fatigue, Denies fever(s) and Denies headache(s) ENT Denies dysphagia, Denies dizziness, Denies otalgia, Denies headache(s), Denies neck pain, Denies odynophagia and Denies sore throat Card Denies chest pain, Denies palpitations and Denies dyspnea Resp Denies chest congestion, Denies cough and Denies dyspnea GI Denies abdominal pain, Denies constipation, Denies dysphagia, Denies heartburn, Denies diarrhea, Denies nausea, Denies odynophagia and Denies vomiting Denies dysuria, Denies nocturia and Denies urinary frequency Musc Reports back pain (over the right lower back - chronic) and Denies neck pain Skin/Breast Reports rash (recurrent, itchy rash on left leg - see HPI) Neuro Denies dizziness, Denies headache(s) and Denies convulsions Endo Denies fatigue and Denies palpitations Physical exam (Primary Care) Vital Signs: Last Vital Signs Pulse 80 10/12/24 10:47 BP 132/70 10/12/24 10:47 Pulse Ox 97 10/12/24 10:47 Oxygen Delivery Method Room Air 10/12/24 10:47 BMI result Body Mass Index 39.3 Tobacco/Smoking Status: Tobacco use Status Tobacco use date assessed 10/12/24 10/12/24 10:51 Patient Tobacco Use Status Former Tobacco user 10/12/24 10:51 e-Cigarette/Vaping Use Never Used 10/12/24 10:51 PHQ-9: PHQ-9 Score PHQ-9: Total score 0 10/12/24 11:23 Depression Screening Interpretation: Negative Thrive Assessment: Date of Thrive Assessment Date Thrive assessed 10/12/24 10/12/24 10:51 Currently or been in a relationship where the following occur: No concerns reported Const General: no acute distress and alert HENMT Ears: TM's normal bilaterally and EAC's normal Throat: Yes posterior oropharynx normal and Yes tonsils normal (no TP congestion) Neck Neck: Yes supple and No lymphadenopathy Thyroid: Thyroid normal Resp Auscultation: clear to auscultation bilaterally, no rales and no wheezes Cardio Rate: regular rate Rhythm: regular rhythm Heart sounds: no murmurs GI Palpation (GI): Soft to palpation and nontender Auscultation: normal bowel sounds General: Yes no CVA tenderness Back/Spine/Pelvis Back: no CVA tenderness Thoracic/Lumbar Spine: lumbar spinal tenderness (more on the right side) Skin Other: (+) patchy hyperpigmented pruritic rash over the medial aspect of the proximal left lower leg Extrem General: Yes no clubbing, cyanosis or edema Coding Level of Care Code Est Pt Level 4 (65049) Complex EM visit Add On G2211 Diagnoses Type 2 diabetes mellitus with diabetic neuropathy, with long-term current use of insulin E11.40; Z79.4 Diabetes mellitus termite exterminator insulin use: with termite exterminator use Pure hypercholesterolemia E78.00 Nonintractable epilepsy without status epilepticus, unspecified epilepsy type G40.909 Epilepsy type: unspecified Intractability: not intractable Status epilepticus: without status epilepticus Neurofibromatosis Q85.00 Obstructive sleep apnea hypopnea, severe G47.33 GERD without esophagitis K21.9 Vitamin D deficiency E55.9 Constipation, unspecified constipation type K59.00 Constipation type: unspecified constipation type Degeneration of intervertebral disc of lumbar region with discogenic back pain M51.360 Disc-related pain type: discogenic back pain only Dermatitis L30.9 Primary insomnia F51.01 Insomnia type: primary Episode of recurrent major depressive disorder, unspecified depression episode severity F33.9 Depression Type: major depressive disorder Major depression recurrence: recurrent Active/Remission status: currently active Major depression episode severity: unspecified Obesity (BMI 30-39.9) E66.9 Additional Codes PHQ-9 - 89130 - PHQ-9 Billing: Yes ([id number]) Assessment & Plan Assessment & Plan (1) Type 2 diabetes mellitus with diabetic neuropathy: Code(s): E11.40 - Type 2 diabetes mellitus with diabetic neuropathy, unspecified Category: Medical Qualifiers: Diabetes mellitus mcc insulin use: with mcc use Qualified Code(s): E11.40 - Type 2 diabetes mellitus with diabetic neuropathy, unspecified; Z79.4 - [facility]CI (current) use of insulin Plan: His HgbA1c was well-controlled at 6.6% on his labs done back in May 2024 - goal is at least < 7.0% Reinforced diabetic diet Continue Metformin 1000 mg BID and Lantus 33 units SQ Q HS (2) Pure hypercholesterolemia: Code(s): E78.00 - Pure hypercholesterolemia, unspecified Category: Medical Plan: He was not able to get his follow up labs done prior to his appointment today - his cholesterol numbers were all at or near goal when he last had his labs done back in May 2024 Reinforced low cholesterol diet Continue Simvastatin 40 mg Q HS Will recheck his labs and fasting lipids in 4 months for follow up - will just have patient use his current orders (updated) for his next lab draw in a few months (3) Epilepsy: Code(s): G40.909 - Epilepsy, unspecified, not intractable, without status epilepticus Category: Medical Qualifiers: Epilepsy type: unspecified Intractability: not intractable Status epilepticus: without status epilepticus Qualified Code(s): G40.909 - Epilepsy, unspecified, not intractable, without status epilepticus Plan: Stable with no recent seizures Continue Levetiracetam 1000 mg po BID Follow-up with neurology as scheduled (4) Neurofibromatosis: Code(s): Q85.00 - Neurofibromatosis, unspecified Category: Medical Plan: 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 Follow up with neurology as scheduled (5) Obstructive sleep apnea hypopnea, severe: Comment: sleep [place] [facility] [place] revealed (+) severe KARLOS Code(s): G47.33 - Obstructive sleep apnea (adult) (pediatric) Category: Medical Plan: Patient reportedly had a sleep study done [place] [facility] [place] ago but states that despite being advised that he has sleep apnea, he was never provided or set up with a CPAP device afterwards and they would like to have patient get reassessed for this again We were able to pull up a sleep study report back in 2017 that revealed (+) severe KARLOS He was seeing Dr. Smith at the time but appears to have been lost to follow up over the years Will refer him back to Sleep Medicine (Dr. Smith) for reassessment and management of his KARLOS (6) GERD without esophagitis: Code(s): K21.9 - Gastro-esophageal reflux disease without esophagitis Category: Medical Plan: Dietary restrictions reinforced Continue Omeprazole 40 mg QD (7) Vitamin D deficiency: Code(s): E55.9 - Vitamin D deficiency, unspecified Category: Medical Plan: Continue Vitamin D3 2000 units QD (8) Constipation: Code(s): K59.00 - Constipation, unspecified Category: Medical Qualifiers: Constipation type: unspecified constipation type Qualified Code(s): K59.00 - Constipation, unspecified Plan: Reinforced increased oral fluids and dietary fiber Continue Miralax 17 gm QD (9) Lumbar degenerative disc disease: Code(s): M51.36 - Other intervertebral disc degeneration, lumbar region Category: Medical Qualifiers: Disc-related pain type: discogenic back pain only Qualified Code(s): M51.360 - Other intervertebral disc degeneration, lumbar region with discogenic back pain only Plan: Reinforced activity and weight-lifting restrictions Continue Lidocaine 5% patches QD PRN and Gabapentin 300 mg TID Follow up with pain management as scheduled - he has been getting right SI joint injections from pain management, which he states are helping (10) Dermatitis: Code(s): L30.9 - Dermatitis, unspecified Category: Medical Plan: Will start patient on Mometasone 0.1% cream to apply to the rash on his left lower leg QD PRN (11) Insomnia: Code(s): G47.00 - Insomnia, unspecified Category: Medical Qualifiers: Insomnia type: primary Qualified Code(s): F51.01 - Primary insomnia Plan: Sleep hygiene reinforced Continue Trazodone 150 mg Q HS PRN (12) Depression: Code(s): F32.9 - Major depressive disorder, single episode, unspecified Category: Medical Qualifiers: Depression Type: major depressive disorder Major depression recurrence: recurrent Active/Remission status: currently active Major depression episode severity: unspecified Qualified Code(s): F33.9 - Major depressive disorder, recurrent, unspecified Plan: Continue Citalopram 20 mg QD Follow-up with psychiatry as scheduled (13) Obesity (BMI 30-39.9): Code(s): E66.9 - Obesity, unspecified Category: Medical Plan: Reinforced diet/exercise as tolerated/lose weight Plan Follow up in 4 months Orders: Referrals Sleep Medicine Referral G47.33 - Obstructive sleep apnea (adult) (pediatric) Medications: New mometasone 0.1% 1 appl topical DAILY PRN 45 grams 0RF rash
[2024-10-12 10:47] VITALS: BP 132/70; PULSE 80; O2SAT 97; BMI 39.3
--- OUTSIDE RECORDS SUMMARY | 2024-10-12 12:17 | XMS_ITS | Clinical Summary ---
Author Organization [employer] Address [address] [place] [address] [address] [place] [address] Care Team Providers Care Brake Linings Coater Name Role Phone Unavailable Primary Care Provider Unavailabl e Allergies No known active allergies Medications citalopram (CeleXA) 20 MG tablet Take 20 mg by mouth in the morning. 04/27/2023 Active cyanocobalamin (Vitamin B-12) 1000 MCG tablet Take 1,000 mcg by mouth in the morning. 02/22/2023 Active gabapentin (Neurontin) 300 MG capsule TAKE 1 CAPSULE BY MOUTH TWICE DAILY FOR PAIN 04/28/2023 Active ibuprofen 600 MG tablet Take 1 tablet by mouth every 8 (eight) hours if needed. 12/05/2022 Active Lantus SoloStar 100 UNIT/ML pen INJECT 33 UNITS UNDER THE SKIN EVERY NIGHT AT BEDTIME 04/27/2023 Active B-D ULTRAFINE III SHORT PEN 31G X 8 MM misc USE DIRECTED TWICE DAILY 02/23/2023 Active levETIRAcetam (Keppra) 1000 MG tablet Take 1 tablet by mouth 2 times daily. 03/27/2023 Active melatonin 3 MG tablet TAKE 2 TABLETS BY MOUTH AT BEDTIME NEEDED FOR INSOMNIA 04/07/2023 Active metFORMIN (Glucophage) 500 MG tablet Take 1,000 mg by mouth 2 times daily. 03/31/2023 Active omeprazole (PriLOSEC) [address] capsule Take 40 mg by mouth in the morning. 04/27/2023 Active simvastatin (Zocor) 40 MG tablet Take 40 mg by mouth at bedtime. 03/27/2023 Active traZODone (Desyrel) 150 MG tablet Take 150 mg by mouth if needed at bedtime. 04/03/2023 Active Active Problems Problem Noted Date Diagnosed Date Periodontal disease 04/30/2023 Dental calculus 04/30/2023 Missing teeth, acquired 04/30/2023 Atrophy of edentulous maxillary alveolar ridge 0 04/08/2023 Partially edentulous mandible 04/08/2023 Social History Tobacco Use Types Packs/Day Years Used Date Smoking Tobacco: Former Cigarettes Passive Smoke Exposure: Never Smokeless Tobacco: Never Alcohol Use Standard Drinks/Week Comments Never 0 (1 standard drink = 0.6 oz pur e alcohol) Sex and Gender Information Value Date Recorded Sex Assigned at Male 07/22/2022 10:22 AM EDT Legal Sex Male 10:22 AM EDT Gender Identity Male 03/19/2023 9:21 AM EDT Sexual Orientation Straight 03/19/2023 9: 21 AM EDT Last Filed Vital Signs Vital Sign Reading Time Taken Comments Blood Pressure 128/74 05/29/2023 9:03 AM EDT Pulse 72 05/29/2023 9:03 AM EDT Temperature - - Respiratory Rate - - Oxygen Saturation - - Inhaled Oxygen Concentration - - Weight 95.1 kg (209 lb 9.6 oz) 11/16/2019 12:02 AM EST Height 165.1 cm (5' 5 ) 11/25/2019 12:03 AM EST Body Mass Index 34.88 11/16/2019 12:02 AM EST Plan of Treatment Health Maintenance Due Date Last Done Comments CT Colonography 1962 Colonoscopy 1962 Colorectal Cancer Screening 1962 Depression Screening 1962 FIT DNA/Cologuard 1962 FIT 1962 FOBT 1962 HIV Screening 1962 Lipid Panel 1962 SDOH Screening 1962 Sigmoidoscopy 1962 Alcohol/Substance Use Screening 1974 Hepatitis C Screening 02/12/1980 Pneumococcal Vaccine: Pediatrics (0 to 5 Years) and At-Risk Patients (6 to 64 Years) (2 of 2 - PCV) 07/04/2015 07/04/2014 Zoster Vaccines (2 of 2) 01/22/2022 11/27/2021 RSV Patients and Patients Aged 60 years or older (1 - Risk 60-74 years 1-dose series) 2022 DTaP/Tdap/Td Vaccines (2 - Td or Tdap) 07/06/2022 07/06/2012 Dental Oral Exam 10/10/2023 04/08/2023, 12/2019, 04/23/2019, Additional history exists Dental X-Ray: Bitewings 10/11/2023 10/10/19, 07/22/2016, 02/07/2014 Dental Prophylaxis 11/01/2023 04/30/2023, 1 10/27/2018, 02/18/2019, Additional history exists COVID-19 Vaccine ( season) 2024 08/10/2021, 02/07/2021, 01/10/2021 Influenza Vaccine (#1) 2024 , 08/10/2021, 09/13/2020, Additional history exists Tobacco Screening 05/29/2024 05/29/2023 Dental X-Ray: Full Mouth 04/09/2026 04/08/2023, 01/20 Hepatitis B Vaccines Completed 05/02/2015, 01/27/2014, 12/27/2013 HIB Vaccines Aged Out No longer eligi ble based on patient's age to complete this topic HPV Vaccines Aged Out No longer eligi ble based on patient's age to complete this topic Hepatitis A Vaccines Aged Out No long er eligible based on patient's age to complete this topic IPV Vaccines Aged Out No longer eligi ble based on patient's age to complete this topic Meningococcal Vaccine Aged Out No javier alexandra eligible based on patient's age to complete this topic RSV under 20 months Aged Out No longe r eligible based on patient's age to complete this topic Rotavirus Vaccines Aged Out No longer eligible based on patient's age to complete this topic Procedures Procedure Name Priority Date/Time Associated Diagnosis Comments PROPHYLAXIS - ADULT Routine 04/30/2023 1 0:00 AM EDT Periodontal disease Dental calculus PANORAMIC RADIOGRAPHIC IMAGE Routine 04/08/2023 9:00 AM EDT PERIODIC ORAL EVALUATION - ESTABLISHED PATIENT Routine 04/08/2023 9:00 AM EDT BITEWINGS - 4 RADIOGRAPHIC IMAGES Routine 07/22/2016 12:00 AM EDT from Last 3 Months or Most Recently Relevant to Health Maintenance Insurance [facility]
--- OUTSIDE RECORDS SUMMARY | 2024-10-12 12:17 | XMS_ITS | Encounter Summary ---
Author Organization [employer] [facility] Address [address] [facility] [address] [place] [address] Care Team Providers Care Towel Hemmer Name Role Phone Unavailable Primary Care Provider Unavailabl e Encounter Details Date Type Department Care Team (Late st Contact Info) Description 05/06/2023 Abstract [facility] [address] [place] [address] Dasha[address]ki [address] [place] [address] Social History Tobacco Use Types Packs/Day Years [...] Orientation Straight 03/19/2023 9: 21 AM EDT documented as of this encounter Plan of Treatment Not on file documented as of this encounter Visit Diagnoses Not on filedocumented in this encounter
--- OUTSIDE RECORDS SUMMARY | 2024-10-12 12:17 | XMS_ITS | Encounter Summary ---
Author Organization [employer] [facility] Address [address] [place] [address] [address] [place] [address] Care Team Providers Care Commercial Account Officer Name Role Phone Unavailable Primary Care Provider Unavailabl e Encounter Details Date Type Department Care Team (Latest Contact Info) Description 02/18/2019 Abstract C CONVERSIONS Dental, Provider, DDS Social History Tobacco Use Types Packs/Day Years Used Date Smoking Tobacco: Never Assessed Sex and Gender Information Value Date Recorded [...]
== END 2024-10-12 11:39 | disposition home or self-care (01) ==
PROVIDERS: PCP Internal Medicine; Visit Provider Internal Medicine
DX: E11.40 Type 2 diabetes mellitus with diabetic neuropathy, unspecified (principal); Z79.4 Long term (current) use of insulin; G40.909 Epilepsy, unspecified, not intractable, without status epilepticus; Q85.00 Neurofibromatosis, unspecified; F33.9 Major depressive disorder, recurrent, unspecified; E78.00 Pure hypercholesterolemia, unspecified; G47.33 Obstructive sleep apnea (adult) (pediatric); K21.9 Gastro-esophageal reflux disease without esophagitis; E55.9 Vitamin D deficiency, unspecified; K59.00 Constipation, unspecified; M51.360 Other intervertebral disc degeneration, lumbar region with discogenic back pain only; L30.9 Dermatitis, unspecified

== ENCOUNTER → 2024-10-12 10:44 | Outpatient (BNVA) | payer OTHER, SELFPAY | PROVIDERS: PCP Internal Medicine; Visit Provider Internal Medicine | DX: E11.40 Type 2 diabetes mellitus with diabetic neuropathy, unspecified (principal); E78.00 Pure hypercholesterolemia, unspecified; G40.909 Epilepsy, unspecified, not intractable, without status epilepticus; G47.33 Obstructive sleep apnea (adult) (pediatric); Q85.00 Neurofibromatosis, unspecified; K21.9 Gastro-esophageal reflux disease without esophagitis; E55.9 Vitamin D deficiency, unspecified; K59.00 Constipation, unspecified; L30.9 Dermatitis, unspecified; F51.01 Primary insomnia; F33.9 Major depressive disorder, recurrent, unspecified; E66.9 Obesity, unspecified; Z79.4 Long term (current) use of insulin | CPT/HCPCS: 96127; 99212 ==

== ENCOUNTER 2024-11-24 10:58 | Outpatient (AMB) | payer OTHER, SELFPAY ==
[2024-11-24 11:00] VITALS: BP 134/74; PULSE 89; O2SAT 98; BMI 38.5
--- NOTE | 2024-11-24 11:00 | A.OFFVIS_ITS ---
Vital Signs 11/24/24 11:00 Height 5 ft 5 in Weight 231 lb 6 oz BMI 38.5 BP 134/74 Blood Pressure Location Lt brachial Position Sitting Pulse 89 Pulse Source Pulse Oximeter Pulse Oximetry (%) 98 Oxygen Delivery Method Room Air Intake Visit Reasons: INP-KARLOS Intake Note: Inpatient referral KARLOS. Last sleep study over 5+ years. never received CPAP. Accompanied by: Health Care Proxy Allergies No Known Allergies [No Known Allergies*] Allergy (Verified 10/12/24 11:22) HPI Comments Details: 64 year old male here for a sleep evaluation. He had a sleep study >5 years ago and never had a chance to picker packer his CPAP. He goes to sleep at 9pm and gets up at 5am with 2 awakenings for water and zero bathroom breaks. He wakes up choking, gasping for air, and snores loudly according to his . He goes to an adult day program, quality time 3x times 7am to 2pm. He has a few morning headaches and usually has 1 cup and it goes away. He has foot pain R>L, with burning pain 9/10 and he takes 500mg tylenol with minimal effect he has to sit up and walks then stretches it out. His memory is poor he forgets where he put articles and can not find them, difficulty with word finding and can't recall names. His mood is irritable, and improves with food and drinks plenty of water, he is seeking counseling every 3 months /therapist ? [facility] / in [facility] ? His diet is poor and he is trying to eliminate carbs from his diet, and drinks 1 coke per day. He does not smoke or drink alcohol. Tank started due to seizure 5 years ago, he fell out of bed and started to convulse, taken to [facility] - Records He was hospitalized for 2 weeks. 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 Mother No problems noted. Social History Housing: House Housing Other:: rents a room Alcohol intake: never Patient Tobacco Use Status: Former Tobacco user e-Cigarette/Vaping Use: Never Used Second Hand Smoke Exposure: Yes Advance Directives Date on File: 07/19/20 service: No Current occupational status: disabled Cognitive needs: No Hearing needs: No Vision needs: No Physical Exam Vital Signs: Last Vital Signs Pulse 89 11/24/24 11:00 BP 134/74 11/24/24 11:00 Pulse Ox 98 11/24/24 11:00 Oxygen Delivery Method Room Air 11/24/24 11:00 BMI result Body Mass Index 38.5 Const General: cooperative, comfortable and no acute distress Nutritional Appearance: obese Orientation/consciousness: patient oriented x3 HEENT Face and sinus: Yes normal facial exam and Yes face symmetric Throat: Yes other ([place] score of 2) Eyes Pupils: Equal, round and reactive pupils present Resp Effort & Inspection: normal respiratory effort and able to speak in complete sentences Neuro General: patient oriented x3 and moves all extremities Cranial nerves: Yes CN's II-XII intact bilaterally, Yes Facial sensation intact/muscles of mastication intact, Yes Equal, round and reactive pupils present, Yes Normal accommodation reflex present, Yes Bilaterally intact EOM present, Yes Normal facial strength present, Yes Midline tongue present, Yes Ability to bilaterally rotate head present and Yes Ability to bilaterally elevate shoulders present Gait exam (Neuro): Normal gait present Motor exam (neuro): 5/5 motor strength present throughout and Normal motor muscle tone present throughout Deep tendon reflexes (DTR's): Right triceps reflex intensity grade: 2+, Left triceps reflex intensity grade: 2+, Rt Biceps (C5, C6): 2+, Left biceps reflex intensity grade: 2+, Right brachioradialis reflex intensity grade: 2+, Left brachioradialis reflex intensity grade: 2+, Right patellar reflex intensity grade: 2+ and Left patellar reflex intensity grade: 2+ Results Reviewed Results Reviewed: seizure disorder? on Keppra for 5 years [facility] Records? Assessment & Plan Assessment & Plan (1) Fatigue due to sleep pattern disturbance: Code(s): R53.83 - Other fatigue; G47.9 - Sleep disorder, unspecified Category: Medical Plan Labs to r/o deficiencies HST evaluate Sleep apnea RLS? will evaluate after labs and hst, will consider PSG if necessary Orders: Orders Homocysteine Today G47.9 - Sleep disorder, unspecified, R53.83 - Other fatigue Methylmalonic Acid Today G47.9 - Sleep disorder, unspecified, R53.83 - Other fatigue Ferritin Today G47.9 - Sleep disorder, unspecified, R53.83 - Other fatigue RT home sleep study Today G47.19 - Other hypersomnia IRON PROFILE Today G47.9 - Sleep disorder, unspecified, R53.83 - Other fatigue Medications: Refilled cyclobenzaprine 10 mg PO TID PRN 14 tabs 0RF muscle spasm gabapentin 300 mg PO TID 30 days 90 caps 3RF for pain M51.36 - Other intervertebral disc degeneration, lumbar region, M53.3 - Sacrococcygeal disorders, not elsewhere classified Coding Level of Care Code New Pt Level 4 (98476) Complex EM visit Add On G2211 Diagnoses Fatigue due to sleep pattern disturbance R53.83; G47.9 Time Spent (min) 40 Sleep Questionnaire Difficulty falling asleep: Yes Difficulty staying asleep?: Yes Number of arousals: 2-3 Snoring: Yes Witnessed apneas: Yes Gasping arousals: Yes Nocturia: No GERD: No Vivid dreams: No Acting out dreams: No Abnormal behavior in sleep: No Abnormal movements in sleep: No Morning headaches: Yes Excessive daytime sleepiness: Yes Daytime naps: Yes Restless legs: Yes Hallucinations: Yes (his name being called) Sleep paralysis: No Drop attacks: Yes Sleep Study: Yes (>5 years ago) CPAP: No
--- OUTSIDE RECORDS SUMMARY | 2024-11-24 13:17 | XMS_ITS | Encounter Summary ---
Author Organization [facility] Address [address] [place] [address] [address] [place] [address] Care Team Providers Care Weather Strip Installer Name Role Phone Unavailable Primary Care Provider [...]
--- OUTSIDE RECORDS SUMMARY | 2024-11-24 13:17 | XMS_ITS | Clinical Summary ---
Author Organization [employer] Address [address] [place] [address] [address] [place] [address] Care Team Providers Care Skidder Driver Name Role Phone Unavailable Primary Care Provider [...] 1972 Hepatitis C Screening 02/12/1980 Pneumococcal Vaccine: 50+ Years (2 of 2 - PCV) 07/04/2015 07/04/2014 Pneumococcal Vaccine: Pediatrics (0 to 5 Years) and At-Risk Patients (6 to 49) Years) (2 of 2 - PCV) 07/04/2015 07/04/2014 Zoster Vaccines (2 of 2) 01/22/2022 11/27/2021 RSV Patients and Patients Aged 60 years or older (1 - Risk 60-74 years 1-dose series) 2022 DTaP/Tdap/Td Vaccines (2 - Td or Tdap) 07/06/2022 07/06/2012 Dental Oral Exam 10/10/2023 04/08/2023, 12/2019, 04/23/2019, Additional history exists Dental X-Ray: Bitewings 10/11/2023 10/10/19 23, 07/22/2016, 02/07/2014 Dental Prophylaxis 11/01/2023 04/30/2023, 1 [...] Most Recently Relevant to Health Maintenance Insurance DENTAL - [facility]
--- OUTSIDE RECORDS SUMMARY | 2024-11-24 13:17 | XMS_ITS | Encounter Summary ---
Author Organization [facility] Address [address] [facility] [address] [place] [address] Care Team Providers Care Women Nurse Name Role Phone Unavailable Primary Care Provider Unavailabl e Encounter Details Date Type Department Care Team (Late st Contact Info) Description 05/06/2023 Abstract [facility] ADULT DENTAL [address] [place] [address] DashaJoseVikki [address] [place] [address] Social History Tobacco Use Types Packs/Day Years [...]
== END 2024-11-24 11:58 | disposition home or self-care (01) ==
PROVIDERS: PCP Internal Medicine; Visit Provider Physician Assistant Medical
DX: R53.83 Other fatigue (principal); G47.9 Sleep disorder, unspecified
CPT/HCPCS: 99204; G2211

== ENCOUNTER → 2024-11-24 10:58 | Outpatient (BNVA) | payer OTHER, SELFPAY | PROVIDERS: PCP Internal Medicine; Visit Provider Physician Assistant Medical | DX: G47.33 Obstructive sleep apnea (adult) (pediatric) (principal); R53.83 Other fatigue; M53.3 Sacrococcygeal disorders, not elsewhere classified; M51.369 Other intervertebral disc degeneration, lumbar region without mention of lumbar back pain or lower extremity pain | CPT/HCPCS: 99202 ==

== ENCOUNTER 2024-11-30 10:17 | Outpatient (REF) | payer OTHER, SELFPAY ==
--- OUTSIDE RECORDS SUMMARY | 2024-11-30 12:11 | XMS_ITS | Clinical Summary ---
Author Organization [employer] Address [address] [place] [address] [address] [place] [address] Care Team Providers Care Plant Physiologist Name Role Phone Unavailable Primary Care Provider [...] Relevant to Health Maintenance Insurance DENTAL - [facility]
--- OUTSIDE RECORDS SUMMARY | 2024-11-30 12:11 | XMS_ITS | Clinical Summary ---
Author Organization [facility] Address [address] [place] [address] Care Team Providers Care [email or web address] Android Developer Name Role Phone Shayy Nieves NP Primary Care Provider Unavailabl e Allergies No known active allergies Medications No known medications Active Problems Problem Noted Date Neurofibromatosis 11/27/2017 Social History Tobacco Use Types Packs/Day Years Used Date Smoking Tobacco: Never Sex Assigned at Date Recorded Not on file Last Filed Vital Signs Vital Sign Reading Time Taken Comments Blood Pressure 140/80 01/09/2018 11:19 AM EDT Pulse 95 01/09/2018 11:19 AM EDT Temperature 36.7 ??C (98.1 ??F) 02/18/2018 10:10 AM E DT Respiratory Rate 16 01/09/2018 11:19 AM EDT Oxygen Saturation - - Inhaled Oxygen Concentration - - Weight 100.7 kg (222 lb) 01/09/2018 11:19 AM EDT Height 165.1 cm (5' 5 ) 01/09/2018 11:19 AM EDT Body Mass Index 36.94 01/09/2018 11:19 AM EDT Plan of Treatment Health Maintenance Due Date Last Done Comments Covid-19 Vaccine (#1) 1960 HEPATITIS C SCREENING 02/12/1980 TOBACCO CHECK/ADVISE 02/12/1980 DTAP/TDAP/TD (1 - Tdap) 1981 CHOLESTEROL SCREENING 1982 BASELINE HEALTH EXAM 40-64 2002 COLON CANCER SCREENING 02/12/2012 SHINGLES VACCINE (1 of 2) 02/12/2012 INFLUENZA (#1) 2024 BMI CHECK/ADVISE 09/22/2024 PNEUMOCOCCAL VACCINE FOR HIGH RISK PATIENTS (#1) 02/11 Care Teams [email or web address] Android Developer Relationship Specialty Start Date End Date Shayy Nieves NP PCP - General Internal Medicine 11/13/12
--- OUTSIDE RECORDS SUMMARY | 2024-11-30 12:11 | XMS_ITS | Encounter Summary ---
Author Organization [facility] Address [address] [place] [address] [address] [place] [address] Care Team Providers Care Institutional Custodian Name Role Phone Unavailable Primary Care Provider [...]
--- OUTSIDE RECORDS SUMMARY | 2024-11-30 12:11 | XMS_ITS | Encounter Summary ---
Author Organization [facility] Address [address] [place] [address] Care Team Providers Care Drywaller Name Role Phone Shayy Nieves NP Primary Care Provider Unavailabl e Encounter Details Date Type Department Care Team Description 09/29/2017 Release of Information Medical Records [address] [place] [id number] Abstract, Provider Social History Tobacco Use Types Packs/Day Years Used Date Smoking Tobacco: Never Assessed Sex Assigned at Date Recorded Not on file documented as of this encounter Plan of Treatment Not on file documented as of this encounter Visit Diagnoses Not on filedocumented in this encounter Care Teams Drywaller Relationship Specialty Start Date End Date Shayy Nieves NP PCP - General Internal Medicine 11/13/12 documented as of this encounter
--- OUTSIDE RECORDS SUMMARY | 2024-11-30 12:11 | XMS_ITS | Encounter Summary ---
Author Organization [facility] Address [address] [facility] [address] [place] [address] Care Team Providers Care Addiction Medicine Physician Name Role Phone Unavailable Primary Care Provider Unavailabl e Encounter Details Date Type Department Care Team (Late st Contact Info) Description 05/06/2023 Abstract [facility] ADULT D[facility]AL [address] [place] [address] DashaJoseVikki [address] [place] [address] Social History Tobacco Use Types Packs/Day Years [...]
[2024-11-30 12:51] LABS: Iron 56 mcg/dL (45-160); Percent Iron Saturation 24 % (15-50); Total Iron Binding Capacity 233 mcg/dL (228-428); Unsaturated Iron Binding 177 ug/dL
[2024-11-30 13:10] LABS: Ferritin 154 ng/mL (20-250)
[2024-12-01 19:37] LABS: Homocysteine 8.6 umol/L (<11.4)
[2024-12-03 18:53] LABS: Methylmalonic Acid 143 nmol/L (69-390)
== END 2024-11-30 10:18 | disposition home or self-care (01) ==
LOC: HO.LAB 10:17
PROVIDERS: PCP Internal Medicine; Visit Provider Physician Assistant Medical
DX: D64.9 Anemia, unspecified (principal); R53.83 Other fatigue; G47.9 Sleep disorder, unspecified; Z13.6 Encounter for screening for cardiovascular disorders
CPT/HCPCS: 36415; 82728; 83090; 83540; 83921

== ENCOUNTER 2024-12-07 15:00 | Outpatient (AMB) | payer OTHER, SELFPAY ==
--- NOTE | 2024-12-07 15:02 | MHC.OFFVIS ---
Vital Signs 12/07/24 15:06 Height 5 ft 5 in Weight 228 lb 8 oz BMI 38.0 BP 129/61 Blood Pressure Location Lt brachial Position Sitting Pulse 92 Pulse Source Pulse Oximeter Intake Visit Reasons: Back Pain Intake Note: Pain today 03/01 Chemical Production Engineer Required: Yes Chemical Production Engineer Language: Slurry Tank Tender Name: Son Accompanied by: Son Allergies No Known Allergies [No Known Allergies*] Allergy (Verified 12/07/24 15:06) HPI Comments Details: The patient is a 64-year-old male presenting with chronic lower back pain with right sided radiculopathy. His pain has worsened over time and is described as burning and shooting, primarily in the lower back with radiation to the right leg, particularly along the L4-L5 distribution. He rates pain at 8/10. Denies any recent trauma, injury or falls. Family reports patient had mechanical fall on ice during winter time and last summer which exacerbated his hip and right sided low back pain. His pain worsens with certain movements, notably leaning backwards and flexing forward or bending, prolonged walking or standing. He does not have significant pain while resting or sitting but has increased pain from getting up from chair. The pain affects his daily activities and impairs his sleep, necessitating frequent breaks while walking. He also experiences occasional numbness and tingling. Patient is attributing issues to the SI joint or hip and has responded well to previous therapeutic SIJ injections. He takes gabapentin, cyclobenzaprine, lidocaine, and Ibuprofen for pain management. Patient denies previous lumbar spine MRI. Denies any fever or chills, abdominal or groin pain, weakness, foot drop, bowel or bladder dysfunction or saddle anesthesia. - Onset and Timing: Chronic lower back pain with notable recent exacerbation. - Quality and Character: Described as burning, shooting, aching, throbbing, numbness, tingling - Primary Location and Radiation: Lower back pain radiating to the right leg (L4-L5 distribution). - Exacerbating Factors: Movement, especially bending and leaning backward, walking, standing - Relieving Factors: Altering positions, particularly lateral positions during sleep, sitting, resting. - Interference: Limits walking distance, affects sleep quality and position changes. - Affect: Pain impacts quality of sleep and necessitates frequent breaks while walking. - Analgesia: Current medications include gabapentin, cyclobenzaprine, Ibuprofen, lidocaine patches - Adverse Effects: Reports cyclobenzaprine can cause drowsiness. - Activities of Daily Living: Pain impairs walking distances, affecting ability to walk more than a short distance without rest. - Aberrant Drug Related Behaviors: None reported. 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 Mother No problems noted. Social History Housing: House Housing Other:: rents a room Alcohol intake: never Patient Tobacco Use Status: Former Tobacco user e-Cigarette/Vaping Use: Never Used Second Hand Smoke Exposure: Yes Advance Directives Date on File: 07/19/20 service: No Current occupational status: disabled Cognitive needs: No Hearing needs: No Vision needs: No Review of Systems Const All systems reviewed & are unremarkable except as noted in HPI and below Physical Exam Vital Signs: Last Vital Signs Pulse 92 12/07/24 15:06 BP 129/61 12/07/24 15:06 BMI result Body Mass Index 38.0 General: Appears afebrile. Moderate discomfort due to back pain. Alert and oriented. Mood and affect appropriate. Follows and participates in conversation appropriately. Respiratory effort is unlabored. No cough. Able to transition from sit to stand unassisted. Ambulates with bilaterally normal heel strike and toe off, reports imbalance on the right due to pain. General: Yes no CVA tenderness Back/Spine/Pelvis Other: Limited lumbar ROM due to pain, moderate-severe pain with extension and moderate pain with flexion. Painful facet loading bilaterally. Positive SLR testing with dorsiflexion on the right in L4-L5 distribution. Significant localized tenderness in the projection of right SIJ area worsened with limited Job's, Stinchfield, Pelvic compression and limited Gaenslen tests which are positive on the right, negative on the left. Valsalva maneuver is negative. Back: no CVA tenderness Cervical Spine: cervical ROM normal, cervical muscular tenderness and No Cervical spine tenderness Thoracic/Lumbar Spine: thoracic and lumbar spine normal to inspection, No Thoracic/lumbar spine scar(s), Lasegue's sign positive on the right and localized, pain with thoraco-lumbar ROM, paraspinal muscle tenderness, thoraco-lumbar ROM limited, No thoracic spinal tenderness, lumbar spinal tenderness at L4 and at L5 and No straight leg raise positive Pelvis: buttock tenderness (upper buttock) on the right and no sciatic notch tenderness Sacroiliac joints: on the right tender to palpation and on the left nontender Extrem General: Yes capillary refill normal, Yes no clubbing, cyanosis or edema and Yes no calf tenderness Results Reviewed Results Reviewed: XR LUMBOSACRAL SPINE 12/27/21 COMPARISON: Radiographs dated 03/14/2014. FINDINGS: There is bony demineralization. There is a slight lumbar levoscoliosis. Vertebral body heights are normal. The lower thoracic and lumbar disc spaces are well-maintained. No acute fracture or spondylolisthesis is seen. This multi-level mild thoracolumbar spondylosis. The posterior elements are intact. The paravertebral soft tissues are unremarkable. IMPRESSION: 1. No acute fracture or spondylolisthesis is seen. 2. The lumbar disc spaces are well-maintained. 3. There is multi-level mild thoracolumbar spondylosis. 4. There is a minimal lumbar levoscoliosis. XR HIP, RIGHT 05/06/24 CLINICAL INFORMATION: Status post fall with right hip pain. COMPARISON: 12/27/2021 TECHNIQUE: Two views of the right hip. FINDINGS: The sacrum is partially obscured by overlying bowel contents. Sacroiliac joints and pubic symphysis are intact. Hip joints appear symmetric on the frontal projection. Normal alignment of the right hip. Mild axial cartilage space loss of the right hip. No displaced fracture or dislocation. IMPRESSION: No acute abnormality. Assessment & Plan Assessment & Plan (1) Lumbar degenerative disc disease: Code(s): M51.36 - Other intervertebral disc degeneration, lumbar region Category: Medical Qualifiers: Disc-related pain type: discogenic back pain only Qualified Code(s): M51.360 - Other intervertebral disc degeneration, lumbar region with discogenic back pain only (2) Lumbosacral spondylolysis: Code(s): M43.07 - Spondylolysis, lumbosacral region Category: Medical (3) Lumbar radiculopathy: Code(s): M54.16 - Radiculopathy, lumbar region Category: Medical (4) Sacroiliac joint pain: Code(s): M53.3 - Sacrococcygeal disorders, not elsewhere classified Category: Medical Plan I recommend performing an MRI for a detailed view of the lumbar spine to assess the nature of his degenerative disc disease and radiculopathy. The purpose is to determine spinal complications such as stenosis or narrowing, which the physical examination suggests. X-ray studies will also be conducted immediately to evaluate structural stability. Current pain management with gabapentin, Ibuprofen, lidocaine patches, cyclobenzaprine will continue, paying close attention to any side effects. Continue heat therapy and hot showers as this has been beneficial per patient. Patient is aware to call if pain worsens or if he develops any red flag symptoms to seek emergency care. Patient denies any cauda equina syndrome symptoms at this time. All questions and concerns have been answered and patient agreed with the plan. Follow up for xray/MRI results and sooner as needed. Patient was informed and verbally consented to the use of an ambient scribe for clinic note documentation during this visit. Orders: Orders XR lumbar spine 4V min Today M43.07 - Spondylolysis, lumbosacral region, M51.360 - Other intervertebral disc degeneration, lumbar region with discogenic back pain only MR lumbar spine wo con Today M43.07 - Spondylolysis, lumbosacral region, M51.360 - Other intervertebral disc degeneration, lumbar region with discogenic back pain only, M54.16 - Radiculopathy, lumbar region Patient Instructions: - Proceed with scheduled MRI and X-ray of the lumbar spine. - Continue taking gabapentin, lidocaine patches, Ibuprofen cyclobenzaprine as prescribed, monitor for side effects. - Use heat therapy and hot showers to help soothe back pain. - Monitor pain intensity and report any significant changes. - Contact the office if experiencing new or worsening symptoms before the next appointment. Coding Level of Care Code Est Pt Level 4 (40740) Complex EM visit Add On G2211 Diagnoses Degeneration of intervertebral disc of lumbar region with discogenic back pain M51.360 Disc-related pain type: discogenic back pain only Lumbosacral spondylolysis M43.07 Lumbar radiculopathy M54.16 Sacroiliac joint pain M53.3
[2024-12-07 15:06] VITALS: BP 129/61; PULSE 92; BMI 38.0
--- OUTSIDE RECORDS SUMMARY | 2024-12-07 17:53 | XMS_ITS | Clinical Summary ---
Author Organization [facility] [place] [facility] Address [address] [place] [address] Care Team Providers Care Bell Captain Name Role Phone Shayy Nieves NP Primary [...] HIGH RISK PATIENTS (#1) 02/11 Care Teams Bell Captain Relationship Specialty Start Date End Date Shayy Nieves NP PCP - General Internal Medicine 11/13/12
== END 2024-12-07 15:23 | disposition home or self-care (01) ==
LOC: HO.PMC 15:00
PROVIDERS: PCP Internal Medicine; Visit Provider Nurse Practitioner Family
DX: M51.360 Other intervertebral disc degeneration, lumbar region with discogenic back pain only (principal); M43.07 Spondylolysis, lumbosacral region; M54.16 Radiculopathy, lumbar region; M53.3 Sacrococcygeal disorders, not elsewhere classified
CPT/HCPCS: 99214; G2211

== ENCOUNTER → 2024-12-07 15:00 | Outpatient (BNVA) | payer OTHER, SELFPAY | PROVIDERS: PCP Internal Medicine; Visit Provider Nurse Practitioner Family | DX: M51.360 Other intervertebral disc degeneration, lumbar region with discogenic back pain only (principal); M43.07 Spondylolysis, lumbosacral region; M54.16 Radiculopathy, lumbar region; M53.3 Sacrococcygeal disorders, not elsewhere classified | CPT/HCPCS: 99212 ==

== ENCOUNTER → 2025-01-03 18:47 | Outpatient (BNV) | payer OTHER, SELFPAY | PROVIDERS: PCP Internal Medicine; Visit Provider Radiology Neuroradiology | DX: M51.360 Other intervertebral disc degeneration, lumbar region with discogenic back pain only (principal) | CPT/HCPCS: 72148 ==

== ENCOUNTER 2025-01-03 18:49 | Outpatient (REF) | payer OTHER, SELFPAY ==
--- NOTE | ~2025-01-03 | MR_ITS ---
CLINICAL HISTORY: M51.360 - Other intervertebral disc degeneration, lumbar region with dis... MR lumbar spine without intravenous contrast Comparison: None available Findings: Transitional vertebral anatomy with partial sacralization of the L5. No acute compression deformity of the 5 lumbar vertebrae. Heterogeneous marrow signal accentuated by multiple scattered hemangiomas with borderline low T1 marrow signal at thoracolumbar junction. Edge of the field artifacts noted including on the STIR imaging. The conus terminates at L1-L2. Mild perinephric stranding. No drainable paraspinal fluid collection. Mild muscle signal as can be seen with muscle strain and mild myositis. L1-L2: Small annular fissure and bilateral facet arthropathy. No spinal stenosis. L2-L3: Disc bulge and bilateral facet arthropathy. No spinal stenosis. L3-L4: Disc bulge and bilateral facet arthropathy. No spinal stenosis. L4-L5: Disc bulge, annular fissure, endplate hypertrophy, and bilateral facet arthropathy. No spinal canal stenosis. Mild left foraminal narrowing. L5-S1: Disc bulge, annular fissure, endplate hypertrophy, and bilateral facet arthropathy. No spinal stenosis. IMPRESSION: 1. Multifocal degenerative changes including degenerative disc changes and multilevel facet arthropathy. 2. Heterogeneous marrow signal is nonspecific and accentuated by scattered hemangiomas. 3. Mild left-sided foraminal narrowing at L4-L5. This document has been electronically signed by: Isidro Larios MD on 01/03/2025 20:08:42
== END 2025-01-03 18:50 | disposition home or self-care (01) ==
LOC: HO.MRI 18:49
PROVIDERS: PCP Internal Medicine; Visit Provider Nurse Practitioner Family
DX: M51.360 Other intervertebral disc degeneration, lumbar region with discogenic back pain only (principal); M43.07 Spondylolysis, lumbosacral region; M54.16 Radiculopathy, lumbar region
CPT/HCPCS: 72148

== ENCOUNTER 2025-01-13 11:10 | Outpatient (AMB) | payer OTHER, SELFPAY ==
--- NOTE | 2025-01-13 11:13 | A.OFFVIS_ITS ---
Vital Signs 01/13/25 11:16 Height 5 ft 5 in Weight 228 lb BMI 37.9 BP 127/62 Blood Pressure Location Lt brachial Position Sitting Pulse 97 Pulse Source Pulse Oximeter Pulse Oximetry (%) 96 Oxygen Delivery Method Room Air Intake Visit Reasons: MRI FOLLOW UP Intake Note: Pain today 03/31 Dial Screw Assembler Required: Yes Dial Screw Assembler Language: Efficiency Analyst Services: Dial Screw Assembler Offered & Declined Dial Screw Assembler Name: Son Information Interpreted: non-clinical & clinical Accompanied by: Son Allergies No Known Allergies [No Known Allergies*] Allergy (Verified 01/13/25 11:16) HPI Comments Details: The patient is a 64-year-old male presenting with follow-up to discuss recent lumbar spine MRI results and follow up on right sided low back pain with radic ular symptoms. His recent MRI study however, have not shown any significant spinal stenosis or nerve compression. Multilevel spondylosis and disc degeneration with mild narrowing is present at the left L4-L5 area, but this finding does not correlate with his symptomatic pattern on the right. Patient denies any symptoms in the left leg. His pain is localized to right side side of the back and right buttock and into anterior right thigh. SI joint provocative testing significantly increase his symptoms for increase in right back and leg pain. Patient is interested to repeat therapeutic right SI joint injection, he responded well to previous SI joint injections. During the discussion, it was noted that he may have fallen from bed, but the details were not clear. He does not use assisting devices for ambulation but reports some instability while walking. Patient is interested in use of cane support with ambulation. Denies any recent cough, cold, infection, fever or any other significant changes in medical history since last office visit. PRIOR: The patient is a 64-year-old male presenting with chronic lower back pain with right sided radiculopathy. His pain has worsened over time and is described as burning and shooting, primarily in the lower back with radiation to the right leg, particularly along the L4-L5 distribution. He rates pain at 8/10. Denies any recent trauma, injury or falls. Family reports patient had mechanical fall on ice during winter time and last summer which exacerbated his hip and right sided low back pain. His pain worsens with certain movements, notably leaning backwards and flexing forward or bending, prolonged walking or standing. He does not have significant pain while resting or sitting but has increased pain from getting up from chair. The pain affects his daily activities and impairs his sleep, necessitating frequent breaks while walking. He also experiences occasional numbness and tingling. Patient is attributing issues to the SI joint or hip and has responded well to previous therapeutic SIJ injections. He takes gabapentin, cyclobenzaprine, lidocaine, and Ibuprofen for pain management. Patient denies previous lumbar spine MRI. Denies any fever or chills, abdominal or groin pain, weakness, foot drop, bowel or bladder dysfunction or saddle anesthesia. - Onset and Timing: Chronic lower back pain with notable recent exacerbation. - Quality and Character: Described as burning, shooting, aching, throbbing, numbness, tingling - Primary Location and Radiation: Lower back pain radiating to the right leg (L4-L5 distribution). - Exacerbating Factors: Movement, especially bending and leaning backward, walking, standing - Relieving Factors: Altering positions, particularly lateral positions during sleep, sitting, resting. - Interference: Limits walking distance, affects sleep quality and position changes. - Affect: Pain impacts quality of sleep and necessitates frequent breaks while walking. - Analgesia: Current medications include gabapentin, cyclobenzaprine, Ibuprofen, lidocaine patches - Adverse Effects: Reports cyclobenzaprine can cause drowsiness. - Activities of Daily Living: Pain impairs walking distances, affecting ability to walk more than a short distance without rest. - Aberrant Drug Related Behaviors: None reported. 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 Mother No problems noted. Social History Housing: House Housing Other:: rents a room Alcohol intake: never Patient Tobacco Use Status: Former Tobacco user e-Cigarette/Vaping Use: Never Used Second Hand Smoke Exposure: Yes Advance Directives Date on File: 07/19/20 service: No Current occupational status: disabled Cognitive needs: No Hearing needs: No Vision needs: No Review of Systems Const Details: - Musculoskeletal: Reports pain radiating to the right leg, numbness in the right leg. Denies use of assistive walking devices. - Neurological: Denies current or past diagnosis of nerve compressions; recent MRI was reviewed. - Endocrine: Reports monitoring of diabetes mellitus; A1c of 6.6 in May. - Falls: Reports falling out of bed but unclear on specifics or any sequelae. All systems reviewed & are unremarkable except as noted in HPI and below Physical Exam Vital Signs: Last Vital Signs Pulse 97 01/13/25 11:16 BP 127/62 01/13/25 11:16 Pulse Ox 96 01/13/25 11:16 Oxygen Delivery Method Room Air 01/13/25 11:16 BMI result Body Mass Index 37.9 General: Appears afebrile. Alert and oriented. Mood and affect appropriate. Follows and participates in conversation appropriately. Respiratory effort is unlabored. No cough. Able to transition from sit to stand unassisted. Ambulates with bilaterally normal heel strike and toe off, reports imbalance on the right due to pain. HEENT Head: Yes normal to inspection, Yes No palpable skull fracture present, Yes atraumatic, No occipital foramen tenderness and No scalp tenderness General: Yes no CVA tenderness Back/Spine/Pelvis Other: Limited lumbar ROM due to pain, moderate pain with extension and moderate pain with flexion. Painful facet loading bilaterally. Significant localized tenderness in the projection of right SIJ area worsened with Job's, Stinchfield, Pelvic compression and limited Gaenslen tests which are positive on the right, negative on the left. Valsalva maneuver is negative. Back: no CVA tenderness Cervical Spine: cervical ROM normal, cervical muscular tenderness and No Ce rvical spine tenderness Thoracic/Lumbar Spine: thoracic and lumbar spine normal to inspection, No Thoracic/lumbar spine scar(s), Lasegue's sign negative, straight leg raise neg ative bilaterally, pain with thoraco-lumbar ROM, paraspinal muscle tenderness, thoraco-lumbar ROM limited, No thoracic spinal tenderness and lumbar spinal tenderness at L4 and at L5 Pelvis: buttock tenderness (upper buttock) on the right and no sciatic notch tenderness Sacroiliac joints: on the right tender to palpation and on the left nontender Extrem General: Yes capillary refill normal, Yes no clubbing, cyanosis or edema and Yes no calf tenderness Results Reviewed Results Reviewed: MR lumbar spine without intravenous contrast 01/03/25 Comparison: None available Findings: Transitional vertebral anatomy with partial sacralization of the L5. No acute compression deformity of the 5 lumbar vertebrae. Heterogeneous marrow signal accentuated by multiple scattered hemangiomas with borderline low T1 marrow signal at thoracolumbar junction. Edge of the field artifacts noted including on the STIR imaging. The conus terminates at L1-L2. Mild perinephric stranding. No drainable paraspinal fluid collection. Mild muscle signal as can be seen with muscle strain and mild myositis. L1-L2: Small annular fissure and bilateral facet arthropathy. No spinal stenosis. L2-L3: Disc bulge and bilateral facet arthropathy. No spinal stenosis. L3-L4: Disc bulge and bilateral facet arthropathy. No spinal stenosis. L4-L5: Disc bulge, annular fissure, endplate hypertrophy, and bilateral facet arthropathy. No spinal canal stenosis. Mild left foraminal narrowing. L5-S1: Disc bulge, annular fissure, endplate hypertrophy, and bilateral facet arthropathy. No spinal stenosis. IMPRESSION: 1. Multifocal degenerative changes including degenerative disc changes and multilevel facet arthropathy. 2. Heterogeneous marrow signal is nonspecific and accentuated by scattered hemangiomas. 3. Mild left-sided foraminal narrowing at L4-L5. Assessment & Plan Assessment & Plan (1) Lumbar degenerative disc disease: Code(s): M51.36 - Other intervertebral disc degeneration, lumbar region Category: Medical Qualifiers: Disc-related pain type: discogenic back pain only Qualified Code(s): M51.360 - Other intervertebral disc degeneration, lumbar region with discogenic back pain only (2) Lumbosacral spondylolysis: Code(s): M43.07 - Spondylolysis, lumbosacral region Category: Medical (3) Sacroiliac joint pain: Code(s): M53.3 - Sacrococcygeal disorders, not elsewhere classified Category: Medical (4) History of recent fall: Code(s): Z91.81 - History of falling Category: Medical Plan We will consider repeating the right sacroiliac joint injection to address the primary issue of sacroiliac joint dysfunction, given its previous efficacy in relieving pain. MRI results do not show any compressive pathologies underlying the pain radiating to the right leg, indicating the focus remains on the sacroiliac joint pathology. Schedule right therapeutic SI joint injection with local and fluoroscopy. Expectations, risks and benefits were reviewed. Patient is aware he will be contacted to schedule this procedure. The plan includes continued monitoring of the patient's diabetes, with follow-up glucose checks scheduled. Given the history of falling, although no assistive devices are currently planned, precautions to prevent future incidents are advised. Script provided for cane. In addition, lifestyle and dietary modifications have been discussed with patient and family to manage obesity, especially central obesity. All questions and concerns have been answered and patient agreed with the plan. Follow up after injection and sooner as needed. Patient was informed and verbally consented to the use of an ambient scribe for clinic note documentation during this visit. Medications: New cane As directed 1 ea 0RF lumbar support M43.07 - Spondylolysis, lumbosacral region, M51.360 - Other intervertebral disc degeneration, lumbar region with discogenic back pain only, M53.3 - Sacrococcygeal disorders, not elsewhere classified, Z91.81 - History of falling Coding Level of Care Code Est Pt Level 4 (71795) Complex EM visit Add On G2211 Diagnoses Degeneration of intervertebral disc of lumbar region with discogenic back pain M51.360 Disc-related pain type: discogenic back pain only Lumbosacral spondylolysis M43.07 Sacroiliac joint pain M53.3 History of recent fall Z91.81
[2025-01-13 11:16] VITALS: BP 127/62; PULSE 97; O2SAT 96; BMI 37.9
--- OUTSIDE RECORDS SUMMARY | 2025-01-13 13:20 | XMS_ITS | Encounter Summary ---
Author Organization [employer] [facility] Address [address] [place] [address] [address] [place] [address] Care Team Providers Care [employer] Name Role Phone Unavailable Primary Care Provider [...]
--- OUTSIDE RECORDS SUMMARY | 2025-01-13 13:20 | XMS_ITS | Clinical Summary ---
Author Organization [employer] Address [address] [place] [address] [address] [place] [address] Care Team Providers Care Site Acquisition Manager Name Role Phone Unavailable Primary Care Provider [...] Relevant to Health Maintenance Insurance DENTAL - [facility]
--- OUTSIDE RECORDS SUMMARY | 2025-01-13 13:20 | XMS_ITS | Encounter Summary ---
Author Organization [facility] Address [address] [place] [address] Care Team Providers Care Curtain Framer Name Role Phone Unavailable Primary Care Provider Unavailabl e Encounter Details Date Type Department Care Team (Late st Contact Info) Description 05/06/2023 Abstract [facility] [address] [place] [address] [address] [place] [address] Social History Tobacco Use Types Packs/Day Years [...]
== END 2025-01-13 11:40 | disposition home or self-care (01) ==
LOC: HO.PMC 11:11
PROVIDERS: PCP Internal Medicine; Visit Provider Nurse Practitioner Family
DX: M51.360 Other intervertebral disc degeneration, lumbar region with discogenic back pain only (principal); M43.07 Spondylolysis, lumbosacral region; M53.3 Sacrococcygeal disorders, not elsewhere classified; Z91.81 History of falling
CPT/HCPCS: 99214; G2211

== ENCOUNTER → 2025-01-13 11:10 | Outpatient (BNVA) | payer OTHER, SELFPAY | PROVIDERS: PCP Internal Medicine; Visit Provider Nurse Practitioner Family | DX: M51.360 Other intervertebral disc degeneration, lumbar region with discogenic back pain only (principal); M43.07 Spondylolysis, lumbosacral region; M53.3 Sacrococcygeal disorders, not elsewhere classified; Z91.81 History of falling | CPT/HCPCS: 99212 ==

== ENCOUNTER 2025-01-18 20:37 | Emergency (ER) | payer OTHER, SELFPAY ==
--- NOTE | 2025-01-18 | ECG_ITS ---
Test Reason : SEIZURE Blood Pressure : */* mmHG Vent. Rate : 81 BPM Atrial Rate : 81 BPM P-R Int : 156 ms QRS Dur : 76 ms QT Int : 368 ms P-R-T Axes : 29 -37 29 degrees QTcB Int : 427 ms Normal sinus rhythm Left axis deviation Anterior infarct , age undetermined Abnormal ECG When compared with ECG of 06-May-2024 10:33, No significant change was found Referred By: Generic ED Physician Electronically Signed By: Sergey Jurado
[2025-01-18 20:42] VITALS: BP 153/80; PULSE 88; O2SAT 97
[2025-01-18 21:19] VITALS: BP 151/71; PULSE 77; RESP 22; TEMP 36.8; O2SAT 97; BMI 38.3
[2025-01-18 21:25] VITALS: PULSE 77
[2025-01-18 21:54] LABS: Basophils Absolute Auto 0.1 X10*3/uL (0.0-0.2); Basophils Percent Auto 0.5 % (0-2); Eosinophils Absolute Auto 0.2 X10*3/uL (0.0-0.4); Eosinophils Percent Auto 1.8 % (0-4); Hematocrit 36.5 % (42.0-52.0); Imm Gran Abs Auto 0.05 X10*3/uL (0.00-0.03); Imm Gran Pct Auto 0.5 % (0.0-0.4); Lymphocytes Absolute Auto 1.9 X10*3/uL (1.2-4.9); Lymphocytes Percent Auto 19.8 % (20-40); MANUAL DIFF FLAG NO; Mean Corpuscular HGB Conc 32.9 g/dl (31.0-36.0); Mean Corpuscular Hemoglobin 26.6 pg (27.0-33.0); Mean Corpuscular Volume 80.9 fL (80.0-98.0); Mean Platelet Volume 9.7 fL (9.4-12.4); Monocytes Absolute Auto 0.8 X10*3/uL (0.1-1.2); Monocytes Percent Auto 8.2 % (2-11); Neutrophils Absolute Auto 6.5 x10*3/uL (2.0-8.3); Neutrophils Percent Auto 69.2 % (45-73); Platelet Count 209 X10*3/uL (160-400); Red Blood Count 4.51 X10*6/uL (4.60-5.80); Red Cell Distribution Width 14.5 % (11.0-16.0); White Blood Count 9.5 X10*3/uL (4.8-10.8)
--- NOTE | 2025-01-18 22:11 | ED_ITS ---
HPI - Chest Pain General Chief Complaint: Chest Pain Stated Complaint: chest pain Time Seen by Provider: 01/18/25 22:11 Source: patient and other (Housemate) Mode of arrival: EMS Limitations: language barrier (Cambodian speaking only, [facility] [place] splitting machine tender used) History of Present Illness ED Provider: Dr. Alexei Styles HPI narrative: 64-year-old male with a history of diabetes mellitus, obstructive sleep apnea, seizures, lumbar radiculopathy, neuropathy, GERD who presents emergency department for evaluation of chest pain. Patient has been having intermittent chest pain for the past week. Patient points to his left breast when asked to localize the pain. He states that the pain is a ?small pain? that lasts sec to minutes. He denied associated symptoms such as radiation to neck, jaw, arms, shortness of breath, dyspnea on exertion, diaphoresis, nausea or vomiting. The patient states that he had several episodes of this pain earlier in the day. He was housemate was concerned that the patient appeared to be in distress and called an ambulance and the patient was brought to emergency department. Patient states that he was pain-free at the time that I evaluated him. Review of systems was also negative for fever, chills, rhinorrhea, sore throat, cough, myalgias arthralgias. Related Data Previous Rx's ?Medication ?Instructions ?Recorded blood-glucose meter (Nallatechyle #1 ea 06/15/21 Lite Meter kit) cyanocobalamin (vitamin B-12) 1,000 mcg PO DAILY #90 tabs 11/27/22 1,000 mcg tablet (Vitamin B-12) ibuprofen 600 mg tablet 600 mg PO Q8H PRN pain #10 tabs 12/05/22 citalopram 20 mg tablet 20 mg PO DAILY 30 days #30 tabs 12/06/22 trazodone 150 mg tablet 150 mg PO BEDTIME PRN Insomnia #30 01/10/23 tabs cholecalciferol (vitamin D3) 50 50 mcg PO DAILY 90 days #90 caps 01/19/24 mcg (2,000 unit) capsule diclofenac sodium 1 % topical gel 2 g topical QID #100 grams 01/19/24 triamcinolone acetonide 0.5 % 1 appl topical BID PRN rash #15 01/19/24 topical cream grams lancets 28 gauge (FreeStyle 28 gauge topical BID #100 ea 03/17/24 Lancets) lidocaine 5 % topical patch 1 patch topical DAILY #30 ea 05/06/24 ferrous sulfate 325 mg (65 mg 325 mg PO DAILY #90 tabs 06/25/24 iron) tablet (FeroSul) aspirin 81 mg tablet,delayed 81 mg PO DAILY 90 days #90 tabs 07/26/24 release melatonin 3 mg tablet 6 mg (2 x 3 mg) PO BEDTIME PRN 09/09/24 insomnia 90 days #90 tabs mometasone 0.1 % topical cream 1 appl topical DAILY PRN rash #45 10/12/24 grams levetiracetam 1,000 mg tablet 1,000 mg PO BID 30 days #60 tabs 10/24/24 omeprazole 40 mg capsule,delayed 40 mg PO QAM 30 days #30 caps 11/05/24 release simvastatin 40 mg tablet 40 mg PO BEDTIME 30 days #30 tabs 11/05/24 blood sugar diagnostic (FreeStyle #100 strips 11/10/24 Lite Strips) cyclobenzaprine 10 mg tablet 10 mg PO TID PRN muscle spasm #14 11/24/24 tabs gabapentin 300 mg capsule 300 mg PO TID for pain 30 days #90 11/26/24 caps metformin 500 mg tablet 1,000 mg (2 x 500 mg) PO BID 90 11/30/24 days #360 tabs insulin glargine 100 unit/mL (3 33 unit (0.33 mL) subcut BEDTIME 12/24/24 mL) subcutaneous pen #15 mL pen needle, diabetic 31 gauge x #100 ea 12/27/24 5/16 cane #1 ea 01/13/25 ibuprofen 400 mg tablet 400 mg PO TID PRN fever or pain 01/18/25 #30 tabs Allergies Allergy/AdvReac Type Severity Reaction Status Date / Time No Known Allergies Allergy Verified 01/18/25 21:23 [No Known Allergies*] Review of Systems 2 Review of Systems: Yes all other systems are reviewed and are negative [facility] Past Medical History [facility] Narrative: Social history: He denies tobacco, alcohol and drug use. 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 Mother No problems noted. Social History Social History Housing: House Housing Other:: rents a room Alcohol intake: never Patient Tobacco Use Status: Former Tobacco user e-Cigarette/Vaping Use: Never Used Second Hand Smoke Exposure: Yes Advance Directives: No Advance Directives Information Provided: Yes Advance Directives Date on File: 07/19/20 service: No Current occupational status: disabled Cognitive needs: No Hearing needs: No Vision needs: No Physical Exam 2 Vital Signs: Vital Signs: Last Vital Signs Temp 98.3 F 01/18/25 21:19 Pulse 77 01/18/25 21:19 Resp 22 H 01/18/25 21:19 BP 151/71 H 01/18/25 21:19 Pulse Ox 97 01/18/25 21:19 O2 Del Method Room Air 01/18/25 21:19 BMI result Body Mass Index 38.3 Vital signs revealed an elevated respiratory rate of 22 and an elevated blood pressure of 151/71 Exam: General: Awake, alert in no distress, weight 104.3 kg, elevated BMI 38.3 kg per m2 Head: Normocephalic, atraumatic EENT: PERRL, Lids normal, sclera normal, conjunctiva normal, nose normal , ears normal, throat without erythema or exudates Neck: Supple, no adenopathy Lung: breath sounds symmetric, no wheezing, rales or rhonchi Chest: symmetric movement, moderate left costochondral joint and left chest wall tenderness, no rashes or lesions noted on the side of the chest in the area of tenderness Heart: regular rate and rhythm, normal S1, S2 no murmurs or rubs Abdomen: soft, non-tender, nondistended, normal bowel sounds Back: no vertebral tenderness, no CVAT Extremities: no deformities, moves all extremities symmetrically Neuro: Awake, alert, oriented, normal speech, cranial nerves intact, moves all extremities symmetrically Psych: Pleasant, cooperative Medical Decision Making Medical Decision Making [facility] Narrative: 64-year-old male with a history of diabetes mellitus, obstructive sleep apnea, seizures, lumbar radiculopathy, neuropathy, GERD who presents emergency department for evaluation of brief, intermittent episodes of left anterior chest pain with multiple episodes per day over the last week with several episodes prior to coming to emergency department which were severe and concerned the patient was house made enough so that she called an ambulance in order for him to be evaluated in the emergency department. Patient had no concerning associated symptoms and his review of systems was negative. Vital signs did reveal an elevated respiratory rate and elevated blood pressure otherwise unremarkable. Physical examination did reveal significant left costochondral joint tenderness as well as left-sided chest wall tenderness with no rashes or lesions noted in the area of tenderness. Differential diagnosis: ?Includes but is not limited to myocardial infarction, myocardial ischemia, costochondritis, chest wall pain, herpes zoster, anemia, electrolyte abnormalities Course: 23:00 My interpretation patient's laboratory evaluation is as follows: Chronic microcytic anemia with an H&H of 12 and 36.5. Elevated chloride 109. Elevated BUN 17. Elevated glucose 122. High sensitive troponin I was undetectable. Patient was 12 EKG was unremarkable. Patient was presentation physical findings are consistent with costochondritis and I did discuss this with the patient. Patient was given ibuprofen 400 mg orally. He was given a prescription for ibuprofen 400 mg 3 times a day as needed for pain. He was given printed and verbal instructions on costochondritis he was discharged home. Admission/Observation Consideration of admission/observation: Escalation of care including admission/observation considered (Yes) Lab Data [facility] Lab Attestation statement: I reviewed the patient's lab results. 01/18/25 21:48 01/18/25 21:48 Labs: Lab Results 01/18/25 Range/Units 21:48 WBC 9.5 (4.8-10.8) X10*3/uL RBC 4.51 L (4.60-5.80) X10*6/uL Hgb 12.0 L (14.0-18.0) g/dl Hct 36.5 L (42.0-52.0) % MCV 80.9 (80.0-98.0) fL MCH 26.6 L (27.0-33.0) pg MCHC 32.9 (31.0-36.0) g/dl RDW 14.5 (11.0-16.0) % Plt Count 209 (160-400) X10*3/uL MPV 9.7 (9.4-12.4) fL Immature Gran % (Auto) 0.5 H (0.0-0.4) % Neut % (Auto) 69.2 (45-73) % Lymph % (Auto) 19.8 L (20-40) % Loup % (Auto) 8.2 (2-11) % Eos % (Auto) 1.8 (0-4) % Baso % (Auto) 0.5 (0-2) % Lymph # (Auto) 1.9 (1.2-4.9) X10*3/uL Loup # (Auto) 0.8 (0.1-1.2) X10*3/uL Eos # (Auto) 0.2 (0.0-0.4) X10*3/uL Baso # (Auto) 0.1 (0.0-0.2) X10*3/uL Abs Immat Gran (auto) 0.05 H (0.00-0.03) X10*3/uL Absolute Neuts (auto) 6.5 (2.0-8.3) x10*3/uL Absolute Nucleated RBC 0.000 (0.0-0.012) X10*3/uL Nucleated RBC % (auto) 0.0 (0.0-0.2) /100WBC Sodium 141 (135-145) mmol/L Potassium 4.3 (3.3-5.1) mmol/L Chloride 109 H (96-108) mmol/L Carbon Dioxide 24 (22-29) mmol/L Anion Gap 12 (12-20) BUN 17 H (9-16) mg/dL Creatinine 0.70 (0.5-1.4) mg/dL Estim Creat Clear Calc 121.6 Estimated GFR > 60 Random Glucose 122 H (60-115) mg/dL Calcium 9.6 (8.4-10.2) mg/dL Total Bilirubin 0.3 (0.0-1.0) mg/dL AST 19 (5-37) U/L ALT 21 (0-40) U/L Alkaline Phosphatase 76 (39-117) U/L Troponin I High Sens < 2.7 (<3.5-35.0) ng/L Total Protein 6.8 (6.5-8.0) g/dL Albumin 4.1 (3.5-5.0) g/dL Independent Interpretation I performed an independent interpretation of an: EKG Interpretation: My interpretation of the patient's 12 EKG done on 01/18/2025 at 24:29 hours is as follows: Normal sinus rhythm with a rate of 81, normal AK interval, QRS duration QTC interval, no ST segment elevation, no ST segment depression, no significant Q-waves, no significant T-wave abnormalities, no PACs, no PVCs. Compared to EKG dated 05/06/2024 done at 10:33 hours, there is no significant changes. Independent Historian Clinical information obtained from an independent historian. History obtained from or confirmed by: Other (Housemate) Prescription Management I considered prescription management with: Pain Medication (Ibuprofen) Chronic Conditions Patient?s care impacted by: Diabetes Discharge Plan Discharge Clinical Impression: Acute costochondritis Patient Disposition: Home, Self-Care Additional Instructions: Your blood work was normal. Your EKG was unremarkable. Your exam revealed significant tenderness when I pushed on the left side of your chest this is consistent with inflammation of the joints of your chest. This is called costochondritis. This is treated with ibuprofen. Take ibuprofen 400 mg pills, 1 pill 3 times a day as needed for pain. Continue taking all of your other medications as prescribed by your providers. Follow-up with your doctor in 2 days. Please return to the emergency department if your symptoms get worse or if you develop any symptoms that are concerning to you. Prescriptions: New ibuprofen 400 mg tablet 400 mg PO TID PRN (Reason: fever or pain) Qty: 30 0RF No Action (DME) blood-glucose meter [FreeStyle Lite Meter] Kit See Rx Instructions .Route Qty: 1 0RF Rx Instructions: TEST TWICE DAILY citalopram 20 mg tablet 20 mg PO DAILY 30 Days Qty: 30 3RF trazodone 150 mg tablet 150 mg PO BEDTIME PRN (Reason: Insomnia) Qty: 30 2RF lancets [FreeStyle Lancets] 28 gauge misc 28 gauge topical BID Qty: 100 12RF ferrous sulfate [FeroSul] 325 mg (65 mg iron) tablet 325 mg PO DAILY Qty: 90 3RF aspirin 81 mg tablet,delayed release (DR/EC) 81 mg PO DAILY 90 Days Qty: 90 3RF melatonin 3 mg tablet 6 mg PO BEDTIME PRN (Reason: insomnia) 90 Days Qty: 90 3RF levetiracetam 1,000 mg tablet 1,000 mg PO BID 30 Days Qty: 60 3RF simvastatin 40 mg tablet 40 mg PO BEDTIME 30 Days Qty: 30 3RF omeprazole 40 mg capsule,delayed release(DR/EC) 40 mg PO QAM 30 Days Qty: 30 3RF (DME) FreeStyle Lite Strips Strip See Rx Instructions .ROUTE .COMPLEX Qty: 100 12RF Dose Instruction: USE DIRECTED TO TEST BLOOD SUGAR TWICE DAILY Rx Instructions: USE DIRECTED TO TEST BLOOD SUGAR TWICE DAILY gabapentin 300 mg capsule 300 mg PO TID 30 Days Qty: 90 3RF metformin 500 mg tablet 1,000 mg PO BID 90 Days Qty: 360 1RF insulin glargine 100 unit/mL (3 mL) insulin pen 33 unit subcut BEDTIME Qty: 15 5RF (DME) pen needle, diabetic 31 gauge x 5/16 needle See Rx Instructions .ROUTE .COMPLEX Qty: 100 12RF Dose Instruction: USE TWICE DAILY DIRECTED Rx Instructions: USE TWICE DAILY DIRECTED cyanocobalamin (vitamin B-12) [Vitamin B-12] 1,000 mcg Tablet 1,000 mcg PO DAILY Qty: 90 3RF ibuprofen 600 mg tablet 600 mg PO Q8H PRN (Reason: pain) Qty: 10 0RF lidocaine 5 % adhesive patch,medicated 1 patch topical DAILY Qty: 30 0RF Rx Instructions: leave on most painful area for up to 12 hrs diclofenac sodium 1 % gel 2 g topical QID Qty: 100 1RF Rx Instructions: apply to lower Back cholecalciferol (vitamin D3) 50 mcg (2,000 unit) capsule 50 mcg PO DAILY 90 Days Qty: 90 3RF triamcinolone acetonide 0.5 % cream 1 appl topical BID PRN (Reason: rash) Qty: 15 1RF cyclobenzaprine 10 mg tablet 10 mg PO TID PRN (Reason: muscle spasm) Qty: 14 0RF (DME) cane Device See Rx Instructions .Route Qty: 1 0RF Rx Instructions: As directed mometasone 0.1 % cream 1 appl topical DAILY PRN (Reason: rash) Qty: 45 0RF Print Language: Cambodian
[2025-01-18 22:12] LABS: Alanine Aminotransferase 21 U/L (0-40); Albumin Level 4.1 g/dL (3.5-5.0); Alkaline Phosphatase 76 U/L (39-117); Anion Gap 12 (12-20); Aspartate Amino Transferase 19 U/L (5-37); Bilirubin Total 0.3 mg/dL (0.0-1.0); Blood Urea Nitrogen 17 mg/dL (9-16); Calcium 9.6 mg/dL (8.4-10.2); Carbon Dioxide 24 mmol/L (22-29); Chloride 109 mmol/L (96-108); Creatinine Clr Calc Pharmacy 121.6; Estimated Glomerular Filt Rate > 60; Glucose Random 122 mg/dL (60-115); Potassium 4.3 mmol/L (3.3-5.1); Sodium 141 mmol/L (135-145); Total Protein 6.8 g/dL (6.5-8.0)
[2025-01-18 22:19] LABS: Troponin-I High Sensitivity < 2.7 ng/L (<3.5-35.0)
[2025-01-18] MEDS: Ibuprofen 400 MG TABLET PO (23:49)
[2025-01-19] VITALS: BP 151/71; PULSE 77; RESP 22; TEMP 36.8; O2SAT 97
== END 2025-01-18 23:45 | disposition home or self-care (01) ==
PROVIDERS: Emergency Provider Emergency Medicine Emergency Medical Services; PCP Internal Medicine
DX: M94.0 Chondrocostal junction syndrome [Tietze] (principal); R07.9 Chest pain, unspecified; E11.9 Type 2 diabetes mellitus without complications
CPT/HCPCS: 36415; 80053; 84484; 85025; 93005; 99283; 99284

== ENCOUNTER → 2025-01-18 20:49 | Outpatient (BNV) | payer OTHER, SELFPAY | PROVIDERS: Emergency Provider Emergency Medicine Emergency Medical Services; PCP Internal Medicine; Visit Provider Internal Medicine Cardiovascular Disease | DX: R94.31 Abnormal electrocardiogram [ECG] [EKG] (principal); R56.9 Unspecified convulsions | CPT/HCPCS: 93010 ==

== ENCOUNTER → 2025-01-24 09:28 | Outpatient (REF) | payer OTHER, SELFPAY ==
[2025-01-24 09:59] LABS: MANUAL DIFF FLAG NO
--- OUTSIDE RECORDS SUMMARY | 2025-01-24 10:16 | XMS_ITS | Encounter Summary ---
Author Organization [id number] Address [address] [place] [address] [address] [place] [address] Care Team Providers Care Clinical Research Analyst Name Role Phone Unavailable Primary Care Provider [...]
--- OUTSIDE RECORDS SUMMARY | 2025-01-24 10:16 | XMS_ITS | Encounter Summary ---
Author Organization [facility] Address [address] [place] [address] Care Team Providers Care Management Manager Name Role Phone Shayy Nieves NP Primary Care Provider Unavailabl e Encounter Details Date Type Department Care Team Description 09/29/2017 Release of Information Medical Records [address] [place] [id number] Abstract, Provider Social History Tobacco Use Types Packs/Day Years Used Date Smoking Tobacco: Never Assessed Sex Assigned at Date Recorded Not on file documented as of this encounter Plan of Treatment Not on file documented as of this encounter Visit Diagnoses Not on filedocumented in this encounter Care Teams Management Manager Relationship Specialty Start Date End Date Shayy Nieves NP PCP - General Internal Medicine 11/13/12 documented as of this encounter
--- OUTSIDE RECORDS SUMMARY | 2025-01-24 10:16 | XMS_ITS | Clinical Summary ---
Author Organization [employer] Address [address] [place] [address] [address] [place] [address] Care Team Providers Care Exercise Physiologist Name Role Phone Unavailable Primary Care [...] Relevant to Health Maintenance Insurance DENTAL - [facility]
--- OUTSIDE RECORDS SUMMARY | 2025-01-24 10:16 | XMS_ITS | Encounter Summary ---
Author Organization [facility] Address [address] [facility] [address] [place] [address] Care Team Providers Care Topographical Drafter Name Role Phone Unavailable Primary Care Provider Unavailabl e Encounter Details Date Type Department Care Team (Late st Contact Info) Description 05/06/2023 Abstract [facility] [address] [place] [address] Dasha, Vikki [address] [place] [address] Social History Tobacco Use Types Packs/Day Years [...]
[2025-01-24 10:24] LABS: Basophils Percent Auto 0.4 % (0-2); Eosinophils Absolute Auto 0.2 X10*3/uL (0.0-0.4); Hematocrit 38.9 % (42.0-52.0); Hemoglobin 12.4 g/dl (14.0-18.0); Imm Gran Abs Auto 0.07 X10*3/uL (0.00-0.03); Imm Gran Pct Auto 0.8 % (0.0-0.4); Lymphocytes Absolute Auto 1.6 X10*3/uL (1.2-4.9); Lymphocytes Percent Auto 19.3 % (20-40); Mean Corpuscular HGB Conc 31.9 g/dl (31.0-36.0); Mean Corpuscular Hemoglobin 26.4 pg (27.0-33.0); Mean Corpuscular Volume 82.8 fL (80.0-98.0); Mean Platelet Volume 10.4 fL (9.4-12.4); Monocytes Absolute Auto 0.6 X10*3/uL (0.1-1.2); Monocytes Percent Auto 6.7 % (2-11); Neutrophils Percent Auto 70.8 % (45-73); Platelet Count 201 X10*3/uL (160-400); Red Cell Distribution Width 14.6 % (11.0-16.0); White Blood Count 8.5 X10*3/uL (4.8-10.8)
[2025-01-24 10:32] LABS: Estimated Average Glucose 134 mg/dL; Hemoglobin A1C 147.1467 umol/L; Hemoglobin A1c % 6.3 % (<6.0); Total Hemoglobin (HGBA1C) 3271.2356 umol/L
[2025-01-24 10:47] LABS: Appearance Urine Clear; Color Urine Yellow; Glucose Urine UA Negative (Negative); Leukocyte Esterase Urine Negative (Negative); Nitrite Urine Negative (Negative); PH 5.5 (5.0-9.0); Urine Blood Negative (Negative); Urine Ketones Negative (Negative); Urine Protein Negative (Neg-Trace)
[2025-01-24 11:27] LABS: Alanine Aminotransferase 13 U/L (0-40); Albumin Level 4.3 g/dL (3.5-5.0); Alkaline Phosphatase 73 U/L (39-117); Anion Gap 13 (12-20); Aspartate Amino Transferase 19 U/L (5-37); Bilirubin Total 0.4 mg/dL (0.0-1.0); Blood Urea Nitrogen 19 mg/dL (9-16); Calcium 9.5 mg/dL (8.4-10.2); Carbon Dioxide 24 mmol/L (22-29); Chloride 109 mmol/L (96-108); Cholesterol 115 mg/dL (<200); Estimated Glomerular Filt Rate > 60; Glucose Fasting 115 mg/dL (60-99); HDL Cholesterol 44 mg/dL (>40); LDL Cholesterol Calculated 50 mg/dL (<100); Sodium 142 mmol/L (135-145); TSH reflex Free T4 1.63 uIU/mL (0.32-4.0); Triglycerides 106 mg/dL (<150); Vitamin D 25-OH Total 45.1 ng/mL (>30)
[2025-01-24 11:28] LABS: Creatinine Urine 93.11 mg/dL; Microalbumin Urine < 5.0 mg/L
[2025-01-24 11:35] LABS: Folate 5.7 ng/mL (> or = 4.0); Vitamin B12 306 pg/mL (200-900)
[2025-01-26 21:23] LABS: Levetiracetam Keppra 25.9 mcg/mL (6.0-46.0)
== END ==
LOC: HO.SL 09:28
PROVIDERS: Absent Provider Internal Medicine; PCP Internal Medicine; Visit Provider Physician Assistant Medical
DX: G47.19 Other hypersomnia (principal); D64.9 Anemia, unspecified; E11.9 Type 2 diabetes mellitus without complications; R30.0 Dysuria; E53.8 Deficiency of other specified B group vitamins; E78.00 Pure hypercholesterolemia, unspecified; G40.909 Epilepsy, unspecified, not intractable, without status epilepticus; E55.9 Vitamin D deficiency, unspecified
CPT/HCPCS: 36415; 80053; 80061; 80177; 81003; 82043; 82306; 82570; 82607; 82746; 83036; 84443; 85025; 95806

== ENCOUNTER → 2025-01-24 14:15 | Outpatient (BNV) | payer OTHER, SELFPAY | PROVIDERS: Absent Provider Internal Medicine; PCP Internal Medicine; Visit Provider Internal Medicine | DX: G47.33 Obstructive sleep apnea (adult) (pediatric) (principal) | CPT/HCPCS: 95806 ==

== ENCOUNTER 2025-02-09 11:02 | Outpatient (AMB) | payer OTHER, SELFPAY ==
[2025-02-09 11:06] VITALS: BP 130/82; PULSE 85; O2SAT 96; BMI 37.9
--- NOTE | 2025-02-09 11:06 | A.OFFPC_ITS ---
Vital Signs 02/09/25 11:06 Height 5 ft 5 in Weight 228 lb BMI 37.9 BP 130/82 Blood Pressure Location Lt brachial Position Sitting Pulse 85 Pulse Source Pulse Oximeter Pulse Oximetry (%) 96 Oxygen Delivery Method Room Air Intake Visit Reasons: 4mt f/u Nutrition Partner Required: No Accompanied by: Self / Same As Patient Allergies No Known Allergies [No Known Allergies*] Allergy (Verified 02/09/25 11:29) Medication List - Last Reconciled 02/09/25 by Xavi Mart MD aspirin 81 mg PO DAILY 90 days blood sugar diagnostic (FreeStyle Lite Strips) USE DIRECTED TO TEST BLOOD SUGAR TWICE DAILY blood-glucose meter (FreeStyle Lite Meter kit) TEST TWICE DAILY cane As directed cholecalciferol (vitamin D3) 50 mcg PO DAILY 90 days citalopram 20 mg PO DAILY 30 days cyanocobalamin (vitamin B-12) (Vitamin B-12) 1,000 mcg PO DAILY cyclobenzaprine 10 mg PO TID PRN diclofenac sodium 1% 2 grams topical QID ferrous sulfate (FeroSul) 325 mg PO DAILY gabapentin 300 mg PO TID 30 days ibuprofen 400 mg PO TID PRN insulin glargine 33 units (0.33 mL) subcut BEDTIME lancets (FreeStyle Lancets) 28 gauge topical BID levetiracetam 1,000 mg PO BID 30 days lidocaine 5% 1 patch topical DAILY melatonin 6 mg (2 x 3 mg) PO BEDTIME PRN 90 days metformin 1,000 mg (2 x 500 mg) PO BID 90 days mometasone 0.1% 1 appl topical DAILY PRN omeprazole 40 mg PO QAM 30 days pen needle, diabetic USE TWICE DAILY DIRECTED simvastatin 40 mg PO BEDTIME 30 days trazodone 150 mg PO BEDTIME PRN triamcinolone acetonide 0.5% 1 appl topical BID PRN Tobacco use date assessed: 02/09/25 Dental Screening Dental Screen Date: 02/09/25 Did you have a dental visit in the last 12 months?: No Did you have a dental problem in the last 6 months where you did not have access to dental care?: No Was dental information given to patient?: No HPI [facility] f[facility] HPI Details Patient comes in today for his follow up visit States that he feels okay He still has chronic pain over his lower back and he continues to follow up with pain management regularly - he is scheduled for a right SI joint injection with pain management tomorrow He denies any headaches or dizziness Denies any chest pains or increased SOB No nausea/vomiting, no abdominal pain No change in bowel habits noted He had his follow up labs done a couple of weeks ago - to discuss his results [facility] Medical History Neuropathy Dermatitis Constipation Obstructive sleep apnea hypopnea, severe Vitamin D deficiency Lumbar degenerative disc disease Chest pain Obesity (BMI 30-39.9) Insomnia GERD without esophagitis Pure hypercholesterolemia Epilepsy 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 Mother No problems noted. Social History Housing: House Housing Other:: rents a room Alcohol intake: never Patient Tobacco Use Status: Former Tobacco user e-Cigarette/Vaping Use: Never Used Second Hand Smoke Exposure: Yes Advance Directives Date on File: 07/19/20 service: No Current occupational status: disabled Cognitive needs: No Hearing needs: No Vision needs: No Questionnaire PHQ-9 Over the last 2 weeks, how often have you been bothered by any of the following problems? 1. Little interest or pleasure in doing things: not at all 2. Feeling down, depressed, or hopeless: several days 3. Trouble falling or staying asleep, or sleeping too much: several days 4. Feeling tired or having little energy: more than half the days 5. Poor appetite or overeating: more than half the days 6. Feeling bad about yourself - or that you are a failure or have let yourself or your family down: not at all 7. Trouble concentrating on things, such as reading the newspaper or watching television: not at all 8. Moving or speaking so slowly that other people could have noticed. Or the opposite - being so fidgety or restless that you have been moving around a lot more than usual: not at all 9. Thoughts that you would be better off or of hurting yourself in some way: not at all Total score: 6 Depression Screening Interpretation: Positive Depression Screening Follow-up: Existing condition and In treatment Depression Screening Done: Yes 11662 - PHQ-9 Billing: Yes Source: Developed by Drs. Griffin Chapman, Stella Garcia, Jose Manuel Us and colleagues, with an educational lux from [employer]. Thrive Questionnaire Date Thrive assessed: 02/09/25 I am a: Patient What is your living situation today?: I have a steady place to live Within the past 12 months, did the food you bought not last and you didn't have the money to get more?: Never true Within the past 12 months, did you worry whether your food would run out before you got money to buy more?: Never true Do you have trouble paying for medicines?: No Do you have trouble getting transportation to medical appointments?: No Do you have trouble paying your heating and electricity bill?: No Do you have trouble taking care of your child, family member or friend?: No Do you have trouble with day-to-day activities such as bathing, preparing meals, shopping, managing finances, etc.?: No Are you currently unemployed and looking for a job?: No Are you interested in more education?: No Please select the resources that you would like help with: None Currently or been in a relationship where the following occur: No concerns reported THRIVE Score: 0 AUDIT C Alcohol Use Questionnaire (AUDIT-C) 1. How often do you have a drink containing alcohol?: Never 3. How often do you have six or more drinks on one occasion?: Never Total Score: 0 Score Reviewed/Action Taken: Yes VANCE-7 AMB Questionnaire VANCE-7 Date VANCE - 7 assessed: 02/09/25 Feeling nervous, anxious, or on edge: 1 = Several days Not being able to stop or control worryin = Not at all Worrying too much about different things: 1 = Several days Trouble relaxin = Not at all Being so restless that it is hard to sit still: 0 = Not at all Becoming easily annoyed or irritable: 0 = Not at all Feeling afraid as if something awful might happen: 0 = Not at all Total VANCE-7 score (0-4 normal; 5-9 mild; 10-14 moderate; 15-21 severe): 2 Source: Developed by Drs. Griffin Chapman, Stella Garcia, Jose Manuel Us and colleagues, with an educational lux from [employer]. Review of Systems Const Denies chills, Denies fatigue, Denies fever(s) and Denies headache(s) ENT Denies dysphagia, Denies dizziness, Denies otalgia, Denies headache(s), Denies neck pain, Denies odynophagia and Denies sore throat Card Denies chest pain, Denies palpitations and Denies dyspnea Resp Denies chest congestion, Denies cough and Denies dyspnea GI Denies abdominal pain, Denies constipation, Denies dysphagia, Denies heartburn, Denies diarrhea, Denies nausea, Denies odynophagia and Denies vomiting Denies dysuria, Denies nocturia and Denies urinary frequency Musc Reports back pain (over the right lower back - chronic) and Denies neck pain Skin/Breast Denies rash Neuro Denies dizziness, Denies headache(s) and Denies convulsions Endo Denies fatigue and Denies palpitations Physical exam (Primary Care) Vital Signs: Last Vital Signs Pulse 85 02/09/25 11:06 BP 130/82 02/09/25 11:06 Pulse Ox 96 02/09/25 11:06 Oxygen Delivery Method Room Air 02/09/25 11:06 BMI result Body Mass Index 37.9 Tobacco/Smoking Status: Tobacco use Status Tobacco use date assessed 02/09/25 02/09/25 11:11 Patient Tobacco Use Status Former Tobacco user 02/09/25 11:07 e-Cigarette/Vaping Use Never Used 02/09/25 11:07 PHQ-9: PHQ-9 Score PHQ-9: Total score 6 02/09/25 11:07 Depression Screening Interpretation: Positive Depression Screening Follow-up: Existing condition and In treatment Thrive Assessment: Date of Thrive Assessment Date Thrive assessed 02/09/25 02/09/25 11:11 Currently or been in a relationship where the following occur: No concerns reported Const General: no acute distress and alert HENMT Ears: TM's normal bilaterally and EAC's normal Throat: Yes posterior oropharynx normal and Yes tonsils normal (no TP congestion) Neck Neck: Yes supple and No lymphadenopathy Thyroid: Thyroid normal Resp Auscultation: clear to auscultation bilaterally, no rales and no wheezes Cardio Rate: regular rate Rhythm: regular rhythm Heart sounds: no murmurs GI Palpation (GI): Soft to palpation and nontender Auscultation: normal bowel sounds General: Yes no CVA tenderness Back/Spine/Pelvis Back: no CVA tenderness Thoracic/Lumbar Spine: lumbar spinal tenderness (more on the right side) Sacroiliac joints: on the right tender to palpation Skin Rashes: no rashes Extrem General: Yes no clubbing, cyanosis or edema Results Reviewed Results Reviewed: Laboratory Tests 01/24/25 01/24/25 09:56 10:00 WBC 8.5 Hgb 12.4 L Hct 38.9 L Plt Count 201 Sodium 142 Potassium 4.0 Creatinine 0.70 Estimated GFR > 60 Fasting Glucose 115 H Hemoglobin A1c % 6.3 H Calcium 9.5 AST 19 ALT 13 Triglycerides 106 Cholesterol 115 LDL Cholesterol, Calc 50 HDL Cholesterol 44 Vitamin B12 306 25-OH Vitamin D Total 45.1 TSH 1.63 Ur Specific [place] 1.020 Urine Protein Negative Urine Glucose (UA) Negative Urine Blood Negative Urine Nitrite Negative Ur Leukocyte Esterase Negative Levetiracetam 25.9 Coding Level of Care Code Est Pt Level 4 (10422) Complex EM visit Add On G2211 Diagnoses Type 2 diabetes mellitus with diabetic neuropathy, with long-term current use of insulin E11.40; Z79.4 Diabetes mellitus jail insulin use: with jail use Pure hypercholesterolemia E78.00 Nonintractable epilepsy without status epilepticus, unspecified epilepsy type G40.909 Epilepsy type: unspecified Intractability: not intractable Status epilepticus: without status epilepticus Neurofibromatosis Q85.00 Obstructive sleep apnea hypopnea, severe G47.33 GERD without esophagitis K21.9 Vitamin D deficiency E55.9 Constipation, unspecified constipation type K59.00 Constipation type: unspecified constipation type Degeneration of intervertebral disc of lumbar region with discogenic back pain M51.360 Disc-related pain type: discogenic back pain only Primary insomnia F51.01 Insomnia type: primary Episode of recurrent major depressive disorder, unspecified depression episode severity F33.9 Depression Type: major depressive disorder Major depression recurrence: recurrent Active/Remission status: currently active Major depression episode severity: unspecified Obesity (BMI 30-39.9) E66.9 Additional Codes PHQ-9 - 58979 - PHQ-9 Billing: Yes ([id number]) Assessment & Plan Assessment & Plan (1) Type 2 diabetes mellitus with diabetic neuropathy: Code(s): E11.40 - Type 2 diabetes mellitus with diabetic neuropathy, unspecified Category: Medical Qualifiers: Diabetes mellitus buttermaker continuous churn insulin use: with buttermaker continuous churn use Qualified Code(s): E11.40 - Type 2 diabetes mellitus with diabetic neuropathy, unspecified; Z79.4 - intermediate accountant (current) use of insulin Plan: His HgbA1c was at 6.3% on his labs done a couple of weeks ago (was at 6.6% when previously checked back in May 2024) - goal is at least < 7.0% Reinforced diabetic diet Continue Metformin 1000 mg BID and Lantus 33 units SQ Q HS (2) Pure hypercholesterolemia: Code(s): E78.00 - Pure hypercholesterolemia, unspecified Category: Medical Plan: Results of his labs done a couple of weeks ago reviewed and discussed with patient Reinforced low cholesterol diet Continue Simvastatin 40 mg Q HS Will recheck his labs and fasting lipids in 4 months for follow up (3) Epilepsy: Code(s): G40.909 - Epilepsy, unspecified, not intractable, without status epilepticus Category: Medical Qualifiers: Epilepsy type: unspecified Intractability: not intractable Status epilepticus: without status epilepticus Qualified Code(s): G40.909 - Epilepsy, unspecified, not intractable, without status epilepticus Plan: Stable with no recent seizures Continue Levetiracetam 1000 mg po BID Follow-up with neurology as scheduled (4) Neurofibromatosis: Code(s): Q85.00 - Neurofibromatosis, unspecified Category: Medical Plan: 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 Follow up with neurology as scheduled (5) Obstructive sleep apnea hypopnea, severe: Comment: sleep study done at [facility] in 2017 revealed (+) severe KARLOS Code(s): G47.33 - Obstructive sleep apnea (adult) (pediatric) Category: Medical Plan: Patient reportedly had a sleep study done here at [facility] several years ago but states that despite being advised that he has sleep apnea, he was never provided or set up with a CPAP device afterwards and they would like to have patient get reassessed for this again We were able to pull up a sleep study report back in 2017 that revealed (+) severe KARLOS He was seeing Dr. Smith at the time but appears to have been lost to follow up over the years We referred him back to Sleep Medicine (Dr. Smith) for reassessment and management of his KARLOS and he is now following up again with Sleep Medicine reg timothy (6) GERD without esophagitis: Code(s): K21.9 - Gastro-esophageal reflux disease without esophagitis Category: Medical Plan: Dietary restrictions reinforced Continue Omeprazole 40 mg QD (7) Vitamin D deficiency: Code(s): E55.9 - Vitamin D deficiency, unspecified Category: Medical Plan: Continue Vitamin D3 2000 units QD (8) Constipation: Code(s): K59.00 - Constipation, unspecified Category: Medical Qualifiers: Constipation type: unspecified constipation type Qualified Code(s): K59.00 - Constipation, unspecified Plan: Reinforced increased oral fluids and dietary fiber Continue Miralax 17 gm QD (9) Lumbar degenerative disc disease: Code(s): M51.36 - Other intervertebral disc degeneration, lumbar region Category: Medical Qualifiers: Disc-related pain type: discogenic back pain only Qualified Code(s): M51.360 - Other intervertebral disc degeneration, lumbar region with discogenic back pain only Plan: Reinforced activity and weight-lifting restrictions Continue Lidocaine 5% patches QD PRN and Gabapentin 300 mg TID Follow up with pain management as scheduled - he has been getting right SI joint injections from pain management, which he states are helping; he is scheduled again for right SI joint injection tomorrow (10) Insomnia: Code(s): G47.00 - Insomnia, unspecified Category: Medical Qualifiers: Insomnia type: primary Qualified Code(s): F51.01 - Primary insomnia Plan: Sleep hygiene reinforced Continue Trazodone 150 mg Q HS PRN (11) Depression: Code(s): F32.9 - Major depressive disorder, single episode, unspecified Category: Medical Qualifiers: Depression Type: major depressive disorder Major depression recurrence: recurrent Active/Remission status: currently active Major depression episode severity: unspecified Qualified Code(s): F33.9 - Major depressive disorder, recurrent, unspecified Plan: Continue Citalopram 20 mg QD Follow-up with psychiatry as scheduled (12) Obesity (BMI 30-39.9): Code(s): E66.9 - Obesity, unspecified Category: Medical Plan: Reinforced diet/exercise as tolerated/lose weight Plan Follow up in 4 months Orders: Orders Hemoglobin A1c 4 Months E11.9 - Type 2 diabetes mellitus without complications Complete Blood Count Auto Diff 4 Months D64.9 - Anemia, unspecified Lipid Panel 4 Months E78.00 - Pure hypercholesterolemia, unspecified TSH reflex Free T4 4 Months E78.00 - Pure hypercholesterolemia, unspecified UA CC w/rflx Micro + Cult 4 Months R30.0 - Dysuria Vitamin D 25-OH Total 4 Months E55.9 - Vitamin D deficiency, unspecified Comprehensive [place]. Panel Fast 4 Months E78.00 - Pure hypercholesterolemia, unspecified Microalbumin, Random (w Creat) 4 Months E11.9 - Type 2 diabetes mellitus with out complications Levetiracetam Keppra 4 Months G40.909 - Epilepsy, unspecified, not intractable, without status epilepticus Vitamin B12 and Folate 4 Months E53.8 - Deficiency of other specified B group vitamins
--- OUTSIDE RECORDS SUMMARY | 2025-02-09 12:25 | XMS_ITS | Encounter Summary ---
Author Organization [facility] Address [address] [place] [address] Care Team Providers Care Vp Name Role Phone Unavailable Primary Care Provider Unavailabl e Encounter Details Date Type Department Care Team (Late st Contact Info) Description 05/06/2023 Abstract [facility]ULT [facility]AL [address] [place] [address] Dasha, Vikki [address] [place], [place] [id number] Social History Tobacco Use Types Packs/Day Years [...]
--- OUTSIDE RECORDS SUMMARY | 2025-02-09 12:25 | XMS_ITS | Clinical Summary ---
Author Organization [facility] Address [address] [place] [address] Care Team Providers Care Rubber Goods Finisher Name Role Phone Unavailable Primary Care Provider [...] Panel 1962 SDOH Screening 1960 Sigmoidoscopy 1962 Disability Screening 1962 Alcohol/Substance Use Screening 1974 Hepatitis C [...] patient's age to complete this topic Meningococcal B Vaccine Aged Out No l onger eligible based on patient's age to complete [...] Relevant to Health Maintenance Insurance DENTAL - [facility]
--- OUTSIDE RECORDS SUMMARY | 2025-02-09 12:25 | XMS_ITS | Encounter Summary ---
Author Organization [facility] Address [address] [place] [address] Care Team Providers Care Assurance Sourcing Manager Name Role Phone Unavailable Primary Care Provider Unavailabl e Encounter Details Date Type Department Care Team (Latest Contact Info) Description 02/18/2019 Abstract [facility] CONVERSIONS Dental, Provider, DDS Social History Tobacco [...]
== END 2025-02-09 11:37 | disposition home or self-care (01) ==
LOC: HO.HMCH 11:03
PROVIDERS: PCP Internal Medicine; Visit Provider Internal Medicine
DX: E11.40 Type 2 diabetes mellitus with diabetic neuropathy, unspecified (principal); Z79.4 Long term (current) use of insulin; G40.909 Epilepsy, unspecified, not intractable, without status epilepticus; Q85.00 Neurofibromatosis, unspecified; E78.00 Pure hypercholesterolemia, unspecified; G47.33 Obstructive sleep apnea (adult) (pediatric); K21.9 Gastro-esophageal reflux disease without esophagitis; E55.9 Vitamin D deficiency, unspecified; K59.00 Constipation, unspecified; M51.360 Other intervertebral disc degeneration, lumbar region with discogenic back pain only; F51.01 Primary insomnia; F33.9 Major depressive disorder, recurrent, unspecified

== ENCOUNTER → 2025-02-09 11:02 | Outpatient (BNVA) | payer OTHER, SELFPAY | PROVIDERS: PCP Internal Medicine; Visit Provider Internal Medicine | DX: G47.33 Obstructive sleep apnea (adult) (pediatric) (principal); E11.40 Type 2 diabetes mellitus with diabetic neuropathy, unspecified; E78.00 Pure hypercholesterolemia, unspecified; G40.909 Epilepsy, unspecified, not intractable, without status epilepticus; Q85.00 Neurofibromatosis, unspecified; K21.9 Gastro-esophageal reflux disease without esophagitis; E55.9 Vitamin D deficiency, unspecified; K59.00 Constipation, unspecified; M51.360 Other intervertebral disc degeneration, lumbar region with discogenic back pain only; F51.01 Primary insomnia; F33.9 Major depressive disorder, recurrent, unspecified; E66.9 Obesity, unspecified; D64.9 Anemia, unspecified; R30.0 Dysuria; Z79.4 Long term (current) use of insulin; Z68.37 Body mass index [BMI] 37.0-37.9, adult | CPT/HCPCS: 96127; 99212 ==

== ENCOUNTER 2025-02-10 06:18 | Outpatient (REF) | payer OTHER, SELFPAY ==
--- NOTE | ~2025-02-10 | FL_ITS ---
EXAMINATION: FL GUIDANCE ONLY HISTORY: M53.3 - Sacrococcygeal disorders, not elsewhere classified COMPARISON: None available. TECHNIQUE: Fluoroscopy time: 0.1 minutes. Cumulative Dose: 4.00 mGy. DAP: 0.0432 mGym2 Images: 2. FINDINGS: Fluoroscopic spot films of the pelvis demonstrate a needle in the region of the right sacroiliac joint. FL/FL guidance in treatment room IMPRESSION: Fluoroscopy during procedure. Please see procedure report for additional information. Electronically signed by: Griffin Theodore MD 02/10/2025 01:03 PM EDT
--- OUTSIDE RECORDS SUMMARY | 2025-02-10 06:21 | XMS_ITS | Encounter Summary ---
Author Organization [facility] Address [address] [place] [address] Care Team Providers Care Clinical Science Consultant Name Role Phone Unavailable Primary Care Provider Unavailabl e Encounter Details Date Type Department Care Team (Latest Contact Info) Description 02/18/2019 Abstract [facility] CONVERSIONS Dental, Provider, DDS Social History Tobacco [...]
--- OUTSIDE RECORDS SUMMARY | 2025-02-10 06:21 | XMS_ITS | Clinical Summary ---
Author Organization [facility] Address [address] [place] [address] Care Team Providers Care Rental Agent Name Role Phone Unavailable Primary Care Provider [...] Relevant to Health Maintenance Insurance DENTAL - [facility]
--- OUTSIDE RECORDS SUMMARY | 2025-02-10 06:21 | XMS_ITS | Encounter Summary ---
Author Organization [facility] Address [address] [facility] [address] [place] [address] Care Team Providers Care Maintenance Mechanic Telephone Name Role Phone Unavailable Primary Care Provider Unavailabl e Encounter Details Date Type Department Care Team (Late st Contact Info) Description 05/06/2023 Abstract [facility] ADULT DENTAL [address] [place] [address] Dasha, Vikki [address] [place], [place] [id number] Social History Tobacco Use Types Packs/Day Years [...]
== END 2025-02-10 06:19 | disposition home or self-care (01) ==
LOC: CF 06:18
PROVIDERS: Visit Provider Internal Medicine
DX: M46.1 Sacroiliitis, not elsewhere classified (principal); M53.3 Sacrococcygeal disorders, not elsewhere classified
CPT/HCPCS: 27096; J2003; J2795; J3301

== ENCOUNTER 2025-02-10 11:31 | Outpatient (AMB) | payer OTHER, SELFPAY ==
[2025-02-10 12:05] VITALS: BP 139/73; PULSE 81; RESP 16; O2SAT 96
--- NOTE | 2025-02-10 12:05 | A.OFFVIS_ITS ---
Vital Signs 02/10/25 12:05 02/10/25 12:45 BP 139/73 144/66 H Blood Pressure Location Lt brachial Lt brachial Position Sitting Respiration 16 18 Pulse 81 77 Pulse Source Pulse Oximeter Pulse Oximeter Pulse Oximetry (%) 96 98 Oxygen Delivery Method Room Air Intake Visit Reasons: RIGHT THERAPEUTIC SIJ INJECTION Well Point Pumping Supervisor Required: Yes Well Point Pumping Supervisor Services: Well Point Pumping Supervisor Offered & Declined Well Point Pumping Supervisor Name: per family friend Allergies No Known Allergies [No Known Allergies*] Allergy (Verified 02/10/25 12:06) HPI HPI RIGHT THERAPEUTIC SIJ INJECTION: Details: Patient presents for scheduled procedure. Denies any recent cough, cold, infection, fever or other significant changes in medical history since last office visit. 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 Mother No problems noted. Social History Housing: House Housing Other:: rents a room Alcohol intake: never Patient Tobacco Use Status: Former Tobacco user e-Cigarette/Vaping Use: Never Used Second Hand Smoke Exposure: Yes Advance Directives Date on File: 07/19/20 service: No Current occupational status: disabled Cognitive needs: No Hearing needs: No Vision needs: No Physical Exam Vital Signs: Last Vital Signs Pulse 77 02/10/25 12:45 Resp 18 02/10/25 12:45 BP 144/66 H 02/10/25 12:45 Pulse Ox 98 02/10/25 12:45 Oxygen Delivery Method Room Air 02/10/25 12:45 Office Procedures AMB Joint Injection/Aspiration Joint Injection/Aspiration Details: Sacroiliac Joint Injection, right The procedure, its benefits, and its risks were explained and written informed consent was obtained from the patient. Immediately prior to starting the procedure, a time-out safety check was conducted. The patient's identification, procedure name, procedure site, and procedure laterality were confirmed with the patient. ? Patient was placed prone on the fluoroscopy table and the lumbosacral area was prepped using ChloraPrep and draped with sterile drapein standard fashion. The C-arm was rotated in a contralateral oblique fashion until the medial border of the iliac crest no longer foreshadowed the posterior sacroiliac joint line. The skin and subcutaneous tissue was anesthetized using 1 mL of 0.75% plain lidocaine with 1.5-inch 25-gauge needle in the middle region of the joint line.? A 3.5-inch 22-gauge spinal needle with small bend on the tip was slowly advanced towards the joint line, coaxial to the x-ray beam. Once bony content was obtained, the needle was easily slid into the intra-articular space.? Intra- articular needle position was confirmed using lateral fluoroscopy.? A total vol ume of 2.5mL of solution containing 40 mg triamcinolone and rest 0.5% of ropivacaine was injected intra-articularly. The stylet was reinserted and needle was removed. The patient tolerated the procedure well. Patient denied any lower extremity weakness or numbness. Patient was observed for 30 min and was discharged after fulfilling the standard discharge criteria. Coding 20060 - Sacroiliac Procedure code (CPT) selection complete Assessment & Plan Assessment & Plan (1) Sacroiliitis: Code(s): M46.1 - Sacroiliitis, not elsewhere classified Category: Medical Plan Patient is status post therapeutic right SI joint injection under fluoroscopy. Patient tolerated procedure well and was discharged home in stable condition with discharge instructions. All questions were answered. We will follow-up via telephone or in clinic to assess response to therapy. A follow-up appointment was made during today's visit. Orders: Orders FL guidance in treatment room Today Alejandra Hernandez APRN, ANIMAL ASSISTANT M53.3 - Sacrococcygeal disorders, not elsewhere classified AMB Joint Injection/Aspiration Today Galdino Garland MD M46.1 - Sacroiliitis, not elsewhere classified Coding Level of Care Code Procedure Only Diagnoses Sacroiliitis M46.1 CPT Codes Coding - Joint 9: 11631 - Sacroiliac ([id number])
--- OUTSIDE RECORDS SUMMARY | 2025-02-10 12:09 | XMS_ITS | Encounter Summary ---
Author Organization [facility] Address [address] [place] [address] Care Team Providers Care Revenue Director Name Role Phone Shayy Nieves NP Primary Care Provider Unavailabl e Encounter Details Date Type Department Care Team Description 09/29/2017 Release of Information Medical Records [address] [place] [id number] Abstract, Provider Social History Tobacco Use Types Packs/Day Years Used Date Smoking Tobacco: Never Assessed Sex Assigned at Date Recorded Not on file documented as of this encounter Plan of Treatment Not on file documented as of this encounter Visit Diagnoses Not on filedocumented in this encounter Care Teams Revenue Director Relationship Specialty Start Date End Date Shayy Nieves NP PCP - General Internal Medicine 11/13/12 documented as of this encounter
[2025-02-10 12:45] VITALS: BP 144/66; PULSE 77; RESP 18; O2SAT 98
== END 2025-02-10 12:47 | disposition home or self-care (01) ==
LOC: HO.PMCPRC 11:31
PROVIDERS: PCP Internal Medicine; Visit Provider Internal Medicine
DX: M46.1 Sacroiliitis, not elsewhere classified (principal)
CPT/HCPCS: 27096

== ENCOUNTER 2025-02-22 10:00 | Outpatient (AMB) | payer OTHER, SELFPAY ==
--- NOTE | 2025-02-22 10:04 | MHC.OFFVIS ---
Vital Signs 02/22/25 10:05 Height 5 ft 5 in Weight 229 lb 2 oz BMI 38.1 BP 136/76 Blood Pressure Location Rt brachial Position Sitting Pulse 86 Pulse Source Pulse Oximeter Pulse Oximetry (%) 97 Oxygen Delivery Method Room Air Intake Visit Reasons: 3 mo follow up Intake Note: Patient presents follow up Sleep. Labs/HST in chart(AHI-17, LIZ 81%. Start APAP 6-20cm water). Library Cataloging Technician Required: Yes Library Cataloging Technician Language: Pupil Personnel Services Director Services: Library Cataloging Technician Offered & Declined Library Cataloging Technician Name: Son Information Interpreted: non-clinical & clinical Accompanied by: Son Allergies No Known Allergies [No Known Allergies*] Allergy (Verified 02/22/25 10:08) HPI Comments Details: 65 year old Cypriot speaking male, with seizure disorder is here for review of HST. No history of recent seizures, on keppra 1000mg po BID. HST cw KARLOS AHI and oxygen desaturation is 81%, start cpap [id number] He goes to sleep at 9pm and gets up at 5am with 2 awakenings for water and 0-2 bathroom breaks. He wakes up choking, gasping for air, and snores loudly according to his . He goes to an adult day program 3x times/week from 7am to 2pm. He has a few morning headaches and usually has 1 cup and it goes away. RLS symptoms, he has burning foot pain which keeps him up at night, with pins, needles, and an uncomfortable sensation that feels better once he gets up and stretches his feet, R>L, improves with gabapentin 300mg PO TID. His memory is poor he forgets where he put articles and can not find them, has difficulty with word finding and can't recall names. His mood is irritable, and improves with better sleep, he is seeking counseling monthly. His diet is poor and is trying to eat more fruits, vegetables. He does not smoke or drink alcohol. Keppra started due to seizure 5 years ago, he fell out of bed and started to convulse, taken to [facility] and hospitalized for 2 weeks. Reviewed Labs and sleep study with his friend family friend Wilfred Jain today. 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 Mother No problems noted. Social History Housing: House Housing Other:: rents a room Alcohol intake: never Patient Tobacco Use Status: Former Tobacco user e-Cigarette/Vaping Use: Never Used Second Hand Smoke Exposure: Yes Advance Directives Date on File: 07/19/20 service: No Current occupational status: disabled Cognitive needs: No Hearing needs: No Vision needs: No Physical Exam Vital Signs: Last Vital Signs Pulse 86 02/22/25 10:05 BP 136/76 02/22/25 10:05 Pulse Ox 97 02/22/25 10:05 Oxygen Delivery Method Room Air 02/22/25 10:05 BMI result Body Mass Index 38.1 Const General: cooperative, comfortable and no acute distress Nutritional Appearance: obese Orientation/consciousness: patient oriented x3 HEENT Face and sinus: Yes normal facial exam and Yes face symmetric Throat: Yes other ([place] score of 2) Eyes Pupils: Equal, round and reactive pupils present Resp Effort & Inspection: normal respiratory effort and able to speak in complete sentences Neuro Other: neck pain with limited ROM bilaterally General: patient oriented x3 Cranial nerves: Yes Facial sensation intact/muscles of mastication intact, Yes Equal, round and reactive pupils present, Yes Normal accommodation reflex present, Yes Bilaterally intact EOM present, Yes Normal facial strength present, Yes Midline tongue present and Yes Ability to bilaterally elevate shoulders present Gait exam (Neuro): Normal gait present and Other gait observations present (Leans to the left) Motor exam (neuro): 5/5 motor strength present throughout and Normal motor muscle tone present throughout Psych Affect: normal affect Thought process: Normal thought process present Thought content: Normal thought content present Results Reviewed Results Reviewed: HST cw moderate karlos AHI 17 and oxygen liz 81%, will start him on CPAP [id number]. Assessment & Plan Assessment & Plan (1) Fatigue due to sleep pattern disturbance: Code(s): R53.83 - Other fatigue; G47.9 - Sleep disorder, unspecified Category: Medical (2) RLS (restless legs syndrome): Code(s): G25.81 - Restless legs syndrome Category: Medical (3) KARLOS (obstructive sleep apnea): Code(s): G47.33 - Obstructive sleep apnea (adult) (pediatric) Category: Medical (4) Bilateral neck pain: Code(s): M54.2 - Cervicalgia Category: Medical Plan KARLOS HST c/w moderate karlos AHI is 17, start cpap therapy [id number]. Labs reviewed with patient today wnl. RLS continue Gabapentin contunue 300 mg po TID. PT Bilateral Neck pain with limited ROM Orders: Orders PT Evaluation and Treatment Today M54.2 - Cervicalgia Patient Instructions: Sleep Hygiene provided: set a scheduled bedtime and wake time to help regulate the circadian rhythm and balance the release of pituitary hormones. Sleep in a dark room, temperatures below 68 degrees, and no devices n bed. Limit caffeinated products 6 hours prior to bed, and limit fluids 2-4 hours prior to bed. Gentle night yoga, diffusing essential oils, and playing soft music can be relaxing. Coding Level of Care Code Est Pt Level 4 (84476) Diagnoses Fatigue due to sleep pattern disturbance R53.83; G47.9 RLS (restless legs syndrome) G25.81 KARLOS (obstructive sleep apnea) G47.33 Bilateral neck pain M54.2 Time Spent (min) 30 Comment improving
[2025-02-22 10:05] VITALS: BP 136/76; PULSE 86; O2SAT 97; BMI 38.1
--- OUTSIDE RECORDS SUMMARY | 2025-02-22 11:28 | XMS_ITS | Encounter Summary ---
Author Organization [employer] [facility] Address [address] [place] [address] Care Team Providers Care Passenger Service Representative Name Role Phone Unavailable Primary Care Provider Unavailabl e Encounter Details Date Type Department Care Team (Latest Contact Info) Description 02/18/2019 Abstract [facility] CONVERSIONS Dental, Provider, DDS Social History [...]
== END 2025-02-22 10:45 | disposition home or self-care (01) ==
LOC: HO.HSMS 10:01
PROVIDERS: PCP Internal Medicine; Visit Provider Physician Assistant Medical
DX: R53.83 Other fatigue (principal); G47.9 Sleep disorder, unspecified; G25.81 Restless legs syndrome; G47.33 Obstructive sleep apnea (adult) (pediatric); M54.2 Cervicalgia
CPT/HCPCS: 99214

== ENCOUNTER → 2025-02-22 10:00 | Outpatient (BNVA) | payer OTHER, SELFPAY | PROVIDERS: PCP Internal Medicine; Visit Provider Physician Assistant Medical | DX: G47.33 Obstructive sleep apnea (adult) (pediatric) (principal); G25.81 Restless legs syndrome; G47.9 Sleep disorder, unspecified; R53.83 Other fatigue; M54.2 Cervicalgia | CPT/HCPCS: 99212 ==

== ENCOUNTER 2025-03-07 11:22 | Outpatient (AMB) | payer OTHER, SELFPAY ==
--- NOTE | 2025-03-07 11:25 | A.OFFVIS_ITS ---
Vital Signs 03/07/25 11:28 Height 5 ft 5 in Weight 223 lb BMI 37.1 BP 140/67 H Blood Pressure Location Lt brachial Position Sitting Pulse 88 Pulse Source Pulse Oximeter Pulse Oximetry (%) 100 Oxygen Delivery Method Room Air Intake Visit Reasons: s/p right theraputic SIJ inj Intake Note: Pain today 0/10 Revenue Settlements Administrator Required: Yes Revenue Settlements Administrator Language: Polymerization Engineer Name: Son Accompanied by: Son Allergies No Known Allergies [No Known Allergies*] Allergy (Verified 03/07/25 11:30) HPI Comments Details: Patient presents today for follow up and to assess response to recent right therapeutic SI joint injection on 02/10/[address] Garland. Patient reports ongoing 100% pain relief in the projection of right SIJ area with improvement in his general daily activities, functioning, sleep and social interactions. His most recent A1C was 6.3 on 01/24/23. Patient rates his pain level at 0/10 today and provocative SIJ testing does not reproduce his pain. Patient denies any fever, bowel or bladder incontinence or saddle anesthesia. Past Procedures: 02/10/25: Right Therapeutic Sacroiliac Joint Injection-ongoing 100% pain relief 06/29/24: Right Therapeutic Sacroiliac Joint Injection-ongoing 100% pain relief 04/23/23: Right Therapeutic Sacroiliac Joint Injection-ongoing 90% pain relief x11 months 06/05/22: Diagnostic Right SIJ innervation with Dreyfuss technique -100% pain relief for over 48 hours PRIOR: The patient is a 64-year-old male presenting with follow-up to discuss recent lumbar spine MRI results and follow up on right sided low back pain with radicul ar symptoms. His recent MRI study however, have not shown any significant spinal stenosis or nerve compression. Multilevel spondylosis and disc degeneration with mild narrowing is present at the left L4-L5 area, but this finding does not correlate with his symptomatic pattern on the right. Patient denies any symptoms in the left leg. His pain is localized to right side side of the back and right buttock and into anterior right thigh. SI joint provocative testing significantly increase his symptoms for increase in right back and leg pain. Patient is interested to repeat therapeutic right SI joint injection, he responded well to previous SI joint injections. During the discussion, it was noted that he may have fallen from bed, but the details were not clear. He does not use assisting devices for ambulation but reports some instability while walking. Patient is interested in use of cane support with ambulation. Denies any recent cough, cold, infection, fever or any other significant changes in medical history since last office visit. PRIOR: The patient is a 64-year-old male presenting with chronic lower back pain with right sided radiculopathy. His pain has worsened over time and is described as burning and shooting, primarily in the lower back with radiation to the right leg, particularly along the L4-L5 distribution. He rates pain at 8/10. Denies any recent trauma, injury or falls. Family reports patient had mechanical fall on ice during winter time and last summer which exacerbated his hip and right sided low back pain. His pain worsens with certain movements, notably leaning backwards and flexing forward or bending, prolonged walking or standing. He does not have significant pain while resting or sitting but has increased pain from getting up from chair. The pain affects his daily activities and impairs his sleep, necessitating frequent breaks while walking. He also experiences occasional numbness and tingling. Patient is attributing issues to the SI joint or hip and has responded well to previous therapeutic SIJ injections. He takes gabapentin, cyclobenzaprine, lidocaine, and Ibuprofen for pain management. Patient denies previous lumbar spine MRI. Denies any fever or chills, abdominal or groin pain, weakness, foot drop, bowel or bladder dysfunction or saddle anesthesia. - Onset and Timing: Chronic lower back pain with notable recent exacerbation. - Quality and Character: Described as burning, shooting, aching, throbbing, numbness, tingling - Primary Location and Radiation: Lower back pain radiating to the right leg (L4-L5 distribution). - Exacerbating Factors: Movement, especially bending and leaning backward, walking, standing - Relieving Factors: Altering positions, particularly lateral positions during sleep, sitting, resting. - Interference: Limits walking distance, affects sleep quality and position changes. - Affect: Pain impacts quality of sleep and necessitates frequent breaks while walking. - Analgesia: Current medications include gabapentin, cyclobenzaprine, Ibuprofen, lidocaine patches - Adverse Effects: Reports cyclobenzaprine can cause drowsiness. - Activities of Daily Living: Pain impairs walking distances, affecting ability to walk more than a short distance without rest. - Aberrant Drug Related Behaviors: None reported. 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 Mother No problems noted. Social History Housing: House Housing Other:: rents a room Alcohol intake: never Patient Tobacco Use Status: Former Tobacco user e-Cigarette/Vaping Use: Never Used Second Hand Smoke Exposure: Yes Advance Directives Date on File: 07/19/20 service: No Current occupational status: disabled Cognitive needs: No Hearing needs: No Vision needs: No Review of Systems Const All systems reviewed & are unremarkable except as noted in HPI and below Physical Exam General: Appears afebrile. Alert and oriented. Mood and affect appropriate. Follows and participates in conversation appropriately. Respiratory effort is unlabored. No cough. Able to transition from sit to stand unassisted. Ambulates with bilaterally normal heel strike and toe off, limping on the right occasionally, denies imbalance. General: Yes no CVA tenderness Back/Spine/Pelvis Back: no CVA tenderness and No back tenderness Cervical Spine: cervical ROM normal and No Cervical spine tenderness Thoracic/Lumbar Spine: thoracic and lumbar spine normal to inspection, No Thoracic/lumbar spine scar(s), Lasegue's sign negative, straight leg raise negative bilaterally, No pain with thoraco-lumbar ROM, paraspinal muscle tenderness, thoraco-lumbar ROM limited, No thoracic spinal tenderness, No lumbar spinal tenderness and No straight leg raise positive Pelvis: no buttock tenderness and no sciatic notch tenderness Sacroiliac joints: bilaterally nontender Results Reviewed Results Reviewed: MR lumbar spine without intravenous contrast 01/03/25 Comparison: None available Findings: Transitional vertebral anatomy with partial sacralization of the L5. No acute compression deformity of the 5 lumbar vertebrae. Heterogeneous marrow signal accentuated by multiple scattered hemangiomas with borderline low T1 marrow signal at thoracolumbar junction. Edge of the field artifacts noted including on the STIR imaging. The conus terminates at L1-L2. Mild perinephric stranding. No drainable paraspinal fluid collection. Mild muscle signal as can be seen with muscle strain and mild myositis. L1-L2: Small annular fissure and bilateral facet arthropathy. No spinal stenosis. L2-L3: Disc bulge and bilateral facet arthropathy. No spinal stenosis. L3-L4: Disc bulge and bilateral facet arthropathy. No spinal stenosis. L4-L5: Disc bulge, annular fissure, endplate hypertrophy, and bilateral facet arthropathy. No spinal canal stenosis. Mild left foraminal narrowing. L5-S1: Disc bulge, annular fissure, endplate hypertrophy, and bilateral facet arthropathy. No spinal stenosis. IMPRESSION: 1. Multifocal degenerative changes including degenerative disc changes and multilevel facet arthropathy. 2. Heterogeneous marrow signal is nonspecific and accentuated by scattered hemangiomas. 3. Mild left-sided foraminal narrowing at L4-L5. Assessment & Plan Assessment & Plan (1) Lumbosacral spondylolysis: Code(s): M43.07 - Spondylolysis, lumbosacral region Category: Medical (2) Sacroiliac joint pain: Code(s): M53.3 - Sacrococcygeal disorders, not elsewhere classified Category: Medical Plan Patient is status post therapeutic intra-articular right SIJ injection on 02/10/25 with 100% ongoing pain relief with significant improvement in his ADLs, mobility, sleep and social interactions. Patient is aware that he can not receive another injection in this area for another three months and will notify our office when his pain returns to baseline. Patient is aware to monitor for side effects. All questions were answered and the patient is in agreement of plan. Follow up as needed. Coding Level of Care Code Est Pt Level 3 (18039) Complex EM visit Add On G2211 Diagnoses Lumbosacral spondylolysis M43.07 Sacroiliac joint pain M53.3
[2025-03-07 11:28] VITALS: BP 140/67; PULSE 88; O2SAT 100; BMI 37.1
--- OUTSIDE RECORDS SUMMARY | 2025-03-07 12:58 | XMS_ITS | Encounter Summary ---
Author Organization [employer] [facility] Address [address] [place] [address] Care Team Providers Care Elementary School Principal Name Role Phone Unavailable Primary Care Provider Unavailabl e Encounter Details Date Type Department Care Team (Latest Contact Info) Description 02/18/2019 Abstract [facility] CONVERSIONS Dental, Provider, DDS Social History [...]
== END 2025-03-07 11:34 | disposition home or self-care (01) ==
LOC: HO.PMC 11:23
PROVIDERS: PCP Internal Medicine; Visit Provider Nurse Practitioner Family
DX: M43.07 Spondylolysis, lumbosacral region (principal); M53.3 Sacrococcygeal disorders, not elsewhere classified
CPT/HCPCS: 99213; G2211

== ENCOUNTER → 2025-03-07 11:22 | Outpatient (BNVA) | payer OTHER, SELFPAY | PROVIDERS: PCP Internal Medicine; Visit Provider Nurse Practitioner Family | DX: M43.07 Spondylolysis, lumbosacral region (principal); M53.3 Sacrococcygeal disorders, not elsewhere classified | CPT/HCPCS: 99212 ==

== ENCOUNTER 2025-05-24 10:12 | Outpatient (AMB) | payer OTHER, SELFPAY ==
--- NOTE | 2025-05-24 10:22 | A.OFFVIS_ITS ---
Vital Signs 05/24/25 10:27 Height 5 ft 5 in Weight 232 lb 5.875 oz BMI 38.7 BP 130/64 Blood Pressure Location Lt brachial Position Sitting Pulse 76 Pulse Source Monitor Intake Visit Reasons: 1 yr f/up Disease Control Inspector Required: No Disease Control Inspector Services: Disease Control Inspector Offered & Declined Disease Control Inspector Name: friend/ vietnamese Accompanied by: Friend Allergies No Known Allergies (No Known Allergies*) Allergy (Verified 03/07/25 11:30) Medication List - Last Reconciled 05/24/25 by Isaak Pederson MD aspirin 81 mg PO DAILY 90 days blood sugar diagnostic (FreeStyle Lite Strips) USE DIRECTED TO TEST BLOOD SUGAR TWICE DAILY blood-glucose meter (FreeStyle Lite Meter kit) TEST TWICE DAILY cane As directed cholecalciferol (vitamin D3) 50 mcg PO DAILY 90 days citalopram 20 mg PO DAILY 30 days cyanocobalamin (vitamin B-12) (Vitamin B-12) 1,000 mcg PO DAILY cyclobenzaprine 10 mg PO TID PRN diclofenac sodium 1% 2 grams topical QID ferrous sulfate (FeroSul) 325 mg PO DAILY gabapentin 300 mg PO TID 30 days ibuprofen 400 mg PO TID PRN insulin glargine 33 units (0.33 mL) subcut BEDTIME lancets (FreeStyle Lancets) 28 gauge topical BID levetiracetam 1,000 mg PO BID 30 days lidocaine 5% 1 patch topical DAILY melatonin 6 mg (2 x 3 mg) PO BEDTIME PRN 90 days metformin 1,000 mg (2 x 500 mg) PO BID 90 days mometasone 0.1% 1 appl topical DAILY PRN omeprazole 40 mg PO QAM 30 days pen needle, diabetic USE TWICE DAILY DIRECTED simvastatin 40 mg PO BEDTIME 30 days trazodone 150 mg PO BEDTIME PRN triamcinolone acetonide 0.5% 1 appl topical BID PRN HPI Comments Details: Wilfred returns for follow-up regarding anomalous coronary arteries. In the past, he had atypical chest pain that led to further workup. He underwent stress testing and coronary CTA. That showed normal coronary artery. He was seen by adult Congenital heart Disease but then resorted to conservative care only. Since last seen, no new concerns. He states he is feeling good. No clear angina or any concerning cardiac symptoms. 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 Mother No problems noted. Social History Housing: House Housing Other:: rents a room Alcohol intake: never Patient Tobacco Use Status: Former Tobacco user e-Cigarette/Vaping Use: Never Used Second Hand Smoke Exposure: Yes Advance Directives Date on File: 07/19/20 service: No Current occupational status: disabled Cognitive needs: No Hearing needs: No Vision needs: No Review of Systems Const Denies chills, Denies fatigue, Denies fever(s), Denies frequent falls, Denies weakness, Denies weight gain and Denies weight loss ENT Denies dizziness Card Denies chest pain, Denies leg edema, Denies lightheadedness, Denies palpitations, Denies dyspnea and Denies dyspnea on exertion Resp Denies cough, Denies dyspnea and Denies dyspnea on exertion GI Denies hematochezia Musc Denies abnormal gait, Denies muscle weakness, Denies numbness, Denies radiating pain into limb and Denies tingling Neuro Denies abnormal gait, Denies dizziness, Denies frequent falls, Denies numbness, Denies tingling and Denies weakness Endo Denies fatigue and Denies palpitations Physical Exam Vital Signs: Last Vital Signs Pulse 76 05/24/25 10:27 BP 130/64 05/24/25 10:27 BMI result Body Mass Index 38.7 Const General: comfortable and no acute distress Orientation/consciousness: patient oriented x3 HEENT Other: Unremarkable Head: Yes normal to inspection Neck Neck: Yes normal visual inspection Chest Chest palpation & inspection: normal inspection of the chest Resp Auscultation: clear to auscultation bilaterally Cardio Palpation: normal PMI Heart sounds: S1 normal heart sound present, S2 normal heart sound present, no gallops, no murmurs and no rubs GI Palpation (GI): Soft to palpation Back/Spine/Pelvis Other: unremarkable Skin General skin exam: no rashes or lesions noted Neuro General: patient oriented x3 Extrem General: Yes normal to inspection Psych Mental Status: mental status grossly normal Office Procedures EKG Details: EKG with underlying sinus rhythm at 76/Min; leftward axis; voltage criteria for LVH; possible old inferior infarct; [place] [id number], Complete Assessment & Plan Assessment & Plan (1) Anomalous right coronary artery: Code(s): Q24.5 - Malformation of coronary vessels Category: Medical Plan Cardiac studies reviewed. During the stress test, he was able to walk only for 12 seconds before being converted to Lexiscan. In the perfusion images, no obvious perfusion ab normality. Echocardiogram had shown basal inferior/inferoseptal wall motion abnormality/akinesis. 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 Otherwise, minimal scattered plaque without any significant stenosis. Case previously discussed with adult congenital heart disease, Dr. Palacio. It was felt that the condition did not warrant operative repair and probably not causing any active symptoms. In the absence of any symptoms, we will continue to monitor him. If any concerning symptoms like chest pain, they will contact us immediately. Discussed with his friend who came for appointment and also help with translation. Follow up in one year. Total time spent including review of data, counseling, documentation, coordination of care-31 minutes. Coding Level of Care Code Est Pt Level 4 (64129) Diagnoses Anomalous right coronary artery Q24.5 CPT Codes EKG - CPT: 68345-[id number], Complete ([id number])
[2025-05-24 10:27] VITALS: BP 130/64; PULSE 76; BMI 38.7
--- OUTSIDE RECORDS SUMMARY | 2025-05-24 11:39 | XMS_ITS | Encounter Summary ---
Author Organization [facility] Address [address] [place] [address] Care Team Providers Care Commission Associate Name Role Phone Shayy Nieves NP Primary Care Provider Unavailabl e Encounter Details Date Type Department Care Team Description 09/29/2017 Release of Information Medical Records [address] [place] [id number] Abstract, Provider Social History Tobacco Use Types Packs/Day Years Used Date Smoking Tobacco: Never Assessed Sex Assigned at Date Recorded Not on file documented as of this encounter Plan of Treatment Not on file documented as of this encounter Visit Diagnoses Not on filedocumented in this encounter Care Teams Commission Associate Relationship Specialty Start Date End Date Shayy Nieves NP PCP - General Internal Medicine 11/13/12 documented as of this encounter
--- OUTSIDE RECORDS SUMMARY | 2025-05-24 11:39 | XMS_ITS | Encounter Summary ---
Author Organization [employer] [facility] Address [address] [facility] [address] [place] [address] Care Team Providers Care Preanalytics Team Lead Name Role Phone Unavailable Primary Care Provider Unavailabl e Encounter Details Date Type Department Care Team (Latest Contact Info) Description 02/18/2019 Abstract [facility] CONVERSIONS Dental, Provider, DDS Social History [...]
--- OUTSIDE RECORDS SUMMARY | 2025-05-24 11:40 | XMS_ITS | Clinical Summary ---
Author Organization [employer] Address [address] [facility] [address] [place] [address] Care Team Providers Care Telephone Repairer Name Role Phone Unavailable Primary Care Provider [...] Vaccine ( season) 2024 08/10/2021, 02/07/2021, 01/10/2021 Tobacco Screening 05/29/2024 05/29/2023 Influenza Vaccine (#1) 2025 , 08/10/2021, 09/13/2020, Additional history exists Dental X-Ray: Full Mouth 04/09/2026 04/08/2023, 01/20 [...] Relevant to Health Maintenance Insurance DENTAL - [facility]
--- OUTSIDE RECORDS SUMMARY | 2025-05-24 11:40 | XMS_ITS | Encounter Summary ---
Author Organization [employer] Address [address] [facility] [address] [place] [address] Care Team Providers Care Yard Laborer Name Role Phone Unavailable Primary Care Provider Unavailabl e Encounter Details Date Type Department Care Team (Late st Contact Info) Description 05/06/2023 Abstract [facility] ADULT DENTAL [address] [place] [address] Dasha, Vikki [address] [place], [place] [phone] Social History Tobacco Use Types Packs/Day Years [...]
== END 2025-05-24 10:49 | disposition home or self-care (01) ==
LOC: HO.HCS 10:13
PROVIDERS: PCP Internal Medicine; Visit Provider Internal Medicine
DX: Q24.5 Malformation of coronary vessels (principal)
CPT/HCPCS: 93010; 99214

== ENCOUNTER → 2025-05-24 10:12 | Outpatient (BNVA) | payer OTHER, SELFPAY | PROVIDERS: PCP Internal Medicine; Visit Provider Internal Medicine | DX: Z71.2 Person consulting for explanation of examination or test findings (principal); Q24.5 Malformation of coronary vessels | CPT/HCPCS: 93005; 99212 ==

== ENCOUNTER 2025-05-26 08:54 | Outpatient (AMB) | payer OTHER, SELFPAY ==
--- NOTE | 2025-05-26 09:00 | MHC.OFFVIS ---
Vital Signs 05/26/25 09:01 Height 5 ft 5 in Weight 232 lb 6 oz BMI 38.7 BP 130/76 Blood Pressure Location Lt brachial Position Sitting Pulse 79 Pulse Source Pulse Oximeter Pulse Oximetry (%) 96 Oxygen Delivery Method Room Air Intake Visit Reasons: 3 mo follow up Intake Note: Patient presents follow up KARLOS. No compliance(received CPAP 03/21 looks like returned after 14days never used). Returned CPAP due to not being able to breath. Personnel Associate Required: Yes Personnel Associate Language: Nailing Machine Feeder Services: Personnel Associate Offered & Declined Personnel Associate Name: Son Information Interpreted: non-clinical & clinical Accompanied by: Son Allergies No Known Allergies (No Known Allergies*) Allergy (Verified 05/26/25 09:06) HPI Comments Details: 65 year old Belarusian speaking male, with a h/o seizure disorder is here for review of sleep apnea. Interval Med Hx: No recent h/o of seizures since last visit he is on Keppra 1000mg po BID for over 5 years. 01/2025 HST cw AHI of 17 and oxygen desaturation to 81%, start cpap [id number]. He says he feels as if he is going to fall off a jose when using his cpap and he returned the cpap after 2x falls from his bed. He goes to sleep at 10pm and gets up at 4am and is unable to fall asleep. He has 1 night time awakening for the bathroom. He wakes up choking, gasping for air, and snores loudly according to his . He attends an adult day program 3x times/week from 7am to 2pm. He has a few morning headaches which usually go away with 1 cup of coffee. RLS symptoms, he has burning bilateral foot pain which keeps him up at night, with paresthesias, pins, needles, and an uncomfortable sensation that improves with Gabapentin 300mg PO TID. His memory is poor he forgets where he places items, can not find them, has difficulty with word finding and can't recall names. He has dialogues with himself and has / seeing people who are in his room, usually his parents and brothers. His mood is sad, he sees his therapist 1x a month.His diet is poor and is trying to eat less rice, pasta and more baked chicken with salads.He does not smoke or drink alcohol. Reviewed Labs and sleep study with his friend family friend Wilfred Jain today, we discussed the importance of cpap use and pt. says he understands and will try to use it again. 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 Mother No problems noted. Social History Housing: House Housing Other:: rents a room Alcohol intake: never Patient Tobacco Use Status: Former Tobacco user e-Cigarette/Vaping Use: Never Used Second Hand Smoke Exposure: Yes Advance Directives Date on File: 07/19/20 service: No Current occupational status: disabled Cognitive needs: No Hearing needs: No Vision needs: No Physical Exam Vital Signs: Last Vital Signs Pulse 79 05/26/25 09:01 BP 130/76 05/26/25 09:01 Pulse Ox 96 05/26/25 09:01 Oxygen Delivery Method Room Air 05/26/25 09:01 BMI result Body Mass Index 38.7 Const General: cooperative, comfortable and no acute distress Nutritional Appearance: obese Orientation/consciousness: patient oriented x3 HEENT Face and sinus: Yes normal facial exam and Yes face symmetric Throat: Yes other ([place] score of 2) Eyes Pupils: Equal, round and reactive pupils present Resp Effort & Inspection: normal respiratory effort and able to speak in complete sentences Neuro Other: neck pain with limited ROM bilaterally General: patient oriented x3 and moves all extremities Cranial nerves: Yes Facial sensation intact/muscles of mastication intact, Yes Equal, round and reactive pupils present, Yes Normal accommodation reflex present, Yes Bilaterally intact EOM present, Yes Normal facial strength present, Yes Midline tongue present and Yes Ability to bilaterally elevate shoulders present Gait exam (Neuro): Normal gait present and Other gait observations present (Leans to the left) Motor exam (neuro): 5/5 motor strength present throughout and Normal motor muscle tone present throughout Psych Appearance: well kempt Mental Status: other (can not assess visual and auditory hallucinations) Speech and movement: Slowed movement present (Neuro) Affect: normal affect Thought process: Normal thought process present Thought content: Normal thought content present Results Reviewed Results Reviewed: HST Labs Assessment & Plan Assessment & Plan (1) KARLOS (obstructive sleep apnea): Code(s): G47.33 - Obstructive sleep apnea (adult) (pediatric) Category: Medical (2) Fatigue due to sleep pattern disturbance: Code(s): R53.83 - Other fatigue; G47.9 - Sleep disorder, unspecified Category: Medical (3) RLS (restless legs syndrome): Code(s): G25.81 - Restless legs syndrome Category: Medical (4) Bilateral neck pain: Code(s): M54.2 - Cervicalgia Category: Medical (5) Anxiety: Code(s): F41.9 - Anxiety disorder, unspecified Category: Medical Plan KARLOS HST c/w moderate karlos AHI is 17, start cpap therapy [id number], will send rx and change mask for a full mask. Labs reviewed with patient today and he is anemic, will re-check in 3 months. RLS/ peripheral neuropathy continue Gabapentin continue 300 mg po TID. Anxiety and depression increase citalopram from 20mg po daily to 30mg po daily, he is having Auditory / Visual Hallucinations. Continue Trazadone for sleep and Melatonin 6mg po, Continue B12 1000mcg daily and Vitamin D 2000units daily. Continue Levetiracetam/keppra for seizure disorder 1000mg po bid Continue Walking daily and if not tolerable due to foot pain go to the pool or / [employer] to get into the water or daily biking for 3 min. f/u in 3 months Orders: Orders Vitamin D 25-OH Total Today R79.89 - Other specified abnormal findings of blood chemistry Ferritin Today R79.89 - Other specified abnormal findings of blood chemistry IRON PROFILE Today G47.9 - Sleep disorder, unspecified, R53.83 - Other fatigue, R79.89 - Other specified abnormal findings of blood chemistry Vitamin B12 and Folate Today R79.89 - Other specified abnormal findings of blood chemistry Homocysteine Today G47.9 - Sleep disorder, unspecified, R53.83 - Other fatigue, R79.89 - Other specified abnormal findings of blood chemistry Methylmalonic Acid Today G47.9 - Sleep disorder, unspecified, R53.83 - Other fatigue, R79.89 - Other specified abnormal findings of blood chemistry Medications: Changed From citalopram 20 mg PO DAILY 30 days 30 tabs 3RF F41.9 - Anxiety disorder, unspecified To citalopram 30 mg (1.5 x 20 mg) PO DAILY 45 tabs 3RF 30 days F41.9 - Anxiety disorder, unspecified Refilled cyanocobalamin (vitamin B-12) (Vitamin B-12) 1,000 mcg PO DAILY 90 tabs 3RF cholecalciferol (vitamin D3) 50 mcg PO DAILY 90 caps 3RF 90 days E55.9 - Vitamin D deficiency, unspecified Patient Instructions: Sleep Hygiene provided: set a scheduled bedtime and wake time to help regulate the circadian rhythm and balance the release of pituitary hormones. Sleep in a dark room, temperatures below 68 degrees, and no devices n bed. Limit caffeinated products 6 hours prior to bed, and limit fluids 2-4 hours prior to bed. Gentle night yoga, diffusing essential oils, and playing soft music can be relaxing. Coding Level of Care Code Est Pt Level 4 (18295) Diagnoses KARLOS (obstructive sleep apnea) G47.33 Fatigue due to sleep pattern disturbance R53.83; G47.9 RLS (restless legs syndrome) G25.81 Bilateral neck pain M54.2 Anxiety F41.9
[2025-05-26 09:01] VITALS: BP 130/76; PULSE 79; O2SAT 96; BMI 38.7
--- OUTSIDE RECORDS SUMMARY | 2025-05-26 09:25 | XMS_ITS | Encounter Summary ---
Author Organization [employer] Address [address] [facility] [address] [place] [address] Care Team Providers Care Rn Admission Name Role Phone Unavailable Primary Care Provider Unavailabl e Encounter Details Date Type Department Care Team (Late st Contact Info) Description 05/06/2023 Abstract [facility] ADULT DENTAL [address] [place] [address] Dasha, Vikki [address] [place], [place] [phone] Social History Tobacco Use Types Packs/Day Years [...]
--- OUTSIDE RECORDS SUMMARY | 2025-05-26 09:25 | XMS_ITS | Encounter Summary ---
Author Organization [employer] [facility] Address [address] [facility] [address] [place] [address] Care Team Providers Care Internet Marketing Coordinator Name Role Phone Unavailable Primary Care Provider Unavailabl e Encounter Details Date Type Department Care Team (Latest Contact Info) Description 02/18/2019 Abstract [facility] CONVERSIONS Dental, Provider, DDS Social History [...]
--- OUTSIDE RECORDS SUMMARY | 2025-05-26 09:25 | XMS_ITS | Clinical Summary ---
Author Organization [employer] Address [address] [facility] [address] [place] [address] Care Team Providers Care [employer] Name Role Phone Unavailable Primary Care Provider [...] 04/30/2023, 1 10/27/2018, 02/18/2019, Additional history exists Tobacco Screening 05/29/2024 05/29/2023 COVID-19 Vaccine ( season) 2025 08/10/2021, 02/07/2021, 01/10/2021 Influenza Vaccine (#1) 2025 , 08/10/2021, 09/13/2020, [...] Relevant to Health Maintenance Insurance DENTAL - [facility]
== END 2025-05-26 10:02 | disposition home or self-care (01) ==
LOC: HO.HSMS 08:55
PROVIDERS: PCP Internal Medicine; Visit Provider Physician Assistant Medical
DX: G47.33 Obstructive sleep apnea (adult) (pediatric) (principal); R53.83 Other fatigue; G47.9 Sleep disorder, unspecified; G25.81 Restless legs syndrome; M54.2 Cervicalgia; F41.9 Anxiety disorder, unspecified
CPT/HCPCS: 99214

== ENCOUNTER → 2025-05-26 08:54 | Outpatient (BNVA) | payer OTHER, SELFPAY | PROVIDERS: PCP Internal Medicine; Visit Provider Physician Assistant Medical | DX: G47.33 Obstructive sleep apnea (adult) (pediatric) (principal); R53.83 Other fatigue; G47.9 Sleep disorder, unspecified; G25.81 Restless legs syndrome; M54.2 Cervicalgia; F41.9 Anxiety disorder, unspecified | CPT/HCPCS: 99212 ==

== ENCOUNTER 2025-06-08 11:27 | Outpatient (REF) | payer OTHER, SELFPAY ==
[2025-06-08 12:08] LABS: MANUAL DIFF FLAG NO
[2025-06-08 12:11] LABS: Hematocrit 39.0 % (42.0-52.0); Hemoglobin 12.4 g/dl (14.0-18.0); Imm Gran Abs Auto 0.06 X10*3/uL (0.00-0.03); Imm Gran Pct Auto 0.7 % (0.0-0.4); Lymphocytes Absolute Auto 1.7 X10*3/uL (1.2-4.9); Mean Corpuscular HGB Conc 31.8 g/dl (31.0-36.0); Mean Corpuscular Hemoglobin 26.7 pg (27.0-33.0); Mean Corpuscular Volume 83.9 fL (80.0-98.0); NRBC Abs Auto 0.000 X10*3/uL (0.0-0.012); NRBC Pct Auto 0.0 /100WBC (0.0-0.2); Platelet Count 186 X10*3/uL (160-400); Red Blood Count 4.65 X10*6/uL (4.60-5.80); White Blood Count 8.2 X10*3/uL (4.8-10.8)
[2025-06-08 12:24] LABS: Hemoglobin A1C 163.3546 umol/L; Total Hemoglobin (HGBA1C) 3285.0317 umol/L
[2025-06-08 12:32] LABS: Appearance Urine Clear; Glucose Urine UA Negative (Negative); PH 7.5 (5.0-9.0); Specific Gravity - Urine 1.015 (1.005-1.025)
[2025-06-08 12:36] LABS: Alanine Aminotransferase 18 U/L (0-40); Albumin Level 4.4 g/dL (3.5-5.0); Alkaline Phosphatase 85 U/L (39-117); Anion Gap 10 (12-20); Aspartate Amino Transferase 20 U/L (5-37); Blood Urea Nitrogen 12 mg/dL (9-16); Calcium 10.1 mg/dL (8.4-10.2); Carbon Dioxide 26 mmol/L (22-29); Chloride 110 mmol/L (96-108); Cholesterol 102 mg/dL (<200); Estimated Glomerular Filt Rate > 60; HDL Cholesterol 40 mg/dL (>40); Iron 65 mcg/dL (45-160); Percent Iron Saturation 28 % (15-50); Potassium 4.1 mmol/L (3.3-5.1); Sodium 142 mmol/L (135-145); Total Iron Binding Capacity 232 mcg/dL (228-428); Total Protein 7.0 g/dL (6.5-8.0); Triglycerides 93 mg/dL (<150); Unsaturated Iron Binding 167 ug/dL
[2025-06-08 12:48] LABS: Ferritin 125 ng/mL (20-250)
[2025-06-08 13:03] LABS: Folate 5.8 ng/mL (> or = 4.0); Folate 5.9 ng/mL (> or = 4.0); Vitamin B12 882 pg/mL (200-900); Vitamin B12 897 pg/mL (200-900)
--- OUTSIDE RECORDS SUMMARY | 2025-06-08 14:50 | XMS_ITS | Encounter Summary ---
Author Organization [employer] [facility] Address [address] [facility] [address] [place] [address] Care Team Providers Care Correspondence Transcriber Name Role Phone Unavailable Primary Care Provider Unavailabl e Encounter Details Date Type Department Care Team (Latest Contact Info) Description 02/18/2019 Abstract [facility] CONVERSIONS Dental, Provider, DDS Social History [...]
--- OUTSIDE RECORDS SUMMARY | 2025-06-08 14:50 | XMS_ITS | Encounter Summary ---
Author Organization [employer] Address [address] [facility] [address] [place] [address] Care Team Providers Care Hand Spinner Name Role Phone Unavailable Primary Care Provider Unavailabl e Encounter Details Date Type Department Care Team (Late st Contact Info) Description 05/06/2023 Abstract [facility] ADULT DENTAL [address] [place] [address] Dasha, Vikki [address] [place], [place] [phone] Social History Tobacco Use Types Packs/Day Years [...]
--- OUTSIDE RECORDS SUMMARY | 2025-06-08 14:50 | XMS_ITS | Clinical Summary ---
Author Organization [employer] Address [address] [facility] [address] [place] [address] Care Team Providers Care Director Of Primary Care Name Role Phone Unavailable Primary Care Provider [...] Relevant to Health Maintenance Insurance DENTAL - [facility]
[2025-06-14 03:28] LABS: Levetiracetam Keppra 17.8 mcg/mL (6.0-46.0)
== END 2025-06-08 11:28 | disposition home or self-care (01) ==
LOC: HO.LAB 11:27
PROVIDERS: Absent Provider Physician Assistant Medical; PCP Internal Medicine; Visit Provider Internal Medicine
DX: G40.909 Epilepsy, unspecified, not intractable, without status epilepticus (principal); E53.8 Deficiency of other specified B group vitamins; E11.9 Type 2 diabetes mellitus without complications; R30.0 Dysuria; R79.89 Other specified abnormal findings of blood chemistry; R53.83 Other fatigue; D64.9 Anemia, unspecified; E78.00 Pure hypercholesterolemia, unspecified; E55.9 Vitamin D deficiency, unspecified; G47.9 Sleep disorder, unspecified
CPT/HCPCS: 36415; 80053; 80061; 80177; 81003; 82043; 82306; 82570; 82607; 82728; 82746; 83036; 83090; 83540; 83921; 84443; 85025

== ENCOUNTER 2025-06-20 10:15 | Outpatient (AMB) | payer OTHER, SELFPAY ==
[2025-06-20 10:27] VITALS: BP 122/80; PULSE 97; O2SAT 96; BMI 38.2
--- NOTE | 2025-06-20 10:27 | A.OFFPC_ITS ---
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 Required: No Accompanied by: Self / Same As Patient Allergies No Known Allergies (No Known Allergies*) Allergy (Verified 06/20/25 11:03) Medication List - Last Reconciled 06/20/25 by Xavi Mart MD aspirin 81 mg PO DAILY 90 days blood sugar diagnostic (FreeStyle Lite Strips) USE DIRECTED TO TEST BLOOD SUGAR TWICE DAILY blood-glucose meter (FreeStyle Lite Meter kit) TEST TWICE DAILY cane As directed cholecalciferol (vitamin D3) 50 mcg PO DAILY 90 days citalopram 30 mg (1.5 x 20 mg) PO DAILY 30 days cyanocobalamin (vitamin B-12) (Vitamin B-12) 1,000 mcg PO DAILY cyclobenzaprine 10 mg PO TID PRN diclofenac sodium 1% 2 grams topical QID ferrous sulfate (FeroSul) 325 mg PO DAILY gabapentin 300 mg PO TID 30 days ibuprofen 400 mg PO TID PRN insulin glargine 33 units (0.33 mL) subcut BEDTIME lancets (FreeStyle Lancets) 28 gauge topical BID levetiracetam 1,000 mg PO BID 30 days lidocaine 5% 1 patch topical DAILY melatonin 6 mg (2 x 3 mg) PO BEDTIME PRN 90 days metformin 1,000 mg (2 x 500 mg) PO BID 90 days mometasone 0.1% 1 appl topical DAILY PRN omeprazole 40 mg PO QAM 30 days pen needle, diabetic USE TWICE DAILY DIRECTED simvastatin 40 mg PO BEDTIME 30 days trazodone 150 mg PO BEDTIME PRN triamcinolone acetonide 0.5% 1 appl topical BID PRN Tobacco use date assessed: 06/20/25 Dental Screening Dental Screen Date: 06/20/25 Did you have a dental visit in the last 12 months?: No Did you have a dental problem in the last 6 months where you did not have access to dental care?: No Was dental information given to patient?: No HPI [facility]u HPI Details Patient comes in today for his follow up visit States that he feels okay and that his previous chronic pain over his lower back has subsided/improved a lot with the SI joint injection that he received from pain management a few months ago States that he was advised by pain management to just given them a call whenever his pain starts to flare up again and his [employer] states that after his previous injection, his symptoms were well-controlled for more than 6 months before he needed to get another shot He denies any headaches or dizziness Denies any chest pains or increased SOB No nausea/vomiting, no abdominal pain No change in bowel habits noted Needs his omeprazole Rx refilled today He had his follow up labs done a couple of weeks ago - to discuss his results [facility] Medical History Neuropathy Dermatitis Constipation Obstructive sleep apnea hypopnea, severe Vitamin D deficiency Lumbar degenerative disc disease Chest pain Obesity (BMI 30-39.9) Insomnia GERD without esophagitis Pure hypercholesterolemia Epilepsy 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 Mother No problems noted. Social History Housing: House Housing Other:: rents a room Alcohol intake: never Patient Tobacco Use Status: Former Tobacco user e-Cigarette/Vaping Use: Never Used Second Hand Smoke Exposure: Yes Advance Directives Date on File: 07/19/20 service: No Current occupational status: disabled Cognitive needs: No Hearing needs: No Vision needs: No Questionnaire PHQ-9 Over the last 2 weeks, how often have you been bothered by any of the following problems? Depression Screening Interpretation: Positive Depression Screening Follow-up: Existing condition and In treatment Depression Screening Done: Yes Source: Developed by Drs. Griffin Chapman, Stella Garcia, Jose Manuel Us and colleagues, with an educational lux from [employer]. Thrive Questionnaire Date Thrive assessed: 02/09/25 I am a: Patient What is your living situation today?: I have a steady place to live Within the past 12 months, did the food you bought not last and you didn't have the money to get more?: Never true Within the past 12 months, did you worry whether your food would run out before you got money to buy more?: Never true Do you have trouble paying for medicines?: No Do you have trouble getting transportation to medical appointments?: No Do you have trouble paying your heating and electricity bill?: No Do you have trouble taking care of your child, family member or friend?: No Do you have trouble with day-to-day activities such as bathing, preparing meals, shopping, managing finances, etc.?: No Are you currently unemployed and looking for a job?: No Are you interested in more education?: No Please select the resources that you would like help with: None Currently or been in a relationship where the following occur: No concerns reported THRIVE Score: 0 AUDIT C Alcohol Use Questionnaire (AUDIT-C) 1. How often do you have a drink containing alcohol?: Never 3. How often do you have six or more drinks on one occasion?: Never Total Score: 0 Score Reviewed/Action Taken: Yes VANCE-7 AMB Questionnaire VANCE-7 Date VANCE - 7 assessed: 02/09/25 Source: Developed by Drs. Griffin Chapman, Stella Garcia, Jose Manuel Us and colleagues, with an educational lux from [employer]. Review of Systems Const Denies chills, Denies fatigue, Denies fever(s) and Denies headache(s) ENT Denies dysphagia, Denies dizziness, Denies otalgia, Denies headache(s), Denies neck pain, Denies odynophagia and Denies sore throat Card Denies chest pain, Denies palpitations and Denies dyspnea Resp Denies chest congestion, Denies cough and Denies dyspnea GI Denies abdominal pain, Denies constipation, Denies dysphagia, Denies heartburn, Denies diarrhea, Denies nausea, Denies odynophagia and Denies vomiting Denies dysuria, Denies nocturia and Denies urinary frequency Musc Reports back pain (over the right lower back - chronic but (+) relief with SIJ injections) and Denies neck pain Skin/Breast Denies rash Neuro Denies dizziness, Denies headache(s) and Denies convulsions Endo Denies fatigue and Denies palpitations Physical exam (Primary Care) Vital Signs: Last Vital Signs Pulse 97 06/20/25 10:27 BP 122/80 06/20/25 10:27 Pulse Ox 96 06/20/25 10:27 Oxygen Delivery Method Room Air 06/20/25 10:27 BMI result Body Mass Index 38.2 Tobacco/Smoking Status: Tobacco use Status Tobacco use date assessed 06/20/25 06/20/25 10:39 Patient Tobacco Use Status Former Tobacco user 06/20/25 10:39 e-Cigarette/Vaping Use Never Used 06/20/25 10:39 Depression Screening Interpretation: Positive Depression Screening Follow-up: Existing condition and In treatment Thrive Assessment: Date of Thrive Assessment Date Thrive assessed 02/09/25 06/20/25 10:39 Currently or been in a relationship where the following occur: No concerns reported Const General: no acute distress and alert HENMT Ears: TM's normal bilaterally and EAC's normal Throat: Yes posterior oropharynx normal and Yes tonsils normal (no TP congestion) Neck Neck: Yes supple and No lymphadenopathy Thyroid: Thyroid normal Resp Auscultation: clear to auscultation bilaterally, no rales and no wheezes Cardio Rate: regular rate Rhythm: regular rhythm Heart sounds: no murmurs GI Palpation (GI): Soft to palpation and nontender Auscultation: normal bowel sounds General: Yes no CVA tenderness Back/Spine/Pelvis Back: no CVA tenderness Thoracic/Lumbar Spine: lumbar spinal tenderness (more on the right side) Sacroiliac joints: on the right tender to palpation Skin Rashes: no rashes Extrem General: Yes no clubbing, cyanosis or edema Results Reviewed Results Reviewed: Laboratory Tests 06/08/25 06/08/25 11:42 12:05 WBC 8.2 Hgb 12.4 L Hct 39.0 L Plt Count 186 Sodium 142 Potassium 4.1 Creatinine 0.63 Estimated GFR > 60 Fasting Glucose 118 H Hemoglobin A1c % 6.7 H Calcium 10.1 D Iron 65 TIBC 232 % Saturation 28 Ferritin 125 AST 20 ALT 18 Triglycerides 93 Cholesterol 102 LDL Cholesterol, Calc 44 HDL Cholesterol 40 L Vitamin B12 897 Methylmalonic Acid 110 25-OH Vitamin D Total 52.6 Homocysteine 8.1 TSH 1.91 Ur Specific Collins 1.015 Urine Protein Negative Urine Glucose (UA) Negative Urine Ketones Negative Urine Blood Negative Urine Nitrite Negative Ur Leukocyte Esterase Negative Levetiracetam 17.8 Coding Level of Care Code Est Pt Level 4 (84353) Diagnoses Type 2 diabetes mellitus with diabetic neuropathy, with long-term current use of insulin E11.40; Z79.4 Diabetes mellitus long-term insulin use: with 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 Pure hypercholesterolemia E78.00 Nonintractable epilepsy without status epilepticus, unspecified epilepsy type G40.909 Epilepsy type: unspecified Intractability: not intractable Status epilepticus: without status epilepticus Neurofibromatosis Q85.00 Obstructive sleep apnea hypopnea, severe G47.33 GERD without esophagitis K21.9 Vitamin D deficiency E55.9 Constipation, unspecified constipation type K59.00 Constipation type: unspecified constipation type Degeneration of intervertebral disc of lumbar region with discogenic back pain M51.360 Disc-related pain type: discogenic back pain only Primary insomnia F51.01 Insomnia type: primary Episode of recurrent major depressive disorder, unspecified depression episode severity F33.9 Depression Type: major depressive disorder Major depression recurrence: recurrent Active/Remission status: currently active Major depression episode severity: unspecified Obesity (BMI 30-39.9) E66.9 Assessment & Plan Assessment & Plan (1) Type 2 diabetes mellitus with diabetic neuropathy: Code(s): E11.40 - Type 2 diabetes mellitus with diabetic neuropathy, unspecified Category: Medical Qualifiers: Diabetes mellitus long-term insulin use: with long-term use Qualified Code(s): E11.40 - Type 2 diabetes mellitus with diabetic neuropathy, unspecified; Z79.4 - technician terminal and repeater (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) use of insulin Plan: His HgbA1c was at 6.7% on his labs done a couple of weeks ago (was previously at 6.3% a few months ago) - goal is at least < 7.0% Reinforced diabetic diet Continue Metformin 1000 mg BID and Lantus 33 units SQ Q HS (2) Pure hypercholesterolemia: Code(s): E78.00 - Pure hypercholesterolemia, unspecified Category: Medical Plan: Results of his labs done a couple of weeks ago reviewed and discussed with patient Reinforced low cholesterol diet Continue Simvastatin 40 mg Q HS Will recheck his labs and fasting lipids in 4 months for follow up (3) Epilepsy: Code(s): G40.909 - Epilepsy, unspecified, not intractable, without status epilepticus Category: Medical Qualifiers: Epilepsy type: unspecified Intractability: not intractable Status epilepticus: without status epilepticus Qualified Code(s): G40.909 - Epilepsy, unspecified, not intractable, without status epilepticus Plan: Stable with no recent seizures Continue Levetiracetam 1000 mg po BID Follow-up with neurology as scheduled (4) Neurofibromatosis: Code(s): Q85.00 - Neurofibromatosis, unspecified Category: Medical Plan: 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 Follow up with neurology as scheduled (5) Obstructive sleep apnea hypopnea, severe: Comment: sleep study done at [facility] [place] revealed (+) severe KARLOS Code(s): G47.33 - Obstructive sleep apnea (adult) (pediatric) Category: Medical Plan: Patient reportedly had a sleep study done here at [facility] several years ago but stat es that despite being advised that he has sleep apnea, he was never provided or set up with a CPAP device afterwards and they would like to have patient get reassessed for this again We were able to pull up a sleep study report back in 2017 that revealed (+) severe KARLOS Follow-up with sleep medicine as scheduled (6) GERD without esophagitis: Code(s): K21.9 - Gastro-esophageal reflux disease without esophagitis Category: Medical Plan: Dietary restrictions reinforced Continue Omeprazole 40 mg QD - Rx refilled (7) Vitamin D deficiency: Code(s): E55.9 - Vitamin D deficiency, unspecified Category: Medical Plan: Continue Vitamin D3 2000 units QD (8) Constipation: Code(s): K59.00 - Constipation, unspecified Category: Medical Qualifiers: Constipation type: unspecified constipation type Qualified Code(s): K59.00 - Constipation, unspecified Plan: Reinforced increased oral fluids and dietary fiber intake Continue Miralax 17 gm QD (9) Lumbar degenerative disc disease: Code(s): M51.36 - Other intervertebral disc degeneration, lumbar region Category: Medical Qualifiers: Disc-related pain type: discogenic back pain only Qualified Code(s): M51.360 - Other intervertebral disc degeneration, lumbar region with discogenic back pain only Plan: Reinforced activity and weight-lifting restrictions Continue Lidocaine 5% patches QD PRN and Gabapentin 300 mg TID Follow up with pain management as scheduled - he has been getting right SI joint injections from pain management, which he states are helping (10) Insomnia: Code(s): G47.00 - Insomnia, unspecified Category: Medical Qualifiers: Insomnia type: primary Qualified Code(s): F51.01 - Primary insomnia Plan: Sleep hygiene reinforced Continue Trazodone 150 mg Q HS PRN (11) Depression: Code(s): F32.9 - Major depressive disorder, single episode, unspecified Category: Medical Qualifiers: Depression Type: major depressive disorder Major depression recurrence: recurrent Active/Remission status: currently active Major depression episode severity: unspecified Qualified Code(s): F33.9 - Major depressive disorder, recurrent, unspecified Plan: Continue Citalopram 20 mg QD Follow-up with psychiatry as scheduled (12) Obesity (BMI 30-39.9): Code(s): E66.9 - Obesity, unspecified Category: Medical Plan: Reinforced diet/exercise as tolerated/lose weight Plan Follow-up in 4 months Orders: Orders Complete Blood Count Auto Diff 4 Months D64.9 - Anemia, unspecified Comprehensive [place]. Panel Fast 4 Months E78.00 - Pure hypercholesterolemia, unspecified Lipid Panel 4 Months E78.00 - Pure hypercholesterolemia, unspecified TSH reflex Free T4 4 Months E78.00 - Pure hypercholesterolemia, unspecified Levetiracetam Keppra 4 Months G40.909 - Epilepsy, unspecified, not intractable, without status epilepticus Hemoglobin A1c 4 Months E11.9 - Type 2 diabetes mellitus without complications Microalbumin, Random (w Creat) 4 Months E11.9 - Type 2 diabetes mellitus without complications UA CC w/rflx Micro + Cult 4 Months R30.0 - Dysuria Medications: Refilled omeprazole 40 mg PO QAM 30 caps 3RF 30 days
--- OUTSIDE RECORDS SUMMARY | 2025-06-20 11:25 | XMS_ITS | Encounter Summary ---
Author Organization [facility] Address [address] [place] [address] Care Team Providers Care Box Sealing Machine Catcher Name Role Phone Unavailable Primary Care Provider Unavailabl e Encounter Details Date Type Department Care Team (Latest Contact Info) Description 02/18/2019 Abstract [facility] CONVERSIONS Dental, Provider, DDS Social History [...]
--- OUTSIDE RECORDS SUMMARY | 2025-06-20 11:25 | XMS_ITS | Encounter Summary ---
Author Organization [employer] Address [address] [place] [address] Care Team Providers Care Customer Engagement Manager Name Role Phone Unavailable Primary Care Provider Unavailabl e Encounter Details Date Type Department Care Team (Late st Contact Info) Description 05/06/2023 Abstract [facility] ADULT D[facility]AL [address] [place] [address] Dasha, Vikki [address], [place] [id number] Social History Tobacco Use Types Packs/Day Years [...]
--- OUTSIDE RECORDS SUMMARY | 2025-06-20 11:25 | XMS_ITS | Clinical Summary ---
Author Organization [employer] Address [address] [place] [address] Care Team Providers Care Histology Technologist Name Role Phone Unavailable Primary Care Provider [...] Relevant to Health Maintenance Insurance DENTAL - [facility]
== END 2025-06-20 11:10 | disposition home or self-care (01) ==
LOC: HO.HMCH 10:16
PROVIDERS: PCP Internal Medicine; Visit Provider Internal Medicine
DX: E11.40 Type 2 diabetes mellitus with diabetic neuropathy, unspecified (principal); Z79.4 Long term (current) use of insulin; G40.909 Epilepsy, unspecified, not intractable, without status epilepticus; Q85.00 Neurofibromatosis, unspecified; E66.9 Obesity, unspecified; E78.00 Pure hypercholesterolemia, unspecified; F33.9 Major depressive disorder, recurrent, unspecified; Z68.38 Body mass index [BMI] 38.0-38.9, adult; G47.33 Obstructive sleep apnea (adult) (pediatric); K21.9 Gastro-esophageal reflux disease without esophagitis; E55.9 Vitamin D deficiency, unspecified; K59.00 Constipation, unspecified

== ENCOUNTER → 2025-06-20 10:15 | Outpatient (BNVA) | payer OTHER, SELFPAY | PROVIDERS: PCP Internal Medicine; Visit Provider Internal Medicine | DX: M51.360 Other intervertebral disc degeneration, lumbar region with discogenic back pain only (principal); E11.40 Type 2 diabetes mellitus with diabetic neuropathy, unspecified; E78.00 Pure hypercholesterolemia, unspecified; Q85.00 Neurofibromatosis, unspecified; G47.33 Obstructive sleep apnea (adult) (pediatric); K21.9 Gastro-esophageal reflux disease without esophagitis; E55.9 Vitamin D deficiency, unspecified; K59.00 Constipation, unspecified; F51.01 Primary insomnia; F33.9 Major depressive disorder, recurrent, unspecified; E66.9 Obesity, unspecified; D64.9 Anemia, unspecified; G40.909 Epilepsy, unspecified, not intractable, without status epilepticus; R30.0 Dysuria; Z68.32 Body mass index [BMI] 32.0-32.9, adult; Z79.4 Long term (current) use of insulin | CPT/HCPCS: 99212 ==

== ENCOUNTER 2025-09-06 13:53 | Outpatient (AMB) | payer OTHER, SELFPAY ==
--- NOTE | 2025-09-06 14:05 | MHC.OFFVIS ---
Vital Signs 09/06/25 14:08 Height 5 ft 5 in BP 126/76 Blood Pressure Location Lt brachial Position Sitting Pulse 84 Pulse Source Pulse Oximeter Pulse Oximetry (%) 96 Oxygen Delivery Method Room Air Intake Visit Reasons: 3 mo follow up Intake Note: Patient presents follow up KARLOS medication. Labs in chart. Has not heard from anyone about restarting CPAP Pest Control Operator Required: Yes Pest Control Operator Language: Propeller Layout Worker Services: Pest Control Operator Offered & Declined Pest Control Operator Name: Benigno Shah Information Interpreted: non-clinical & clinical Accompanied by: Son Allergies No Known Allergies (No Known Allergies*) Allergy (Verified 09/06/25 14:11) HPI Comments Details: 65 year old Sammarinese speaking male, with a h/o seizure disorder is here for review of sleep apnea. Interval Med Hx: No recent h/o of seizures since last visit he is on Keppra 1000mg po BID for over 5 years. 01/2025 HST c/w moderate karlos AHI is 17 and oxygen desaturation to 81%, start cpap [id number]. He says he feels as if he is going to fall off a jose when using his cpap and he returned the cpap after 2x falls from his bed. He felt as if he was suffocating due to the forceful pressures, choking, gasping for air, so he gave up on cpap. Pt is willing to retrial use of cpap once again with a full face mask. He has difficulty falling asleep, we discussed taking trazadone and placed the bed on the floor for his safety at night. He snores loudy, mood is irritable, gets grouchy with people easily. Has chronic fatigue, and morning headaches that improve with one cup of coffee.He attends an adult day program 3x times/week from 7am to 2pm. RLS symptoms, he has burning bilateral foot pain which keeps him up at night, with paresthesias, pins, needles, and an uncomfortable sensation that improves with Gabapentin 300mg PO TID. His memory is poor he forgets where he places items, can not find them, has difficulty with word finding and can't recall names, has microvascular ischemic changes on ctscan. He has internal self talk, with / seeing people who are in his room, usually his parents and brothers. He speaks with his therapist once a month. His diet is poor. Reviewed Labs ctscan and HST with his friend family friend Castro pabon. We discussed the importance of cpap use and optimization of health. Pt. states he understand and will trial cpap once again. 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 Mother No problems noted. Social History Housing: House Housing Other:: rents a room Alcohol intake: never Patient Tobacco Use Status: Former Tobacco user e-Cigarette/Vaping Use: Never Used Second Hand Smoke Exposure: Yes Advance Directives Date on File: 07/19/20 service: No Current occupational status: disabled Cognitive needs: No Hearing needs: No Vision needs: No Physical Exam Vital Signs: Last Vital Signs Pulse 84 09/06/25 14:08 BP 126/76 09/06/25 14:08 Pulse Ox 96 09/06/25 14:08 Oxygen Delivery Method Room Air 09/06/25 14:08 Const General: cooperative, comfortable and no acute distress Nutritional Appearance: obese Orientation/consciousness: patient oriented x3 HEENT Face and sinus: Yes normal facial exam and Yes face symmetric Throat: Yes other ([place] score of 2) Eyes Pupils: Equal, round and reactive pupils present Resp Effort & Inspection: normal respiratory effort and able to speak in complete sentences Neuro Other: Bilateral upper ext tremors, oral tremors. Neck pain with limited ROM bilaterally Gait is off, sways and leans to the l. side General: patient oriented x3 and moves all extremities Cranial nerves: Yes Facial sensation intact/muscles of mastication intact, Yes Equal, round and reactive pupils present, Yes Normal accommodation reflex present, Yes Bilaterally intact EOM present, Yes Normal facial strength present, Yes Midline tongue present and Yes Ability to bilaterally elevate shoulders present Gait exam (Neuro): Staggering gait present and Other gait observations present (Leans to the left) Motor exam (neuro): 5/5 motor strength present throughout and Normal motor muscle tone present throughout Psych Appearance: well kempt Mental Status: other (can not assess visual and auditory hallucinations) Speech and movement: Slowed movement present (Neuro) Affect: normal affect Thought process: Normal thought process present Thought content: Normal thought content present Results Reviewed Results Reviewed: FINDINGS: There is no evidence of acute intracranial hemorrhage or territorial infarction. Chronic white matter small vessel ischemic changes. No abnormal mass effect or midline shift is seen. Mace to white matter differentiation is well preserved. No extra-axial fluid collections are identified. The ventricles are normal in size. There is no abnormal attenuation within the brain parenchyma. Mild hyperostosis frontalis interna. The osseous structures and soft tissues are normal. Decreased quantity of the right mastoid air cells. The mastoid air cells and visualized portions of the paranasal sinuses are well aerated. HST c/w severe karlos AHI is 18 and O2 desaturation to 82%. Assessment & Plan Assessment & Plan (1) KARLOS (obstructive sleep apnea): Comment: panic attacks did not tolerate cpap will retrial him Code(s): G47.33 - Obstructive sleep apnea (adult) (pediatric) Category: Medical (2) Fatigue due to sleep pattern disturbance: Code(s): R53.83 - Other fatigue; G47.9 - Sleep disorder, unspecified Category: Medical (3) RLS (restless legs syndrome): Code(s): G25.81 - Restless legs syndrome Category: Medical (4) Bilateral neck pain: Comment: declines pt Code(s): M54.2 - Cervicalgia Category: Medical (5) Anxiety: Comment: trazadone Code(s): F41.9 - Anxiety disorder, unspecified Category: Medical (6) Gait difficulty: Code(s): R26.9 - Unspecified abnormalities of gait and mobility Category: Medical (7) Irritable mood: Code(s): R45.4 - Irritability and anger Category: Medical Plan KARLOS HST c/w moderate karlos AHI is 17, start cpap therapy [id number], will send rx and change mask for a full mask and new order is sent for machine and retrial on cpap. Start magnesium 200-400mg po daily at bedtime. Labs reviewed with patient today and he is anemic, will re-check in 3 months. RLS/ peripheral neuropathy continue Gabapentin continue 300 mg po TID. Anxiety and depression increase citalopram from 20mg po daily to 30mg po daily, he is having Auditory / Visual Hallucinations with internal dialogues. Continue Trazadone for sleep and Melatonin 6mg po, Continue B12 1000mcg daily and Vitamin D 2000units daily. Continue Levetiracetam/keppra for seizure disorder 1000mg po bid Continue Walking daily and if not tolerable, swimming may be easier on the joints. [employer] to get into the water or bike for 10min. f/u in 3 months for compliance. Medications: New magnesium oxide 400 mg PO DAILY 90 tabs 3RF 3 months Patient Instructions: Please complete the following fasting labs to rule out deficiencies. CBC/CMP/ B12/ Vit D/ TSH/ Homocysteine and MMA/ Ferritin. Sleep Hygiene provided: set a scheduled bedtime and wake time to help regulate the circadian rhythm and balance the release of pituitary hormones. Sleep in a dark room, temperatures below 68 degrees, and no devices n bed. Limit caffeinated products 6 hours prior to bed, and limit fluids 2-4 hours prior to bed. Gentle night yoga, diffusing essential oils, and playing soft music can be relaxing. Coding Level of Care Code Est Pt Level 4 (28438) Diagnoses KARLOS (obstructive sleep apnea) G47.33 Fatigue due to sleep pattern disturbance R53.83; G47.9 RLS (restless legs syndrome) G25.81 Bilateral neck pain M54.2 Anxiety F41.9 Gait difficulty R26.9 Irritable mood R45.4
[2025-09-06 14:08] VITALS: BP 126/76; PULSE 84; O2SAT 96
--- OUTSIDE RECORDS SUMMARY | 2025-09-06 18:05 | XMS_ITS | Encounter Summary ---
Author Organization [employer] Address [address] [place] [address] Care Team Providers Care Brimmer Blocker Name Role Phone Unavailable Primary Care Provider Unavailabl e Encounter Details Date Type Department Care Team (Late st Contact Info) Description 05/06/2023 Abstract [facility] [address] [place] [address] Dasha, Vikki [address] [place], [place] [id number] Social History Tobacco Use Types Packs/Day Years [...]
--- OUTSIDE RECORDS SUMMARY | 2025-09-06 18:05 | XMS_ITS | Clinical Summary ---
Author Organization [employer] Address [address] [place] [address] Care Team Providers Care Trimmer Sorter Name Role Phone Unavailable Primary Care Provider [...] Use Screening 1974 Hepatitis C Screening 02/12/1980 RSV Patients and Patients Aged 60 years or older (1 - Risk 50-74 years 1-dose series) 02/12/2012 Pneumococcal Vaccine: 50+ Years (2 of 2 - PCV) 07/04/2015 07/04/2014 Zoster Vaccines (2 of 2) 01/22/2022 11/27/2021 DTaP/Tdap/Td Vaccines (2 - Td or Tdap) [...] Relevant to Health Maintenance Insurance DENTAL - [facility]
--- OUTSIDE RECORDS SUMMARY | 2025-09-06 18:05 | XMS_ITS | Encounter Summary ---
Author Organization [facility] Address [address] [place] [address] Care Team Providers Care Landscape Architecture Teacher Name Role Phone Unavailable Primary Care Provider Unavailabl e Encounter Details Date Type Department Care Team (Latest Contact Info) Description 02/18/2019 Abstract [facility] CONVERSIONS Dental, Provider, DDS Social History [...]
== END 2025-09-06 14:53 | disposition home or self-care (01) ==
LOC: HO.HSMS 13:54
PROVIDERS: PCP Internal Medicine; Visit Provider Physician Assistant Medical
DX: G47.33 Obstructive sleep apnea (adult) (pediatric) (principal); R53.83 Other fatigue; G47.9 Sleep disorder, unspecified; G25.81 Restless legs syndrome; M54.2 Cervicalgia; F41.9 Anxiety disorder, unspecified; R26.9 Unspecified abnormalities of gait and mobility; R45.4 Irritability and anger
CPT/HCPCS: 99214

== ENCOUNTER → 2025-09-06 13:53 | Outpatient (BNVA) | payer OTHER, SELFPAY | PROVIDERS: PCP Internal Medicine; Visit Provider Physician Assistant Medical | DX: G47.33 Obstructive sleep apnea (adult) (pediatric) (principal); F41.8 Other specified anxiety disorders; G47.9 Sleep disorder, unspecified; G25.81 Restless legs syndrome; M54.2 Cervicalgia; R53.83 Other fatigue; R26.9 Unspecified abnormalities of gait and mobility; R45.4 Irritability and anger; Z79.899 Other long term (current) drug therapy; Z99.89 Dependence on other enabling machines and devices | CPT/HCPCS: 99212 ==